=== PATIENT | female | born 1950 | race Caucasian/White ===

== ENCOUNTER 2022-06-30 11:25 | Emergency (ER) | payer MEDICARE, OTHER ==
[2022-06-30] MEDS ORDERED: KETOROLAC 15 MG/ML 1 ML VIAL IM STA (11:58)
--- NOTE | 2022-06-30 12:02 | ED ---
Lower Extremity Injury HPI - General Chief Complaint: Extremity Injury, Lower Stated Complaint: Knee injury Time Seen by Provider: 06/30/22 11:54 Source: patient, RN notes reviewed, old records reviewed Mode of arrival: ambulatory Limitations: no limitations - History of Present Illness Initial Comments: This is a nontoxic-appearing 71-year-old female that presents to the emergency room with complaints of right knee pain. Patient states that she was at the store yesterday and bent down to tie her shoe and was hit from behind falling forward onto her right knee. Patient states she does have chronic right knee pain and takes Absecon for her pain. Increased swelling and pain today prompted her to come to the emergency room for evaluation. Patient states has been ambulatory. Denies any other injury. Denies any medical history. Is a daily smoker. MD Complaint: knee injury (right) -: days(s) (1) Type of Injury: blunt (fall) Place: other (store) Severity scale (1-10): 10 Worsens With: palpation Context: fall Treatments Prior to Arrival: other (norco) - Related Data Previous Rx's Medication Instructions Recorded Ibuprofen [Motrin] 400 mg PO Q8HR PRN #30 tab 06/30/22 Allergies Allergy/AdvReac Type Severity Reaction Status Date / Time No Known Allergies Allergy Verified 06/30/22 11:51 Review of Systems ROS Statement: Those systems with pertinent positive or pertinent negative responses have been documented in the HPI. ROS Other: All systems not noted in ROS Statement are negative. Past Medical History Past Medical History: No Reported History Past Surgical History: No Surgical Hx Reported Smoking Status: Current every day smoker Past Alcohol Use History: None Reported Past Drug Use History: None Reported General Exam Limitations: no limitations General appearance: alert, in no apparent distress Head exam: Present: atraumatic Eye exam: Present: normal appearance. Absent: scleral icterus, conjunctival injection, periorbital swelling Respiratory exam: Absent: respiratory distress, accessory muscle use Cardiovascular Exam: Present: regular rate Right Hip exam: Present: full ROM. Absent: tenderness, swelling Upper Leg exam: Present: full ROM. Absent: tenderness, swelling Knee exam: Present: tenderness, swelling, ecchymosis, effusion, full knee extension. Absent: abrasion, laceration, dislocation, erythema Lower Leg exam: Absent: tenderness, swelling Ankle exam: Absent: tenderness, swelling Neurovascular tendon exam: Present: no vascular compromise. Absent: abnormal cap refill, extremity cold to touch, foot drop Neurological exam: Present: alert, oriented X3 Psychiatric exam: Present: normal affect, normal mood Skin exam: Present: warm, dry, normal color. Absent: cyanosis, diaphoretic, petechiae, pallor Course Vital Signs 06/30/22 06/30/22 11:49 12:40 Temperature 98.0 F 98.2 F Pulse Rate 82 56 L Respiratory 20 14 Rate Blood Pressure 110/71 103/68 O2 Sat by Pulse 95 96 Oximetry Medical Decision Making - Medical Decision Making Was pt. sent in by a medical professional or institution (, PA, WOMEN'S SOCCER COACH, urgent care, hospital, or group home...) When possible be specific @ -No Did you speak to anyone other than the patient for history (EMS, parent, family, police, friend...)? What history was obtained from this source @ -No Did you review nursing and triage notes (agree or disagree)? Why? @ -I reviewed and agree with nursing and triage notes Were old charts reviewed (outside hosp., previous admission, EMS record, old EKG, old radiological studies, urgent care reports/EKG's, group home records)? Report findings @ -No old charts were reviewed Differential Diagnosis (chest pain, altered mental status, abdominal pain women, abdominal pain men, vaginal bleeding, weakness, fever, dyspnea, syncope, headache, dizziness, GI bleed, back pain, seizure, CVA, palpatations, mental health, musculoskeletal)? @ -Fracture, dislocation, contusion, arthritis EKG interpreted by me (3pts min.). @ -n/a X-rays interpreted by me (1pt min.). @ -Yes. X-ray of the right knee interpreted by me shows no evidence of fracture or dislocation. Patella appears to be intact. Radiologist interpretation shows no acute fracture or dislocation. Severe narrowing and spurring medial tibial femoral compartment. Moderate narrowing and spurring patellofemoral compartment. Osseous structures are demineralized. CT interpreted by me (1pt min.). @ -None done U/S interpreted by me (1pt. min.). @ -None done What testing was considered but not performed or refused? (CT, X-rays, U/S, labs)? Why? @ -None What meds were considered but not given or refused? Why? @ -None Did you discuss the management of the patient with other professionals (professionals i.e. , PA, WOMEN'S SOCCER COACH, lab, RT, psych nurse, social services director, inspector clip on sunglasses, teacher, jail officer, upper caser)? Give summary @ -No Was smoking cessation discussed for >3mins.? @ -yes Was critical care preformed (if so, how long)? @ -No Were there social determinants of health that impacted care today? How? (Homel essness, low income, unemployed, alcoholism, drug addiction, transportation, low edu. Level, literacy, decrease access to med. care, senior care, rehab)? @ -No Was there de-escalation of care discussed even if they declined (Discuss DNR or withdrawal of care, Hospice)? DNR status @ -No What co-morbidities impacted this encounter? (DM, HTN, Smoking, COPD, CAD, Cancer, CVA, ARF, Chemo, Hep., AIDS, mental health diagnosis, sleep apnea, morbid obesity)? @ -Smoking Was patient admitted / discharged? Hospital course, mention meds given and route, prescriptions, significant lab abnormalities, going to OR and other pertinent info. @ -Discharged. Patient fell from a kneeling position onto her right knee yesterday with increased pain today. Patient has full range of motion of the knee, full extension and to 90. She states she does have arthritis in the knee which she takes Absecon for. She is able to ambulate and bear weight. Skin is intact. Patient instructed to continue her Absecon for pain in addition to topical pain relievers like Voltaren or capsaicin creams. Follow up with her primary care doctor as needed. Patient is agreeable able to this plan of care. Case discussed with Dr. Kenney Undiagnosed new problem with uncertain prognosis? @ -No Drug Therapy requiring intensive monitoring for toxicity (Heparin, Nitro, Insulin, Cardizem)? @ -No Were any procedures done? @ -No Diagnosis/symptom? @ -Internal derangement right knee Acute, or Chronic, or Acute on Chronic? @ -Acute on chronic Uncomplicated (without systemic symptoms) or Complicated (systemic symptoms)? @ -Uncomplicated Side effects of treatment? @ -No Exacerbation, Progression, or Severe Exacerbation? @ -No Poses a threat to life or bodily function? How? (Chest pain, [place], MD, pneumonia, PE, COPD, DKA, ARF, appy, cholecystitis, CVA, Diverticulitis, Homicidal, Suicidal, threat to staff... and all critical care pts) @ -No Disposition Clinical Impression: Internal derangement of right knee Disposition: HOME SELF-CARE Condition: Good Instructions (If sedation given, give patient instructions): Knee Pain (ED) Additional Instructions: Continue Absecon as previously prescribed for pain. You can also try [id number] topical medications like Voltaren or capsaicin creams. Follow-up with your primary care doctor next week. Return with any new or concerning symptoms. Prescriptions: Ibuprofen [Motrin] 400 mg PO Q8HR PRN #30 tab PRN Reason: Pain Is patient prescribed a controlled substance at d/c from ED?: No Referrals: Roxanna Barnes MD [Primary Care Provider] - 1-2 days Time of Disposition: 12:36
--- NOTE | 2022-06-30 12:28 | XR ---
EXAMINATION TYPE: XR knee 4V RT DATE OF EXAM: 06/30/2022 CLINICAL HISTORY: Fall injury with pain TECHNIQUE: Three views of the right knee are obtained. Fourth sunrise view. COMPARISON: None. FINDINGS: There is no acute fracture/dislocation evident in right knee. Severe narrowing and spurrin g medial tibial femoral compartment. Moderate narrowing and spurring patellofemoral compartment. Pat ellar articulation satisfactory on the sunrise view. Osseous structures are demineralized The overlyi ng soft tissue appears unremarkable. IMPRESSION: As above.
[2022-06-30 12:43] VITALS: BP 103/68; PULSE 56; RESP 14; TEMP 98.2
== END 2022-06-30 12:54 | disposition home or self-care (01) ==
LOC: EC 11:25
DX: M23.91 Unspecified internal derangement of right knee (principal); F17.200 Nicotine dependence, unspecified, uncomplicated; W18.30XA Fall on same level, unspecified, initial encounter; Y92.513 Shop (commercial) as the place of occurrence of the external cause
CPT/HCPCS: 73564; 99283; 96372; J1885

== ENCOUNTER → 2023-01-21 | Outpatient (CLI) | payer MEDICARE, OTHER ==
[2023-01-21 16:03] LABS: Calcium 9.1 mg/dL (8.7-10.3); Magnesium 2.2 mg/dL (1.5-2.4); Phosphorus 3.1 mg/dL (2.4-5.1); Potassium 4.2 mmol/L (3.5-5.5)
== END | disposition home or self-care (01) ==
LOC: LABMAIN 09:56
PROVIDERS: ATTEND Psychiatry & Neurology Neurology
DX: M62.838 Other muscle spasm (principal)
CPT/HCPCS: 82310; 82607; 83735; 84100; 84132; 84295

== ENCOUNTER 2023-08-18 22:52 | Emergency (ER) | payer MEDICARE, OTHER ==
[2023-08-18 23:04] VITALS: RESP 20
--- NOTE | 2023-08-19 00:23 | ED ---
General Adult HPI - General Chief complaint: Allergic Reaction Stated complaint: Facial swelling Time Seen by Provider: 08/18/23 23:19 Source: patient Mode of arrival: wheelchair Limitations: no limitations - History of Present Illness Initial comments: Dictation was produced using [employer] dictation software. please excuse any grammatical, word or spelling errors. Chief Complaint: 73-year-old female with facial swelling History of Present Illness: Patient 73-year-old female she has been dealing with intermittent episodes of facial swelling. Patient states she was put on a course of 5 days steroids prescribed in urgent care with almost complete resolution of symptoms until the steroids were discontinued. She follow-up with her primary care doctor and was given prescription for steroids however she fell asleep and was unable to roller picker her medications today now her pharmacy is not open until Sunday. Patient does not take lisinopril she has no history of angioedema. Patient is a tobacco user. She does feel like she has sensation like her throat is swollen. The ROS documented in this emergency department record has been reviewed and confirmed by me. Those systems with pertinent positive or negative responses have been documented in the HPI. All other systems are other negative and/or noncontributory. - Related Data Previous Rx's Medication Instructions Recorded Ibuprofen [Motrin] 400 mg PO Q8HR PRN #30 tab 06/30/22 Allergies Allergy/AdvReac Type Severity Reaction Status Date / Time No Known Allergies Allergy Verified 08/18/23 23:04 Review of Systems ROS Statement: Those systems with pertinent positive or pertinent negative responses have been documented in the HPI. ROS Other: All systems not noted in ROS Statement are negative. Past Medical History Past Medical History: No Reported History Past Surgical History: No Surgical Hx Reported Past Psychological History: Anxiety Smoking Status: Current every day smoker Past Alcohol Use History: None Reported Past Drug Use History: Marijuana General Exam - General Exam Comments Initial Comments: PHYSICAL EXAM: General Impression: Alert and oriented x3, not in acute distress, no stridor, periorbital swelling HEENT: Normocephalic atraumatic, extra-ocular movements intact, pupils equal and reactive to light bilaterally, mucous membranes moist. Cardiovascular: Heart regular rate and rhythm Chest: Able to complete full sentences, no retractions, no tachypnea Abdomen: abdomen soft, non-tender, non-distended, no organomegaly Musculoskeletal: Pulses present and equal in all extremities, no peripheral edema Motor: no focal deficits noted Neurological: CN II-XII grossly intact, no focal motor or sensory deficits noted Skin: Intact with no visualized rashes Psych: Normal affect and mood Limitations: no limitations Course Vital Signs 08/18/23 22:55 Temperature 98.3 F Pulse Rate 107 H Respiratory 20 Rate Blood Pressure 100/67 O2 Sat by Pulse 91 L Oximetry Medical Decision Making - Medical Decision Making Was pt. sent in by a medical professional or institution (, PA, LOG RAFTER, urgent care, hospital, or jail...) When possible be specific @ -No Did you speak to anyone other than the patient for history (EMS, parent, family, police, friend...)? What history was obtained from this source @ -No Did you review nursing and triage notes (agree or disagree)? Why? @ -I reviewed and agree with nursing and triage notes Were old charts reviewed (outside hosp., previous admission, EMS record, old EKG, old radiological studies, urgent care reports/EKG's, jail records)? Report findings @ -No old charts were reviewed Differential Diagnosis (chest pain, altered mental status, abdominal pain women, abdominal pain men, vaginal bleeding, musculoskeletal, weakness, fever, dyspnea, syncope, headache, dizziness, GI bleed, back pain, seizure, CVA, palpatations, mental health)? @ -Hereditary versus allergic angioedema, epiglottitis, EKG interpreted by me (3pts min.). @ -None done X-rays interpreted by me (1pt min.). @ -None done CT interpreted by me (1pt min.). @ -None done U/S interpreted by me (1pt. min.). @ -None done What testing was considered but not performed or refused? (CT, X-rays, U/S, labs)? Why? @ -None What meds were considered but not given or refused? Why? @ -None Was smoking cessation discussed for >3mins.? @ -No Were there social determinants of health that impacted care today? How? (Homelessness, low income, unemployed, alcoholism, drug addiction, transportation, low edu. Level, literacy, decrease access to med. care, halfway, rehab)? @ -No Was there de-escalation of care discussed even if they declined (Discuss DNR or withdrawal of care, Hospice)? DNR status @ -No What co-morbidities impacted this encounter? (DM, HTN, Smoking, COPD, CAD, Canc er, CVA, ARF, Chemo, Hep., AIDS, mental health diagnosis, sleep apnea, morbid obesity)? @ -None Was patient admitted / discharged? Hospital course, mention meds given and route, prescriptions, significant lab abnormalities, going to OR and other pertinent info. @ -73-year-old female presents emergency department facial swelling that she states is allergic in nature. Vital signs are stable. Patient is well- appearing she does have some swelling around her periorbital area. Vital signs are stable. Patient has no stridor not show any respiratory distress. Patient requesting medication to bridge her until Sunday when she can roller picker her steroid prescription. Patient agreeable for IM Decadron. Patient cleared for discharge. She has no oral swelling. Patient no acute distress. Return precautions discussed. Did you discuss the management of the patient with other professionals (professionals i.e. , PA, LOG RAFTER, lab, RT, psych nurse, social human services assistants, truck striker, teacher, division officer weapons department, case technician)? Give summary @ -No Was critical care preformed (if so, how long)? @ -No Undiagnosed new problem with uncertain prognosis? @ -No Drug Therapy requiring intensive monitoring for toxicity (Heparin, Nitro, Insulin, Cardizem)? @ -No Were any procedures done? @ -No Diagnosis/symptom? Acute, or Chronic, or Acute on Chronic? Uncomplicated (without systemic symptoms) or Complicated (systemic symptoms)? @ -Facial swelling, no obvious source Side effects of treatment? @ -No Exacerbation, Progression, or Severe Exacerbation? @ -No Poses a threat to life or bodily function? How? (Chest pain, [place], [place], pneumonia, PE, COPD, DKA, ARF, appy, cholecystitis, CVA, Diverticulitis, Homicidal, Suicidal, threat to staff... and all critical care pts) @ -No Disposition Clinical Impression: Facial swelling Disposition: HOME SELF-CARE Condition: Good Instructions (If sedation given, give patient instructions): Allergies (ED) Is patient prescribed a controlled substance at d/c from ED?: No Referrals: Ferdinand Marley MD [Primary Care Provider] - 1-2 days Miguel Hancock MD [STAFF PHYSICIAN] - 1-2 days Time of Disposition: 00:23
[2023-08-19] MEDS: DEXAMETHASONE SOD PHOSPHATE 10 MG/ML 1 ML VIAL IM STA (00:37)
[2023-08-19 01:18] VITALS: BP 122/92; PULSE 101; TEMP 98.2
== END 2023-08-19 00:41 | disposition home or self-care (01) ==
LOC: EC 22:52
DX: R22.9 Localized swelling, mass and lump, unspecified (principal); F17.200 Nicotine dependence, unspecified, uncomplicated; F12.90 Cannabis use, unspecified, uncomplicated
CPT/HCPCS: 99283; 96372; J1100

== ENCOUNTER 2023-09-21 19:44 | Inpatient (IN) | payer MEDICARE, OTHER ==
[~2023-09-21 19:44] MED LIST: PROPOFOL 10 MG/ML 50 ML VIAL IV ONE; SODIUM CHLORIDE 0.9% 1,000 ML BAG ONE; fentaNYL (PF) 50 MCG/ML 2 ML AMP ONE
[2023-09-21] MEDS ORDERED: fentaNYL (PF) 50 MCG/ML 20 ML VIAL ONE (19:50)
[2023-09-21] MEDS ORDERED: SODIUM CHLORIDE 0.9% 100 ML BAG IV ONE (19:50)
[2023-09-21] MEDS ORDERED: INSULIN REGULAR 100 UNIT/ML VIAL (IV) ONE (20:15)
[2023-09-21] MEDS ORDERED: CALCIUM GLUCONATE IN NACL 2 GM/100 ML IVPB ONE (20:50)
[2023-09-22] MEDS ORDERED: propofoL 100 ML IV ONE (03:02)
[2023-09-22] MEDS ORDERED: HEPARIN SODIUM,PORCINE 5,000 UNIT/ML 1 ML VIAL ONE ×2 (08:43→19:53)
[2023-09-22] MEDS ORDERED: methylPREDNISolone SOD SUCCI 125 MG/2 ML VIAL ONE ×3 (08:43→19:53)
[2023-09-22] MEDS ORDERED: FAMOTIDINE 20 MG/2 ML VIAL ONE ×2 (08:44→19:53)
[2023-09-22] MEDS ORDERED: BUDESONIDE 0.5 MG/2 ML NEBU ONE ×2 (17:29→23:59)
[2023-09-22] MEDS ORDERED: IPRATROPIUM-ALBUTEROL 3 ML NEB ONE (23:59)
[2023-09-23] MEDS ORDERED: methylPREDNISolone SOD SUCCI 125 MG/2 ML VIAL ONE ×5 (00:48→23:59)
[2023-09-23] MEDS ORDERED: IPRATROPIUM-ALBUTEROL 3 ML NEB ONE (07:54)
[2023-09-23] MEDS ORDERED: BUDESONIDE 0.5 MG/2 ML NEBU ONE ×2 (07:54→23:59)
[2023-09-23] MEDS ORDERED: HEPARIN SODIUM,PORCINE 5,000 UNIT/ML 1 ML VIAL ONE ×2 (09:05→20:20)
[2023-09-23] MEDS ORDERED: FAMOTIDINE 20 MG/2 ML VIAL ONE ×2 (09:05→20:20)
[2023-09-23] MEDS ORDERED: FUROSEMIDE 10 MG/ML 4 ML VIAL ONE (21:13)
[2023-09-23] MEDS ORDERED: PALIPERIDONE 3 MG TAB.ER.24 PO ONE (23:59)
[2023-09-23] MEDS ORDERED: SYMBICORT 160-4.5 MCG INHALER INHALATION ONE (23:59)
[2023-09-23] MEDS ORDERED: SODIUM CHLORIDE 0.9% 1,000 ML BAG ONE (23:59)
[2023-09-23] MEDS ORDERED: DEXTROSE 5%-0.45% NACL 1,000 ML BAG IV ONE (23:59)
[2023-09-23] MEDS ORDERED: INSULIN ASPART (NovoLOG) 100 UNIT/ML VIAL SQ ONE (23:59)
[2023-09-24] MEDS ORDERED: IPRATROPIUM-ALBUTEROL 3 ML NEB ONE ×2 (05:04→23:59)
[2023-09-24] MEDS ORDERED: methylPREDNISolone SOD SUCCI 125 MG/2 ML VIAL ONE ×3 (06:46→17:32)
[2023-09-24] MEDS ORDERED: FAMOTIDINE 20 MG/2 ML VIAL ONE ×2 (11:07→20:49)
[2023-09-24] MEDS ORDERED: HEPARIN SODIUM,PORCINE 5,000 UNIT/ML 1 ML VIAL ONE ×2 (11:07→20:49)
[2023-09-24] MEDS ORDERED: INSULIN ASPART (NovoLOG) 100 UNIT/ML VIAL SQ ONE (17:33)
[2023-09-24] MEDS ORDERED: HYDROcodone/APAP 10-325MG 1 EACH TAB ONE (20:54)
[2023-09-24] MEDS ORDERED: PALIPERIDONE 3 MG TAB.ER.24 PO ONE (23:59)
[2023-09-24] MEDS ORDERED: SYMBICORT 160-4.5 MCG INHALER INHALATION ONE (23:59)
[2023-09-25] MEDS ORDERED: IPRATROPIUM-ALBUTEROL 3 ML NEB ONE ×2 (04:57)
[2023-09-25] MEDS ORDERED: methylPREDNISolone SOD SUCCI 125 MG/2 ML VIAL ONE ×4 (06:37→17:24)
[2023-09-25] MEDS ORDERED: FAMOTIDINE 20 MG/2 ML VIAL ONE ×2 (10:27→20:10)
[2023-09-25] MEDS ORDERED: HEPARIN SODIUM,PORCINE 5,000 UNIT/ML 1 ML VIAL ONE ×2 (10:27→20:09)
[2023-09-25] MEDS ORDERED: METOPROLOL TARTRATE 12.5 MG TAB ONE ×2 (16:00→20:10)
[2023-09-25] MEDS ORDERED: INSULIN ASPART (NovoLOG) 100 UNIT/ML VIAL SQ ONE (17:25)
[2023-09-25] MEDS ORDERED: HYDROcodone/APAP 10-325MG 1 EACH TAB ONE (20:10)
[2023-09-25] MEDS ORDERED: diphenhydrAMINE 50 MG/ML 1 ML VIAL ONE (21:39)
[2023-09-25] MEDS ORDERED: PALIPERIDONE 3 MG TAB.ER.24 PO ONE (23:59)
[2023-09-25] MEDS ORDERED: SYMBICORT 160-4.5 MCG INHALER INHALATION ONE (23:59)
[2023-09-26] MEDS ORDERED: methylPREDNISolone SOD SUCCI 125 MG/2 ML VIAL ONE ×5 (00:19→23:57)
[2023-09-26] MEDS ORDERED: METOPROLOL TARTRATE 12.5 MG TAB ONE (06:36)
[2023-09-26] MEDS ORDERED: FAMOTIDINE 20 MG/2 ML VIAL ONE ×2 (09:10→20:46)
[2023-09-26] MEDS ORDERED: HEPARIN SODIUM,PORCINE 5,000 UNIT/ML 1 ML VIAL ONE ×2 (09:10→20:45)
[2023-09-26] MEDS ORDERED: DEXAMETHASONE SOD PHOSPHATE 10 MG/ML 1 ML VIAL ONE ×2 (12:01→12:20)
[2023-09-26] MEDS ORDERED: FUROSEMIDE 10 MG/ML 4 ML VIAL ONE (12:02)
[2023-09-26] MEDS ORDERED: INSULIN ASPART (NovoLOG) 100 UNIT/ML VIAL SQ ONE (12:57)
[2023-09-26] MEDS ORDERED: METOPROLOL TARTRATE 25 MG TAB ONE ×2 (16:36→20:46)
[2023-09-26] MEDS ORDERED: PIPERACILLIN-TAZOBACTAM 3.375 GM VIAL ONE ×2 (16:36→20:56)
[2023-09-26] MEDS ORDERED: guaiFENesin 600 MG TABLET.ER PO ONE (20:47)
[2023-09-26] MEDS ORDERED: VERAPAMIL 40 MG TAB ONE (23:59)
[2023-09-26] MEDS ORDERED: PALIPERIDONE 3 MG TAB.ER.24 PO ONE (23:59)
[2023-09-26] MEDS ORDERED: SODIUM CHLORIDE 0.9% 100 ML BAG ONE (23:59)
[2023-09-27] MEDS ORDERED: HYDROcodone/APAP 10-325MG 1 EACH TAB ONE (04:55)
[2023-09-27] MEDS ORDERED: PIPERACILLIN-TAZOBACTAM 3.375 GM VIAL ONE ×3 (06:34→20:57)
[2023-09-27] MEDS ORDERED: METOPROLOL TARTRATE 25 MG TAB ONE ×3 (06:34→20:57)
[2023-09-27] MEDS ORDERED: guaiFENesin 600 MG TABLET.ER PO ONE ×2 (11:14→20:57)
[2023-09-27] MEDS ORDERED: FAMOTIDINE 20 MG/2 ML VIAL ONE ×2 (11:14→20:58)
[2023-09-27] MEDS ORDERED: HEPARIN SODIUM,PORCINE 5,000 UNIT/ML 1 ML VIAL ONE ×2 (11:14→20:57)
[2023-09-27] MEDS ORDERED: methylPREDNISolone SOD SUCCI 125 MG/2 ML VIAL ONE ×2 (11:14→17:52)
[2023-09-27] MEDS ORDERED: INSULIN ASPART (NovoLOG) 100 UNIT/ML VIAL SQ ONE ×3 (17:53→23:59)
[2023-09-27] MEDS ORDERED: IPRATROPIUM-ALBUTEROL 3 ML NEB ONE ×2 (19:47→23:59)
[2023-09-27] MEDS ORDERED: SODIUM CHLORIDE 0.9% 100 ML BAG ONE (23:59)
[2023-09-27] MEDS ORDERED: SYMBICORT 160-4.5 MCG INHALER INHALATION ONE (23:59)
[2023-09-27] MEDS ORDERED: SODIUM CHLORIDE 0.9% 1,000 ML BAG ONE (23:59)
[2023-09-27] MEDS ORDERED: PALIPERIDONE 3 MG TAB.ER.24 PO ONE (23:59)
[2023-09-28] MEDS ORDERED: methylPREDNISolone SOD SUCCI 125 MG/2 ML VIAL ONE ×4 (00:30→23:43)
[2023-09-28] MEDS ORDERED: PIPERACILLIN-TAZOBACTAM 3.375 GM VIAL ONE ×3 (05:57→23:59)
[2023-09-28] MEDS ORDERED: METOPROLOL TARTRATE 25 MG TAB ONE ×2 (05:57→09:08)
[2023-09-28] MEDS ORDERED: POTASSIUM CHLORIDE ER 20 MEQ TAB.ER PO ONE (06:21)
[2023-09-28] MEDS ORDERED: HEPARIN SODIUM,PORCINE 5,000 UNIT/ML 1 ML VIAL ONE ×2 (09:08→20:08)
[2023-09-28] MEDS ORDERED: FAMOTIDINE 20 MG/2 ML VIAL ONE ×2 (09:08→20:08)
[2023-09-28] MEDS ORDERED: DILTIAZEM ORAL 30 MG TAB ONE ×3 (11:59→23:43)
[2023-09-28] MEDS ORDERED: TAMSULOSIN 0.4 MG CAP.ER.24H PO ONE (18:13)
[2023-09-28] MEDS ORDERED: METOPROLOL TARTRATE 50 MG TAB ONE (20:08)
[2023-09-28] MEDS ORDERED: WATER FOR INJECTION, STERILE 10 ML IV ONE (23:53)
[2023-09-28] MEDS ORDERED: POTASSIUM CHLORIDE 10 MEQ/100 ML BAG ONE (23:59)
[2023-09-28] MEDS ORDERED: IPRATROPIUM-ALBUTEROL 3 ML NEB ONE (23:59)
[2023-09-28] MEDS ORDERED: SYMBICORT 160-4.5 MCG INHALER INHALATION ONE (23:59)
[2023-09-28] MEDS ORDERED: SODIUM CHLORIDE 0.9% 100 ML BAG ONE ×2 (23:59)
[2023-09-28] MEDS ORDERED: DILTIAZEM DRIP BOLUS FROM BAG 1 MG SOLN IV ONE (23:59)
[2023-09-28] MEDS ORDERED: PALIPERIDONE 3 MG TAB.ER.24 PO ONE (23:59)
[2023-09-28] MEDS ORDERED: DILTIAZEM 125 MG/25 ML VIAL IV ONE (23:59)
[2023-09-29] MEDS ORDERED: PIPERACILLIN-TAZOBACTAM 3.375 GM VIAL ONE (05:39)
[2023-09-29] MEDS ORDERED: methylPREDNISolone SOD SUCCI 125 MG/2 ML VIAL ONE (05:39)
[2023-09-29] MEDS ORDERED: IPRATROPIUM-ALBUTEROL 3 ML NEB ONE (07:45)
[2023-09-29] MEDS ORDERED: ACETAMINOPHEN SUPPOSITORY 650 MG SUPP RECTAL PRN (10:31)
[2023-09-29] MEDS ORDERED: DEXTROSE 50% SYRINGE 50 ML IVP PRN (10:34)
[2023-09-29] MEDS ORDERED: NALOXONE 0.4 MG/ML 1 ML VIAL IV PRN (18:12)
[2023-09-29] MEDS ORDERED: SYMBICORT 160-4.5 MCG INHALER INHALATION ONE (23:59)
[2023-09-29] MEDS ORDERED: PALIPERIDONE 3 MG TAB.ER.24 PO ONE (23:59)
[2023-09-29] MEDS ORDERED: SODIUM CHLORIDE 0.9% 100 ML BAG ONE (23:59)
[2023-09-30] MEDS ORDERED: IPRATROPIUM-ALBUTEROL 3 ML NEB INHALATION PRN
[2023-09-30] MEDS: DEXTROSE 5%-0.45% NACL 1,000 ML IV SCH (03:30)
[2023-09-30] MEDS: NOREPINEPHRINE 4 MG in SODIUM CHLORIDE 0.9% 250 ML IV SCH (03:30)
[2023-09-30] MEDS: methylPREDNISolone SOD SUCCI 125 MG/2 ML VIAL IVP SCH (03:30)
[2023-09-30] MEDS: INSULIN ASPART (NovoLOG) 100 UNIT/ML VIAL SQ SCH ×2 (03:31→18:07)
[2023-09-30] MEDS: DILTIAZEM ORAL 30 MG TAB PO SCH (03:32)
[2023-09-30] MEDS ORDERED: PROPOFOL 10 MG/ML 20 ML VIAL IV ONE (05:40)
[2023-09-30] MEDS ORDERED: SUCCINYLCHOLINE CHLORIDE 200 MG/10 ML VIAL IV ONE (05:40)
[2023-09-30 05:57] LABS: Basophils % (A) 0 %; Eosinophils % (A) 0 %; HCT 45.6 % (34.0-46.0); HGB 14.2 gm/dL (11.4-16.0); Hypochromasia Marked; Lymphocytes # (A) 0.2 k/uL (1.0-4.8); Lymphocytes % (A) 3 %; MCH 31.1 pg (25.0-35.0); MCHC 31.2 g/dL (31.0-37.0); MCV 99.5 fL (80.0-100.0); Mean Platelet Volume 8.2; Monocytes # (A) 0.4 k/uL (0-1.0); Monocytes % (A) 5 %; Neutrophils % (A) 92 %; Platelet Count 138 k/uL (150-450); RBC 4.58 m/uL (3.80-5.40); RDW 13.6 % (11.5-15.5); WBC 8.7 k/uL (3.8-10.6)
[2023-09-30 06:23] LABS: African American GFR (CKD) >90 (>60 ml/min/1.73 sqM); Blood Urea Nitrogen 28 mg/dL (7-17); Calcium 8.9 mg/dL (8.4-10.2); Chloride 94 mmol/L (98-107); Glucose 129 mg/dL (74-99); Non-African American GFR(CKD) >90 (>60 ml/min/1.73 sqM); Potassium 3.2 mmol/L (3.5-5.1); Sodium 138 mmol/L (137-145)
[2023-09-30 06:30] LABS: Anion Gap 0 mmol/L
[2023-09-30 06:45] LABS: Carbon Dioxide 44 mmol/L (22-30)
[2023-09-30] MEDS: Magnesium Replacement Protocol 1 EACH MISC MISCELLANE ONE (06:50)
[2023-09-30] MEDS: Phosphorus Replacement Protoco 1 EACH MISC MISCELLANE ONE (06:50)
--- NOTE | 2023-09-30 07:30 | XR ---
EXAMINATION TYPE: XR chest 1V portable DATE OF EXAM: 09/30/2023 6:02 AM CLINICAL INDICATION: Female, 73 years old with history of Tube placement; [facility] COMPARISON: Chest radiographs from 03/23/2013 TECHNIQUE: XR chest 1V portable Frontal view of the chest. FINDINGS: Lungs/Pleura: Continue the left costophrenic angle. There is no evidence of right pleural effusion, f ocal consolidation, or pneumothorax. Pulmonary vascularity: Unremarkable. Heart/mediastinum: Cardiomediastinal silhouette is enlarged. Musculoskeletal: No acute osseous pathology. Other findings: None Lines/Tubes: Endotracheal tube with distal tip 4.0 cm above the isak. Nasogastric tube with its distal tip and side-port projecting under the diaphragm. IMPRESSION: Support tubes in appropriate position. Cardiomegaly and small left pleural effusion.
--- NOTE | 2023-09-30 07:32 | XR ---
EXAMINATION TYPE: XR chest 1V portable DATE OF EXAM: 09/30/2023 6:58 AM CLINICAL INDICATION: Female, 73 years old with history of tube moved; [facility] COMPARISON: Chest radiographs from 09/30/2023 TECHNIQUE: XR chest 1V portable Frontal view of the chest. FINDINGS: Lungs/Pleura: Increased opacification of the left lung with evidence of volume loss suggesting atelec tasis. Pulmonary vascularity: Unremarkable. Heart/mediastinum: Cardiomediastinal silhouette is unremarkable. Slight leftward shift of the medias tinum with loss obscuration of the left heart border new from immediate prior Musculoskeletal: No acute osseous pathology. Other findings: None Lines/Tubes: Endotracheal tube with distal tip 1.8 cm above the isak. Nasogastric tube with its distal tip and side-port projecting under the diaphragm. IMPRESSION: 1. Increased opacification of the left lung compared to immediate prior. Endotracheal tube appears above the isak. There is evidence of volume loss suggesting atelectasis. 2. Support tubes in satisfactory placement.
--- NOTE | 2023-09-30 07:58 | XR ---
EXAMINATION TYPE: XR chest 1V DATE OF EXAM: 09/30/2023 7:42 AM CLINICAL INDICATION: Female, 73 years old with history of Line placement; [facility] COMPARISON: Chest radiographs from Same day. TECHNIQUE: XR chest 1V Frontal view of the chest. FINDINGS: Lungs/Pleura: Improved aeration with small left pleural effusion. Possible layering right pleural eff usion. There is no evidence of pleural effusion, focal consolidation, or pneumothorax. Pulmonary vascularity: Unremarkable. Heart/mediastinum: Cardiomediastinal silhouette is unremarkable. Musculoskeletal: No acute osseous pathology. Other findings: None Lines/Tubes: Endotracheal tube with distal tip 5.8 cm above the isak. Nasogastric tube with side-port projecting over the distal esophagus. Right internal jugular central venous catheter with distal tip at the cavoatrial junction. IMPRESSION: 1. Improved aeration of the left lung from immediate prior. There remains small left pleural effusio n. 2. Endotracheal tube in satisfactory position. 3. Nasogastric tube side-port near the distal esophagus consider advancement of at least [address]ment.
[2023-09-30] MEDS: SODIUM CHLORIDE 0.9% 1,000 ML IV SCH (08:46)
[2023-09-30] MEDS: Potassium Replacement Protocol 1 EACH MISC MISCELLANE ONE (08:47)
[2023-09-30] MEDS: CISATRACURIUM 2 MG/ML 5 ML VIAL IV ONE (08:47)
[2023-09-30] MEDS: SODIUM CHLORIDE 0.9% 500 ML 500 ML IV ONE (08:47)
[2023-09-30] MEDS: METOPROLOL TARTRATE 50 MG TAB PO SCH (08:49)
[2023-09-30] MEDS: TAMSULOSIN 0.4 MG CAP.ER.24H PO SCH (08:50)
[2023-09-30 08:57] LABS: ABG PCO2 63 mmHg (35-45); ABG PH 7.49 (7.35-7.45); ABG PO2 77 mmHg (83-108); Allen Test Performed? Yes
[2023-09-30 08:58] LABS: ABG Base Excess 21.2 mmol/L; ABG HCO3 48 mmol/L (21-25); ABG TCO2 50 mmol/L (19-24)
[2023-09-30] MEDS: HEPARIN SODIUM,PORCINE 5,000 UNIT/ML 1 ML VIAL SQ SCH (09:03)
[2023-09-30] MEDS: FAMOTIDINE 20 MG/2 ML VIAL IVP SCH (09:03)
[2023-09-30] MEDS: PIPERACILLIN-TAZOBACTAM 3.375 GM in SODIUM CHLORIDE 0.9% 100 ML IVPB SCH (09:03)
[2023-09-30] MEDS: guaiFENesin 600 MG TABLET.ER PO SCH (09:03)
[2023-09-30] MEDS: CHLORHEXIDINE GLUCONATE 15 ML CUP MUCOUS MEM SCH (09:03)
[2023-09-30] MEDS: PALIPERIDONE 3 MG TAB.ER.24 PO SCH (09:03)
[2023-09-30] MEDS: SYMBICORT 160-4.5 MCG INHALER INHALATION SCH (09:04)
[2023-09-30] MEDS: IPRATROPIUM-ALBUTEROL 3 ML NEB INHALATION SCH (09:05)
[2023-09-30] MEDS: POTASSIUM BICARBONATE/CIT AC 20 MEQ TABLET.EFF NG-TUBE SCH ×2 (10:03→17:59)
--- NOTE | 2023-09-30 11:32 | P.PN ---
Subjective Progress Note Date: 09/30/23 Principal diagnosis: Acute hypoxic and hypercapnic respiratory failure secondary to acute COPD exacerbation and extensive left-sided pneumonia Patient was eval on 09/30/2023, patient has been on BiPAP for the last few days while in the ICU, however I was notified about this patient this morning becoming much worse clinically. Patient has been on 100% BiPAP with IPAP of 12 and EPAP of 6, however she developed worsening pulmonary status this morning, in spite of being on 100% FiO2, patient had her O2 saturation down in the low 70s. Patient was also noted to be coming more short of breath, and that she was having significant work of breathing. Hence as soon as I was notified about this patient, I recommended immediate intubation by G[employer] STONE CUTTER, and I came in and evaluated the patient after she was intubated, reviewed her chest x-ray and I performed bronchoscopy and BAL/therapeutic BAL of the left lung with significant improvement noted after bronchoscopy. Patient also had central line placed since she was hypotensive and requiring norepinephrine. 0.08 mcg/kg/min. Vent ilator settings are assist-control rate of 20, tidal volume 350, FiO2 100% and PEEP of 8 showed a pO2 of 77 pCO2 63 pH of 7.49 no changes were made in the ventilator settings, and advised respiratory to titrate FiO2 accordingly maintaining O2 sats above 91% WBC count today is 8.7 hemoglobin 14.2 hematocrit is 45.6. Electrolytes are normal except for low potassium of 3.2 being addressed and her renal status is normal bicarb is 44 Objective - Vital Signs Vital signs: Vital Signs Temp 99.3 F 09/30/23 08:00 Pulse 76 09/30/23 10:00 Resp 20 09/30/23 10:00 BP 86/60 09/30/23 10:00 Pulse Ox 95 09/30/23 10:00 FiO2 90 09/30/23 09:01 Intake & Output 09/29/23 09/30/23 09/30/23 18:59 06:59 18:59 Intake Total 748.644 Output Total 175 135 Balance -175 613.644 Weight 56 kg 54.6 kg Intake: IV 725 Sodium Chloride 0.9% 1, 225 000 ml @ 75 mls/hr IV . [id number] [facility] Rx#:[id number] Sodium Chloride 0.9% 500 500 ml 500 ml @ 999 mls/hr IV .Q31M ONE Rx#:[id number] Intake, IV Titration 23.644 Amount Norepinephrine 4 mg In 8.001 Sodium Chloride 0.9% 250 ml @ 0.03 MCG/KG/MIN 6. 401 mls/hr IV .Q24H [facility] Rx#:[id number] propofoL 1,000 mg In 15.643 Empty Bag 1 bag @ 15 MCG/ KG/MIN 4.914 mls/hr IV . [id number] [facility] Rx#:[id number] Output: Urine 175 135 Other: Voiding Method Indwelling Catheter Indwelling Catheter ABP, PAP, CO, CI - Last Documented Arterial Blood Pressure 119/63 - Exam General: Frail looking female, chronically ill looking, intubated and mechanically ventilated. Skin: Skin is warm and dry and no rashes or lesions are noted. Eye: Pupils are equal, round and reactive to light, extra-ocular movements are intact; there is normal conjunctiva bilaterally. Ears, nose, mouth and throat: There are moist mucous membranes and no oral lesions. Neck: The neck is supple, there is no tenderness or JVD. Tracheal tube and orogastric tube are intact. Cardiovascular: There is a regular rate and rhythm. No murmur, rub or gallop is appreciated. Respiratory: Diminished breath sounds on the left side, scattered rhonchi noted. Gastrointestinal: Soft, non-distended, non-tender abdomen without masses or organomegaly noted. There is no rebound or guarding present. Bowel sounds are unremarka Musculoskeletal: Patient looks frail, and she has significant muscle wasting and atrophy noted bilaterally. Neurological: Could not assess, patient is sedated, on propofol. Psychiatric: Could not assess. - Labs CBC & Chem 7: 09/30/23 05:16 09/30/23 05:16 Labs: Abnormal Lab Results - Last 24 Hours (Table) 09/30/23 09/30/23 09/30/23 Range/Units 05:16 05:16 08:40 Plt Count 138 L (150-450) k/uL Neutrophils # 8.0 H (1.3-7.7) k/uL Lymphocytes # 0.2 L (1.0-4.8) k/uL ABG pH 7.49 H (7.35-7.45) ABG pCO2 63 H (35-45) mmHg ABG pO2 77 L (83-108) mmHg ABG HCO3 48 H* (21-25) mmol/L ABG Total CO2 50 H (19-24) mmol/L Potassium 3.2 L (3.5-5.1) mmol/L Chloride 94 L (98-107) mmol/L Carbon Dioxide 44 H* (22-30) mmol/L BUN 28 H (7-17) mg/dL Creatinine 0.39 L (0.52-1.04) mg/dL Glucose 129 H (74-99) mg/dL Assessment and Plan Assessment: Impression: Acute on chronic hypoxic and hypercapnic respiratory failure, multifactorial, requiring intubation mechanical ventilation last week, and reintubation today. Acute COPD exacerbation Left lung pneumonia, possibly hospital-acquired pneumonia with complete opac ification of the left lung secondary to mucous plugging, requiring bronchoscopy and BAL of the left lung. Chronic hypoxic and hypercapnic respiratory failure Chronic pain syndrome Recommendations: Continue ventilatory support Continue hemodynamic support patient developed hypotension post intubation most likely secondary to medication including narcotics and muscle paralytic agents, doubt sepsis and/or septic shock. Continue antibiotics/Zosyn Cultures from BAL are pending Nutritional support/enteral feeding Continue GI and DVT prophylaxis Continue bronchodilators and steroids Address ventilator settings accordingly based on ABG on a daily basis Daily x-rays of the chest and daily ABGs with daily labs Patient is extremely ill and I have touched bases with the patient and her few days ago regarding her CODE STATUS, and both insisted on full CODE STATUS. Knowing in fact that she may eventually require tracheostomy and PEG tube placement. Critical care time is over 30 minutes not including the time spent on procedures Time with Patient: Greater than 30
--- NOTE | 2023-09-30 11:34 | P.PN ---
Subjective Please note Electronic system was done up to 09/29/2023 and everything was documented on paper chart. This is a pleasant 73 years old female who presents with fall and tibial fracture at home she has been evaluated by orthopedic team and cleared for discharge however her creatinine was trending up and patient be was oliguric. Patient involved by nephrology has not been treated carefully with IV fluid and Lasix with no much improvement. Nephrology team are considering renal replacement therapy and patient and family aware and agreeable. Yesterday patient developed hypotension and chest x-ray showing pneumonia, she was started on Zosyn and transferred to the ICU when she was started on Levophed vasopressors at 0.04 which is similar rate today at 0.038. She is awake alert, lethargic, mildly tachypneic. No abdominal pain. She is morbidly obese. Yoo catheter in place with minimal urine output, urine is dark. Patient herself denies symptoms and states she is better. Blood pressure 86/60, platelet 20, heart rate 76, she is saturating 95% on room air labs: pH 7.49, pCO2 little high 63 and pO2 of 77 heart rate 89 breathing rate 15 she is afebrile. Saturating 95% on room air. CBC is unremarkable except for low platelet count 138. WBC 8.7. Sodium 138, potassium 3.2, creatinine 0.39 Review of systems CONSTITUTIONAL: No fever, no malaise, no fatigue. HEENT: No recent visual problems or hearing problems. Denied any sore throat. CARDIOVASCULAR: No orthopnea, PND, no palpitations, no syncope. HEMATOLOGICAL: Denies any bleeding or petechiae. GENITOURINARY: Denies any burning micturition, frequency, or urgency. MUSCULOSKELETAL/RHEUMATOLOGICAL: Denies any joint pain, swelling, or any muscle pain. ENDOCRINE: Denies any polyuria or polydipsia. Active Medications Generic Name Dose Route Start Last Admin Trade Name Freq PRN Reason Stop Dose Admin Acetaminophen 650 mg 09/29/23 10:31 Acetaminophen Suppository 650 Mg Supp RECTAL Q4H PRN PAIN 1-3 OR TEMP >101F Hydrocodone Bitart/Acetaminophen 1 each 09/29/23 10:32 Hydrocodone/Apap 10-325mg 1 Each Tab PO TID PRN MODERATE PAIN Albuterol/Ipratropium 3 ml 09/30/23 08:00 09/30/23 09:05 Ipratropium-Albuterol 3 Ml Neb INHALATION 3 ml RT-QID [facility] Administration Albuterol/Ipratropium 3 ml 09/30/23 00:00 Ipratropium-Albuterol 3 Ml Neb INHALATION RT-Q2H PRN SHORTNESS OF BREATH/ WHEEZING Budesonide 1 mg 09/30/23 20:00 Budesonide 1 Mg/2 Ml Nebu INHALATION RT-BID [facility] Chlorhexidine Gluconate 15 ml 09/30/23 09:00 09/30/23 09:03 Chlorhexidine Gluconate 15 Ml Cup MUCOUS MEM 15 ml BID [facility] Administration Dextrose/Water 25 ml 09/29/23 10:34 Dextrose 50% Syringe 50 Ml IVP PER PROTOCOL PRN Hypoglycemia Protocol Dextrose/Water 50 ml 09/29/23 10:34 Dextrose 50% Syringe 50 Ml IVP PER PROTOCOL PRN Hypoglycemia Protocol Diltiazem HCl 30 mg 09/30/23 00:00 09/30/23 08:48 Diltiazem Oral 30 Mg Tab PO Not Given Q6HR [facility] Famotidine 20 mg 09/30/23 09:00 09/30/23 09:03 Famotidine 20 Mg/2 Ml Vial IVP 20 mg Q12HR [facility] Administration Formoterol Fumarate 20 mcg 09/30/23 20:00 Formoterol Fumarate 20 Mcg/2 Ml Nebu INHALATION RT-BID [facility] Guaifenesin 600 mg 09/30/23 09:00 09/30/23 09:03 Guaifenesin 600 Mg Tablet.Er PO 600 mg BID [facility] Administration Heparin Sodium (Porcine) 5,000 unit 09/30/23 09:00 09/30/23 09:03 Heparin Sodium,Porcine 5,000 Unit/Ml 1 Ml Vial SQ 5,000 unit Q12HR [facility] Administration Piperacillin Sod/Tazobactam 100 mls @ 25 mls/hr 09/30/23 08:00 09/30/23 09:03 Sod 3.375 gm/ Sodium Chloride IVPB 25 mls/hr Q8HR [facility] Administration Norepinephrine Bitartrate 4 mg 254 mls @ 6.401 mls/hr 09/29/23 10:30 09/30/23 09:15 / Sodium Chloride IV 0.06 mcg/kg/min .Q24H [facility] 12.802 mls/hr Titration Protocol 0.03 MCG/KG/MIN Propofol 1,000 mg/ IV Solution 100 mls @ 4.914 mls/hr 09/30/23 05:30 09/30/23 10:01 IV 50 mcg/kg/min .[id number] [facility] 16.38 mls/hr Administration Protocol 15 MCG/KG/MIN Sodium Chloride 1,000 mls @ 75 mls/hr 09/30/23 08:30 09/30/23 08:46 Saline 0.9% IV 75 mls/hr .[id number] [facility] Administration Insulin Aspart 0 unit 09/29/23 12:30 09/30/23 09:19 Insulin Aspart (Novolog) 100 Unit/Ml Vial SQ Not Given ACHS [facility] Protocol Methylprednisolone Sodium Succinate 60 mg 09/29/23 00:00 09/30/23 08:48 Methylprednisolone Sod Succi 125 Mg/2 Ml Vial IVP Not Given Q6HR [facility] Metoprolol Tartrate 50 mg 09/30/23 09:00 09/30/23 08:49 Metoprolol Tartrate 50 Mg Tab PO Not Given BID [facility] Naloxone HCl 0.2 mg 09/29/23 18:12 Naloxone 0.4 Mg/Ml 1 Ml Vial IV Q2M PRN Opioid Reversal Paliperidone 3 mg 09/30/23 09:00 09/30/23 09:03 Paliperidone 3 Mg Tab.Er.24 PO 3 mg DAILY [facility] Administration Tamsulosin HCl 0.4 mg 09/30/23 09:00 09/30/23 08:50 Tamsulosin 0.4 Mg Cap.Er.24h PO Not Given DAILY [facility] Objective - Vital Signs Vital signs: Vital Signs Temp 99.3 F 09/30/23 08:00 Pulse 76 09/30/23 10:00 Resp 20 09/30/23 10:00 BP 86/60 09/30/23 10:00 Pulse Ox 95 09/30/23 10:00 FiO2 90 09/30/23 09:01 Intake & Output 09/29/23 09/30/23 09/30/23 18:59 06:59 18:59 Intake Total 748.644 Output Total 175 135 Balance -175 613.644 Weight 56 kg 54.6 kg Intake: IV 725 Sodium Chloride 0.9% 1, 225 000 ml @ 75 mls/hr IV . [id number] [facility] Rx#:[id number] Sodium Chloride 0.9% 500 500 ml 500 ml @ 999 mls/hr IV .Q31M ONE Rx#:[id number] Intake, IV Titration 23.644 Amount Norepinephrine 4 mg In 8.001 Sodium Chloride 0.9% 250 ml @ 0.03 MCG/KG/MIN 6. 401 mls/hr IV .Q24H [facility] Rx#:[id number] propofoL 1,000 mg In 15.643 Empty Bag 1 bag @ 15 MCG/ KG/MIN 4.914 mls/hr IV . [id number] [facility] Rx#:[id number] Output: Urine 175 135 Other: Voiding Method Indwelling Catheter Indwelling Catheter ABP, PAP, CO, CI - Last Documented Arterial Blood Pressure 119/63 - Exam -GENERAL: The patient is alert and oriented x3, not in any acute distress. Well developed, well nourished. Morbidly obese. Looks tired and lethargic HEENT: Pupils are round and equally reacting to light. EOMI. No scleral icterus. No conjunctival pallor. Normocephalic, atraumatic. No pharyngeal erythema. No thyromegaly. CARDIOVASCULAR: S1 and S2 present. No murmurs, rubs, or gallops. PULMONARY: Chest is clear to auscultation, no wheezing , no crackles. ABDOMEN: Soft, nontender, nondistended, normoactive bowel sounds. No palpable organomegaly. MUSCULOSKELETAL: No joint swelling or deformity. EXTREMITIES: No cyanosis, clubbing, or pedal edema. NEUROLOGICAL: Gross neurological examination did not reveal any focal deficits. SKIN: No rashes. no petechiae. - Labs CBC & Chem 7: 09/30/23 05:16 09/30/23 05:16 Labs: Abnormal Lab Results - Last 24 Hours (Table) 09/30/23 09/30/23 09/30/23 Range/Units 05:16 05:16 08:40 Plt Count 138 L (150-450) k/uL Neutrophils # 8.0 H (1.3-7.7) k/uL Lymphocytes # 0.2 L (1.0-4.8) k/uL ABG pH 7.49 H (7.35-7.45) ABG pCO2 63 H (35-45) mmHg ABG pO2 77 L (83-108) mmHg ABG HCO3 48 H* (21-25) mmol/L ABG Total CO2 50 H (19-24) mmol/L Potassium 3.2 L (3.5-5.1) mmol/L Chloride 94 L (98-107) mmol/L Carbon Dioxide 44 H* (22-30) mmol/L BUN 28 H (7-17) mg/dL Creatinine 0.39 L (0.52-1.04) mg/dL Glucose 129 H (74-99) mg/dL Assessment and Plan Assessment: Septic shock Basal pneumonia Acute hypoxic respiratory failure Oliguric acute kidney injury Fibula fracture evaluated by orthopedic Morbid obesity continue with Zosyn Continue Lopressor Continue with oxygen therapy and bronchodilator Pulmonary/critical care team consulted Nephrology following for Plan: Renal function evaluating for possible renal replacement therapy Follow-up culture results GI and DVT prophylaxis Prognosis is guarded Family at bedside and all questions were answered
--- NOTE | 2023-09-30 11:55 | P.PN ---
Subjective Please note Electronic system was done up to 09/29/2023 and everything was documented on paper chart. This is a pleasant 73 years old female who presents with fall and tibial fracture at home she has been evaluated by orthopedic team and cleared for discharge however her creatinine was trending up and patient be was oliguric. Patient involved by nephrology has not been treated carefully with IV fluid and Lasix with no much improvement. Nephrology team are considering renal replacement therapy and patient and family aware and agreeable. Yesterday patient developed hypotension and chest x-ray showing pneumonia, she was started on Zosyn and transferred to the ICU when she was started on Levophed vasopressors at 0.04 which is similar rate today at 0.038. She is awake alert, lethargic, mildly tachypneic. No abdominal pain. She is morbidly obese. Yoo catheter in place with minimal urine output, urine is dark. Patient herself denies symptoms and states she is better. Blood pressure 86/60, platelet 20, heart rate 76, she is saturating 95% on room air labs: pH 7.49, pCO2 little high 63 and pO2 of 77 heart rate 89 breathing rate 15 she is afebrile. Saturating 95% on room air. CBC is reviewed showing WBC 11.3, platelet count 126. Hemoglobin normal at 12.5 Creatinine 3.2, sodium 134. Creatinine kinase 275. Urine analysis is turbid with large blood and leukocyte esterase and WBC Review of systems CONSTITUTIONAL: No fever, no malaise, no fatigue. HEENT: No recent visual problems or hearing problems. Denied any sore throat. CARDIOVASCULAR: No orthopnea, PND, no palpitations, no syncope. HEMATOLOGICAL: Denies any bleeding or petechiae. GENITOURINARY: Denies any burning micturition, frequency, or urgency. MUSCULOSKELETAL/RHEUMATOLOGICAL: Denies any joint pain, swelling, or any muscle pain. ENDOCRINE: Denies any polyuria or polydipsia. Active Medications Generic Name Dose Route Start Last Admin Trade Name Freq PRN Reason Stop Dose Admin Acetaminophen 650 mg 09/29/23 10:31 Acetaminophen Suppository 650 Mg Supp RECTAL Q4H PRN PAIN 1-3 OR TEMP >101F Hydrocodone Bitart/Acetaminophen 1 each 09/29/23 10:32 Hydrocodone/Apap 10-325mg 1 Each Tab PO TID PRN MODERATE PAIN Albuterol/Ipratropium 3 ml 09/30/23 08:00 09/30/23 09:05 Ipratropium-Albuterol 3 Ml Neb INHALATION 3 ml RT-QID [facility]IRA Administration Albuterol/Ipratropium 3 ml 09/30/23 00:00 Ipratropium-Albuterol 3 Ml Neb INHALATION RT-Q2H PRN SHORTNESS OF BREATH/ WHEEZING Budesonide 1 mg 09/30/23 20:00 Budesonide 1 Mg/2 Ml Nebu INHALATION RT-BID SHIRA Chlorhexidine Gluconate 15 ml 09/30/23 09:00 09/30/23 09:03 Chlorhexidine Gluconate 15 Ml Cup MUCOUS MEM 15 ml BID [facility] Administration Dextrose/Water 25 ml 09/29/23 10:34 Dextrose 50% Syringe 50 Ml IVP PER PROTOCOL PRN Hypoglycemia Protocol Dextrose/Water 50 ml 09/29/23 10:34 Dextrose 50% Syringe 50 Ml IVP PER PROTOCOL PRN Hypoglycemia Protocol Diltiazem HCl 30 mg 09/30/23 00:00 09/30/23 08:48 Diltiazem Oral 30 Mg Tab PO Not Given Q6HR [facility] Famotidine 20 mg 09/30/23 09:00 09/30/23 09:03 Famotidine 20 Mg/2 Ml Vial IVP 20 mg Q12HR [facility] Administration Formoterol Fumarate 20 mcg 09/30/23 20:00 Formoterol Fumarate 20 Mcg/2 Ml Nebu INHALATION RT-BID [facility] Guaifenesin 600 mg 09/30/23 09:00 09/30/23 09:03 Guaifenesin 600 Mg Tablet.Er PO 600 mg BID [facility] Administration Heparin Sodium (Porcine) 5,000 unit 09/30/23 09:00 09/30/23 09:03 Heparin Sodium,Porcine 5,000 Unit/Ml 1 Ml Vial SQ 5,000 unit Q12HR [facility] Administration Piperacillin Sod/Tazobactam 100 mls @ 25 mls/hr 09/30/23 08:00 09/30/23 09:03 Sod 3.375 gm/ Sodium Chloride IVPB 25 mls/hr Q8HR [facility] Administration Norepinephrine Bitartrate 4 mg 254 mls @ 6.401 mls/hr 09/29/23 10:30 09/30/23 09:15 / Sodium Chloride IV 0.06 mcg/kg/min .Q24H [facility] 12.802 mls/hr Titration Protocol 0.03 MCG/KG/MIN Propofol 1,000 mg/ IV Solution 100 mls @ 4.914 mls/hr 09/30/23 05:30 09/30/23 10:01 IV 50 mcg/kg/min .[id number] [facility] 16.38 mls/hr Administration Protocol 15 MCG/KG/MIN Sodium Chloride 1,000 mls @ 75 mls/hr 09/30/23 08:30 09/30/23 08:46 Saline 0.9% IV 75 mls/hr .[id number] [facility] Administration Insulin Aspart 0 unit 09/29/23 12:30 09/30/23 09:19 Insulin Aspart (Novolog) 100 Unit/Ml Vial SQ Not Given ACHS [facility] Protocol Methylprednisolone Sodium Succinate 60 mg 09/29/23 00:00 09/30/23 08:48 Methylprednisolone Sod Succi 125 Mg/2 Ml Vial IVP Not Given Q6HR [facility] Metoprolol Tartrate 50 mg 09/30/23 09:00 09/30/23 08:49 Metoprolol Tartrate 50 Mg Tab PO Not Given BID [facility] Naloxone HCl 0.2 mg 09/29/23 18:12 Naloxone 0.4 Mg/Ml 1 Ml Vial IV Q2M PRN Opioid Reversal Paliperidone 3 mg 09/30/23 09:00 09/30/23 09:03 Paliperidone 3 Mg Tab.Er.24 PO 3 mg DAILY [facility] Administration Tamsulosin HCl 0.4 mg 09/30/23 09:00 09/30/23 08:50 Tamsulosin 0.4 Mg Cap.Er.24h PO Not Given DAILY [facility] Objective - Vital Signs Vital signs: Vital Signs Temp 99.3 F 09/30/23 08:00 Pulse 76 09/30/23 10:00 Resp 20 09/30/23 10:00 BP 86/60 09/30/23 10:00 Pulse Ox 95 09/30/23 10:00 FiO2 90 09/30/23 09:01 Intake & Output 09/29/23 09/30/23 09/30/23 18:59 06:59 18:59 Intake Total 748.644 Output Total 175 135 Balance -175 613.644 Weight 56 kg 54.6 kg Intake: IV 725 Sodium Chloride 0.9% 1, 225 000 ml @ 75 mls/hr IV . [id number] [facility] Rx#:[id number] Sodium Chloride 0.9% 500 500 ml 500 ml @ 999 mls/hr IV .Q31M [facility] Rx#:[id number] Intake, IV Titration 23.644 Amount Norepinephrine 4 mg In 8.001 Sodium Chloride 0.9% 250 ml @ 0.03 MCG/KG/MIN 6. 401 mls/hr IV .Q24H [facility] Rx#:[id number] propofoL 1,000 mg In 15.643 Empty Bag 1 bag @ 15 MCG/ KG/MIN 4.914 mls/hr IV . [id number] [facility] Rx#:[id number] Output: Urine 175 135 Other: Voiding Method Indwelling Catheter Indwelling Catheter ABP, PAP, CO, CI - Last Documented Arterial Blood Pressure 119/63 - Exam -GENERAL: The patient is alert and oriented x3, not in any acute distress. Well developed, well nourished. Morbidly obese. Looks tired and lethargic HEENT: Pupils are round and equally reacting to light. EOMI. No scleral icterus. No conjunctival pallor. Normocephalic, atraumatic. No pharyngeal erythema. No thyromegaly. CARDIOVASCULAR: S1 and S2 present. No murmurs, rubs, or gallops. PULMONARY: Chest is clear to auscultation, no wheezing , no crackles. ABDOMEN: Soft, nontender, nondistended, normoactive bowel sounds. No palpable organomegaly. MUSCULOSKELETAL: No joint swelling or deformity. EXTREMITIES: No cyanosis, clubbing, or pedal edema. NEUROLOGICAL: Gross neurological examination did not reveal any focal deficits. SKIN: No rashes. no petechiae. - Labs CBC & Chem 7: 09/30/23 05:16 09/30/23 05:16 Labs: Abnormal Lab Results - Last 24 Hours (Table) 09/30/23 09/30/23 09/30/23 Range/Units 05:16 05:16 08:40 Plt Count 138 L (150-450) k/uL Neutrophils # 8.0 H (1.3-7.7) k/uL Lymphocytes # 0.2 L (1.0-4.8) k/uL ABG pH 7.49 H (7.35-7.45) ABG pCO2 63 H (35-45) mmHg ABG pO2 77 L (83-108) mmHg ABG HCO3 48 H* (21-25) mmol/L ABG Total CO2 50 H (19-24) mmol/L Potassium 3.2 L (3.5-5.1) mmol/L Chloride 94 L (98-107) mmol/L Carbon Dioxide 44 H* (22-30) mmol/L BUN 28 H (7-17) mg/dL Creatinine 0.39 L (0.52-1.04) mg/dL Glucose 129 H (74-99) mg/dL Assessment and Plan Assessment: Septic shock Basal pneumonia Acute hypoxic respiratory failure Oliguric acute kidney injury Fibula fracture evaluated by orthopedic Morbid obesity continue with Zosyn Continue Lopressor Continue with oxygen therapy and bronchodilator Pulmonary/critical care team consulted Nephrology following for Plan: Renal function evaluating for possible renal replacement therapy Follow-up culture results GI and DVT prophylaxis Prognosis is guarded Family at bedside and all questions were answered
--- NOTE | 2023-09-30 12:00 | P.PN ---
Subjective Progress Note Date: 09/30/23 SUBJECTIVE: Frail-appearing, still requiring BiPAP support, has small pleural effusion on chest x-ray, getting hypoxic without the use of BiPAP, still appearing to have irregular pulses most likely because of PACs and PVCs PHYSICAL EXAMINATION Frail-appearing, on BiPAP Neck: no jugular venous distention. Lungs: Diminished breath sounds, crackles and wheezing audible Heart: Irregular pulse due to PVCs Abdomen: Soft nontender, bowel sounds present, Extremities: No edema, Neuro: Alert, oriented, no focal neurological deficits. Detailed neuro exam was not performed. ASSESSMENT Acute hypoxic respiratory failure Severe pulmonary hypertension Small pleural effusion Sinus rhythm with frequent PACs and PVCs. No clear evidence of atrial fibrillation at present PLAN Continue metoprolol 50 mg twice daily. Monitor electrolytes. Keep potassium at 4, magnesium at 2. Monitor telemetry Vamsi Wlilson MD, FACC, RPVI Thank you for allowing [facility] to participate in this patient's care. Please contact us in case of any followup questions. Objective - Vital Signs Vital signs: Vital Signs Temp 99.3 F 09/30/23 08:00 Pulse 76 09/30/23 10:00 Resp 20 09/30/23 10:00 BP 86/60 09/30/23 10:00 Pulse Ox 95 09/30/23 10:00 FiO2 90 09/30/23 09:01 Intake & Output 09/29/23 09/30/23 09/30/23 18:59 06:59 18:59 Intake Total 748.644 Output Total 175 135 Balance -175 613.644 Weight 56 kg 54.6 kg Intake: IV 725 Sodium Chloride 0.9% 1, 225 000 ml @ 75 mls/hr IV . [id number] [facility] Rx#:[id number] Sodium Chloride 0.9% 500 500 ml 500 ml @ 999 mls/hr IV .Q31M [facility] Rx#:[id number] Intake, IV Titration 23.644 Amount Norepinephrine 4 mg In 8.001 Sodium Chloride 0.9% 250 ml @ 0.03 MCG/KG/MIN 6. 401 mls/hr IV .Q24H [facility] Rx#:[id number] propofoL 1,000 mg In 15.643 Empty Bag 1 bag @ 15 MCG/ KG/MIN 4.914 mls/hr IV . [id number] [facility] Rx#:[id number] Output: Urine 175 135 Other: Voiding Method Indwelling Catheter Indwelling Catheter ABP, PAP, CO, CI - Last Documented Arterial Blood Pressure 119/63 - Labs CBC & Chem 7: 09/30/23 05:16 09/30/23 05:16 Labs: Abnormal Lab Results - Last 24 Hours (Table) 09/30/23 09/30/23 09/30/23 Range/Units 05:16 05:16 08:40 Plt Count 138 L (150-450) k/uL Neutrophils # 8.0 H (1.3-7.7) k/uL Lymphocytes # 0.2 L (1.0-4.8) k/uL ABG pH 7.49 H (7.35-7.45) ABG pCO2 63 H (35-45) mmHg ABG pO2 77 L (83-108) mmHg ABG HCO3 48 H* (21-25) mmol/L ABG Total CO2 50 H (19-24) mmol/L Potassium 3.2 L (3.5-5.1) mmol/L Chloride 94 L (98-107) mmol/L Carbon Dioxide 44 H* (22-30) mmol/L BUN 28 H (7-17) mg/dL Creatinine 0.39 L (0.52-1.04) mg/dL Glucose 129 H (74-99) mg/dL
--- NOTE | 2023-09-30 12:11 | P.PN ---
Subjective This is a pleasant 73 years old female who presents with respiratory distress secondary to acute COPD exacerbation She has been monitored in the ICU for several days requiring BiPAP most of the time. Yesterday she got more respiratory distress and she got intubated. Patient currently on mechanical ventilation and sedated. Patient is afebrile Respiratory rate 2020, blood pressure 91/58, heart rate 79. Oxygen saturation 95% CBC is unremarkable except for mild thrombocytopenia 138. pH 7.49, pCO2 63. Sodium 138, potassium 3.2 Carbon dioxide is 44. Creatinine normal 0.39. Chest x-ray from today: 1. Improved aeration of the left lung from immediate prior. There remains small left pleural effusion. 2. Endotracheal tube in satisfactory position. 3. Nasogastric tube side-port near the distal esophagus consider advancement of at least 5 cm for placement. Objective - Vital Signs Vital signs: Vital Signs Temp 99.3 F 09/30/23 08:00 Pulse 79 09/30/23 12:00 Resp 21 09/30/23 12:00 BP 91/58 09/30/23 12:00 Pulse Ox 95 09/30/23 12:00 FiO2 90 09/30/23 10:45 Intake & Output 09/29/23 09/30/23 09/30/23 18:59 06:59 18:59 Intake Total 823.644 Output Total 175 170 Balance -175 653.644 Weight 56 kg 54.6 kg Intake: IV 800 Sodium Chloride 0.9% 1, 300 000 ml @ 75 mls/hr IV . [id number] [facility] Rx#:[id number] Sodium Chloride 0.9% 500 500 ml 500 ml @ 999 mls/hr IV .Q31M [facility] Rx#:[id number] Intake, IV Titration 23.644 Amount Norepinephrine 4 mg In 8.001 Sodium Chloride 0.9% 250 ml @ 0.03 MCG/KG/MIN 6. 401 mls/hr IV .Q24H [facility] Rx#:[id number] propofoL 1,000 mg In 15.643 Empty Bag 1 bag @ 15 MCG/ KG/MIN 4.914 mls/hr IV . [id number] [facility] Rx#:[id number] Output: Urine 175 170 Other: Voiding Method Indwelling Catheter Indwelling Catheter ABP, PAP, CO, CI - Last Documented Arterial Blood Pressure 92/53 - Exam -GENERAL: Intubated and sedated HEENT: Pupils are round and equally reacting to light. EOMI. No scleral icterus. No conjunctival pallor. Normocephalic, atraumatic. No pharyngeal erythema. No thyromegaly. CARDIOVASCULAR: S1 and S2 present. No murmurs, rubs, or gallops. -PULMONARY: Decreased air entry on both sides with scattered wheezing , no crackles. ABDOMEN: Soft, nontender, nondistended, normoactive bowel sounds. No palpable organomegaly. MUSCULOSKELETAL: No joint swelling or deformity. EXTREMITIES: No cyanosis, clubbing, or pedal edema. NEUROLOGICAL: Gross neurological examination did not reveal any focal deficits. SKIN: No rashes. no petechiae. - Labs CBC & Chem 7: 09/30/23 05:16 09/30/23 05:16 Labs: Abnormal Lab Results - Last 24 Hours (Table) 09/30/23 09/30/23 09/30/23 Range/Units 05:16 05:16 08:40 Plt Count 138 L (150-450) k/uL Neutrophils # 8.0 H (1.3-7.7) k/uL Lymphocytes # 0.2 L (1.0-4.8) k/uL ABG pH 7.49 H (7.35-7.45) ABG pCO2 63 H (35-45) mmHg ABG pO2 77 L (83-108) mmHg ABG HCO3 48 H* (21-25) mmol/L ABG Total CO2 50 H (19-24) mmol/L Potassium 3.2 L (3.5-5.1) mmol/L Chloride 94 L (98-107) mmol/L Carbon Dioxide 44 H* (22-30) mmol/L BUN 28 H (7-17) mg/dL Creatinine 0.39 L (0.52-1.04) mg/dL Glucose 129 H (74-99) mg/dL Assessment and Plan Assessment: Acute COPD exacerbation left side pneumonia acute hypoxic respiratory failure requiring intubation mechanical ventilation New onset atrial fibrillation Severe pulmonary hypertension Hyperlipidemia Diabetes mellitus History of GERD Hypothyroidism History of osteoarthritis Plan: Continue with mechanical ventilation as per pulmonary team Continue with bronchodilator Continue with IV Solu-Medrol Pressors as needed Patient also on Zosyn Continue with Cardizem Cardizem pulmonary consult GI and DVT prophylaxis Prognosis is guarded
[2023-09-30 12:25] LABS: Glucose,Whole Blood 114 mg/dL (70-110)
[2023-09-30] MEDS ORDERED: Potassium Replacement Protocol 1 EACH MISC MISCELLANE PRN (17:29)
[2023-09-30 18:02] LABS: Glucose,Whole Blood 115 mg/dL (70-110)
[2023-09-30] MEDS: FORMOTEROL FUMARATE 20 MCG/2 ML NEBU INHALATION SCH (19:51)
[2023-09-30] MEDS: BUDESONIDE 1 MG/2 ML NEBU INHALATION SCH (19:51)
[2023-09-30] MEDS: HYDROcodone/APAP 10-325MG 1 EACH TAB PO PRN (23:56)
[2023-09-30] MEDS ORDERED: DILTIAZEM ORAL 30 MG TAB ONE (23:59)
[2023-09-30] MEDS ORDERED: PIPERACILLIN-TAZOBACTAM 3.375 GM VIAL ONE (23:59)
[2023-09-30] MEDS ORDERED: methylPREDNISolone SOD SUCCI 125 MG/2 ML VIAL ONE (23:59)
[2023-09-30] MEDS ORDERED: SODIUM CHLORIDE 0.9% 100 ML BAG ONE (23:59)
[2023-10-01 00:10] LABS: Glucose,Whole Blood 148 mg/dL (70-110)
[2023-10-01 04:34] LABS: Glucose,Whole Blood 134 mg/dL (70-110)
[2023-10-01 05:23] LABS: HCT 41.9 % (34.0-46.0); HGB 13.3 gm/dL (11.4-16.0); Hypochromasia Slight; MCH 31.8 pg (25.0-35.0); MCHC 31.8 g/dL (31.0-37.0); MCV 100.2 fL (80.0-100.0); Macrocytosis Slight; Mean Platelet Volume 9.1; Platelet Count 135 k/uL (150-450); RBC 4.19 m/uL (3.80-5.40); RDW 14.2 % (11.5-15.5); WBC 10.1 k/uL (3.8-10.6)
[2023-10-01 06:05] LABS: ABG Base Excess 16.4 mmol/L; ABG Oxygen Saturation 98.5 % (94-97); ABG PCO2 62 mmHg (35-45); ABG PH 7.46 (7.35-7.45); ABG PO2 101 mmHg (83-108); ABG TCO2 45 mmol/L (19-24)
[2023-10-01 06:12] LABS: ABG HCO3 44 mmol/L (21-25)
[2023-10-01 06:26] LABS: African American GFR (CKD) >90 (>60 ml/min/1.73 sqM); Blood Urea Nitrogen 27 mg/dL (7-17); Calcium 8.4 mg/dL (8.4-10.2); Chloride 97 mmol/L (98-107); Glucose 143 mg/dL (74-99); Magnesium 2.2 mg/dL (1.6-2.3); Non-African American GFR(CKD) >90 (>60 ml/min/1.73 sqM); Phosphorus 2.8 mg/dL (2.5-4.5); Potassium 3.7 mmol/L (3.5-5.1); Sodium 138 mmol/L (137-145)
[2023-10-01 06:32] LABS: Anion Gap 3 mmol/L; Carbon Dioxide 38 mmol/L (22-30)
--- NOTE | 2023-10-01 07:41 | XR ---
EXAMINATION TYPE: XR chest 1V portable DATE OF EXAM: 10/01/2023 Comparison: 09/30/2023 Clinical History: 73 year-old female tube placement Findings: ET and NG tubes are satisfactory. Leftward patient rotation alters the normal cardiac and mediastinal contours. Heart upper limits of normal in size. Diffuse interstitial opacities, retrocardiac opacity , and [id number] right pleural effusion persists. Right IJ CVC tip in the lower SVC level. Hyp erinflation. Impression: 1. Similar COPD with superimposed mild interstitial edema. 2. Ongoing small to moderate right pleural effusion with adjacent atelectasis and/or consolidation. 3. Dense retrocardiac opacity persists with some improvement in aeration at the left base.
[2023-10-01] MEDS: POTASSIUM CHLORIDE 20 MEQ in WATER FOR INJECTION 1 100ML.BAG IVPB ONE (09:43)
--- NOTE | 2023-10-01 11:04 | P.PN ---
Subjective Progress Note Date: 10/01/23 Acute hypoxic and hypercapnic respiratory failure secondary to acute COPD exacerbation and extensive left-sided pneumonia. Patient was eval on 09/30/2023, patient has been on BiPAP for the last few days while in the ICU, Patient has been on 100% BiPAP with IPAP of 12 and EPAP of 6, however she developed worsening pulmonary status this morning, in spite of being on 100% FiO2, patient had her O2 saturation down in the low 70s. Patient was intubated, underwent bronchoscopy with lavage 09/30. Patient seen examined. Currently intubated. Currently on IV Zosyn. Vital signs stable REVIEW OF SYSTEMS: Cannot be obtained as patient is currently intubated PHYSICAL EXAMINATION: GENERAL: The patient is intubated HEENT: Pupils are round and equally reacting to light. EOMI. No scleral icterus. No conjunctival pallor. Normocephalic, atraumatic. No pharyngeal erythema. No thyromegaly. CARDIOVASCULAR: S1 and S2 present. No murmurs, rubs, or gallops. PULMONARY: Chest is clear to auscultation, no wheezing or crackles. ABDOMEN: Soft, nontender, nondistended, normoactive bowel sounds. No palpable or ganomegaly. MUSCULOSKELETAL: No joint swelling or deformity. EXTREMITIES: No cyanosis, clubbing, or pedal edema. NEUROLOGICAL: Intubated SKIN: No rashes. Assessment and plan Acute on chronic hypoxic and hypercapnic respiratory failure, multifactorial, requiring intubation mechanical ventilation last week, and reintubation on 09/29 Acute COPD exacerbation Left lung pneumonia, possibly hospital-acquired pneumonia with complete opacification of the left lung secondary to mucous plugging, requiring bronchoscopy and BAL of the left lung. Chronic hypoxic and hypercapnic respiratory failure Chronic pain syndrome Sinus rhythm with PVCs Severe pulmonary hypertension Hyperlipidemia Diabetes mellitus History of GERD Hypothyroidism History of osteoarthritis Monitor vital signs Monitor CBC Monitor CMP Continue telemetry monitoring Continue vent management per ICU Aggressive bronchopulmonary hygiene Continue IV Solu-Medrol Continue IV Zosyn Cardiology following Pulmonology following Labs and medication were reviewed.. Continue same treatment. Continue with symptomatic treatment. Resume home medication. Monitor labs and vitals. DVT and GI prophylaxis. Further recommendations as per clinical course of the patient Dictation was produced using [employer] dictation software. please excuse any grammatical, word or spelling errors. Objective - Vital Signs Vital signs: Vital Signs Temp 98.5 F 10/01/23 08:00 Pulse 70 10/01/23 10:30 Resp 21 10/01/23 10:30 BP 100/67 10/01/23 10:30 Pulse Ox 93 L 10/01/23 10:30 FiO2 50 10/01/23 09:21 Intake & Output 09/30/23 10/01/23 10/01/23 18:59 06:59 18:59 Intake Total 6063.495 7328.167 577.033 Output Total 380 368 91 Balance 6802.296 4257.167 486.033 Weight 55.2 kg Intake: IV 1400 1105 300 Piperacillin-Tazobactam 3 75 125 .375 gm In Sodium Chloride 0.9% 100 ml @ 25 mls/hr IVPB Q8HR [facility] Rx# :[id number] Saline flush 80 Sodium Chloride 0.9% 1, 825 900 300 000 ml @ 75 mls/hr IV . [id number] [facility] Rx#:[id number] Sodium Chloride 0.9% 500 500 ml 500 ml @ 999 mls/hr IV .Q31M [facility] Rx#:[id number] Intake, IV Titration 229.082 301.167 277.033 Amount Norepinephrine 4 mg In 113.439 140.561 228.794 Sodium Chloride 0.9% 250 ml @ 0.03 MCG/KG/MIN 6. 401 mls/hr IV .Q24H [facility] Rx#:[id number] propofoL 1,000 mg In 115.643 160.606 48.239 Empty Bag 1 bag @ 15 MCG/ KG/MIN 4.914 mls/hr IV . [id number] [facility] Rx#:[id number] Output: Urine 380 368 91 Other: Voiding Method Indwelling Catheter Indwelling Catheter Indwelling Catheter ABP, PAP, CO, CI - Last Documented Arterial Blood Pressure 97/57 - Labs CBC & Chem 7: 10/01/23 04:30 10/01/23 04:30 Labs: Abnormal Lab Results - Last 24 Hours (Table) 09/30/23 09/30/23 10/01/23 Range/Units 12:23 18:01 00:06 MCV (80.0-100.0) fL Plt Count (150-450) k/uL ABG pH (7.35-7.45) ABG pCO2 (35-45) mmHg ABG HCO3 (21-25) mmol/L ABG Total CO2 (19-24) mmol/L ABG O2 Saturation (94-97) % Chloride (98-107) mmol/L Carbon Dioxide (22-30) mmol/L BUN (7-17) mg/dL Creatinine (0.52-1.04) mg/dL Glucose (74-99) mg/dL POC Glucose (mg/dL) 114 H 115 H 148 H (70-110) mg/dL 10/01/23 10/01/23 10/01/23 Range/Units 04:18 04:30 04:30 MCV 100.2 H (80.0-100.0) fL Plt Count 135 L (150-450) k/uL ABG pH 7.46 H (7.35-7.45) ABG pCO2 62 H (35-45) mmHg ABG HCO3 44 H* (21-25) mmol/L ABG Total CO2 45 H (19-24) mmol/L ABG O2 Saturation 98.5 H (94-97) % Chloride 97 L (98-107) mmol/L Carbon Dioxide 38 H (22-30) mmol/L BUN 27 H (7-17) mg/dL Creatinine 0.41 L (0.52-1.04) mg/dL Glucose 143 H (74-99) mg/dL POC Glucose (mg/dL) (70-110) mg/dL 10/01/23 Range/Units 04:32 MCV (80.0-100.0) fL Plt Count (150-450) k/uL ABG pH (7.35-7.45) ABG pCO2 (35-45) mmHg ABG HCO3 (21-25) mmol/L ABG Total CO2 (19-24) mmol/L ABG O2 Saturation (94-97) % Chloride (98-107) mmol/L Carbon Dioxide (22-30) mmol/L BUN (7-17) mg/dL Creatinine (0.52-1.04) mg/dL Glucose (74-99) mg/dL POC Glucose (mg/dL) 134 H (70-110) mg/dL
[2023-10-01 11:07] LABS: Glucose,Whole Blood 122 mg/dL (70-110)
--- NOTE | 2023-10-01 11:34 | US ---
Patient: Roxana Long Ordering Physician: Unknown, Unknown ID: [id number] Phone, Pager: Phone: N/ A Pager: N/A : [phone] Age/Gender: 73Y, N/A Primary Location: N/A Procedure: US chest Study Date: 09/29/2023 9:27:00 AM EXAMINATION TYPE: US chest DATE OF EXAM: 09/29/2023 COMPARISON: NONE CLINICAL INDICATION: TECHNIQUE: Targeted ultrasound of the posterior lower bilateral hemithoraces EXAM MEASUREMENTS: Right Pleural Effusion pocket size: 1.1 cm Left Pleural Effusion pocket size: 4.0 cm Right side not marked for possible thoracentesis outside the dept. Left side marked for possible thoracentesis outside the dept. Pulmonologists are able to review the images in the patient?s EMR. IMPRESSIONS: Left pleural effusion marked for thoracentesis.
[2023-10-01] MEDS: IPRATROPIUM-ALBUTEROL 3 ML NEB ONE ×2 (11:43→12:41)
[2023-10-01] MEDS: IPRATROPIUM-ALBUTEROL 3 ML NEB INHALATION SCH (11:43)
--- NOTE | 2023-10-01 11:51 | P.PN ---
Subjective Progress Note Date: 10/01/23 Principal diagnosis: Respiratory failure. Acute hypoxic and hypercapnic respiratory failure secondary to acute COPD exacerbation and extensive left-sided pneumonia Patient was eval on 09/30/2023, patient has been on BiPAP for the last few days while in the ICU, however I was notified about this patient this morning becoming much worse clinically. Patient has been on 100% BiPAP with IPAP of 12 and EPAP of 6, however she developed worsening pulmonary status this morning, in spite of being on 100% FiO2, patient had her O2 saturation down in the low 70s. Patient was also noted to be coming more short of breath, and that she was having significant work of breathing. Hence as soon as I was notified about this patient, I recommended immediate intubation by CLOTHES SEPARATOR, and I came in and evaluated the patient after she was intubated, reviewed her chest x-ray and I performed bronchoscopy and BAL/therapeutic BAL of the left lung with significant improvement noted after bronchoscopy. Patient also had central line placed since she was hypotensive and requiring norepinephrine. 0.08 mcg/kg/min. Ventilator settings are assist-control rate of 20, tidal volume 350, FiO2 100% and PEEP of 8 showed a pO2 of 77 pCO2 63 pH of 7.49 no changes were made in the ventilator settings, and advised respiratory to titrate FiO2 accordingly maintaining O2 sats above 91% WBC count today is 8.7 hemoglobin 14.2 hematocrit is 45.6. Electrolytes are normal except for low potassium of 3.2 being addressed and her renal status is normal bicarb is 44 Progress note dated October 01, 2023. This is a 73-year-old female who was admitted back on September 20. She was initially admitted with a diagnosis of COPD exacerbation. She was intubated on September 20, and extubated on the following day, September 21. She was reintubated on September 29, and had bronchoscopy performed as well on the same day. She is maintained on the mechanical ventilator. She is on volume assist-control, rate 20, tidal volume 350, FiO2 70%, PEEP of 8. Blood gases show pO2 of 101, pCO2 of 62, and the pH of 7.46. The patient is also on propofol at 30 mcg/kg/min, norepinephrine at 4.4 mcg/min saline at 75 cc an hour. The patient continues on Zosyn. The patient does not have any tube feeds ordered as yet. White count is 10.1, hemoglobin 13.3, hematocrit 41.9, and platelet count 235,000. Sodium 138, potassium 3.7, chloride 97, CO2 38, BUN 27, and creatinine 0.41. Glucose is 122. Chest x-ray shows a retrocardiac opacity, as well as some mild interstitial changes, and a small right-sided pleural effusion. Objective - Vital Signs Vital signs: Vital Signs Temp 98.5 F 10/01/23 08:00 Pulse 78 10/01/23 11:15 Resp 19 10/01/23 11:15 BP 106/66 10/01/23 11:15 Pulse Ox 93 L 10/01/23 11:15 FiO2 50 10/01/23 11:40 Intake & Output 09/30/23 10/01/23 10/01/23 18:59 06:59 18:59 Intake Total 3299.209 3833.167 677.239 Output Total 380 368 121 Balance 1593.220 2773.167 556.239 Weight 55.2 kg Intake: IV 1400 1105 375 Piperacillin-Tazobactam 3 75 125 .375 gm In Sodium Chloride 0.9% 100 ml @ 25 mls/hr IVPB Q8HR [facility] Rx# :[id number] Saline flush 80 Sodium Chloride 0.9% 1, 825 900 375 000 ml @ 75 mls/hr IV . [id number] [facility] Rx#:[id number] Sodium Chloride 0.9% 500 500 ml 500 ml @ 999 mls/hr IV .Q31M [facility] Rx#:[id number] Intake, IV Titration 229.082 301.167 302.239 Amount Norepinephrine 4 mg In 113.439 140.561 254.000 Sodium Chloride 0.9% 250 ml @ 0.03 MCG/KG/MIN 6. 401 mls/hr IV .Q24H [facility] Rx#:[id number] propofoL 1,000 mg In 115.643 160.606 48.239 Empty Bag 1 bag @ 15 MCG/ KG/MIN 4.914 mls/hr IV . [id number] [facility] Rx#:[id number] Output: Urine 380 368 121 Other: Voiding Method Indwelling Catheter Indwelling Catheter Indwelling Catheter ABP, PAP, CO, CI - Last Documented Arterial Blood Pressure 105/56 - Exam No acute distress, currently sedated, intubated, and on mechanical ventilator. HEENT examination is grossly unremarkable. Neck supple. Full range of motion. No adenopathy thyromegaly or neck vein distention. Cardiovascular examination reveals regular rhythm rate. S1-S2 normal. No S3 or S4. No discernible murmur noted. Heart rate 86 bpm. Heart sounds are distant. Lungs reveal scattered rhonchi. No wheezes or crackles. Breath sounds equal. Saturations are 93%. Abdomen soft bowel sounds are heard. No masses or tenderness. Extremities are intact. No cyanosis clubbing or edema. Skin is without rash or lesion. Neurologic examination cannot be evaluated at this time. - Labs CBC & Chem 7: 10/01/23 04:30 10/01/23 04:30 Labs: Abnormal Lab Results - Last 24 Hours (Table) 09/30/23 09/30/23 10/01/23 Range/Units 12:23 18:01 00:06 MCV (80.0-100.0) fL Plt Count (150-450) k/uL ABG pH (7.35-7.45) ABG pCO2 (35-45) mmHg ABG HCO3 (21-25) mmol/L ABG Total CO2 (19-24) mmol/L ABG O2 Saturation (94-97) % Chloride (98-107) mmol/L Carbon Dioxide (22-30) mmol/L BUN (7-17) mg/dL Creatinine (0.52-1.04) mg/dL Glucose (74-99) mg/dL POC Glucose (mg/dL) 114 H 115 H 148 H (70-110) mg/dL 10/01/23 10/01/23 10/01/23 Range/Units 04:18 04:30 04:30 MCV 100.2 H (80.0-100.0) fL Plt Count 135 L (150-450) k/uL ABG pH 7.46 H (7.35-7.45) ABG pCO2 62 H (35-45) mmHg ABG HCO3 44 H* (21-25) mmol/L ABG Total CO2 45 H (19-24) mmol/L ABG O2 Saturation 98.5 H (94-97) % Chloride 97 L (98-107) mmol/L Carbon Dioxide 38 H (22-30) mmol/L BUN 27 H (7-17) mg/dL Creatinine 0.41 L (0.52-1.04) mg/dL Glucose 143 H (74-99) mg/dL POC Glucose (mg/dL) (70-110) mg/dL 10/01/23 10/01/23 Range/Units 04:32 11:05 MCV (80.0-100.0) fL Plt Count (150-450) k/uL ABG pH (7.35-7.45) ABG pCO2 (35-45) mmHg ABG HCO3 (21-25) mmol/L ABG Total CO2 (19-24) mmol/L ABG O2 Saturation (94-97) % Chloride (98-107) mmol/L Carbon Dioxide (22-30) mmol/L BUN (7-17) mg/dL Creatinine (0.52-1.04) mg/dL Glucose (74-99) mg/dL POC Glucose (mg/dL) 134 H 122 H (70-110) mg/dL Assessment and Plan Assessment: Acute on chronic hypoxemic and hypercapnic respiratory failure, mostly secondary to COPD exacerbation, and possible pneumonia. S/P intubation, on September 20, with extubation on September 21. Reintubation, for respiratory failure, September 30, 2023. S/P bronchoscopy, September 30, 2023. Left-sided pneumonia. Chronic pain syndrome. Plan: Plan dated October 01, 2023. The patient is seen today in room 256. She is examined. Labs, x-rays, and all medications are reviewed. The patient remains on mechanical ventilator. The FiO2 was reduced from 70%, down to 50%. The patient continues on propofol. The patient is also on norepinephrine at 4.4 mcg/min. The patient is receiving s drew IV at 75 cc an hour. The patient continues on Zosyn empirically. The patient continues on GI and DVT prophylaxis. We will await the results of the bronchoscopy and BAL. The patient also continues on bronchodilators, and corticosteroids. Tube feedings will be started today. The patient's overall prognosis remains very guarded. In the end, if the patient does not appear to be able to be weaned, she may need a tracheostomy and PEG tube placement. Additional recommendations and suggestions are forthcoming. Time with Patient: Greater than 30
[2023-10-01] MEDS: CISATRACURIUM 2 MG/ML 5 ML VIAL IV ONE (12:39)
[2023-10-01] MEDS: CHLORHEXIDINE GLUCONATE 15 ML CUP MUCOUS MEM ONE ×3 (12:39→17:18)
[2023-10-01] MEDS: FAMOTIDINE 20 MG/2 ML VIAL ONE ×3 (12:39→17:18)
[2023-10-01] MEDS: BUDESONIDE 1 MG/2 ML NEBU INHALATION ONE ×2 (12:40→17:19)
[2023-10-01] MEDS: FORMOTEROL FUMARATE 20 MCG/2 ML NEBU INHALATION ONE ×2 (12:41→17:19)
[2023-10-01] MEDS: HYDROcodone/APAP 10-325MG 1 EACH TAB ONE (12:42)
[2023-10-01] MEDS: METOPROLOL TARTRATE 50 MG TAB ONE ×2 (12:42→17:18)
[2023-10-01] MEDS: propofoL 100 ML IV ONE ×6 (13:47→17:19)
[2023-10-01 16:25] LABS: Glucose,Whole Blood 110 mg/dL (70-110)
[2023-10-02 00:45] LABS: Glucose,Whole Blood 124 mg/dL (70-110)
[2023-10-02 04:52] LABS: Basophils % (A) 0 %; Eosinophils % (A) 0 %; HCT 42.5 % (34.0-46.0); Hypochromasia Slight; Lymphocytes # (A) 0.3 k/uL (1.0-4.8); Lymphocytes % (A) 3 %; MCHC 30.7 g/dL (31.0-37.0); MCV 101.2 fL (80.0-100.0); Macrocytosis Slight; Monocytes # (A) 0.3 k/uL (0-1.0); Monocytes % (A) 3 %; Neutrophils # (A) 9.8 k/uL (1.3-7.7); Neutrophils % (A) 94 %; Platelet Count 115 k/uL (150-450); RDW 14.2 % (11.5-15.5); WBC 10.5 k/uL (3.8-10.6)
[2023-10-02 05:21] LABS: African American GFR (CKD) >90 (>60 ml/min/1.73 sqM); Anion Gap -2 mmol/L; Blood Urea Nitrogen 31 mg/dL (7-17); Calcium 8.3 mg/dL (8.4-10.2); Carbon Dioxide 39 mmol/L (22-30); Chloride 102 mmol/L (98-107); Glucose 131 mg/dL (74-99); Non-African American GFR(CKD) >90 (>60 ml/min/1.73 sqM); Potassium 3.5 mmol/L (3.5-5.1); Sodium 139 mmol/L (137-145)
[2023-10-02 05:21] LABS: ABG Base Excess 12.7 mmol/L; ABG Oxygen Saturation 92.5 % (94-97); ABG PCO2 62 mmHg (35-45); ABG PH 7.42 (7.35-7.45); ABG PO2 63 mmHg (83-108); ABG TCO2 42 mmol/L (19-24); Allen Test Performed? Yes
[2023-10-02 05:32] LABS: ABG HCO3 40 mmol/L (21-25)
--- NOTE | 2023-10-02 08:18 | XR ---
EXAMINATION TYPE: XR chest 1V portable DATE OF EXAM: 10/02/2023 5:30 AM CLINICAL INDICATION: Female, 73 years old with history of Tube placement; [facility] COMPARISON: Chest radiographs from TECHNIQUE: XR chest 1V portable Frontal view of the chest. FINDINGS: Lungs/Pleura: There is no evidence of pleural effusion, focal consolidation, or pneumothorax. Pulmonary vascularity: Unremarkable. Heart/mediastinum: Cardiomediastinal silhouette is unremarkable. Musculoskeletal: No acute osseous pathology. Other findings: None Lines/Tubes: Endotracheal tube with distal tip 5.7cm above the isak. Nasogastric tube with its distal tip and side-port projecting under the diaphragm. Right internal jugular central venous catheter with distal tip at the cavoatrial junction. IMPRESSION: 1. Stable support tubes. 2. Similar Pulmonary edema with right pleural effusion.
[2023-10-02] MEDS: POTASSIUM BICARBONATE/CIT AC 20 MEQ TABLET.EFF NG-TUBE SCH (08:40)
--- NOTE | 2023-10-02 10:24 | P.PN ---
Subjective Progress Note Date: 10/02/23 Principal diagnosis: Respiratory failure. Acute hypoxic and hypercapnic respiratory failure secondary to acute COPD exacerbation and extensive left-sided pneumonia Patient was eval on 09/30/2023, patient has been on BiPAP for the last few days while in the ICU, however I was notified about this patient this morning becoming much worse clinically. Patient has been on 100% BiPAP with IPAP of 12 and EPAP of 6, however she developed worsening pulmonary status this morning, in spite of being on 100% FiO2, patient had her O2 saturation down in the low 70s. Patient was also noted to be coming more short of breath, and that she was having significant work of breathing. Hence as soon as I was notified about this patient, I recommended immediate intubation by SLITTING MACHINE FEEDER, and I came in and evaluated the patient after she was intubated, reviewed her chest x-ray and I performed bronchoscopy and BAL/therapeutic BAL of the left lung with significant improvement noted after bronchoscopy. Patient also had central line placed since she was hypotensive and requiring norepinephrine. 0.08 mcg/kg/min. Ventilator settings are assist-control rate of 20, tidal volume 350, FiO2 100% and PEEP of 8 showed a pO2 of 77 pCO2 63 pH of 7.49 no changes were made in the ventilator settings, and advised respiratory to titrate FiO2 accordingly maintaining O2 sats above 91% WBC count today is 8.7 hemoglobin 14.2 hematocrit is 45.6. Electrolytes are normal except for low potassium of 3.2 being addressed and her renal status is normal bicarb is 44 Progress note dated October 01, 2023. This is a 73-year-old female who was admitted back on September 20. She was initially admitted with a diagnosis of COPD exacerbation. She was intubated on September 20, and extubated on the following day, September 21. She was reintubated on September 29, and had bronchoscopy performed as well on the same day. She is maintained on the mechanical ventilator. She is on volume assist-control, rate 20, tidal volume 350, FiO2 70%, PEEP of 8. Blood gases show pO2 of 101, pCO2 of 62, and the pH of 7.46. The patient is also on propofol at 30 mcg/kg/min, norepinephrine at 4.4 mcg/min saline at 75 cc an hour. The patient continues on Zosyn. The patient does not have any tube feeds ordered as yet. White count is 10.1, hemoglobin 13.3, hematocrit 41.9, and platelet count 235,000. Sodium 138, potassium 3.7, chloride 97, CO2 38, BUN 27, and creatinine 0.41. Glucose is 122. Chest x-ray shows a retrocardiac opacity, as well as some mild interstitial changes, and a small right-sided pleural effusion. Progress note dated October 02, 2023. 73-year-old female admitted on September 20. She was admitted with a diagnosis of COPD exacerbation, intubated on September 20, and extubated on the following day, September 21. She was reintubated on September 29, and had bronchoscopy performed as well on the same day, she currently is maintained on the mechanical ventilator. Ventilator settings include volume assist-control, rate of 12, tidal volume 350, FiO2 50%, PEEP of 8. Blood gases show pO2 63, pCO2 62, pH of 7.42. The patient is on propofol at 35 mcg/kg/min, saline at 75 cc an hour, and vital high-protein at 20 cc an hour with a goal of 39. Today, she will have a daily interruption of sedation with a spontaneous breathing trial, with pressure support of 8, and CPAP of 5. White count 10.5, hemoglobin 13, hematocrit 42.5, platelet count 115,000. Sodium 139, potassium 3.5, chlorides 102, CO2 39, BUN 31, creatinine 0.4. Calcium is 8.3, glucose is 131. Chest x-ray today, is largely unchanged from prior chest x-ray from yesterday. Objective - Vital Signs Vital signs: Vital Signs Temp 98.4 F 10/02/23 08:00 Pulse 115 H 10/02/23 09:00 Resp 19 10/02/23 09:00 BP 120/60 10/02/23 09:00 Pulse Ox 92 L 10/02/23 09:00 FiO2 50 10/02/23 08:00 Intake & Output 10/01/23 10/02/23 10/02/23 18:59 06:59 18:59 Intake Total 4972.333 6465.502 301.683 Output Total 301 355 105 Balance 0236.166 8620.502 196.683 Weight 55.2 kg Intake: IV 1000 1250 225 Invasive Line 1 10 Invasive Line 4 60 Invasive Line 5 10 Piperacillin-Tazobactam 3 100 200 .375 gm In Sodium Chloride 0.9% 100 ml @ 25 mls/hr IVPB Q8HR [facility] Rx# :[id number] Saline flush 70 Sodium Chloride 0.9% 1, 900 900 225 000 ml @ 75 mls/hr IV . [id number] [facility] Rx#:[id number] Intake, IV Titration 466.790 109.502 46.683 Amount Norepinephrine 4 mg In 343.612 39.969 Sodium Chloride 0.9% 250 ml @ 0.03 MCG/KG/MIN 6. 401 mls/hr IV .Q24H [facility] Rx#:[id number] propofoL 1,000 mg In 123.178 69.533 46.683 Empty Bag 1 bag @ 15 MCG/ KG/MIN 4.914 mls/hr IV . [id number] [facility] Rx#:[id number] Tube Feeding 40 130 30 Other 30 60 Output: Urine 301 355 105 Other: Voiding Method Indwelling Catheter Indwelling Catheter Indwelling Catheter ABP, PAP, CO, CI - Last Documented Arterial Blood Pressure 96/70 - Exam No acute distress, currently sedated, intubated, and on mechanical ventilator. HEENT examination is grossly unremarkable. Neck supple. Full range of motion. No adenopathy thyromegaly or neck vein distention. Cardiovascular examination reveals regular rhythm rate. S1-S2 normal. No S3 or S4. No discernible murmur noted. Heart rate 100 bpm. Heart sounds are distant. Lungs reveal scattered rhonchi. No wheezes or crackles. Breath sounds equal. Saturations are 92 %. Abdomen soft bowel sounds are heard. No masses or tenderness. Extremities are intact. No cyanosis clubbing or edema. Skin is without rash or lesion. Neurologic examination cannot be evaluated at this time. - Labs CBC & Chem 7: 10/02/23 04:10 10/02/23 04:10 Labs: Abnormal Lab Results - Last 24 Hours (Table) 10/01/23 10/02/23 10/02/23 Range/Units 11:05 00:44 04:10 MCV 101.2 H (80.0-100.0) fL MCHC 30.7 L (31.0-37.0) g/dL Plt Count 115 L (150-450) k/uL Neutrophils # 9.8 H (1.3-7.7) k/uL Lymphocytes # 0.3 L (1.0-4.8) k/uL ABG pCO2 (35-45) mmHg ABG pO2 (83-108) mmHg ABG HCO3 (21-25) mmol/L ABG Total CO2 (19-24) mmol/L ABG O2 Saturation (94-97) % Carbon Dioxide (22-30) mmol/L BUN (7-17) mg/dL Creatinine (0.52-1.04) mg/dL Glucose (74-99) mg/dL POC Glucose (mg/dL) 122 H 124 H (70-110) mg/dL Calcium (8.4-10.2) mg/dL 10/02/23 10/02/23 Range/Units 04:10 05:18 MCV (80.0-100.0) fL MCHC (31.0-37.0) g/dL Plt Count (150-450) k/uL Neutrophils # (1.3-7.7) k/uL Lymphocytes # (1.0-4.8) k/uL ABG pCO2 62 H (35-45) mmHg ABG pO2 63 L (83-108) mmHg ABG HCO3 40 H* (21-25) mmol/L ABG Total CO2 42 H (19-24) mmol/L ABG O2 Saturation 92.5 L (94-97) % Carbon Dioxide 39 H (22-30) mmol/L BUN 31 H (7-17) mg/dL Creatinine 0.40 L (0.52-1.04) mg/dL Glucose 131 H (74-99) mg/dL POC Glucose (mg/dL) (70-110) mg/dL Calcium 8.3 L (8.4-10.2) mg/dL Assessment and Plan Assessment: Acute on chronic hypoxemic and hypercapnic respiratory failure, mostly secondary to COPD exacerbation, and possible pneumonia. S/P intubation, on September 20, with extubation on September 21. Reintubation, for respiratory failure, September 30, 2023. S/P bronchoscopy, September 30, 2023. Left-sided pneumonia. Chronic pain syndrome. Plan: Plan dated October 01, 2023. The patient is seen today in room 256. She is examined. Labs, x-rays, and all medications are reviewed. The patient remains on mechanical ventilator. The FiO2 was reduced from 70%, down to 50%. The patient continues on propofol. The patient is also on norepinephrine at 4.4 mcg/min. The patient is receiving saline IV at 75 cc an hour. The patient continues on Zosyn empirically. The patient continues on GI and DVT prophylaxis. We will await the results of the bronchoscopy and BAL. The patient also continues on bronchodilators, and corticosteroids. Tube feedings will be started today. The patient's overall prognosis remains very guarded. In the end, if the patient does not appear to be able to be weaned, she may need a tracheostomy and PEG tube placement. Additional recommendations and suggestions are forthcoming. Plan dated October 02, 2023. The patient is seen today in room 256. The patient appears relatively comfort able. The patient will have a daily interruption of sedation, and a spontaneous breathing trial, on pressure support of 8, CPAP of 5. The patient continues on propofol at 35 mcg/kg/min, and vital high-protein at 20 cc an hour, with a goal of 39. Blood gases, include a pO2 of 63, pCO2 of 62, pH of 7.42. Labs, x-rays, medications are reviewed. We will continue to follow the patient, make recomm endations where appropriate. The patient continues on GI and DVT prophylaxis. Zosyn will be discontinued. Additional recommendations and suggestions are forthcoming. Time with Patient: Greater than 30
[2023-10-02 11:21] LABS: Glucose,Whole Blood 134 mg/dL (70-110)
--- NOTE | 2023-10-02 13:28 | P.PN ---
Subjective Progress Note Date: 10/02/23 Acute hypoxic and hypercapnic respiratory failure secondary to acute COPD exacerbation and extensive left-sided pneumonia. Patient was eval on 09/30/2023, patient has been on BiPAP for the last few days while in the ICU, Patient has been on 100% BiPAP with IPAP of 12 and EPAP of 6, however she developed worsening pulmonary status this morning, in spite of being on 100% FiO2, patient had her O2 saturation down in the low 70s. Patient was intubated, underwent bronchoscopy with lavage 09/30. Patient seen examined. Currently intubated. Currently on IV Zosyn. Vital signs stable 10/01. Patient seen and examined. Patient currently going through SBT, patient opening eyes. REVIEW OF SYSTEMS: Cannot be obtained as patient is currently intubated PHYSICAL EXAMINATION: GENERAL: The patient is intubated HEENT: Pupils are round and equally reacting to light. EOMI. No scleral icterus. No conjunctival pallor. Normocephalic, atraumatic. No pharyngeal erythema. No thyromegaly. CARDIOVASCULAR: S1 and S2 present. No murmurs, rubs, or gallops. PULMONARY: Chest is clear to auscultation, no wheezing or crackles. ABDOMEN: Soft, nontender, nondistended, normoactive bowel sounds. No palpable organomegaly. MUSCULOSKELETAL: No joint swelling or deformity. EXTREMITIES: No cyanosis, clubbing, or pedal edema. NEUROLOGICAL: Intubated SKIN: No rashes. Assessment and plan Acute on chronic hypoxic and hypercapnic respiratory failure, multifactorial, requiring intubation mechanical ventilation last week, and reintubation on 09/29 Acute COPD exacerbation Left lung pneumonia, possibly hospital-acquired pneumonia with complete opacification of the left lung secondary to mucous plugging, requiring bro nchoscopy and BAL of the left lung. Chronic hypoxic and hypercapnic respiratory failure Chronic pain syndrome Sinus rhythm with PVCs Severe pulmonary hypertension Hyperlipidemia Diabetes mellitus History of GERD Hypothyroidism History of osteoarthritis Monitor vital signs Monitor CBC Monitor CMP Continue telemetry monitoring Continue vent management per ICU, continue spontaneous breathing trial per ICU Aggressive bronchopulmonary hygiene Continue IV Solu-Medrol Continue IV Zosyn Cardiology following Pulmonology following Labs and medication were reviewed.. Continue same treatment. Continue with symptomatic treatment. Resume home medication. Monitor labs and vitals. DVT and GI prophylaxis. Further recommendations as per clinical course of the patient Dictation was produced using dragon dictation software. please excuse any grammatical, word or spelling errors. Objective - Vital Signs Vital signs: Vital Signs Temp 98.4 F 10/02/23 12:00 Pulse 83 10/02/23 12:15 Resp 12 10/02/23 12:15 BP 89/56 10/02/23 12:15 Pulse Ox 93 L 10/02/23 12:15 FiO2 50 10/02/23 13:21 Intake & Output 10/01/23 10/02/23 10/02/23 18:59 06:59 18:59 Intake Total 2988.450 4631.502 585.228 Output Total 301 355 205 Balance 6755.713 8369.502 380.228 Weight 55.2 kg 55.2 kg Intake: IV 1000 1250 450 Invasive Line 1 10 Invasive Line 4 60 Invasive Line 5 10 Piperacillin-Tazobactam 3 100 200 .375 gm In Sodium Chloride 0.9% 100 ml @ 25 mls/hr IVPB Q8HR [facility] Rx# :[id number] Saline flush 70 Sodium Chloride 0.9% 1, 900 900 450 000 ml @ 75 mls/hr IV . [id number] [facility]IRA Rx#:[id number] Intake, IV Titration 466.790 109.502 85.228 Amount Norepinephrine 4 mg In 343.612 39.969 18.917 Sodium Chloride 0.9% 250 ml @ 0.03 MCG/KG/MIN 6. 401 mls/hr IV .Q24H [facility]IRA Rx#:[id number] propofoL 1,000 mg In 123.178 69.533 66.311 Empty Bag 1 bag @ 15 MCG/ KG/MIN 4.914 mls/hr IV . [id number] [facility]A Rx#:[id number] Tube Feeding 40 130 50 Other 30 60 Output: Urine 301 355 205 Other: Voiding Method Indwelling Catheter Indwelling Catheter Indwelling Catheter ABP, PAP, CO, CI - Last Documented Arterial Blood Pressure 93/52 - Labs CBC & Chem 7: 10/02/23 04:10 10/02/23 12:50 Labs: Abnormal Lab Results - Last 24 Hours (Table) 10/02/23 10/02/23 10/02/23 Range/Units 00:44 04:10 04:10 MCV 101.2 H (80.0-100.0) fL MCHC 30.7 L (31.0-37.0) g/dL Plt Count 115 L (150-450) k/uL Neutrophils # 9.8 H (1.3-7.7) k/uL Lymphocytes # 0.3 L (1.0-4.8) k/uL ABG pCO2 (35-45) mmHg ABG pO2 (83-108) mmHg ABG HCO3 (21-25) mmol/L ABG Total CO2 (19-24) mmol/L ABG O2 Saturation (94-97) % Carbon Dioxide 39 H (22-30) mmol/L BUN 31 H (7-17) mg/dL Creatinine 0.40 L (0.52-1.04) mg/dL Glucose 131 H (74-99) mg/dL POC Glucose (mg/dL) 124 H (70-110) mg/dL Calcium 8.3 L (8.4-10.2) mg/dL 10/02/23 10/02/23 Range/Units 05:18 11:19 MCV (80.0-100.0) fL MCHC (31.0-37.0) g/dL Plt Count (150-450) k/uL Neutrophils # (1.3-7.7) k/uL Lymphocytes # (1.0-4.8) k/uL ABG pCO2 62 H (35-45) mmHg ABG pO2 63 L (83-108) mmHg ABG HCO3 40 H* (21-25) mmol/L ABG Total CO2 42 H (19-24) mmol/L ABG O2 Saturation 92.5 L (94-97) % Carbon Dioxide (22-30) mmol/L BUN (7-17) mg/dL Creatinine (0.52-1.04) mg/dL Glucose (74-99) mg/dL POC Glucose (mg/dL) 134 H (70-110) mg/dL Calcium (8.4-10.2) mg/dL
[2023-10-02] MEDS: POTASSIUM BICARBONATE/CIT AC 20 MEQ TABLET.EFF PO SCH (15:39)
[2023-10-02 16:40] LABS: Glucose,Whole Blood 122 mg/dL (70-110)
[2023-10-02 23:21] LABS: Glucose,Whole Blood 113 mg/dL (70-110)
[2023-10-03 03:07] LABS: Basophils % (A) 0 %; Eosinophils % (A) 0 %; HCT 39.8 % (34.0-46.0); HGB 12.4 gm/dL (11.4-16.0); Hypochromasia Marked; Lymphocytes # (A) 0.4 k/uL (1.0-4.8); Lymphocytes % (A) 4 %; MCH 31.1 pg (25.0-35.0); MCHC 31.2 g/dL (31.0-37.0); MCV 99.8 fL (80.0-100.0); Monocytes # (A) 0.5 k/uL (0-1.0); Monocytes % (A) 4 %; Neutrophils # (A) 9.3 k/uL (1.3-7.7); Neutrophils % (A) 91 %; Platelet Count 144 k/uL (150-450); RBC 3.99 m/uL (3.80-5.40); RDW 13.8 % (11.5-15.5); WBC 10.2 k/uL (3.8-10.6)
[2023-10-03 03:19] LABS: African American GFR (CKD) >90 (>60 ml/min/1.73 sqM); Anion Gap -5 mmol/L; Blood Urea Nitrogen 27 mg/dL (7-17); Calcium 8.2 mg/dL (8.4-10.2); Carbon Dioxide 39 mmol/L (22-30); Chloride 103 mmol/L (98-107); Glucose 124 mg/dL (74-99); Non-African American GFR(CKD) >90 (>60 ml/min/1.73 sqM); Potassium 3.9 mmol/L (3.5-5.1); Sodium 137 mmol/L (137-145)
[2023-10-03 05:10] LABS: ABG Oxygen Saturation 96.2 % (94-97); ABG PCO2 57 mmHg (35-45); ABG PH 7.46 (7.35-7.45); ABG PO2 75 mmHg (83-108); ABG TCO2 42 mmol/L (19-24); Allen Test Performed? Yes
[2023-10-03 05:20] LABS: ABG HCO3 40 mmol/L (21-25)
[2023-10-03 05:55] LABS: Glucose,Whole Blood 116 mg/dL (70-110)
--- NOTE | 2023-10-03 08:16 | XR ---
EXAMINATION TYPE: XR chest 1V portable DATE OF EXAM: 10/03/2023 5:39 AM CLINICAL INDICATION: Female, 73 years old with history of mechanical ventilation; [facility] COMPARISON: Chest radiograph from one day prior. TECHNIQUE: XR chest 1V portable Frontal view of the chest. FINDINGS: r Lungs/Pleura: There is no evidence of pleural effusion, focal consolidation, or pneumothorax. Pulmonary vascularity: Unremarkable. Heart/mediastinum: Cardiomediastinal silhouette is unremarkable. Musculoskeletal: No acute osseous pathology. Other findings: None Lines/Tubes: Endotracheal tube with distal tip 5.2 cm above the isak. Nasogastric tube with its distal tip and side-port projecting under the diaphragm. Right internal jugular central venous catheter with distal tip at the cavoatrial junction. IMPRESSION: 1. Stable support tubes. 2. Similar Pulmonary edema with right pleural effusion.
[2023-10-03] MEDS: POTASSIUM BICARBONATE/CIT AC 20 MEQ TABLET.EFF NG-TUBE SCH (08:33)
--- NOTE | 2023-10-03 11:04 | P.PN ---
Subjective Progress Note Date: 10/03/23 Principal diagnosis: Respiratory failure. Acute hypoxic and hypercapnic respiratory failure secondary to acute COPD exacerbation and extensive left-sided pneumonia Patient was eval on 09/30/2023, patient has been on BiPAP for the last few days while in the ICU, however I was notified about this patient this morning becoming much worse clinically. Patient has been on 100% BiPAP with IPAP of 12 and EPAP of 6, however she developed worsening pulmonary status this morning, in spite of being on 100% FiO2, patient had her O2 saturation down in the low 70s. Patient was also noted to be coming more short of breath, and that she was having significant work of breathing. Hence as soon as I was notified about this patient, I recommended immediate intubation by [employer]UIT[employer], and I came in and evaluated the patient after she was intubated, reviewed her chest x-ray and I performed bronchoscopy and BAL/therapeutic BAL of the left lung with significant improvement noted after bronchoscopy. Patient also had central line placed since she was hypotensive and requiring norepinephrine. 0.08 mcg/kg/min. Ventilator settings are assist-control rate of 20, tidal volume 350, FiO2 100% and PEEP of 8 showed a pO2 of 77 pCO2 63 pH of 7.49 no changes were made in the ventilator settings, and advised respiratory to titrate FiO2 accordingly maintaining O2 sats above 91% WBC count today is 8.7 hemoglobin 14.2 hematocrit is 45.6. Electrolytes are normal except for low potassium of 3.2 being addressed and her renal status is normal bicarb is 44 Progress note dated October 01, 2023. This is a 73-year-old female who was admitted back on September 20. She was initially admitted with a diagnosis of COPD exacerbation. She was intubated on September 20, and extubated on the following day, September 21. She was reintubated on September 29, and had bronchoscopy performed as well on the same day. She is maintained on the mechanical ventilator. She is on volume assist-control, rate 20, tidal volume 350, FiO2 70%, PEEP of 8. Blood gases show pO2 of 101, pCO2 of 62, and the pH of 7.46. The patient is also on propofol at 30 mcg/kg/min, norepinephrine at 4.4 mcg/min saline at 75 cc an hour. The patient continues on Zosyn. The patient does not have any tube feeds ordered as yet. White count is 10.1, hemoglobin 13.3, hematocrit 41.9, and platelet count 235,000. Sodium 138, potassium 3.7, chloride 97, CO2 38, BUN 27, and creatinine 0.41. Glucose is 122. Chest x-ray shows a retrocardiac opacity, as well as some mild interstitial changes, and a small right-sided pleural effusion. Progress note dated October 02, 2023. 73-year-old female admitted on September 20. She was admitted with a diagnosis of COPD exacerbation, intubated on September 20, and extubated on the following day, September 21. She was reintubated on September 29, and had bronchoscopy performed as well on the same day, she currently is maintained on the mechanical ventilator. Ventilator settings include volume assist-control, rate of 12, tidal volume 350, FiO2 50%, PEEP of 8. Blood gases show pO2 63, pCO2 62, pH of 7.42. The patient is on propofol at 35 mcg/kg/min, saline at 75 cc an hour, and vital high-protein at 20 cc an hour with a goal of 39. Today, she will have a daily interruption of sedation with a spontaneous breathing trial, with pressure support of 8, and CPAP of 5. White count 10.5, hemoglobin 13, hematocrit 42.5, platelet count 115,000. Sodium 139, potassium 3.5, chlorides 102, CO2 39, BUN 31, creatinine 0.4. Calcium is 8.3, glucose is 131. Chest x-ray today, is largely unchanged from prior chest x-ray from yesterday. Progress note dated October 03, 2023. 73-year-old female admitted on September 20. She was admitted with diagnosis of COPD exacerbation, and respiratory failure. She was intubated on September 20, and extubated on September 21. She was reintubated for respiratory failure on September 29. She remains on the ventilator. She did have bronchoscopy and BAL on September 29. Currently, she is on pressure support of 8 and CPAP of 5. She is getting saline at 75 cc an hour. Norepinephrine has been weaned off. Tube feedings are on hold. Her most recent blood gases show pO2 of 75, pCO2 of 57, pH of 7.46. Current labs include a white count of 10.2, hemoglobin 12.4, hematocrit 39.8, and a platelet count of 144,000. Sodium 137, potassium 3.9, chlorides 103, CO2 39, BUN 27, creatinine 0.37. Calcium is 8.2. Glucose is 116. Chest x-ray continues to show mild fluid overload, with a right-sided effusion. Objective - Vital Signs Vital signs: Vital Signs Temp 98.6 F 10/03/23 08:00 Pulse 74 10/03/23 10:00 Resp 17 10/03/23 10:00 BP 110/75 10/03/23 10:00 Pulse Ox 93 L 10/03/23 10:00 FiO2 50 10/03/23 10:13 Intake & Output 10/02/23 10/03/23 10/03/23 18:59 06:59 18:59 Intake Total 0452.965 8950.465 508.777 Output Total 505 495 320 Balance 781.209 925.465 188.777 Weight 55.2 kg 59.1 kg Intake: IV 903 905 375 Invasive Line 1 10 Invasive Line 2 10 Invasive Line 4 50 Invasive Line 5 10 Sodium Chloride 0.9% 1, 903 825 375 000 ml @ 75 mls/hr IV . [id number] [facility] Rx#:[id number] Intake, IV Titration 173.209 89.465 25.777 Amount Norepinephrine 4 mg In 26.526 8.963 Sodium Chloride 0.9% 250 ml @ 0.03 MCG/KG/MIN 6. 401 mls/hr IV .Q24H [facility] Rx#:[id number] propofoL 1,000 mg In 146.683 80.502 25.777 Empty Bag 1 bag @ 15 MCG/ KG/MIN 4.914 mls/hr IV . [id number] [facility]IRA Rx#:[id number] Tube Feeding 210 336 78 Other 90 30 Output: Urine 505 495 320 Other: Voiding Method Indwelling Catheter Indwelling Catheter Indwelling Catheter ABP, PAP, CO, CI - Last Documented Arterial Blood Pressure 108/59 - Exam No acute distress, intubated, and on the mechanical ventilator. HEENT examination is grossly unremarkable. Neck supple. Full range of motion. No adenopathy thyromegaly or neck vein distention. Cardiovascular examination reveals regular rhythm rate. S1-S2 normal. No S3 or S4. No discernible murmur noted. Heart sounds are distant. Lungs reveal scattered rhonchi. No wheezes or crackles. Breath sounds equal. Saturations are 95 %. Abdomen soft bowel sounds are heard. No masses or tenderness. Extremities are intact. No cyanosis clubbing or edema. Skin is without rash or lesion. Neurologic examination appears relatively normal at this time. It is brief but nonfocal. - Labs CBC & Chem 7: 10/03/23 02:50 10/03/23 02:50 Labs: Abnormal Lab Results - Last 24 Hours (Table) 10/02/23 10/02/23 10/02/23 Range/Units 11:19 16:38 23:19 Plt Count (150-450) k/uL Neutrophils # (1.3-7.7) k/uL Lymphocytes # (1.0-4.8) k/uL ABG pH (7.35-7.45) ABG pCO2 (35-45) mmHg ABG pO2 (83-108) mmHg ABG HCO3 (21-25) mmol/L ABG Total CO2 (19-24) mmol/L Carbon Dioxide (22-30) mmol/L BUN (7-17) mg/dL Creatinine (0.52-1.04) mg/dL Glucose (74-99) mg/dL POC Glucose (mg/dL) 134 H 122 H 113 H (70-110) mg/dL Calcium (8.4-10.2) mg/dL 10/03/23 10/03/23 10/03/23 Range/Units 02:50 02:50 05:05 Plt Count 144 L (150-450) k/uL Neutrophils # 9.3 H (1.3-7.7) k/uL Lymphocytes # 0.4 L (1.0-4.8) k/uL ABG pH 7.46 H (7.35-7.45) ABG pCO2 57 H (35-45) mmHg ABG pO2 75 L (83-108) mmHg ABG HCO3 40 H* (21-25) mmol/L ABG Total CO2 42 H (19-24) mmol/L Carbon Dioxide 39 H (22-30) mmol/L BUN 27 H (7-17) mg/dL Creatinine 0.37 L (0.52-1.04) mg/dL Glucose 124 H (74-99) mg/dL POC Glucose (mg/dL) (70-110) mg/dL Calcium 8.2 L (8.4-10.2) mg/dL 10/03/23 Range/Units 05:54 Plt Count (150-450) k/uL Neutrophils # (1.3-7.7) k/uL Lymphocytes # (1.0-4.8) k/uL ABG pH (7.35-7.45) ABG pCO2 (35-45) mmHg ABG pO2 (83-108) mmHg ABG HCO3 (21-25) mmol/L ABG Total CO2 (19-24) mmol/L Carbon Dioxide (22-30) mmol/L BUN (7-17) mg/dL Creatinine (0.52-1.04) mg/dL Glucose (74-99) mg/dL POC Glucose (mg/dL) 116 H (70-110) mg/dL Calcium (8.4-10.2) mg/dL Assessment and Plan Assessment: Acute on chronic hypoxemic and hypercapnic respiratory failure, mostly secondary to COPD exacerbation, and possible pneumonia. S/P intubation, on September 20, with extubation on September 21. Reintubation, for respiratory failure, September 30, 2023. S/P extubation, on October 03, 2023. S/P bronchoscopy, September 30, 2023. Left-sided pneumonia. Chronic pain syndrome. Plan: Plan dated October 01, 2023. The patient is seen today in room 256. She is examined. Labs, x-rays, and all medications are reviewed. The patient remains on mechanical ventilator. The FiO2 was reduced from 70%, down to 50%. The patient continues on propofol. The patient is also on norepinephrine at 4.4 mcg/min. The patient is receiving saline IV at 75 cc an hour. The patient continues on Zosyn empirically. The patient continues on GI and DVT prophylaxis. We will await the results of the bronchoscopy and BAL. The patient also continues on bronchodilators, and corticosteroids. Tube feedings will be started today. The patient's overall prognosis remains very guarded. In the end, if the patient does not appear to be able to be weaned, she may need a tracheostomy and PEG tube placement. Additional recommendations and suggestions are forthcoming. Plan dated October 02, 2023. The patient is seen today in room 256. The patient appears relatively comfortable. The patient will have a daily interruption of sedation, and a spontaneous breathing trial, on pressure support of 8, CPAP of 5. The patient continues on propofol at 35 mcg/kg/min, and vital high-protein at 20 cc an hour, with a goal of 39. Blood gases, include a pO2 of 63, pCO2 of 62, pH of 7.42. Labs, x-rays, medications are reviewed. We will continue to follow the patient, make recommendations where appropriate. The patient continues on GI and DVT prophylaxis. Zosyn will be discontinued. Additional recommendations and suggestions are forthcoming. Plan dated October 03, 2023. The patient did well on pressor support and CPAP yesterday. I decided not to extubate her. I wanted to give her another day of rest on the ventilator. This morning, she is on pressure support and CPAP. The patient will have a set of weaning parameters including tidal volume, vital capacity, negative inspiratory force, minute volume, respiratory rate, rapid shallow breathing index, and cuff leak test. If the patient is doing well, she may be extubated again. I did tell respiratory therapist to have BiPAP on standby. We will continue to follow make recommendations along the way. Labs, x-rays, and all medications have been reviewed. Time with Patient: Greater than 30
[2023-10-03 12:10] LABS: Glucose,Whole Blood 133 mg/dL (70-110)
--- NOTE | 2023-10-03 13:10 | P.PN ---
Subjective Progress Note Date: 10/03/23 Acute hypoxic and hypercapnic respiratory failure secondary to acute COPD exacerbation and extensive left-sided pneumonia. Patient was eval on 09/30/2023, patient has been on BiPAP for the last few days while in the ICU, Patient has been on 100% BiPAP with IPAP of 12 and EPAP of 6, however she developed worsening pulmonary status this morning, in spite of being on 100% FiO2, patient had her O2 saturation down in the low 70s. Patient was intubated, underwent bronchoscopy with lavage 09/30. Patient seen examined. Currently intubated. Currently on IV Zosyn. Vital signs stable 10/01. Patient seen and examined. Patient currently going through SBT, patient opening eyes. 10/02. Patient seen and examined. Patient extubated this morning. REVIEW OF SYSTEMS: Denies any chest pain. Denies any shortness of breath. Denies any nausea or vomiting. PHYSICAL EXAMINATION: GENERAL: The patient is alert HEENT: Pupils are round and equally reacting to light. EOMI. No scleral icterus. No conjunctival pallor. Normocephalic, atraumatic. No pharyngeal erythema. No thyromegaly. CARDIOVASCULAR: S1 and S2 present. No murmurs, rubs, or gallops. PULMONARY: Chest is clear to auscultation, no wheezing or crackles. ABDOMEN: Soft, nontender, nondistended, normoactive bowel sounds. No palpable organomegaly. MUSCULOSKELETAL: No joint swelling or deformity. EXTREMITIES: No cyanosis, clubbing, or pedal edema. NEUROLOGICAL: Moving all extremities SKIN: No rashes. Assessment and plan Acute on chronic hypoxic and hypercapnic respiratory failure, multifactorial, requiring intubation mechanical ventilation last week, and reintubation on 09/29 Acute COPD exacerbation Left lung pneumonia, possibly hospital-acquired pneumonia with complete opacification of the left lung secondary to mucous plugging, requiring bronchoscopy and BAL of the left lung. Chronic hypoxic and hypercapnic respiratory failure Chronic pain syndrome Sinus rhythm with PVCs Severe pulmonary hypertension Hyperlipidemia Diabetes mellitus History of GERD Hypothyroidism History of osteoarthritis Monitor vital signs Monitor CBC Monitor CMP Continue telemetry monitoring Aggressive bronchopulmonary hygiene Continue IV Solu-Medrol Continue IV Zosyn Cardiology following Pulmonology following Labs and medication were reviewed.. Continue same treatment. Continue with symptomatic treatment. Resume home medication. Monitor labs and vitals. DVT and GI prophylaxis. Further recommendations as per clinical course of the patient Dictation was produced using [employer] dictation software. please excuse any grammatical, word or spelling errors. Objective - Vital Signs Vital signs: Vital Signs Temp 98.6 F 10/03/23 08:00 Pulse 80 10/03/23 11:48 Resp 17 10/03/23 10:00 BP 110/75 10/03/23 10:00 Pulse Ox 93 L 10/03/23 10:00 FiO2 50 10/03/23 10:13 Intake & Output 10/02/23 10/03/23 10/03/23 18:59 06:59 18:59 Intake Total 6764.069 5997.465 508.777 Output Total 505 495 320 Balance 781.209 925.465 188.777 Weight 55.2 kg 59.1 kg Intake: IV 903 905 375 Invasive Line 1 10 Invasive Line 2 10 Invasive Line 4 50 Invasive Line 5 10 Sodium Chloride 0.9% 1, 903 825 375 000 ml @ 75 mls/hr IV . [id number] [facility]IRA Rx#:[id number] Intake, IV Titration 173.209 89.465 25.777 Amount Norepinephrine 4 mg In 26.526 8.963 Sodium Chloride 0.9% 250 ml @ 0.03 MCG/KG/MIN 6. 401 mls/hr IV .Q24H [facility]A Rx#:[id number] propofoL 1,000 mg In 146.683 80.502 25.777 Empty Bag 1 bag @ 15 MCG/ KG/MIN 4.914 mls/hr IV . [id number] SHIRA Rx#:[id number] Tube Feeding 210 336 78 Other 90 30 Output: Urine 505 495 320 Other: Voiding Method Indwelling Catheter Indwelling Catheter Indwelling Catheter ABP, PAP, CO, CI - Last Documented Arterial Blood Pressure 108/59 - Labs CBC & Chem 7: 10/03/23 02:50 10/03/23 02:50 Labs: Abnormal Lab Results - Last 24 Hours (Table) 10/02/23 10/02/23 10/03/23 Range/Units 16:38 23:19 02:50 Plt Count 144 L (150-450) k/uL Neutrophils # 9.3 H (1.3-7.7) k/uL Lymphocytes # 0.4 L (1.0-4.8) k/uL ABG pH (7.35-7.45) ABG pCO2 (35-45) mmHg ABG pO2 (83-108) mmHg ABG HCO3 (21-25) mmol/L ABG Total CO2 (19-24) mmol/L Carbon Dioxide (22-30) mmol/L BUN (7-17) mg/dL Creatinine (0.52-1.04) mg/dL Glucose (74-99) mg/dL POC Glucose (mg/dL) 122 H 113 H (70-110) mg/dL Calcium (8.4-10.2) mg/dL 10/03/23 10/03/23 10/03/23 Range/Units 02:50 05:05 05:54 Plt Count (150-450) k/uL Neutrophils # (1.3-7.7) k/uL Lymphocytes # (1.0-4.8) k/uL ABG pH 7.46 H (7.35-7.45) ABG pCO2 57 H (35-45) mmHg ABG pO2 75 L (83-108) mmHg ABG HCO3 40 H* (21-25) mmol/L ABG Total CO2 42 H (19-24) mmol/L Carbon Dioxide 39 H (22-30) mmol/L BUN 27 H (7-17) mg/dL Creatinine 0.37 L (0.52-1.04) mg/dL Glucose 124 H (74-99) mg/dL POC Glucose (mg/dL) 116 H (70-110) mg/dL Calcium 8.2 L (8.4-10.2) mg/dL 10/03/23 Range/Units 12:08 Plt Count (150-450) k/uL Neutrophils # (1.3-7.7) k/uL Lymphocytes # (1.0-4.8) k/uL ABG pH (7.35-7.45) ABG pCO2 (35-45) mmHg ABG pO2 (83-108) mmHg ABG HCO3 (21-25) mmol/L ABG Total CO2 (19-24) mmol/L Carbon Dioxide (22-30) mmol/L BUN (7-17) mg/dL Creatinine (0.52-1.04) mg/dL Glucose (74-99) mg/dL POC Glucose (mg/dL) 133 H (70-110) mg/dL Calcium (8.4-10.2) mg/dL
[2023-10-03 18:01] LABS: Glucose,Whole Blood 114 mg/dL (70-110)
[2023-10-03 23:37] LABS: Glucose,Whole Blood 133 mg/dL (70-110)
[2023-10-04] MEDS ORDERED: methylPREDNISolone SOD SUCCI 125 MG/2 ML VIAL ONE (00:01)
[2023-10-04] MEDS ORDERED: INSULIN ASPART (NovoLOG) 100 UNIT/ML VIAL SQ ONE (00:01)
[2023-10-04] MEDS ORDERED: IPRATROPIUM-ALBUTEROL 3 ML NEB ONE (00:01)
[2023-10-04 06:02] LABS: Glucose,Whole Blood 107 mg/dL (70-110)
[2023-10-04 06:14] LABS: Basophils % (A) 0 %; Eosinophils % (A) 0 %; HCT 42.7 % (34.0-46.0); HGB 13.6 gm/dL (11.4-16.0); Lymphocytes # (A) 0.3 k/uL (1.0-4.8); Lymphocytes % (A) 2 %; MCH 31.4 pg (25.0-35.0); MCHC 31.8 g/dL (31.0-37.0); MCV 98.7 fL (80.0-100.0); Monocytes # (A) 0.5 k/uL (0-1.0); Monocytes % (A) 4 %; Neutrophils # (A) 12.3 k/uL (1.3-7.7); Neutrophils % (A) 93 %; Platelet Count 160 k/uL (150-450); RBC 4.32 m/uL (3.80-5.40); WBC 13.3 k/uL (3.8-10.6)
[2023-10-04 07:51] LABS: African American GFR (CKD) >90 (>60 ml/min/1.73 sqM); Anion Gap -3 mmol/L; Blood Urea Nitrogen 25 mg/dL (7-17); Calcium 8.5 mg/dL (8.4-10.2); Carbon Dioxide 35 mmol/L (22-30); Chloride 103 mmol/L (98-107); Glucose 114 mg/dL (74-99); Non-African American GFR(CKD) >90 (>60 ml/min/1.73 sqM); Potassium 3.8 mmol/L (3.5-5.1); Sodium 135 mmol/L (137-145)
[2023-10-04] MEDS: POTASSIUM CHLORIDE 10 MEQ in WATER FOR INJECTION 1 100ML.BAG IVPB ONE ×2 (09:18→10:26)
--- NOTE | 2023-10-04 11:27 | P.PN ---
Subjective Progress Note Date: 10/04/23 Principal diagnosis: Respiratory failure. Acute hypoxic and hypercapnic respiratory failure secondary to acute COPD exacerbation and extensive left-sided pneumonia Patient was eval on 09/30/2023, patient has been on BiPAP for the last few days while in the ICU, however I was notified about this patient this morning becoming much worse clinically. Patient has been on 100% BiPAP with IPAP of 12 and EPAP of 6, however she developed worsening pulmonary status this morning, in spite of being on 100% FiO2, patient had her O2 saturation down in the low 70s. Patient was also noted to be coming more short of breath, and that she was having significant work of breathing. Hence as soon as I was notified about this patient, I recommended immediate intubation by [employer], and I came in and evaluated the patient after she was intubated, reviewed her chest x-ray and I performed bronchoscopy and BAL/therapeutic BAL of the left lung with significant improvement noted after bronchoscopy. Patient also had central line placed since she was hypotensive and requiring norepinephrine. 0.08 mcg/kg/min. Ventilator settings are assist-control rate of 20, tidal volume 350, FiO2 100% and PEEP of 8 showed a pO2 of 77 pCO2 63 pH of 7.49 no changes were made in the ventilator settings, and advised respiratory to titrate FiO2 accordingly maintaining O2 sats above 91% WBC count today is 8.7 hemoglobin 14.2 hematocrit is 45.6. Electrolytes are normal except for low potassium of 3.2 being addressed and her renal status is normal bicarb is 44 Progress note dated October 01, 2023. This is a 73-year-old female who was admitted back on September 20. She was initially admitted with a diagnosis of COPD exacerbation. She was intubated on September 20, and extubated on the following day, September 21. She was reintubated on September 29, and had bronchoscopy performed as well on the same day. She is maintained on the mechanical ventilator. She is on volume assist-control, rate 20, tidal volume 350, FiO2 70%, PEEP of 8. Blood gases show pO2 of 101, pCO2 of 62, and the pH of 7.46. The patient is also on propofol at 30 mcg/kg/min, norepinephrine at 4.4 mcg/min saline at 75 cc an hour. The patient continues on Zosyn. The patient does not have any tube feeds ordered as yet. White count is 10.1, hemoglobin 13.3, hematocrit 41.9, and platelet count 235,000. Sodium 138, potassium 3.7, chloride 97, CO2 38, BUN 27, and creatinine 0.41. Glucose is 122. Chest x-ray shows a retrocardiac opacity, as well as some mild interstitial changes, and a small right-sided pleural effusion. Progress note dated October 02, 2023. 73-year-old female admitted on September 20. She was admitted with a diagnosis of COPD exacerbation, intubated on September 20, and extubated on the following day, September 21. She was reintubated on September 29, and had bronchoscopy performed as well on the same day, she currently is maintained on the mechanical ventilator. Ventilator settings include volume assist-control, rate of 12, tidal volume 350, FiO2 50%, PEEP of 8. Blood gases show pO2 63, pCO2 62, pH of 7.42. The patient is on propofol at 35 mcg/kg/min, saline at 75 cc an hour, and vital high-protein at 20 cc an hour with a goal of 39. Today, she will have a daily interruption of sedation with a spontaneous breathing trial, with pressure support of 8, and CPAP of 5. White count 10.5, hemoglobin 13, hematocrit 42.5, platelet count 115,000. Sodium 139, potassium 3.5, chlorides 102, CO2 39, BUN 31, creatinine 0.4. Calcium is 8.3, glucose is 131. Chest x-ray today, is largely unchanged from prior chest x-ray from yesterday. Progress note dated October 03, 2023. 73-year-old female admitted on September 20. She was admitted with diagnosis of COPD exacerbation, and respiratory failure. She was intubated on September 20, and extubated on September 21. She was reintubated for respiratory failure on September 29. She remains on the ventilator. She did have bronchoscopy and BAL on September 29. Currently, she is on pressure support of 8 and CPAP of 5. She is getting saline at 75 cc an hour. Norepinephrine has been weaned off. Tube feedings are on hold. Her most recent blood gases show pO2 of 75, pCO2 of 57, pH of 7.46. Current labs include a white count of 10.2, hemoglobin 12.4, hematocrit 39.8, and a platelet count of 144,000. Sodium 137, potassium 3.9, chlorides 103, CO2 39, BUN 27, creatinine 0.37. Calcium is 8.2. Glucose is 116. Chest x-ray continues to show mild fluid overload, with a right-sided effusion. Progress note dated October 04, 2023. 73-year-old female admitted on September 20, with a diagnosis of COPD exacerbation, and acute hypoxemic respiratory failure. The patient was successfully extubated, for the second time yesterday. Currently, she is seen today in room 256. Stools were negative for C. difficile colitis. She is on 5 L nasal cannula. She is getting saline at 75 cc an hour. She appears relatively stable. She did not need BiPAP after extubation. Current laboratory data includes a white count 13.3, hemoglobin 13.6, hematocrit 42.7, platelet count 160,000. Sodium 135, potassium 3.8, chlorides 103, CO2 35, BUN 25, creatinine 0.31. Calcium is 8.5, glucose was 107. No chest x-ray today. Objective - Vital Signs Vital signs: Vital Signs Temp 97.6 F 10/04/23 08:00 Pulse 75 10/04/23 10:00 Resp 18 10/04/23 10:00 BP 108/74 10/04/23 10:00 Pulse Ox 92 L 10/04/23 10:00 FiO2 50 10/03/23 10:13 Intake & Output 10/03/23 10/04/23 10/04/23 18:59 06:59 18:59 Intake Total 1033.777 750 500 Output Total 725 650 450 Balance 308.777 100 50 Weight 59.1 kg 59.7 kg Intake: IV 900 750 300 Sodium Chloride 0.9% 1, 900 750 300 000 ml @ 75 mls/hr IV . [id number] [facility] Rx#:[id number] Intake, IV Titration 25.777 Amount propofoL 1,000 mg In 25.777 Empty Bag 1 bag @ 15 MCG/ KG/MIN 4.914 mls/hr IV . [id number] [facility] Rx#:[id number] Oral 200 Tube Feeding 78 Other 30 Output: Urine 725 650 250 Stool 200 Other: Voiding Method Indwelling Catheter Indwelling Catheter Indwelling Catheter ABP, PAP, CO, CI - Last Documented Arterial Blood Pressure 108/64 - Exam No acute distress, extubated, currently on 5 L nasal cannula. HEENT examination is grossly unremarkable. Neck supple. Full range of motion. No adenopathy thyromegaly or neck vein distention. Cardiovascular examination reveals regular rhythm rate. S1-S2 normal. No S3 or S4. No discernible murmur noted. Heart sounds are distant. Heart rate is 75 bpm. Lungs reveal scattered rhonchi. No wheezes or crackles. Breath sounds equal. Saturations are 92%. Abdomen soft bowel sounds are heard. No masses or tenderness. Extremities are intact. No cyanosis clubbing or edema. Skin is without rash or lesion. Neurologic examination is brief but nonfocal. - Labs CBC & Chem 7: 10/04/23 06:03 10/04/23 06:03 Labs: Abnormal Lab Results - Last 24 Hours (Table) 10/03/23 10/03/23 10/03/23 Range/Units 12:08 18:00 23:36 WBC (3.8-10.6) k/uL Neutrophils # (1.3-7.7) k/uL Lymphocytes # (1.0-4.8) k/uL Sodium (137-145) mmol/L Carbon Dioxide (22-30) mmol/L BUN (7-17) mg/dL Creatinine (0.52-1.04) mg/dL Glucose (74-99) mg/dL POC Glucose (mg/dL) 133 H 114 H 133 H (70-110) mg/dL 10/04/23 10/04/23 Range/Units 06:03 06:03 WBC 13.3 H (3.8-10.6) k/uL Neutrophils # 12.3 H (1.3-7.7) k/uL Lymphocytes # 0.3 L (1.0-4.8) k/uL Sodium 135 L (137-145) mmol/L Carbon Dioxide 35 H (22-30) mmol/L BUN 25 H (7-17) mg/dL Creatinine 0.31 L (0.52-1.04) mg/dL Glucose 114 H (74-99) mg/dL POC Glucose (mg/dL) (70-110) mg/dL Assessment and Plan Assessment: Acute on chronic hypoxemic and hypercapnic respiratory failure, mostly secondary to COPD exacerbation, and possible pneumonia. S/P intubation, on September 20, with extubation on [place] 17. Reintubation, for respiratory failure, September 30, 2023. S/P extubation, on October 03, 2023. S/P bronchoscopy, September 30, 2023. Left-sided pneumonia. Chronic pain syndrome. Plan: Plan dated October 01, 2023. The patient is seen today in room 256. She is examined. Labs, x-rays, and all medications are reviewed. The patient remains on mechanical ventilator. The FiO2 was reduced from 70%, down to 50%. The patient continues on propofol. The patient is also on norepinephrine at 4.4 mcg/min. The patient is receiving saline IV at 75 cc an hour. The patient continues on Zosyn empirically. The patient continues on GI and DVT prophylaxis. We will await the results of the bronchoscopy and BAL. The patient also continues on bronchodilators, and corticosteroids. Tube feedings will be started today. The patient's overall prognosis remains very guarded. In the end, if the patient does not appear to be able to be weaned, she may need a tracheostomy and PEG tube placement. Additional recommendations and suggestions are forthcoming. Plan dated October 02, 2023. The patient is seen today in room 256. The patient appears relatively comfortable. The patient will have a daily interruption of sedation, and a spontaneous breathing trial, on pressure support of 8, CPAP of 5. The patient continues on propofol at 35 mcg/kg/min, and vital high-protein at 20 cc an hour, with a goal of 39. Blood gases, include a pO2 of 63, pCO2 of 62, pH of 7.42. Labs, x-rays, medications are reviewed. We will continue to follow the patient, make recommendations where appropriate. The patient continues on GI and DVT prophylaxis. Zosyn will be discontinued. Additional recommendations and suggestions are forthcoming. Plan dated October 03, 2023. The patient did well on pressor support and CPAP yesterday. I decided not to extubate her. I wanted to give her another day of rest on the ventilator. This morning, she is on pressure support and CPAP. The patient will have a set of weaning parameters including tidal volume, vital capacity, negative inspiratory force, minute volume, respiratory rate, rapid shallow breathing index, and cuff leak test. If the patient is doing well, she may be extubated again. I did tell respiratory therapist to have BiPAP on standby. We will continue to follow make recommendations along the way. Labs, x-rays, and all medications have been reviewed. Plan dated October 04, 2023. The patient remains tenuous, in the intensive care unit. The patient was previously extubated, and required reintubation. Yesterday she was extubated. She continues on O2 at 5 L. Labs, x-rays, and medications are all reviewed. The patient also continues on saline at 75 cc an hour. Labs, x-rays, and all medications are reviewed. She tested negative for C. difficile. We will continue to follow the patient, and make recommendations. Overall prognosis remains extremely poor. Time with Patient: Greater than 30
[2023-10-04 11:40] LABS: Glucose,Whole Blood 130 mg/dL (70-110)
[2023-10-04 11:52] LABS: Glucose,Whole Blood 140 mg/dL (70-110)
--- NOTE | 2023-10-04 13:20 | P.PN ---
Subjective Progress Note Date: 10/04/23 Acute hypoxic and hypercapnic respiratory failure secondary to acute COPD exacerbation and extensive left-sided pneumonia. Patient was eval on 09/30/2023, patient has been on BiPAP for the last few days while in the ICU, Patient has been on 100% BiPAP with IPAP of 12 and EPAP of 6, however she developed worsening pulmonary status this morning, in spite of being on 100% FiO2, patient had her O2 saturation down in the low 70s. Patient was intubated, underwent bronchoscopy with lavage 09/30. Patient seen examined. Currently intubated. Currently on IV Zosyn. Vital signs stable 10/01. Patient seen and examined. Patient currently going through SBT, patient opening eyes. 10/02. Patient seen and examined. Patient extubated this morning. 10/03. Patient seen and examined. Sitting upright in the bed. States she feels much better. Currently on 5 l of oxygen. Denies any shortness of breath at res t.Blood work done this morning showed WBC 13.3, hemoglobin 13.6, sodium 35, potassium 3.8, BUN 25, creatinine 0.31 REVIEW OF SYSTEMS: Denies any chest pain. Denies any shortness of breath. Denies any nausea or vomiting. PHYSICAL EXAMINATION: GENERAL: The patient is alert HEENT: Pupils are round and equally reacting to light. EOMI. No scleral icterus. No conjunctival pallor. Normocephalic, atraumatic. No pharyngeal erythema. No thyromegaly. CARDIOVASCULAR: S1 and S2 present. No murmurs, rubs, or gallops. PULMONARY: Chest is clear to auscultation, no wheezing or crackles. ABDOMEN: Soft, nontender, nondistended, normoactive bowel sounds. No palpable organomegaly. MUSCULOSKELETAL: No joint swelling or deformity. EXTREMITIES: No cyanosis, clubbing, or pedal edema. NEUROLOGICAL: Moving all extremities SKIN: No rashes. Assessment and plan Acute on chronic hypoxic and hypercapnic respiratory failure, multifactorial, requiring intubation mechanical ventilation last week, and reintubation on 09/29 Acute COPD exacerbation Left lung pneumonia, possibly hospital-acquired pneumonia with complete opacification of the left lung secondary to mucous plugging, requiring bronchoscopy and BAL of the left lung. Chronic hypoxic and hypercapnic respiratory failure Chronic pain syndrome Sinus rhythm with PVCs Severe pulmonary hypertension Hyperlipidemia Diabetes mellitus History of GERD Hypothyroidism History of osteoarthritis Monitor vital signs Monitor CBC Monitor CMP Continue telemetry monitoring Aggressive bronchopulmonary hygiene Continue IV Solu-Medrol Continue IV fluids Continue breathing treatment Cardiology following Pulmonology following Labs and medication were reviewed.. Continue same treatment. Continue with symptomatic treatment. Resume home medication. Monitor labs and vitals. DVT and GI prophylaxis. Further recommendations as per clinical course of the patient Dictation was produced using [employer] dictation software. please excuse any grammatical, word or spelling errors. Objective - Vital Signs Vital signs: Vital Signs Temp 97.6 F 10/04/23 08:00 Pulse 92 10/04/23 12:00 Resp 22 10/04/23 12:00 BP 100/62 10/04/23 12:00 Pulse Ox 94 L 10/04/23 12:00 FiO2 50 10/03/23 10:13 Intake & Output 10/03/23 10/04/23 10/04/23 18:59 06:59 18:59 Intake Total 1033.777 750 775 Output Total 725 650 750 Balance 308.777 100 25 Weight 59.1 kg 59.7 kg Intake: IV 900 750 375 Sodium Chloride 0.9% 1, 900 750 375 000 ml @ 75 mls/hr IV . [id number] [facility] Rx#:[id number] Intake, IV Titration 25.777 200 Amount Potassium Chloride 10 meq 200 In Water For Injection 1 100ml.bag @ 100 mls/hr IVPB ONCE ONE Rx#: [id number] propofoL 1,000 mg In 25.777 Empty Bag 1 bag @ 15 MCG/ KG/MIN 4.914 mls/hr IV . [id number] [facility] Rx#:[id number] Oral 200 Tube Feeding 78 Other 30 Output: Urine 725 650 350 Stool 400 Other: Voiding Method Indwelling Catheter Indwelling Catheter Indwelling Catheter ABP, PAP, CO, CI - Last Documented Arterial Blood Pressure 108/64 - Labs CBC & Chem 7: 10/04/23 06:03 10/04/23 06:03 Labs: Abnormal Lab Results - Last 24 Hours (Table) 10/03/23 10/03/23 10/04/23 Range/Units 18:00 23:36 06:03 WBC 13.3 H (3.8-10.6) k/uL Neutrophils # 12.3 H (1.3-7.7) k/uL Lymphocytes # 0.3 L (1.0-4.8) k/uL Sodium (137-145) mmol/L Carbon Dioxide (22-30) mmol/L BUN (7-17) mg/dL Creatinine (0.52-1.04) mg/dL Glucose (74-99) mg/dL POC Glucose (mg/dL) 114 H 133 H (70-110) mg/dL 10/04/23 10/04/23 10/04/23 Range/Units 06:03 11:38 11:51 WBC (3.8-10.6) k/uL Neutrophils # (1.3-7.7) k/uL Lymphocytes # (1.0-4.8) k/uL Sodium 135 L (137-145) mmol/L Carbon Dioxide 35 H (22-30) mmol/L BUN 25 H (7-17) mg/dL Creatinine 0.31 L (0.52-1.04) mg/dL Glucose 114 H (74-99) mg/dL POC Glucose (mg/dL) 130 H 140 H (70-110) mg/dL
[2023-10-04 18:07] LABS: Glucose,Whole Blood 185 mg/dL (70-110)
--- NOTE | 2023-10-04 23:08 | XR ---
EXAMINATION TYPE: XR chest 1V DATE OF EXAM: 09/27/2023 COMPARISON: 09/26/2023 HISTORY: 73-year-old female ICU follow-up, shortness of breath TECHNIQUE: Single frontal view of the chest is obtained. FINDINGS: Improving aeration throughout the left lung. Dense retrocardiac and left basilar opacity remains. Int erstitial densities remain in the left upper and midlung. Heart borderline in size. Improving volume in the left hemithorax. Worsening focal right basilar opacity along with small effusion. Relative upp er lung lucencies. IMPRESSION: 1. COPD with improving aeration on the left and some shifting opacities with worsening aeration at th e right base. Consider atypical pulmonary edema with overall improvement. 2. Small right pleural effusion has worsened.
[2023-10-05 00:23] LABS: Glucose,Whole Blood 115 mg/dL (70-110)
[2023-10-05] MEDS: INSULIN ASPART (NovoLOG) 100 UNIT/ML VIAL SQ SCH ×2 (00:27→12:29)
[2023-10-05 03:46] LABS: Basophils % (A) 0 %; Eosinophils # (A) 0.1 k/uL (0-0.7); Eosinophils % (A) 0 %; HGB 13.5 gm/dL (11.4-16.0); Hypochromasia Moderate; Lymphocytes # (A) 0.3 k/uL (1.0-4.8); Lymphocytes % (A) 2 %; MCH 30.4 pg (25.0-35.0); MCHC 30.8 g/dL (31.0-37.0); MCV 98.8 fL (80.0-100.0); Mean Platelet Volume 8.3; Monocytes # (A) 0.4 k/uL (0-1.0); Monocytes % (A) 3 %; Neutrophils # (A) 13.6 k/uL (1.3-7.7); Neutrophils % (A) 95 %; Platelet Count 181 k/uL (150-450); RBC 4.46 m/uL (3.80-5.40); RDW 13.6 % (11.5-15.5); WBC 14.3 k/uL (3.8-10.6)
[2023-10-05 04:02] LABS: African American GFR (CKD) >90 (>60 ml/min/1.73 sqM); Anion Gap -1 mmol/L; Blood Urea Nitrogen 24 mg/dL (7-17); Calcium 8.4 mg/dL (8.4-10.2); Carbon Dioxide 33 mmol/L (22-30); Chloride 101 mmol/L (98-107); Glucose 145 mg/dL (74-99); Non-African American GFR(CKD) >90 (>60 ml/min/1.73 sqM); Potassium 3.8 mmol/L (3.5-5.1); Sodium 133 mmol/L (137-145)
[2023-10-05 05:54] LABS: Glucose,Whole Blood 124 mg/dL (70-110)
[2023-10-05] MEDS: POTASSIUM BICARBONATE/CIT AC 20 MEQ TABLET.EFF NG-TUBE SCH (05:57)
--- NOTE | 2023-10-05 08:04 | XR ---
Patient Roxana Long ID [id number] Order # EXAMINATION TYPE: XR chest 1V DATE OF EXAM: 09/21/2023 COMPARISON: No comparison available on downtime PACS. INDICATION: Cardiac arrest. Tube placement TECHNIQUE: Single frontal view of the chest is obtained. FINDINGS: The heart size is normal. The pulmonary vasculature is normal. Mild bibasilar changes present. No pneumothorax is evident. No acute fractures evident. ET tube tip is 6 cm above the isak. Nasogastric tube tip is in the left upper quadrant of the abdom en. IMPRESSION: 1. Mild bibasilar infiltrates. 2. Endotracheal tube tip above the isak. Nasogastric tube tip left upper quadrant abdomen
--- NOTE | 2023-10-05 12:00 | P.PN ---
Subjective Progress Note Date: 10/05/23 Principal diagnosis: Respiratory failure. Acute hypoxic and hypercapnic respiratory failure secondary to acute COPD exacerbation and extensive left-sided pneumonia Patient was eval on 09/30/2023, patient has been on BiPAP for the last few days while in the ICU, however I was notified about this patient this morning becoming much worse clinically. Patient has been on 100% BiPAP with IPAP of 12 and EPAP of 6, however she developed worsening pulmonary status this morning, in spite of being on 100% FiO2, patient had her O2 saturation down in the low 70s. Patient was also noted to be coming more short of breath, and that she was having significant work of breathing. Hence as soon as I was notified about this patient, I recommended immediate intubation by PRODUCT INTRODUCTION MANAGER, and I came in and evaluated the patient after she was intubated, reviewed her chest x-ray and I performed bronchoscopy and BAL/therapeutic BAL of the left lung with significant improvement noted after bronchoscopy. Patient also had central line placed since she was hypotensive and requiring norepinephrine. 0.08 mcg/kg/min. Ventilator settings are assist-control rate of 20, tidal volume 350, FiO2 100% and PEEP of 8 showed a pO2 of 77 pCO2 63 pH of 7.49 no changes were made in the ventilator settings, and advised respiratory to titrate FiO2 accordingly maintaining O2 sats above 91% WBC count today is 8.7 hemoglobin 14.2 hematocrit is 45.6. Electrolytes are normal except for low potassium of 3.2 being addressed and her renal status is normal bicarb is 44 Progress note dated October 01, 2023. This is a 73-year-old female who was admitted back on September 20. She was initially admitted with a diagnosis of COPD exacerbation. She was intubated on September 20, and extubated on the following day, September 21. She was reintubated on September 29, and had bronchoscopy performed as well on the same day. She is maintained on the mechanical ventilator. She is on volume assist-control, rate 20, tidal volume 350, FiO2 70%, PEEP of 8. Blood gases show pO2 of 101, pCO2 of 62, and the pH of 7.46. The patient is also on propofol at 30 mcg/kg/min, norepinephrine at 4.4 mcg/min saline at 75 cc an hour. The patient continues on Zosyn. The patient does not have any tube feeds ordered as yet. White count is 10.1, hemoglobin 13.3, hematocrit 41.9, and platelet count 235,000. Sodium 138, potassium 3.7, chloride 97, CO2 38, BUN 27, and creatinine 0.41. Glucose is 122. Chest x-ray shows a retrocardiac opacity, as well as some mild interstitial changes, and a small right-sided pleural effusion. Progress note dated October 02, 2023. 73-year-old female admitted on September 20. She was admitted with a diagnosis of COPD exacerbation, intubated on September 20, and extubated on the following day, September 21. She was reintubated on September 29, and had bronchoscopy performed as well on the same day, she currently is maintained on the mechanical ventilator. Ventilator settings include volume assist-control, rate of 12, tidal volume 350, FiO2 50%, PEEP of 8. Blood gases show pO2 63, pCO2 62, pH of 7.42. The patient is on propofol at 35 mcg/kg/min, saline at 75 cc an hour, and vital high-protein at 20 cc an hour with a goal of 39. Today, she will have a daily interruption of sedation with a spontaneous breathing trial, with pressure support of 8, and CPAP of 5. White count 10.5, hemoglobin 13, hematocrit 42.5, platelet count 115,000. Sodium 139, potassium 3.5, chlorides 102, CO2 39, BUN 31, creatinine 0.4. Calcium is 8.3, glucose is 131. Chest x-ray today, is largely unchanged from prior chest x-ray from yesterday. Progress note dated October 03, 2023. 73-year-old female admitted on September 20. She was admitted with diagnosis of COPD exacerbation, and respiratory failure. She was intubated on September 20, and extubated on September 21. She was reintubated for respiratory failure on September 29. She remains on the ventilator. She did have bronchoscopy and BAL on September 29. Currently, she is on pressure support of 8 and CPAP of 5. She is getting saline at 75 cc an hour. Norepinephrine has been weaned off. Tube feedings are on hold. Her most recent blood gases show pO2 of 75, pCO2 of 57, pH of 7.46. Current labs include a white count of 10.2, hemoglobin 12.4, hematocrit 39.8, and a platelet count of 144,000. Sodium 137, potassium 3.9, chlorides 103, CO2 39, BUN 27, creatinine 0.37. Calcium is 8.2. Glucose is 116. Chest x-ray continues to show mild fluid overload, with a right-sided effusion. Progress note dated October 04, 2023. 73-year-old female admitted on September 20, with a diagnosis of COPD exacerbation, and acute hypoxemic respiratory failure. The patient was successfully extubated, for the second time yesterday. Currently, she is seen today in room 256. Stools were negative for C. difficile colitis. She is on 5 L nasal cannula. She is getting saline at 75 cc an hour. She appears relatively stable. She did not need BiPAP after extubation. Current laboratory data includes a white count 13.3, hemoglobin 13.6, hematocrit 42.7, platelet count 160,000. Sodium 135, potassium 3.8, chlorides 103, CO2 35, BUN 25, creatinine 0.31. Calcium is 8.5, glucose was 107. No chest x-ray today. Progress note dated October 04, 2023. 73-year-old female seen today in room 256. The patient is currently on 5 L nasal cannula. She is getting saline at 75 cc an hour. Her formoterol and budesonide will be changed to Symbicort. Her Solu-Medrol will be changed to prednisone. She will start prednisone 40 mg a day. White count 14.3, hemoglobin 13.5, hematocrit 44, platelet count 281,000. Sodium 133, potassium 3.8, chlorides 101, CO2 33, BUN 24, creatinine 0.32. Glucose is 124. The patient is feeling much better. She is laying flat in bed. She is not manifesting any signs or symptoms of respiratory distress or difficulty. Objective - Vital Signs Vital signs: Vital Signs Temp 97.9 F 10/05/23 09:00 Pulse 89 10/05/23 11:22 Resp 12 10/05/23 11:00 BP 108/65 10/05/23 11:00 Pulse Ox 92 L 10/05/23 11:00 FiO2 50 10/03/23 10:13 Intake & Output 10/04/23 10/05/23 10/05/23 18:59 06:59 18:59 Intake Total 1800 900 375 Output Total 855 560 380 Balance 945 340 -5 Weight 59.7 kg 58.8 kg Intake: IV 900 900 375 Sodium Chloride 0.9% 1, 900 900 375 000 ml @ 75 mls/hr IV . [id number] [facility] Rx#:[id number] Intake, IV Titration 200 Amount Potassium Chloride 10 meq 200 In Water For Injection 1 100ml.bag @ 100 mls/hr IVPB ONCE ONE Rx#: [id number] Oral 700 Output: Urine 655 560 280 Stool 200 100 Other: Voiding Method Indwelling Catheter Indwelling Catheter Indwelling Catheter ABP, PAP, CO, CI - Last Documented Arterial Blood Pressure 108/64 - Exam No acute distress, extubated, currently on 5 L nasal cannula. HEENT examination is grossly unremarkable. Neck supple. Full range of motion. No adenopathy thyromegaly or neck vein distention. Cardiovascular examination reveals regular rhythm rate. S1-S2 normal. No S3 or S4. No discernible murmur noted. Heart sounds are distant. Heart rate is 89 bpm. Lungs reveal scattered rhonchi. No wheezes or crackles. Breath sounds equal. Saturations are 94 %. Abdomen soft bowel sounds are heard. No masses or tenderness. Extremities are intact. No cyanosis clubbing or edema. Skin is without rash or lesion. Neurologic examination is brief but nonfocal. - Labs CBC & Chem 7: 10/05/23 03:29 10/05/23 03:29 Labs: Abnormal Lab Results - Last 24 Hours (Table) 10/04/23 10/05/23 10/05/23 Range/Units 18:06 00:21 03:29 WBC 14.3 H (3.8-10.6) k/uL MCHC 30.8 L (31.0-37.0) g/dL Neutrophils # 13.6 H (1.3-7.7) k/uL Lymphocytes # 0.3 L (1.0-4.8) k/uL Sodium (137-145) mmol/L Carbon Dioxide (22-30) mmol/L BUN (7-17) mg/dL Creatinine (0.52-1.04) mg/dL Glucose (74-99) mg/dL POC Glucose (mg/dL) 185 H 115 H (70-110) mg/dL 10/05/23 10/05/23 Range/Units 03:29 05:53 WBC (3.8-10.6) k/uL MCHC (31.0-37.0) g/dL Neutrophils # (1.3-7.7) k/uL Lymphocytes # (1.0-4.8) k/uL Sodium 133 L (137-145) mmol/L Carbon Dioxide 33 H (22-30) mmol/L BUN 24 H (7-17) mg/dL Creatinine 0.32 L (0.52-1.04) mg/dL Glucose 145 H (74-99) mg/dL POC Glucose (mg/dL) 124 H (70-110) mg/dL Assessment and Plan Assessment: Acute on chronic hypoxemic and hypercapnic respiratory failure, mostly secondary to COPD exacerbation, and possible pneumonia. S/P intubation, on September 20, with extubation on September 21. Reintubation, for respiratory failure, September 30, 2023. S/P extubation, on October 03, 2023. S/P bronchoscopy, September 30, 2023. Left-sided pneumonia. Chronic pain syndrome. Plan: Plan dated October 01, 2023. The patient is seen today in room 256. She is examined. Labs, x-rays, and all medications are reviewed. The patient remains on mechanical ventilator. The FiO2 was reduced from 70%, down to 50%. The patient continues on propofol. The patient is also on norepinephrine at 4.4 mcg/min. The patient is receiving saline IV at 75 cc an hour. The patient continues on Zosyn empirically. The patient continues on GI and DVT prophylaxis. We will await the results of the bronchoscopy and BAL. The patient also continues on bronchodilators, and corticosteroids. Tube feedings will be started today. The patient's overall prognosis remains very guarded. In the end, if the patient does not appear to be able to be weaned, she may need a tracheostomy and PEG tube placement. Additional recommendations and suggestions are forthcoming. Plan dated October 02, 2023. The patient is seen today in room 256. The patient appears relatively comfortable. The patient will have a daily interruption of sedation, and a spontaneous breathing trial, on pressure support of 8, CPAP of 5. The patient continues on propofol at 35 mcg/kg/min, and vital high-protein at 20 cc an hour, with a goal of 39. Blood gases, include a pO2 of 63, pCO2 of 62, pH of 7.42. Labs, x-rays, medications are reviewed. We will continue to follow the patient, make recommendations where appropriate. The patient continues on GI and DVT prophylaxis. Zosyn will be discontinued. Additional recommendations and suggestions are forthcoming. Plan dated October 03, 2023. The patient did well on pressor support and CPAP yesterday. I decided not to extubate her. I wanted to give her another day of rest on the ventilator. This morning, she is on pressure support and CPAP. The patient will have a set of weaning parameters including tidal volume, vital capacity, negative inspiratory force, minute volume, respiratory rate, rapid shallow breathing index, and cuff leak test. If the patient is doing well, she may be extubated again. I did tell respiratory therapist to have BiPAP on standby. We will continue to follow make recommendations along the way. Labs, x-rays, and all medications have been reviewed. Plan dated October 04, 2023. The patient remains tenuous, in the intensive care unit. The patient was previously extubated, and required reintubation. Yesterday she was extubated. She continues on O2 at 5 L. Labs, x-rays, and medications are all reviewed. The patient also continues on saline at 75 cc an hour. Labs, x-rays, and all medications are reviewed. She tested negative for C. difficile. We will continue to follow the patient, and make recommendations. Overall prognosis remains extremely poor. Plan dated October 05, 2023. The patient is seen today in room 256. The patient is doing better. She continues on oxygen by nasal cannula 5 L. She is getting saline at 75 cc an hour. Formoterol and budesonide will be discontinued in favor of Symbicort. L ikewise, Solu-Medrol be discontinued in favor of prednisone, 40 mg. Labs, x- rays, and medications are reviewed. The patient is likely stable to be transferred out of the intensive care unit. We will continue to follow the patient closely. Additional recommendations and suggestions are forthcoming. She did test negative for C. difficile. Time with Patient: Less than 30
[2023-10-05 12:10] LABS: Glucose,Whole Blood 129 mg/dL (70-110)
--- NOTE | 2023-10-05 13:06 | P.PN ---
Subjective Progress Note Date: 10/05/23 Acute hypoxic and hypercapnic respiratory failure secondary to acute COPD exacerbation and extensive left-sided pneumonia. Patient was eval on 09/30/2023, patient has been on BiPAP for the last few days while in the ICU, Patient has been on 100% BiPAP with IPAP of 12 and EPAP of 6, however she developed worsening pulmonary status this morning, in spite of being on 100% FiO2, patient had her O2 saturation down in the low 70s. Patient was intubated, underwent bronchoscopy with lavage 09/30. Patient seen examined. Currently intubated. Currently on IV Zosyn. Vital signs stable 10/01. Patient seen and examined. Patient currently going through SBT, patient opening eyes. 10/02. Patient seen and examined. Patient extubated this morning. 10/03. Patient seen and examined. Sitting upright in the bed. States she feels much better. Currently on 5 l of oxygen. Denies any shortness of breath at res t.Blood work done this morning showed WBC 13.3, hemoglobin 13.6, sodium 35, potassium 3.8, BUN 25, creatinine 0.31 10/04. Patient seen and examined. Sitting upright in the chair, currently on 5 L of oxygen. Being transferred out of ICU. REVIEW OF SYSTEMS: Denies any chest pain. Denies any shortness of breath. Denies any nausea or vomiting. PHYSICAL EXAMINATION: GENERAL: The patient is alert HEENT: Pupils are round and equally reacting to light. EOMI. No scleral icterus. No conjunctival pallor. Normocephalic, atraumatic. No pharyngeal erythema. No thyromegaly. CARDIOVASCULAR: S1 and S2 present. No murmurs, rubs, or gallops. PULMONARY: Chest is clear to auscultation, no wheezing or crackles. ABDOMEN: Soft, nontender, nondistended, normoactive bowel sounds. No palpable organomegaly. MUSCULOSKELETAL: No joint swelling or deformity. EXTREMITIES: No cyanosis, clubbing, or pedal edema. NEUROLOGICAL: Moving all extremities SKIN: No rashes. Assessment and plan Acute on chronic hypoxic and hypercapnic respiratory failure, multifactorial, requiring intubation mechanical ventilation last week, and reintubation on 09/29 Acute COPD exacerbation Left lung pneumonia, possibly hospital-acquired pneumonia with complete opacification of the left lung secondary to mucous plugging, requiring bronchoscopy and BAL of the left lung. Chronic hypoxic and hypercapnic respiratory failure Chronic pain syndrome Sinus rhythm with PVCs Severe pulmonary hypertension Hyperlipidemia Diabetes mellitus History of GERD Hypothyroidism History of osteoarthritis Monitor vital signs Monitor CBC Monitor CMP Continue telemetry monitoring Aggressive bronchopulmonary hygiene IV Solu-Medrol changed to prednisone Continue IV fluids Continue breathing treatment Cardiology following Pulmonology following Patient to be transferred out of ICU Labs and medication were reviewed.. Continue same treatment. Continue with symptomatic treatment. Resume home medication. Monitor labs and vitals. DVT and GI prophylaxis. Further recommendations as per clinical course of the patient Dictation was produced using [employer] dictation software. please excuse any grammatical, word or spelling errors. Objective - Vital Signs Vital signs: Vital Signs Temp 97.9 F 10/05/23 09:00 Pulse 98 10/05/23 10:00 Resp 26 H 10/05/23 10:00 BP 99/70 10/05/23 10:00 Pulse Ox 89 L 10/05/23 10:00 FiO2 50 10/03/23 10:13 Intake & Output 10/04/23 10/05/23 10/05/23 18:59 06:59 18:59 Intake Total 1800 900 225 Output Total 855 560 260 Balance 945 340 -35 Weight 59.7 kg 58.8 kg Intake: IV 900 900 225 Sodium Chloride 0.9% 1, 900 900 225 000 ml @ 75 mls/hr IV . [id number] [facility] Rx#:[id number] Intake, IV Titration 200 Amount Potassium Chloride 10 meq 200 In Water For Injection 1 100ml.bag @ 100 mls/hr IVPB ONCE ONE Rx#: [id number] Oral 700 Output: Urine 655 560 160 Stool 200 100 Other: Voiding Method Indwelling Catheter Indwelling Catheter ABP, PAP, CO, CI - Last Documented Arterial Blood Pressure 108/64 - Labs CBC & Chem 7: 10/05/23 03:29 10/05/23 03:29 Labs: Abnormal Lab Results - Last 24 Hours (Table) 10/04/23 10/04/23 10/04/23 Range/Units 11:38 11:51 18:06 WBC (3.8-10.6) k/uL MCHC (31.0-37.0) g/dL Neutrophils # (1.3-7.7) k/uL Lymphocytes # (1.0-4.8) k/uL Sodium (137-145) mmol/L Carbon Dioxide (22-30) mmol/L BUN (7-17) mg/dL Creatinine (0.52-1.04) mg/dL Glucose (74-99) mg/dL POC Glucose (mg/dL) 130 H 140 H 185 H (70-110) mg/dL 10/05/23 10/05/23 10/05/23 Range/Units 00:21 03:29 03:29 WBC 14.3 H (3.8-10.6) k/uL MCHC 30.8 L (31.0-37.0) g/dL Neutrophils # 13.6 H (1.3-7.7) k/uL Lymphocytes # 0.3 L (1.0-4.8) k/uL Sodium 133 L (137-145) mmol/L Carbon Dioxide 33 H (22-30) mmol/L BUN 24 H (7-17) mg/dL Creatinine 0.32 L (0.52-1.04) mg/dL Glucose 145 H (74-99) mg/dL POC Glucose (mg/dL) 115 H (70-110) mg/dL 10/05/23 Range/Units 05:53 WBC (3.8-10.6) k/uL MCHC (31.0-37.0) g/dL Neutrophils # (1.3-7.7) k/uL Lymphocytes # (1.0-4.8) k/uL Sodium (137-145) mmol/L Carbon Dioxide (22-30) mmol/L BUN (7-17) mg/dL Creatinine (0.52-1.04) mg/dL Glucose (74-99) mg/dL POC Glucose (mg/dL) 124 H (70-110) mg/dL
[2023-10-05] MEDS: FUROSEMIDE 10 MG/ML 4 ML VIAL ONE (17:34)
[2023-10-05] MEDS: METOPROLOL TARTRATE 50 MG TAB ONE ×2 (17:34)
[2023-10-05] MEDS: FAMOTIDINE 20 MG/2 ML VIAL ONE ×2 (17:34)
[2023-10-05] MEDS: POTASSIUM CHLORIDE 10 MEQ in WATER FOR INJECTION 1 100ML.BAG IVPB STA (18:25)
[2023-10-05 18:35] LABS: Glucose,Whole Blood 111 mg/dL (70-110)
[2023-10-05] MEDS: SYMBICORT 160-4.5 MCG INHALER INHALATION SCH (20:11)
[2023-10-05 20:19] LABS: Glucose,Whole Blood 115 mg/dL (70-110)
[2023-10-06] MEDS: HYDROcodone/APAP 5-325MG 1 EACH TAB PO PRN (03:34)
[2023-10-06 06:16] LABS: Glucose,Whole Blood 112 mg/dL (70-110)
[2023-10-06 08:18] LABS: African American GFR (CKD) >90 (>60 ml/min/1.73 sqM); Anion Gap -1 mmol/L; Blood Urea Nitrogen 19 mg/dL (7-17); Calcium 7.7 mg/dL (8.4-10.2); Carbon Dioxide 34 mmol/L (22-30); Chloride 100 mmol/L (98-107); Glucose 89 mg/dL (74-99); Magnesium 1.9 mg/dL (1.6-2.3); Non-African American GFR(CKD) >90 (>60 ml/min/1.73 sqM); Potassium 3.2 mmol/L (3.5-5.1); Sodium 133 mmol/L (137-145)
[2023-10-06] MEDS: predniSONE 20 MG TAB PO SCH (10:07)
--- NOTE | 2023-10-06 11:23 | P.PN ---
Subjective Progress Note Date: 10/06/23 The patient is seen today October 06, 2023 in follow-up on the regular medical floor. She is currently sitting up in bed. Awake and alert in no acute distress. She is maintaining O2 saturations in the 90s on 5 L/min per nasal cannula. Sodium 133. Potassium 3.2. Bicarb 34. BUN 19. Creatinine 0.28. Glucose 89. She remains on DuoNeb inhalations, Symbicort, prednisone taper. Heparin for DVT prophylaxis. Objective - Vital Signs Vital signs: Vital Signs Temp 97.6 F 10/06/23 07:01 Pulse 84 10/06/23 09:32 Resp 20 10/06/23 07:01 BP 94/62 10/06/23 07:01 Pulse Ox 95 10/06/23 07:01 FiO2 50 10/03/23 10:13 Intake & Output 10/05/23 10/06/23 10/06/23 18:59 06:59 18:59 Intake Total 1825 Output Total 600 600 Balance 1225 -600 Weight 59.5 kg Intake: IV 825 Sodium Chloride 0.9% 1, 825 000 ml @ 75 mls/hr IV . [id number] [facility] Rx#:[id number] Oral 1000 Output: Urine 500 600 Stool 100 Other: Voiding Method Indwelling Catheter Indwelling Catheter ABP, PAP, CO, CI - Last Documented Arterial Blood Pressure 108/64 - Exam GENERAL EXAM: Alert, disheveled, 73-year-old female, on 5 L nasal cannula, comfortable in no apparent distress. HEAD: Normocephalic. EYES: Normal reaction of pupils, equal size. NOSE: Clear with pink turbinates. THROAT: No erythema or exudates. NECK: No masses, no JVD. CHEST: No chest wall deformity. LUNGS: Equal air entry with bilateral end expiratory wheeze, diminished. CVS: S1 and S2 normal with no audible murmur, regular rhythm. ABDOMEN: No hepatosplenomegaly, normal bowel sounds, no guarding or rigidity. SPINE: No scoliosis or deformity SKIN: No rashes CENTRAL NERVOUS SYSTEM: No focal deficits, tone is normal in all 4 extremities. EXTREMITIES: There is no peripheral edema. No clubbing, no cyanosis. Peripheral pulses are intact. - Labs CBC & Chem 7: 10/05/23 03:29 10/06/23 06:43 Labs: Abnormal Lab Results - Last 24 Hours (Table) 10/05/23 10/05/23 10/05/23 Range/Units 12:08 18:33 20:18 Sodium (137-145) mmol/L Potassium (3.5-5.1) mmol/L Carbon Dioxide (22-30) mmol/L BUN (7-17) mg/dL Creatinine (0.52-1.04) mg/dL POC Glucose (mg/dL) 129 H 111 H 115 H (70-110) mg/dL Calcium (8.4-10.2) mg/dL 10/06/23 10/06/23 Range/Units 06:15 06:43 Sodium 133 L (137-145) mmol/L Potassium 3.2 L (3.5-5.1) mmol/L Carbon Dioxide 34 H (22-30) mmol/L BUN 19 H (7-17) mg/dL Creatinine 0.28 L (0.52-1.04) mg/dL POC Glucose (mg/dL) 112 H (70-110) mg/dL Calcium 7.7 L (8.4-10.2) mg/dL Assessment and Plan Assessment: Acute on chronic hypoxemic and hypercapnic respiratory failure, mostly secondary to COPD exacerbation, and possible pneumonia. S/P intubation, on September 20, with extubation on September 21. Reintubation, for respiratory failure, September 30, 2023. S/P bronchoscopy, September 30, 2023. S/P extubation, on October 03, 2023. Improved and on 5 L nasal cannula Left-sided pneumonia. Chronic pain syndrome. Plan: The patient was seen and evaluated Labs and medications reviewed Currently stable on 5 L nasal cannula Continue DuoNeb inhalations, Symbicort, prednisone taper Heparin for DVT prophylaxis Titrate the FiO2 as tolerated Increase her activity as tolerated We will continue to follow I have personally seen and examined the patient, performed the documentation and the assessment and plan as written. Number of minutes spent on the visit: 10.
[2023-10-06 11:47] LABS: Glucose,Whole Blood 152 mg/dL (70-110)
[2023-10-06 13:17] LABS: Basophils # (A) 0.04 X 10*3/uL (0.00-0.10); Basophils % (A) 0.2 %; Eosinophils # (A) 0.01 X 10*3/uL (0.04-0.35); Eosinophils % (A) 0.1 %; HCT 45.6 % (37.2-46.3); HGB 14.5 g/dL (12.0-15.0); Lymphocytes # (A) 0.91 X 10*3/uL (0.90-5.00); MCH 30.7 pg (27.0-32.0); MCHC 31.8 g/dL (32.0-37.0); MCV 96.4 FL (80.0-97.0); Mean Platelet Volume 11.1 FL (9.5-12.2); Monocytes # (A) 1.21 X 10*3/uL (0.20-1.00); Monocytes % (A) 6.7 %; NRBC Per 100 WBC 0 X 10*3/uL (0.00-0.01); Neutrophils # (A) 15.74 X 10*3/uL (1.80-7.70); Neutrophils % (A) 87.3 %; Platelet Count 151 X 10*3/uL (140-440); RBC 4.73 X 10*6/uL (4.10-5.20); RDW 13.8 % (11.5-14.5); WBC 18.03 X 10*3/uL (4.50-10.00)
--- NOTE | 2023-10-06 16:25 | P.PN ---
Subjective Progress Note Date: 10/06/23 Interval History: Acute hypoxic and hypercapnic respiratory failure secondary to acute COPD exacerbation and extensive left-sided pneumonia. Patient was eval on 09/30/2023, patient has been on BiPAP for the last few days while in the ICU, Patient has been on 100% BiPAP with IPAP of 12 and EPAP of 6, however she developed worsening pulmonary status this morning, in spite of being on 100% FiO2, patient had her O2 saturation down in the low 70s. Patient was intubated, underwent bronchoscopy with lavage 09/30. Patient seen examined. Currently intubated. Currently on IV Zosyn. Vital signs stable 10/01. Patient seen and examined. Patient currently going through SBT, patient opening eyes. 10/02. Patient seen and examined. Patient extubated this morning. 10/03. Patient seen and examined. Sitting upright in the bed. States she feels much better. Currently on 5 l of oxygen. Denies any shortness of breath at rest.Blood work done this morning showed WBC 13.3, hemoglobin 13.6, sodium 35, potassium 3.8, BUN 25, creatinine 0.31 10/04. Patient seen and examined. Sitting upright in the chair, currently on 5 L of oxygen. Being transferred out of ICU. 10/05--patient was examined today, currently on 5 L nasal cannula oxygen. On IV fluids. Currently on Symbicort and prednisone. WBCs 18.3, hemoglobin 13.5, platelet normal. Creatinine and BUN unremarkable. CO2 33. Ultrasound venous ordered to rule out DVT, noted left lower extremity edema. Initially was diagnosed with left lung pneumonia, not on antibiotics anymore. Assessment and plan: Acute on chronic hypoxic and hypercapnic respiratory failure, multifactorial, requiring intubation mechanical ventilation last week, and reintubation on 09/29, extubated 10/02 Acute COPD exacerbation Left lung pneumonia, possibly hospital-acquired pneumonia with complete opacification of the left lung secondary to mucous plugging, requiring bronchoscopy and BAL of the left lung. Chronic hypoxic and hypercapnic respiratory failure Chronic pain syndrome Sinus rhythm with PVCs Severe pulmonary hypertension Hyperlipidemia Diabetes mellitus History of GERD Hypothyroidism History of osteoarthritis Monitor vital signs Monitor CBC Monitor CMP Continue telemetry monitoring Aggressive bronchopulmonary hygiene IV Solu-Medrol changed to prednisone Continue IV fluids Continue breathing treatment Cardiology following Pulmonology following Some venous to rule out DVT. DVT prophylaxis: Subcutaneous heparin PHYSICAL EXAMINATION: GENERAL: The patient is A&O x3, NAD HEENT: EOMI, Sclerae anicteric, Moist Mucous membranes Neck: Supple, Non tender, No JVD PULMONARY: Dec breath souds B/L, + wheezing, No crackles. CARDIOVASCULAR: S1, S2 present. No murmurs, rubs, or gallops. ABDOMEN: Soft, nontender, nondistended, normoactive bowel sounds. No guarding or rebound tenderness. MUSCULOSKELETAL: + LLE edema, No cyanosis. No clubbing. Normal ROM. Intact peripheral pulses. EXTREMITIES: No cyanosis, clubbing, or pedal edema. NEUROLOGICAL: CN 2-12 grossly intact. No FND Skin: No Rash REVIEW OF SYSTEMS: CONSTITUTIONAL: No fever or chills. CARDIOVASCULAR: No chest pain, palpitations or syncope. PULMONARY: Complains of cough, shortness of breath. GASTROINTESTINAL: No nausea, vomiting, diarrhea, abdominal pain. : No Dysuria, urgency, frequency. Extremities: No edema. NEUROLOGICAL: No headaches, no weakness, or numbness Dictation was produced using [employer] dictation software. please excuse any grammatical, word or spelling errors. Objective - Vital Signs Vital signs: Vital Signs Temp 98.4 F 10/06/23 14:05 Pulse 85 10/06/23 15:39 Resp 18 10/06/23 14:05 BP 93/57 10/06/23 14:05 Pulse Ox 91 L 10/06/23 14:05 FiO2 50 10/03/23 10:13 Intake & Output 10/05/23 10/06/23 10/06/23 18:59 06:59 18:59 Intake Total 1825 Output Total 600 600 Balance 1225 -600 Weight 59.5 kg Intake: IV 825 Sodium Chloride 0.9% 1, 825 000 ml @ 75 mls/hr IV . [id number] [facility] Rx#:[id number] Oral 1000 Output: Urine 500 600 Stool 100 Other: Voiding Method Indwelling Catheter Indwelling Catheter Indwelling Catheter ABP, PAP, CO, CI - Last Documented Arterial Blood Pressure 108/64 - Labs CBC & Chem 7: 10/06/23 06:43 10/06/23 06:43 Labs: Abnormal Lab Results - Last 24 Hours (Table) 10/05/23 10/05/23 10/06/23 Range/Units 18:33 20:18 06:15 WBC (4.50-10.00) X 10*3/uL MCHC (32.0-37.0) g/dL Immature Gran # (0.00-0.04) X 10*3/uL Neutrophils # (1.80-7.70) X 10*3/uL Monocytes # (0.20-1.00) X 10*3/uL Eosinophils # (0.04-0.35) X 10*3/uL Sodium (137-145) mmol/L Potassium (3.5-5.1) mmol/L Carbon Dioxide (22-30) mmol/L BUN (7-17) mg/dL Creatinine (0.52-1.04) mg/dL POC Glucose (mg/dL) 111 H 115 H 112 H (70-110) mg/dL Calcium (8.4-10.2) mg/dL 10/06/23 10/06/23 10/06/23 Range/Units 06:43 06:43 11:45 WBC 18.03 H (4.50-10.00) X 10*3/uL MCHC 31.8 L (32.0-37.0) g/dL Immature Gran # 0.12 H (0.00-0.04) X 10*3/uL Neutrophils # 15.74 H (1.80-7.70) X 10*3/uL Monocytes # 1.21 H (0.20-1.00) X 10*3/uL Eosinophils # 0.01 L (0.04-0.35) X 10*3/uL Sodium 133 L (137-145) mmol/L Potassium 3.2 L (3.5-5.1) mmol/L Carbon Dioxide 34 H (22-30) mmol/L BUN 19 H (7-17) mg/dL Creatinine 0.28 L (0.52-1.04) mg/dL POC Glucose (mg/dL) 152 H (70-110) mg/dL Calcium 7.7 L (8.4-10.2) mg/dL
[2023-10-06 16:36] LABS: Glucose,Whole Blood 120 mg/dL (70-110)
[2023-10-06] MEDS: ZINC OXIDE PASTE (Z-GUARD) 1 APPLIC TOPICAL PRN (17:26)
--- NOTE | 2023-10-06 19:15 | US ---
EXAMINATION TYPE: US venous doppler duplex LE BI DATE OF EXAM: 10/06/2023 6:41 PM COMPARISON: NONE CLINICAL INDICATION: Female, 73 years old with history of Edema; Edema SIDE PERFORMED: Bilateral TECHNIQUE: The lower extremity deep venous system is examined utilizing real time linear array sonog christine with graded compression, doppler sonography and color-flow sonography. VESSELS IMAGED: Common Femoral Vein Deep Femoral Vein Greater Saphenous Vein * Femoral Vein Popliteal Vein Small Saphenous Vein * Proximal Calf Veins (* superficial vessels) Right Leg: Negative for DVT Left Leg: Negative for DVT IMPRESSION: Grayscale, color doppler, spectral doppler imaging performed of the deep veins of the lo wer extremities. There is normal flow, compressibility, vascular waveforms.
[2023-10-06 20:18] LABS: Glucose,Whole Blood 147 mg/dL (70-110)
[2023-10-06] MEDS: POTASSIUM CHLORIDE ER 20 MEQ TAB.ER PO SCH (23:42)
[2023-10-07 05:55] LABS: Glucose,Whole Blood 117 mg/dL (70-110)
--- NOTE | 2023-10-07 10:29 | P.PN ---
Subjective Progress Note Date: 10/07/23 The patient is seen today October 06, 2023 in follow-up on the regular medical floor. She is currently sitting up in bed. Awake and alert in no acute distress. She is maintaining O2 saturations in the 90s on 5 L/min per nasal cannula. Sodium 133. Potassium 3.2. Bicarb 34. BUN 19. Creatinine 0.28. Glucose 89. She remains on DuoNeb inhalations, Symbicort, prednisone taper. Heparin for DVT prophylaxis. The patient is seen today October 07, 2023 in follow-up on the regular medical floor. She is awake and alert in no acute distress. Resting comfortably in bed. Maintaining O2 saturations in the 90s on 5 L/min per nasal cannula. She has normal saline at 75 mL/h. Venous Doppler of the lower extremities ruled out DVT. Glucose 117. She is continued on DuoNeb ventilations, Symbicort, pr ednisone taper. Heparin for DVT prophylaxis. Objective - Vital Signs Vital signs: Vital Signs Temp 99.1 F 10/07/23 07:30 Pulse 84 10/07/23 08:56 Resp 18 10/07/23 07:30 BP 89/54 10/07/23 07:30 Pulse Ox 92 L 10/07/23 07:30 FiO2 50 10/03/23 10:13 Intake & Output 10/06/23 10/07/23 10/07/23 18:59 06:59 18:59 Intake Total 110 Output Total 500 275 Balance -500 -275 110 Weight 61.5 kg Intake: Oral 110 Output: Urine 500 275 Other: Voiding Method Indwelling Catheter Indwelling Catheter Indwelling Catheter ABP, PAP, CO, CI - Last Documented Arterial Blood Pressure 108/64 - Exam GENERAL EXAM: Alert, 73-year-old female, on 5 L nasal cannula, sitting up in bed, comfortable in no apparent distress. HEAD: Normocephalic. EYES: Normal reaction of pupils, equal size. NOSE: Clear with pink turbinates. THROAT: No erythema or exudates. NECK: No masses, no JVD. CHEST: No chest wall deformity. LUNGS: Equal air entry with bilateral end expiratory wheeze, diminished. CVS: S1 and S2 normal with no audible murmur, regular rhythm. ABDOMEN: No hepatosplenomegaly, normal bowel sounds, no guarding or rigidity. SPINE: No scoliosis or deformity SKIN: No rashes CENTRAL NERVOUS SYSTEM: No focal deficits, tone is normal in all 4 extremities. EXTREMITIES: There is no peripheral edema. No clubbing, no cyanosis. Peripheral pulses are intact. - Labs CBC & Chem 7: 10/06/23 06:43 10/06/23 06:43 Labs: Abnormal Lab Results - Last 24 Hours (Table) 10/06/23 10/06/23 10/06/23 Range/Units 06:43 11:45 16:35 WBC 18.03 H (4.50-10.00) X 10*3/uL MCHC 31.8 L (32.0-37.0) g/dL Immature Gran # 0.12 H (0.00-0.04) X 10*3/uL Neutrophils # 15.74 H (1.80-7.70) X 10*3/uL Monocytes # 1.21 H (0.20-1.00) X 10*3/uL Eosinophils # 0.01 L (0.04-0.35) X 10*3/uL POC Glucose (mg/dL) 152 H 120 H (70-110) mg/dL 10/06/23 10/07/23 Range/Units 20:16 05:53 WBC (4.50-10.00) X 10*3/uL MCHC (32.0-37.0) g/dL Immature Gran # (0.00-0.04) X 10*3/uL Neutrophils # (1.80-7.70) X 10*3/uL Monocytes # (0.20-1.00) X 10*3/uL Eosinophils # (0.04-0.35) X 10*3/uL POC Glucose (mg/dL) 147 H 117 H (70-110) mg/dL Assessment and Plan Assessment: Acute on chronic hypoxemic and hypercapnic respiratory failure, mostly secondary to COPD exacerbation, and possible pneumonia. S/P intubation, on September 20, with extubation on September 21. Reintubation, for respiratory failure, September 30, 2023. S/P bronchoscopy, September 30, 2023. S/P extubation, on October 03, 2023. Improved and on 5 L nasal cannula Left-sided pneumonia. Chronic pain syndrome. Plan: The patient was seen and evaluated Medications reviewed Continue the current treatment plan Titrate the FiO2 as tolerated Increase her activity as tolerated Will most likely need subacute rehabilitation postdischarge I have personally seen and examined the patient, performed the documentation and the assessment and plan as written. Number of minutes spent on the visit: 10.
[2023-10-07 10:47] LABS: Basophils # (A) 0.02 X 10*3/uL (0.00-0.10); Basophils % (A) 0.1 %; Eosinophils # (A) 0.01 X 10*3/uL (0.04-0.35); Eosinophils % (A) 0.1 %; HCT 44.7 % (37.2-46.3); HGB 14.3 g/dL (12.0-15.0); Lymphocytes # (A) 0.72 X 10*3/uL (0.90-5.00); Lymphocytes % (A) 4.3 %; MCH 30.2 pg (27.0-32.0); MCV 94.5 FL (80.0-97.0); Mean Platelet Volume 10.9 FL (9.5-12.2); Monocytes # (A) 1.11 X 10*3/uL (0.20-1.00); Monocytes % (A) 6.6 %; NRBC Per 100 WBC 0 X 10*3/uL (0.00-0.01); Neutrophils # (A) 14.98 X 10*3/uL (1.80-7.70); Neutrophils % (A) 88.3 %; Platelet Count 137 X 10*3/uL (140-440); RBC 4.73 X 10*6/uL (4.10-5.20); RDW 13.8 % (11.5-14.5); WBC 16.94 X 10*3/uL (4.50-10.00)
[2023-10-07 11:15] LABS: BUN/Creat Ratio 47.67 Ratio (12.00-20.00); Blood Urea Nitrogen 14.3 mg/dL (9.0-27.0); Carbon Dioxide 29.7 mmol/L (21.6-31.8); Chloride 101 mmol/L (96-109); Glucose 119 mg/dL (70-110); Potassium 3.7 mmol/L (3.5-5.5); Sodium 137 mmol/L (135-145)
[2023-10-07 11:47] LABS: Glucose,Whole Blood 134 mg/dL (70-110)
--- NOTE | 2023-10-07 15:21 | P.PN ---
Subjective Progress Note Date: 10/07/23 Interval History: Acute hypoxic and hypercapnic respiratory failure secondary to acute COPD exacerbation and extensive left-sided pneumonia. Patient was eval on 09/30/2023, patient has been on BiPAP for the last few days while in the ICU, Patient has been on 100% BiPAP with IPAP of 12 and EPAP of 6, however she developed worsening pulmonary status this morning, in spite of being on 100% FiO2, patient had her O2 saturation down in the low 70s. Patient was intubated, underwent bronchoscopy with lavage 09/30. Patient seen examined. Currently intubated. Currently on IV Zosyn. Vital signs stable 10/01. Patient seen and examined. Patient currently going through SBT, patient opening eyes. 10/02. Patient seen and examined. Patient extubated this morning. 10/03. Patient seen and examined. Sitting upright in the bed. States she feels much better. Currently on 5 l of oxygen. Denies any shortness of breath at rest.Blood work done this morning showed WBC 13.3, hemoglobin 13.6, sodium 35, potassium 3.8, BUN 25, creatinine 0.31 10/04. Patient seen and examined. Sitting upright in the chair, currently on 5 L of oxygen. Being transferred out of ICU. 10/05--patient was examined today, currently on 5 L nasal cannula oxygen. On IV fluids. Currently on Symbicort and prednisone. WBCs 18.3, hemoglobin 13.5, platelet normal. Creatinine and BUN unremarkable. CO2 33. Ultrasound venous ordered to rule out DVT, noted left lower extremity edema. Initially was diagnosed with left lung pneumonia, not on antibiotics anymore. 10/06--patient was seen and examined today. Awake and alert x 3. Currently on 5 L oxygen. Currently on IV fluids. Ultrasound venous negative for DVT. Cur rently on DuoNebs Symbicort and prednisone. Labs reviewed, WBC 16.9, hemoglobin 14.3, platelet 137. BMP unremarkable. PT/OT consulted and pending. Assessment and plan: Acute on chronic hypoxic and hypercapnic respiratory failure, multifactorial, requiring intubation mechanical ventilation last week, and reintubation on 09/29, extubated 10/02 Acute COPD exacerbation Left lung pneumonia, possibly hospital-acquired pneumonia with complete opacification of the left lung secondary to mucous plugging, requiring bronchoscopy and BAL of the left lung. Chronic hypoxic and hypercapnic respiratory failure Chronic pain syndrome Sinus rhythm with PVCs Severe pulmonary hypertension Hyperlipidemia Diabetes mellitus History of GERD Hypothyroidism History of osteoarthritis Monitor vital signs Monitor labs Continue telemetry monitoring Aggressive bronchopulmonary hygiene IV Solu-Medrol changed to prednisone Continue IV fluids Continue breathing treatment Cardiology consulted Pulmonology consulted Ultrasound venous negative for DVT. DVT prophylaxis: Subcutaneous heparin PHYSICAL EXAMINATION: GENERAL: The patient is A&O x3, NAD HEENT: EOMI, Sclerae anicteric, Moist Mucous membranes Neck: Supple, Non tender, No JVD PULMONARY: Dec breath souds B/L, + wheezing, No crackles. CARDIOVASCULAR: S1, S2 present. No murmurs, rubs, or gallops. ABDOMEN: Soft, nontender, nondistended, normoactive bowel sounds. No guarding or rebound tenderness. MUSCULOSKELETAL: + LLE edema, No cyanosis. No clubbing. Normal ROM. Intact peripheral pulses. EXTREMITIES: No cyanosis, clubbing, or pedal edema. NEUROLOGICAL: CN 2-12 grossly intact. No FND Skin: No Rash REVIEW OF SYSTEMS: CONSTITUTIONAL: No fever or chills. CARDIOVASCULAR: No chest pain, palpitations or syncope. PULMONARY: Complains of cough, shortness of breath. GASTROINTESTINAL: No nausea, vomiting, diarrhea, abdominal pain. : No Dysuria, urgency, frequency. Extremities: No edema. NEUROLOGICAL: No headaches, no weakness, or numbness Dictation was produced using [employer] dictation software. please excuse any grammatical, word or spelling errors. Objective - Vital Signs Vital signs: Vital Signs Temp 97.9 F 10/07/23 13:28 Pulse 83 10/07/23 13:28 Resp 18 10/07/23 13:28 BP 94/58 10/07/23 13:28 Pulse Ox 91 L 10/07/23 13:28 FiO2 50 10/03/23 10:13 Intake & Output 10/06/23 10/07/23 10/07/23 18:59 06:59 18:59 Intake Total 210 Output Total 500 275 Balance -500 -275 210 Weight 61.5 kg Intake: Oral 210 Output: Urine 500 275 Other: Voiding Method Indwelling Catheter Indwelling Catheter Indwelling Catheter ABP, PAP, CO, CI - Last Documented Arterial Blood Pressure 108/64 - Labs CBC & Chem 7: 10/07/23 06:25 10/07/23 06:25 Labs: Abnormal Lab Results - Last 24 Hours (Table) 10/06/23 10/06/23 10/07/23 Range/Units 16:35 20:16 05:53 WBC (4.50-10.00) X 10*3/uL Plt Count (140-440) X 10*3/uL Immature Gran # (0.00-0.04) X 10*3/uL Neutrophils # (1.80-7.70) X 10*3/uL Lymphocytes # (0.90-5.00) X 10*3/uL Monocytes # (0.20-1.00) X 10*3/uL Eosinophils # (0.04-0.35) X 10*3/uL Creatinine (0.6-1.5) mg/dL BUN/Creatinine Ratio (12.00-20.00) Ratio Glucose (70-110) mg/dL POC Glucose (mg/dL) 120 H 147 H 117 H (70-110) mg/dL Calcium (8.7-10.3) mg/dL 10/07/23 10/07/23 10/07/23 Range/Units 06:25 06:25 11:45 WBC 16.94 H (4.50-10.00) X 10*3/uL Plt Count 137 L (140-440) X 10*3/uL Immature Gran # 0.10 H (0.00-0.04) X 10*3/uL Neutrophils # 14.98 H (1.80-7.70) X 10*3/uL Lymphocytes # 0.72 L (0.90-5.00) X 10*3/uL Monocytes # 1.11 H (0.20-1.00) X 10*3/uL Eosinophils # 0.01 L (0.04-0.35) X 10*3/uL Creatinine 0.3 L (0.6-1.5) mg/dL BUN/Creatinine Ratio 47.67 H (12.00-20.00) Ratio Glucose 119 H (70-110) mg/dL POC Glucose (mg/dL) 134 H (70-110) mg/dL Calcium 8.0 L (8.7-10.3) mg/dL
[2023-10-07 17:10] LABS: Glucose,Whole Blood 96 mg/dL (70-110)
[2023-10-07 21:16] LABS: Glucose,Whole Blood 103 mg/dL (70-110)
[2023-10-08 05:41] LABS: Glucose,Whole Blood 91 mg/dL (70-110)
--- NOTE | 2023-10-08 10:36 | P.PN ---
Subjective Progress Note Date: 10/08/23 The patient is seen today October 06, 2023 in follow-up on the regular medical floor. She is currently sitting up in bed. Awake and alert in no acute distress. She is maintaining O2 saturations in the 90s on 5 L/min per nasal cannula. Sodium 133. Potassium 3.2. Bicarb 34. BUN 19. Creatinine 0.28. Glucose 89. She remains on DuoNeb inhalations, Symbicort, prednisone taper. Heparin for DVT prophylaxis. The patient is seen today October 07, 2023 in follow-up on the regular medical floor. She is awake and alert in no acute distress. Resting comfortably in bed. Maintaining O2 saturations in the 90s on 5 L/min per nasal cannula. She has normal saline at 75 mL/h. Venous Doppler of the lower extremities ruled out DVT. Glucose 117. She is continued on DuoNeb ventilations, Symbicort, pr ednisone taper. Heparin for DVT prophylaxis. The patient is seen today October 08, 2023 in follow-up on the regular medical floor. She is sitting up in bed. Awake and alert in no acute distress. Maintaining O2 saturations in the 90s on 5 L/min per nasal cannula. She has normal saline at 75 mL/h. She is continued on DuoNeb inhalations, Symbicort, prednisone taper. Glucose 91. She remains on heparin for DVT prophylaxis. Objective - Vital Signs Vital signs: Vital Signs Temp 98.9 F 10/08/23 06:55 Pulse 84 10/08/23 08:54 Resp 18 10/08/23 06:55 BP 96/60 10/08/23 06:55 Pulse Ox 96 10/08/23 06:55 FiO2 50 10/03/23 10:13 Intake & Output 10/07/23 10/08/23 10/08/23 18:59 06:59 18:59 Intake Total 710 Output Total 625 300 Balance 85 -300 Weight 63.5 kg Intake: Oral 710 Output: Urine 625 300 Other: Voiding Method Indwelling Catheter Indwelling Catheter ABP, PAP, CO, CI - Last Documented Arterial Blood Pressure 108/64 - Exam GENERAL EXAM: Alert, 73-year-old female, on 5 L nasal cannula, in no apparent distress. HEAD: Normocephalic. EYES: Normal reaction of pupils, equal size. NOSE: Clear with pink turbinates. THROAT: No erythema or exudates. NECK: No masses, no JVD. CHEST: No chest wall deformity. LUNGS: Equal air entry with bilateral end expiratory wheeze, diminished. CVS: S1 and S2 normal with no audible murmur, regular rhythm. ABDOMEN: No hepatosplenomegaly, normal bowel sounds, no guarding or rigidity. SPINE: No scoliosis or deformity SKIN: No rashes CENTRAL NERVOUS SYSTEM: No focal deficits, tone is normal in all 4 extremities. EXTREMITIES: There is no peripheral edema. No clubbing, no cyanosis. Periphera l pulses are intact. - Labs CBC & Chem 7: 10/07/23 06:25 10/07/23 06:25 Labs: Abnormal Lab Results - Last 24 Hours (Table) 10/07/23 10/07/23 10/07/23 Range/Units 06:25 06:25 11:45 WBC 16.94 H (4.50-10.00) X 10*3/uL Plt Count 137 L (140-440) X 10*3/uL Immature Gran # 0.10 H (0.00-0.04) X 10*3/uL Neutrophils # 14.98 H (1.80-7.70) X 10*3/uL Lymphocytes # 0.72 L (0.90-5.00) X 10*3/uL Monocytes # 1.11 H (0.20-1.00) X 10*3/uL Eosinophils # 0.01 L (0.04-0.35) X 10*3/uL Creatinine 0.3 L (0.6-1.5) mg/dL BUN/Creatinine Ratio 47.67 H (12.00-20.00) Ratio Glucose 119 H (70-110) mg/dL POC Glucose (mg/dL) 134 H (70-110) mg/dL Calcium 8.0 L (8.7-10.3) mg/dL Assessment and Plan Assessment: Acute on chronic hypoxemic and hypercapnic respiratory failure, mostly secondary to COPD exacerbation, and possible pneumonia. S/P intubation, on September 20, with extubation on September 21. Reintubation, for respiratory failure, September 30, 2023. S/P bronchoscopy, September 30, 2023. S/P extubation, on October 03, 2023. Improved and on 5 L nasal cannula Left-sided pneumonia. Chronic pain syndrome. Plan: The patient was seen and evaluated Medications reviewed Continue the current treatment plan Titrate down the FiO2 as tolerated Accepting of O2 saturations 88 to 92% Will most likely need subacute rehabilitation at discharge I have personally seen and examined the patient, performed the documentation and the assessment and plan as written. Number of minutes spent on the visit: 10.
[2023-10-08 11:25] LABS: Glucose,Whole Blood 135 mg/dL (70-110)
[2023-10-08 12:24] LABS: Lithium <0.10 mmol/L (0.50-1.20)
[2023-10-08 12:51] LABS: Basophils # (A) 0.02 X 10*3/uL (0.00-0.10); Basophils % (A) 0.1 %; Eosinophils # (A) 0.03 X 10*3/uL (0.04-0.35); Eosinophils % (A) 0.2 %; HCT 39.3 % (37.2-46.3); HGB 12.4 g/dL (12.0-15.0); Lymphocytes # (A) 1.01 X 10*3/uL (0.90-5.00); Lymphocytes % (A) 7.2 %; MCH 31.3 pg (27.0-32.0); MCHC 31.6 g/dL (32.0-37.0); MCV 99.2 FL (80.0-97.0); Monocytes # (A) 0.96 X 10*3/uL (0.20-1.00); Monocytes % (A) 6.8 %; NRBC Per 100 WBC 0 X 10*3/uL (0.00-0.01); Neutrophils # (A) 11.99 X 10*3/uL (1.80-7.70); Neutrophils % (A) 85.2 %; Platelet Count 140 X 10*3/uL (140-440); RBC 3.96 X 10*6/uL (4.10-5.20); RDW 13.9 % (11.5-14.5); WBC 14.08 X 10*3/uL (4.50-10.00)
[2023-10-08 13:11] LABS: Blood Urea Nitrogen 13.4 mg/dL (9.0-27.0); Calcium 7.5 mg/dL (8.7-10.3); Carbon Dioxide 30.7 mmol/L (21.6-31.8); Chloride 102 mmol/L (96-109); Glucose 81 mg/dL (70-110); Potassium 3.6 mmol/L (3.5-5.5); Sodium 138 mmol/L (135-145)
--- NOTE | 2023-10-08 16:42 | P.PN ---
Subjective Progress Note Date: 10/08/23 Interval History: Acute hypoxic and hypercapnic respiratory failure secondary to acute COPD exacerbation and extensive left-sided pneumonia. Patient was eval on 09/30/2023, patient has been on BiPAP for the last few days while in the ICU, Patient has been on 100% BiPAP with IPAP of 12 and EPAP of 6, however she developed worsening pulmonary status this morning, in spite of being on 100% FiO2, patient had her O2 saturation down in the low 70s. Patient was intubated, underwent bronchoscopy with lavage 09/30. Patient seen examined. Currently intubated. Currently on IV Zosyn. Vital signs stable 10/01. Patient seen and examined. Patient currently going through SBT, patient opening eyes. 10/02. Patient seen and examined. Patient extubated this morning. 10/03. Patient seen and examined. Sitting upright in the bed. States she feels much better. Currently on 5 l of oxygen. Denies any shortness of breath at rest.Blood work done this morning showed WBC 13.3, hemoglobin 13.6, sodium 35, potassium 3.8, BUN 25, creatinine 0.31 10/04. Patient seen and examined. Sitting upright in the chair, currently on 5 L of oxygen. Being transferred out of ICU. 10/05--patient was examined today, currently on 5 L nasal cannula oxygen. On IV fluids. Currently on Symbicort and prednisone. WBCs 18.3, hemoglobin 13.5, platelet normal. Creatinine and BUN unremarkable. CO2 33. Ultrasound venous ordered to rule out DVT, noted left lower extremity edema. Initially was diagnosed with left lung pneumonia, not on antibiotics anymore. 10/06--patient was seen and examined today. Awake and alert x 3. Currently on 5 L oxygen. Currently on IV fluids. Ultrasound venous negative for DVT. Cur rently on DuoNebs Symbicort and prednisone. Labs reviewed, WBC 16.9, hemoglobin 14.3, platelet 137. BMP unremarkable. PT/OT consulted and pending. 10/07--patient was seen and examined today. Remains on 5 L oxygen. WBCs trending down 14.08. Hemoglobin 12.4, platelets 140. BMP is unremarkable. [place] level less than 0.10. Discontinue IV fluids. Assessment and plan: Acute on chronic hypoxic and hypercapnic respiratory failure, multifactorial, requiring intubation mechanical ventilation last week, and reintubation on 09/29, extubated 10/02 Acute COPD exacerbation Left lung pneumonia, possibly hospital-acquired pneumonia with complete opacification of the left lung secondary to mucous plugging, requiring bronchoscopy and BAL of the left lung. Chronic hypoxic and hypercapnic respiratory failure Chronic pain syndrome Sinus rhythm with PVCs Severe pulmonary hypertension Hyperlipidemia Diabetes mellitus History of GERD Hypothyroidism History of osteoarthritis Monitor vital signs Monitor labs Continue telemetry monitoring Aggressive bronchopulmonary hygiene IV Solu-Medrol changed to prednisone Continue IV fluids Continue breathing treatment Cardiology consulted Pulmonology consulted Ultrasound venous negative for DVT. DVT prophylaxis: Subcutaneous heparin Disposition: PT/OT consulted, anticipate subacute rehab. PHYSICAL EXAMINATION: GENERAL: The patient is A&O x3, NAD HEENT: EOMI, Sclerae anicteric, Moist Mucous membranes Neck: Supple, Non tender, No JVD PULMONARY: Dec breath souds B/L, + wheezing, No crackles. CARDIOVASCULAR: S1, S2 present. No murmurs, rubs, or gallops. ABDOMEN: Soft, nontender, nondistended, normoactive bowel sounds. No guarding or rebound tenderness. MUSCULOSKELETAL: + LLE edema, No cyanosis. No clubbing. Normal ROM. Intact perip heral pulses. EXTREMITIES: No cyanosis, clubbing, or pedal edema. NEUROLOGICAL: CN 2-12 grossly intact. No FND Skin: No Rash REVIEW OF SYSTEMS: CONSTITUTIONAL: No fever or chills. CARDIOVASCULAR: No chest pain, palpitations or syncope. PULMONARY: Complains of cough, shortness of breath. GASTROINTESTINAL: No nausea, vomiting, diarrhea, abdominal pain. : No Dysuria, urgency, frequency. Extremities: No edema. NEUROLOGICAL: No headaches, no weakness, or numbness Dictation was produced using [employer] dictation software. please excuse any grammatical, word or spelling errors. Objective - Vital Signs Vital signs: Vital Signs Temp 98.6 F 10/08/23 14:00 Pulse 92 10/08/23 16:32 Resp 18 10/08/23 14:00 BP 97/61 10/08/23 14:00 Pulse Ox 96 10/08/23 16:33 FiO2 50 10/03/23 10:13 Intake & Output 10/07/23 10/08/23 10/08/23 18:59 06:59 18:59 Intake Total 710 Output Total 625 300 Balance 85 -300 Weight 63.5 kg Intake: Oral 710 Output: Urine 625 300 Other: Voiding Method Indwelling Catheter Indwelling Catheter ABP, PAP, CO, CI - Last Documented Arterial Blood Pressure 108/64 - Labs CBC & Chem 7: 10/08/23 05:06 10/08/23 05:06 Labs: Abnormal Lab Results - Last 24 Hours (Table) 10/08/23 10/08/23 10/08/23 Range/Units 05:06 05:06 11:24 WBC 14.08 H (4.50-10.00) X 10*3/uL RBC 3.96 L (4.10-5.20) X 10*6/uL MCV 99.2 H (80.0-97.0) FL MCHC 31.6 L (32.0-37.0) g/dL Immature Gran # 0.07 H (0.00-0.04) X 10*3/uL Neutrophils # 11.99 H (1.80-7.70) X 10*3/uL Eosinophils # 0.03 L (0.04-0.35) X 10*3/uL Creatinine 0.2 L (0.6-1.5) mg/dL BUN/Creatinine Ratio 67.00 H (12.00-20.00) Ratio POC Glucose (mg/dL) 135 H (70-110) mg/dL Calcium 7.5 L (8.7-10.3) mg/dL [place] <0.10 L (0.50-1.20) mmol/L
[2023-10-08 16:49] LABS: Glucose,Whole Blood 124 mg/dL (70-110)
[2023-10-08 20:55] LABS: Glucose,Whole Blood 112 mg/dL (70-110)
[2023-10-09 06:33] LABS: Glucose,Whole Blood 97 mg/dL (70-110)
[2023-10-09 11:42] LABS: Glucose,Whole Blood 96 mg/dL (70-110)
--- NOTE | 2023-10-09 14:44 | P.PN ---
Subjective Progress Note Date: 10/09/23 Today's evaluation of 10/09/2023, I am seeing the patient for a follow-up. The patient is status post respiratory failure requiring intubation mechanical ventilation the patient was extubated on 09/22/2023. Subsequently, the patient required another intubation on 09/30/2023 and extubated on 10/03/2023. The patient is currently on 2 L of oxygen by nasal cannula. The most recent chest x-ray from 10/03/2023 showed some small right-sided pleural effusion and pulmonary vascular congestion. She denies having any specific complaints. She states that she is doing well. The patient has no significant respiratory difficulties for now. Unable to access the previous cultures from the bronchial lavage was obtained from the bronchoscopy. Her sodium level is at 138, potassium level of 3.6, BUN 30 with a creatinine of 0.2. WBC count is at 14 with a hemoglobin 12.4 and a platelet count of 140. She is chronically debilitated maintained on Symbicort maintenance DuoNeb nebulized treatment and she is currently also on a prednisone burst taper starting with 40 mg p.o. per day. She is on heparin subcu for DVT prophylaxis. Objective - Vital Signs Vital signs: Vital Signs Temp 98.7 F 10/09/23 07:44 Pulse 108 H 10/09/23 09:22 Resp 19 10/09/23 07:44 BP 90/54 10/09/23 07:44 Pulse Ox 90 L 10/09/23 07:44 FiO2 50 10/03/23 10:13 Intake & Output 10/08/23 10/09/23 10/09/23 18:59 06:59 18:59 Output Total 750 Balance -750 Output: Urine 350 Stool 400 Other: Voiding Method Indwelling Catheter # Bowel Movements 2 ABP, PAP, CO, CI - Last Documented Arterial Blood Pressure 108/64 - Exam GENERAL EXAM: Alert, 73-year-old female, on 2 L nasal cannula, in no apparent distress. HEAD: Normocephalic. EYES: Normal reaction of pupils, equal size. NOSE: Clear with pink turbinates. THROAT: No erythema or exudates. NECK: No masses, no JVD. CHEST: No chest wall deformity. LUNGS: Equal air entry with bilateral end expiratory wheeze, diminished. CVS: S1 and S2 normal with no audible murmur, regular rhythm. ABDOMEN: No hepatosplenomegaly, normal bowel sounds, no guarding or rigidity. SPINE: No scoliosis or deformity SKIN: No rashes CENTRAL NERVOUS SYSTEM: No focal deficits, tone is normal in all 4 extremities. EXTREMITIES: There is no peripheral edema. No clubbing, no cyanosis. Peripheral pulses are intact. - Labs CBC & Chem 7: 10/08/23 05:06 10/08/23 05:06 Labs: Abnormal Lab Results - Last 24 Hours (Table) 10/08/23 10/08/23 10/08/23 Range/Units 05:06 05:06 16:47 WBC 14.08 H (4.50-10.00) X 10*3/uL RBC 3.96 L (4.10-5.20) X 10*6/uL MCV 99.2 H (80.0-97.0) FL MCHC 31.6 L (32.0-37.0) g/dL Immature Gran # 0.07 H (0.00-0.04) X 10*3/uL Neutrophils # 11.99 H (1.80-7.70) X 10*3/uL Eosinophils # 0.03 L (0.04-0.35) X 10*3/uL Creatinine 0.2 L (0.6-1.5) mg/dL BUN/Creatinine Ratio 67.00 H (12.00-20.00) Ratio POC Glucose (mg/dL) 124 H (70-110) mg/dL Calcium 7.5 L (8.7-10.3) mg/dL [place] <0.10 L (0.50-1.20) mmol/L 10/08/23 Range/Units 20:54 WBC (4.50-10.00) X 10*3/uL RBC (4.10-5.20) X 10*6/uL MCV (80.0-97.0) FL MCHC (32.0-37.0) g/dL Immature Gran # (0.00-0.04) X 10*3/uL Neutrophils # (1.80-7.70) X 10*3/uL Eosinophils # (0.04-0.35) X 10*3/uL Creatinine (0.6-1.5) mg/dL BUN/Creatinine Ratio (12.00-20.00) Ratio POC Glucose (mg/dL) 112 H (70-110) mg/dL Calcium (8.7-10.3) mg/dL [place] (0.50-1.20) mmol/L Assessment and Plan Plan: Acute on chronic hypoxemic and hypercapnic respiratory failure, mostly secondary to COPD exacerbation, and possible pneumonia. Clinically improved and the patient is currently on 2 L of oxygen by nasal cannula. She does not have advanced COPD and her respiratory failure was secondary to pneumonia requiring intubation mechanical ventilation on 2 separate occasions. S/P intubation, on September 20, with extubation on September 21. Reintubation, for respiratory failure, September 30, 2023. S/P bronchoscopy, September 30, 2023. S/P extubation, on October 03, 2023. Improved and on 5 L nasal cannula Left-sided pneumonia, clinically improved Chronic pain syndrome. Plan: Clinically stable on 2 L of oxygen by nasal cannula. Provide incentive spirometer. Aggressive pulmonary toileting. Continue the current treatment plan Titrate down the FiO2 as tolerated Accepting of O2 saturations 88 to 92% Repeat chest x-ray in the morning. Will most likely need subacute rehabilitation at discharge
--- NOTE | 2023-10-09 15:19 | P.PN ---
Subjective Progress Note Date: 10/09/23 Interval History: Acute hypoxic and hypercapnic respiratory failure secondary to acute COPD exacerbation and extensive left-sided pneumonia. Patient was eval on 09/30/2023, patient has been on BiPAP for the last few days while in the ICU, Patient has been on 100% BiPAP with IPAP of 12 and EPAP of 6, however she developed worsening pulmonary status this morning, in spite of being on 100% FiO2, patient had her O2 saturation down in the low 70s. Patient was intubated, underwent bronchoscopy with lavage 09/30. Patient seen examined. Currently intubated. Currently on IV Zosyn. Vital signs stable 10/01. Patient seen and examined. Patient currently going through SBT, patient opening eyes. 10/02. Patient seen and examined. Patient extubated this morning. 10/03. Patient seen and examined. Sitting upright in the bed. States she feels much better. Currently on 5 l of oxygen. Denies any shortness of breath at rest.Blood work done this morning showed WBC 13.3, hemoglobin 13.6, sodium 35, potassium 3.8, BUN 25, creatinine 0.31 10/04. Patient seen and examined. Sitting upright in the chair, currently on 5 L of oxygen. Being transferred out of ICU. 10/05--patient was examined today, currently on 5 L nasal cannula oxygen. On IV fluids. Currently on Symbicort and prednisone. WBCs 18.3, hemoglobin 13.5, platelet normal. Creatinine and BUN unremarkable. CO2 33. Ultrasound venous ordered to rule out DVT, noted left lower extremity edema. Initially was diagnosed with left lung pneumonia, not on antibiotics anymore. 10/06--patient was seen and examined today. Awake and alert x 3. Currently on 5 L oxygen. Currently on IV fluids. Ultrasound venous negative for DVT. Cur rently on DuoNebs Symbicort and prednisone. Labs reviewed, WBC 16.9, hemoglobin 14.3, platelet 137. BMP unremarkable. PT/OT consulted and pending. 10/07--patient was seen and examined today. Remains on 5 L oxygen. WBCs trending down 14.08. Hemoglobin 12.4, platelets 140. BMP is unremarkable. [place] level less than 0.10. Discontinue IV fluids. 10/08--patient's seen and examined today. Patient respiratory status gradually improving, patient required to intubation previously, last extubated on 10/03/2023, currently on 2 L oxygen as compared to 5 L yesterday. Patient reported feeling better. Shortness of breath is improving. Patient currently on prednisone burst taper. Pulmonary on board and following. PT/OT consulted. Assessment and plan: Acute on chronic hypoxic and hypercapnic respiratory failure, multifactorial, requiring intubation mechanical ventilation last week, and reintubation on 09/29, extubated 10/02 Acute COPD exacerbation Left lung pneumonia, possibly hospital-acquired pneumonia with complete opacification of the left lung secondary to mucous plugging, requiring bronchoscopy and BAL of the left lung. Chronic hypoxic and hypercapnic respiratory failure Chronic pain syndrome Sinus rhythm with PVCs Severe pulmonary hypertension Hyperlipidemia Diabetes mellitus History of GERD Hypothyroidism History of osteoarthritis Monitor vital signs Monitor labs Continue telemetry monitoring Aggressive bronchopulmonary hygiene IV Solu-Medrol changed to prednisone--anticipate taper. Continue breathing treatment/bronchodilator protocol Cardiology consulted Pulmonology consulted and following Ultrasound venous negative for DVT. PT/OT consulted. DVT prophylaxis: Subcutaneous heparin Disposition: PT/OT consulted, anticipate subacute rehab. PHYSICAL EXAMINATION: GENERAL: The patient is A&O x3, NAD HEENT: EOMI, Sclerae anicteric, Moist Mucous membranes Neck: Supple, Non tender, No JVD PULMONARY: Dec breath souds B/L, + wheezing, No crackles. CARDIOVASCULAR: S1, S2 present. No murmurs, rubs, or gallops. ABDOMEN: Soft, nontender, nondistended, normoactive bowel sounds. No guarding or rebound tenderness. MUSCULOSKELETAL: + LLE edema, No cyanosis. No clubbing. Normal ROM. Intact peripheral pulses. EXTREMITIES: No cyanosis, clubbing, or pedal edema. NEUROLOGICAL: CN 2-12 grossly intact. No FND Skin: No Rash REVIEW OF SYSTEMS: CONSTITUTIONAL: No fever or chills. CARDIOVASCULAR: No chest pain, palpitations or syncope. PULMONARY: Complains of cough, shortness of breath. GASTROINTESTINAL: No nausea, vomiting, diarrhea, abdominal pain. : No Dysuria, urgency, frequency. Extremities: No edema. NEUROLOGICAL: No headaches, no weakness, or numbness Dictation was produced using [employer] dictation software. please excuse any grammatical, word or spelling errors. Objective - Vital Signs Vital signs: Vital Signs Temp 98.3 F 10/09/23 13:42 Pulse 86 10/09/23 13:42 Resp 18 10/09/23 13:42 BP 94/61 10/09/23 13:42 Pulse Ox 90 L 10/09/23 13:42 FiO2 50 10/03/23 10:13 Intake & Output 10/08/23 10/09/23 10/09/23 18:59 06:59 18:59 Output Total 750 Balance -750 Output: Urine 350 Stool 400 Other: Voiding Method Indwelling Catheter Indwelling Catheter # Bowel Movements 2 ABP, PAP, CO, CI - Last Documented Arterial Blood Pressure 108/64 - Labs CBC & Chem 7: 10/08/23 05:06 10/08/23 05:06 Labs: Abnormal Lab Results - Last 24 Hours (Table) 10/08/23 10/08/23 Range/Units 16:47 20:54 POC Glucose (mg/dL) 124 H 112 H (70-110) mg/dL
[2023-10-09 16:57] LABS: Glucose,Whole Blood 100 mg/dL (70-110)
[2023-10-09 20:25] LABS: Glucose,Whole Blood 102 mg/dL (70-110)
--- NOTE | 2023-10-10 02:29 | XR ---
EXAM: XR Chest, 1 View CLINICAL HISTORY: ITS.REASON XR Reason: increased oxygen demand, crackles in lungs TECHNIQUE: Frontal view of the chest. COMPARISON: No relevant prior studies available. IMPRESSION: Cardiomegaly. Left basilar opacity. Mild bilateral pleural effusions.
[2023-10-10] MEDS: FUROSEMIDE 10 MG/ML 4 ML VIAL IV STA (02:43)
[2023-10-10 06:01] LABS: Glucose,Whole Blood 88 mg/dL (70-110)
--- NOTE | 2023-10-10 07:54 | XR ---
EXAMINATION TYPE: XR chest 1V DATE OF EXAM: 10/10/2023 COMPARISON: 10/09/2023 HISTORY: Pneumonia TECHNIQUE: Single frontal view of the chest is obtained. FINDINGS: There is now complete opacification of left hemithorax. A small to moderate right pleural effusion. No sizable pneumothorax. Heart size stable. Osteopenia and arthropathy of the shoulders wit h degenerative change of the spine. IMPRESSION: 1. Progressive changes involving the left hemithorax with complete consolidation of the left lung lik yannick representing a combination of atelectasis and pleural fluid. Underlying pneumonia or neoplasm not excluded. There is abrupt cut off of the left mainstem bronchus. Endobronchial lesion or mucous plug in the differential diagnosis.
[2023-10-10 08:47] LABS: Basophils # (A) 0.02 X 10*3/uL (0.00-0.10); Basophils % (A) 0.2 %; Eosinophils # (A) 0.02 X 10*3/uL (0.04-0.35); Eosinophils % (A) 0.2 %; HCT 42.1 % (37.2-46.3); HGB 13.1 g/dL (12.0-15.0); Lymphocytes # (A) 0.75 X 10*3/uL (0.90-5.00); Lymphocytes % (A) 6.3 %; MCH 30.5 pg (27.0-32.0); MCHC 31.1 g/dL (32.0-37.0); MCV 98.1 FL (80.0-97.0); Monocytes # (A) 0.88 X 10*3/uL (0.20-1.00); Monocytes % (A) 7.4 %; NRBC Per 100 WBC 0 X 10*3/uL (0.00-0.01); Neutrophils # (A) 10.24 X 10*3/uL (1.80-7.70); Neutrophils % (A) 85.5 %; Platelet Count 178 X 10*3/uL (140-440); RBC 4.29 X 10*6/uL (4.10-5.20); RDW 13.8 % (11.5-14.5); WBC 11.96 X 10*3/uL (4.50-10.00)
[2023-10-10 08:57] LABS: Glucose,Whole Blood 153 mg/dL (70-110)
[2023-10-10] MEDS: FAMOTIDINE 20 MG TAB PO SCH (09:00)
[2023-10-10 09:07] LABS: Blood Urea Nitrogen 16.8 mg/dL (9.0-27.0); Calcium 7.8 mg/dL (8.7-10.3); Carbon Dioxide 33.8 mmol/L (21.6-31.8); Chloride 99 mmol/L (96-109); Glucose 100 mg/dL (70-110); Potassium 3.5 mmol/L (3.5-5.5); Sodium 139 mmol/L (135-145)
[2023-10-10] MEDS: CISATRACURIUM 2 MG/ML 5 ML VIAL IV ONE (09:40)
[2023-10-10] MEDS: NOREPINEPHRINE 4 MG in SODIUM CHLORIDE 0.9% 250 ML IV SCH (09:45)
[2023-10-10] MEDS: SODIUM CHLORIDE 0.9% 1,000 ML IV ONE ×3 (10:45→17:06)
[2023-10-10] MEDS: propofoL 100 ML IV ONE ×3 (10:45→20:22)
--- NOTE | 2023-10-10 10:57 | XR ---
EXAMINATION TYPE: XR chest 1V confirm line [facility] DATE OF EXAM: 10/10/2023 COMPARISON: 10/09/2020 HISTORY: Line placement TECHNIQUE: Single frontal view of the chest is obtained. FINDINGS: Interval improved aeration of the left hemithorax with persistent bilateral pleural effusi on and consolidation. ET tube appears approximately 2.3 cm above [place]. NG tube seen extending into the abdomen. Left-sided central line seen with the tip overlying the right atrium. There is no sizabl e. Osseous structures are stable. Heart size unchanged. Significant calcifications in the soft tissue s of the neck likely related to carotid artery atherosclerotic disease. IMPRESSION: 1. ET tube, NG tube and central line appear in good position. No pneumothorax. 2. Improved aeration of the left thorax with persistent bilateral infiltrate and pleural effusion. Co rrelate for pneumonia versus CHF.
[2023-10-10 11:12] LABS: ABG Base Excess 13.7 mmol/L; ABG Oxygen Saturation 99.5 % (94-97); ABG PCO2 55 mmHg (35-45); ABG PH 7.47 (7.35-7.45); ABG PO2 153 mmHg (83-108); ABG TCO2 41 mmol/L (19-24)
[2023-10-10 11:15] LABS: ABG HCO3 40 mmol/L (21-25); Allen Test Performed? No
[2023-10-10 11:49] LABS: Glucose,Whole Blood 119 mg/dL (70-110)
[2023-10-10] MEDS: NOREPINEPHRINE 8 MG in SODIUM CHLORIDE 0.9% 250 ML IV SCH (14:45)
[2023-10-10 17:14] LABS: Glucose,Whole Blood 138 mg/dL (70-110)
--- NOTE | 2023-10-10 19:17 | P.PN ---
Subjective Progress Note Date: 10/10/23 Today's evaluation of 10/09/2023, I am seeing the patient for a follow-up. The patient is status post respiratory failure requiring intubation mechanical ventilation the patient was extubated on 09/22/2023. Subsequently, the patient required another intubation on 09/30/2023 and extubated on 10/03/2023. The patient is currently on 2 L of oxygen by nasal cannula. The most recent chest x-ray from 10/03/2023 showed some small right-sided pleural effusion and pulmonary vascular congestion. She denies having any specific complaints. She states that she is doing well. The patient has no significant respiratory difficulties for now. Unable to access the previous cultures from the bronchial lavage was obtained from the bronchoscopy. Her sodium level is at 138, potassium level of 3.6, BUN 30 with a creatinine of 0.2. WBC count is at 14 with a hemoglobin 12.4 and a platelet count of 140. She is chronically debilitated maintained on Symbicort maintenance DuoNeb nebulized treatment and she is currently also on a prednisone burst taper starting with 40 mg p.o. per day. She is on heparin subcu for DVT prophylaxis. On 10/10/2023, the patient is being seen for a follow-up. I was informed this morning that the patient's oxygenation was progressively getting worse and the patient was placed on high flow oxygen at 15 L with 100% nonrebreather facemask. Based on that, her chest x-ray was also done that showed complete opacification of the left lung consistent with left lung atelectasis. The patient got transferred to the intensive care unit. She was quite short of breath and her breathing was labored. Based on that, the patient was intubated and placed on the mechanical ventilator. Postintubation, a bronchoscopy was done and copious amount of purulent respiratory secretions were aspirated from the trachea and left mainstem bronchus and elevation of the left lung was achieved. At this point in time, the patient remains on mechanical ventilator assist-control mode rate of 16, tidal volume of 350, FiO2 of 100% with a PEEP of 5. The patient was also placed on propofol for sedation. The dose being titrated. A triple-lumen catheter was inserted. Post bronchoscopy, chest x-ray was repeated and it showed related to being in a good location. There is improved aeration of the left thorax with presence of bilateral infiltrates and possibly a small component of pleural effusion on the left. Noted the patient remained hemodynamically stable. The postintubation blood gas showed a pH of 7.47 with a pCO2 of 55 and a pO2 of 153. FiO2 will be gradually weaned off. Morning white cell count 11.9 with a hemoglobin 15.1 and a platelet count of 178. The BUN is at 16 with a creatinine of 0.3. Sodium is at 139. Potassium is at 3.5 with a chloride of 99. proBNP level is 11,000. [place] level was less than 0.1. Patient is currently on DuoNeb nebulized treatments [id number]. Symbicort will be placed on hold. The patient will be kept on prednisone burst taper and currently she is on 40 mg p.o. daily. Will start enteral feeding for nutritional support. Currently adequately sedated. Objective - Vital Signs Vital signs: Vital Signs Temp 97.2 F L 10/10/23 16:00 Pulse 99 10/10/23 18:00 Resp 16 10/10/23 18:00 BP 89/48 10/10/23 14:00 Pulse Ox 93 L 10/10/23 18:00 FiO2 50 10/10/23 16:00 Intake & Output 10/10/23 10/10/23 10/11/23 06:59 18:59 06:59 Intake Total 3787.417 Output Total 2200 345 Balance -2200 3442.417 Weight 60 kg Intake: IV 3450 Sodium Chloride 0.9% 1, 3450 000 ml @ 999 mls/hr IV . Q1H1M ONE Rx#:[id number] Intake, IV Titration 337.417 Amount Norepinephrine 4 mg In 222.615 Sodium Chloride 0.9% 250 ml @ 0.03 MCG/KG/MIN 6. 858 mls/hr IV .Q24H SHIRA Rx#:[id number] Norepinephrine 8 mg In 14.802 Sodium Chloride 0.9% 250 ml @ 0.03 MCG/KG/MIN 3. 483 mls/hr IV .Q24H SHIRA Rx#:[id number] propofoL 1,000 mg In 100.00 Empty Bag 1 bag @ 15 MCG/ KG/MIN 5.4 mls/hr IV . [id number] SHIRA Rx#:[id number] Output: Urine 1800 345 Uretheral (Yoo) 1800 Stool 400 Other: Voiding Method Indwelling Catheter Indwelling Catheter # Bowel Movements 1 ABP, PAP, CO, CI - Last Documented Arterial Blood Pressure 83/42 - Exam GENERAL EXAM: Alert, 73-year-old female, sedated on propofol, calm and comfortable, no acute distress HEAD: Normocephalic. EYES: Normal reaction of pupils, equal size. NOSE: Clear with pink turbinates. THROAT: No erythema or exudates. NECK: No masses, no JVD. The patient has an orogastric and orotracheal tube in place. CHEST: No chest wall deformity. LUNGS: Equal air entry with bilateral end expiratory wheeze, diminished. There is improved aeration of the left lung following the bronchoscopy. CVS: S1 and S2 normal with no audible murmur, regular rhythm. ABDOMEN: No hepatosplenomegaly, normal bowel sounds, no guarding or rigidity. SPINE: No scoliosis or deformity SKIN: No rashes CENTRAL NERVOUS SYSTEM: No focal deficits, tone is normal in all 4 extremities. EXTREMITIES: There is no peripheral edema. No clubbing, no cyanosis. Peripheral pulses are intact. - Labs CBC & Chem 7: 10/10/23 04:40 10/10/23 04:40 Labs: Abnormal Lab Results - Last 24 Hours (Table) 10/10/23 10/10/23 10/10/23 Range/Units 04:40 04:40 08:55 WBC 11.96 H (4.50-10.00) X 10*3/uL MCV 98.1 H (80.0-97.0) FL MCHC 31.1 L (32.0-37.0) g/dL Immature Gran # 0.05 H (0.00-0.04) X 10*3/uL Neutrophils # 10.24 H (1.80-7.70) X 10*3/uL Lymphocytes # 0.75 L (0.90-5.00) X 10*3/uL Eosinophils # 0.02 L (0.04-0.35) X 10*3/uL ABG pH (7.35-7.45) ABG pCO2 (35-45) mmHg ABG pO2 (83-108) mmHg ABG HCO3 (21-25) mmol/L ABG Total CO2 (19-24) mmol/L ABG O2 Saturation (94-97) % Carbon Dioxide 33.8 H (21.6-31.8) mmol/L Creatinine 0.3 L (0.6-1.5) mg/dL BUN/Creatinine Ratio 56.00 H (12.00-20.00) Ratio POC Glucose (mg/dL) 153 H (70-110) mg/dL Calcium 7.8 L (8.7-10.3) mg/dL 10/10/23 10/10/23 10/10/23 Range/Units 11:10 11:47 17:13 WBC (4.50-10.00) X 10*3/uL MCV (80.0-97.0) FL MCHC (32.0-37.0) g/dL Immature Gran # (0.00-0.04) X 10*3/uL Neutrophils # (1.80-7.70) X 10*3/uL Lymphocytes # (0.90-5.00) X 10*3/uL Eosinophils # (0.04-0.35) X 10*3/uL ABG pH 7.47 H (7.35-7.45) ABG pCO2 55 H (35-45) mmHg ABG pO2 153 H (83-108) mmHg ABG HCO3 40 H* (21-25) mmol/L ABG Total CO2 41 H (19-24) mmol/L ABG O2 Saturation 99.5 H (94-97) % Carbon Dioxide (21.6-31.8) mmol/L Creatinine (0.6-1.5) mg/dL BUN/Creatinine Ratio (12.00-20.00) Ratio POC Glucose (mg/dL) 119 H 138 H (70-110) mg/dL Calcium (8.7-10.3) mg/dL Assessment and Plan Plan: Acute hypoxic respiratory failure, requiring intubation mechanical ventilation. Patient was reintubated for the third time on 10/10/2023 due to complete left lung atelectasis and left lung collapse. Bronchoscopy was done and aeration of the left lung was restored after aspirating copious amount of purulent material from the trachea and left mainstem bronchus. Left lung collapse secondary to mucous plugs, possible left lung pneumonia, status post intubation and bronchoscopy with jehovah's witness of the airway and aeration of the left lung. Advanced COPD with recurrent episodes of respiratory failure due to pneumonia mu cous plugs and left lung atelectasis. The patient has S/P intubation, on September 20, with extubation on September 21. Reintubation, for respiratory failure, September 30, 2023. S/P bronchoscopy, September 30, 2023. S/P extubation, on October 03, 2023. Left-sided pneumonia, with copious amount of respiratory secretions and mucous plugs causing left lung atelectasis. Chronic pain syndrome. Plan: Keep the patient sedated on propofol Keep mechanical ventilator and vent support for now. Will monitor the blood gases necessary ventilator change will be done accordingly. Titrate down the FiO2 as tolerated Accepting of O2 saturations 88 to 92% Will cover the patient again with antibiotics with a combination of cefepime and vancomycin pending further cultures from the bronchoscopy and lavage of the left lung Start enteral feeding for nutritional support Pressors if needed DVT and GI Repeat chest x-ray in the morning. Condition is critical and the patient is will be kept in the intensive care unit for now. This evaluation was done more than 30 minutes. This is excluding time to do any procedures. Time with Patient: Greater than 30
--- NOTE | 2023-10-10 19:24 | P.PCN ---
Date of Procedure: 10/10/23 Preoperative Diagnosis: Acute hypoxic respiratory failure, left lung collapse Postoperative Diagnosis: Acute hypoxic respiratory failure, left lung collapse, mucous plugs, left lung pneumonia Procedure(s) Performed: Intubation flexible bronchoscopy, removal of mucous plugs from the left mainstem bronchus and trachea, bronchioloalveolar lavage of the left lower lobe Central line insertion Anesthesia: MAC Surgeon: Timothy Serrano Estimated Blood Loss (ml): 0 Pathology: other Condition: critical Disposition: ICU Operative Findings: Intubation A time out was performed. My hands were washed immediately prior to the procedure. I wore a surgical cap, mask with protective eyewear, gown and gloves throughout the procedure. The patient was placed on a bus monitor including continuous pulse oximetry. The patient received IV propofol a total of 100 mg for induction. Cricoid pressure was maintained from time induction agent was given to time of cuff balloon inflation. Using a glidoscope and a size #8 endotracheal tube with stylet, the patient was intubated on the 1 attempt. The stylet was removed and cuff balloon was inflated. Appropriate endotracheal tube position was confirmed by direct visualization of vocal cord passage, fogging of the tube, CO2 colormetric indicator and symmetric breath sounds. The tube was secured at 21 cm at the lips. Post intubation chest x-ray showed adequate positioning of the orotracheal tube Bronchoscopy and bronchial lavage Postintubation, the patient was adequately sedated. An adapter was attached to the orotracheal tube. The flexible bronchoscope was introduced through the orotracheal tube and it was advanced into a lower trachea. The procedure was done as the patient was adequately oxygenated and ventilated through the mechanical ventilator. Copious amount of respiratory secretions identified in the distal trachea and there was copious amount of mucous plugs obstructing the left mainstem bronchus resulting into left lung atelectasis. Some respiratory secretions were also identified on the right mainstem bronchus, bronchus intermedius, and right middle lobe bronchus and the right lower lobe bronchus and those were patent. Right upper lobe bronchus was patent. The various stent segments on the right side were essentially patent. The bronchoscope was then moved to the left and therapeutic airway suctioning was done and the majority of the mucous plugs were aspirated without any major difficulties. Patency of the left mainstem bronchus and the left upper lobe proximal left lower lobe bronchus was achieved. Following that, the various segments of the left lung including the ones in the upper and lower lobe were seen and visualized. They were all patent. Her bronchial lavage of the left lower lobe was done. A total of 40 cc of fluid was infused and 10 cc was aspirated without any major difficulties. The aspirate was cloudy and somewhat purulent The bronchoscope was removed and the procedure was terminated. No oxygen satur ation. No hemodynamic instability. Central line insertion Indication: Hemodynamic monitoring/Intravenous access. A time-out was completed verifying correct patient, procedure, site, positioning, and implant(s) or special equipment if applicable. The patient was placed in a dependent position appropriate for central line placement based on the vein to be cannulated. The patients left chest was prepped and draped in sterile fashion. 1% Lidocaine was used to anesthetize the surrounding skin area. A triple lumen 9F Cordis catheter was introduced into the left subclavian vein using Seldinger technique. The catheter was threaded smoothly over the guide wire and appropriate blood return was obtained. Each lumen of the catheter was evacuated of air and flushed with sterile saline. The catheter was then sutured in place to the skin and a sterile dressing applied. Perfusion to the extremity distal to the point of catheter insertion was checked and found to be adequate. The patient tolerated the procedure well and there were no complications.
[2023-10-10] MEDS ORDERED: VANCOMYCIN IV PER PHARMACY 1 EACH MISC MISCELLANE PRN (19:25)
[2023-10-10] MEDS: SODIUM CHLORIDE 0.9% 1,000 ML IV SCH (20:10)
[2023-10-10] MEDS: VANCOMYCIN 1,000 MG in SODIUM CHLORIDE 0.9% 250 ML IVPB SCH (20:10)
[2023-10-10] MEDS: CHLORHEXIDINE GLUCONATE 15 ML CUP MUCOUS MEM SCH (20:27)
[2023-10-10] MEDS: CEFEPIME 2 GM in SODIUM CHLORIDE 0.9% 100 ML IVPB SCH (20:27)
[2023-10-10 21:01] LABS: African American GFR (CKD) >90 (>60 ml/min/1.73 sqM); Anion Gap -2 mmol/L; Blood Urea Nitrogen 17 mg/dL (7-17); Calcium 7.5 mg/dL (8.4-10.2); Carbon Dioxide 34 mmol/L (22-30); Chloride 103 mmol/L (98-107); Glucose 114 mg/dL (74-99); Non-African American GFR(CKD) >90 (>60 ml/min/1.73 sqM); Potassium 2.9 mmol/L (3.5-5.1); Sodium 135 mmol/L (137-145)
[2023-10-10] MEDS ORDERED: Potassium Replacement Protocol 1 EACH MISC MISCELLANE PRN (22:44)
[2023-10-10] MEDS: POTASSIUM CHLORIDE 20 MEQ in WATER FOR INJECTION 1 100ML.BAG IVPB SCH (22:59)
[2023-10-10 23:41] LABS: Glucose,Whole Blood 132 mg/dL (70-110)
[2023-10-11 04:56] LABS: Basophils % (A) 0 %; Eosinophils % (A) 0 %; HCT 37.6 % (34.0-46.0); HGB 12.1 gm/dL (11.4-16.0); Lymphocytes # (A) 0.7 k/uL (1.0-4.8); Lymphocytes % (A) 6 %; MCH 31.4 pg (25.0-35.0); MCHC 32.3 g/dL (31.0-37.0); MCV 97.4 fL (80.0-100.0); Mean Platelet Volume 8.7; Monocytes # (A) 0.4 k/uL (0-1.0); Monocytes % (A) 4 %; Neutrophils # (A) 10.6 k/uL (1.3-7.7); Neutrophils % (A) 90 %; Platelet Count 153 k/uL (150-450); RBC 3.86 m/uL (3.80-5.40); RDW 13.9 % (11.5-15.5); WBC 11.8 k/uL (3.8-10.6)
--- NOTE | 2023-10-11 04:58 | P.PN ---
Subjective Progress Note Date: 10/10/23 Acute hypoxic and hypercapnic respiratory failure secondary to acute COPD exacerbation and extensive left-sided pneumonia. Patient was eval on 09/30/2023, patient has been on BiPAP for the last few days while in the ICU, Patient has been on 100% BiPAP with IPAP of 12 and EPAP of 6, however she developed worsening pulmonary status this morning, in spite of being on 100% FiO2, patient had her O2 saturation down in the low 70s. Patient was intubated, underwent bronchoscopy with lavage 09/30. Patient seen examined. Currently intubated. Currently on IV Zosyn. Vital signs stable 10/01. Patient seen and examined. Patient currently going through SBT, patient opening eyes. 10/02. Patient seen and examined. Patient extubated this morning. 10/03. Patient seen and examined. Sitting upright in the bed. States she feels much better. Currently on 5 l of oxygen. Denies any shortness of breath at rest.Blood work done this morning showed WBC 13.3, hemoglobin 13.6, sodium 35, potassium 3.8, BUN 25, creatinine 0.31 10/04. Patient seen and examined. Sitting upright in the chair, currently on 5 L of oxygen. Being transferred out of ICU. 10/05--patient was examined today, currently on 5 L nasal cannula oxygen. On IV fluids. Currently on Symbicort and prednisone. WBCs 18.3, hemoglobin 13.5, platelet normal. Creatinine and BUN unremarkable. CO2 33. Ultrasound venous ordered to rule out DVT, noted left lower extremity edema. Initially was diagnosed with left lung pneumonia, not on antibiotics anymore. 10/06--patient was seen and examined today. Awake and alert x 3. Currently on 5 L oxygen. Currently on IV fluids. Ultrasound venous negative for DVT. Currently on DuoNebs Symbicort and prednisone. Labs reviewed, WBC 16.9, hemoglobin 14.3, platelet 137. BMP unremarkable. PT/OT consulted and pending. 10/07--patient was seen and examined today. Remains on 5 L oxygen. WBCs trending down 14.08. Hemoglobin 12.4, platelets 140. BMP is unremarkable. [place] level less than 0.10. Discontinue IV fluids. 10/08--patient's seen and examined today. Patient respiratory status gradually improving, patient required to intubation previously, last extubated on , currently on 2 L oxygen as compared to 5 L yesterday. Patient reported feeling better. Shortness of breath is improving. Patient currently on prednisone burst taper. Pulmonary on board and following. PT/OT consulted. 10/10/2023 Patient is seen this morning and was just re-intubated and brought to the ICU as patient was continued on airvo at 100% and having continuous low pulse ox readings. This will be the third intubation this admission. Patient is also continued on antibiotics for pneumonia. Overall prognosis is guarded at this time. REVIEW OF SYSTEMS: unable to obtain as patient is now sedated and on mechanical ventilation 10/10/23 Active Medications Acetaminophen (Acetaminophen Suppository 650 Mg Supp) 650 mg RECTAL Q4H PRN PRN Reason: PAIN 1-3 OR TEMP >101F Hydrocodone Bitart/Acetaminophen (Hydrocodone/Apap 5-325mg 1 Each Tab) 1 each PO Q6HR PRN PRN Reason: Pain Last Admin: 10/10/23 03:04 Dose: 1 each Albuterol/Ipratropium (Ipratropium-Albuterol 3 Ml Neb) 3 ml INHALATION RT-Q2H PRN PRN Reason: SHORTNESS OF BREATH/ WHEEZING Albuterol/Ipratropium (Ipratropium-Albuterol 3 Ml Neb) 3 ml INHALATION RT-Q4H SHIRA Last Admin: 10/11/23 03:26 Dose: 3 ml Chlorhexidine Gluconate (Chlorhexidine Gluconate 15 Ml Cup) 15 ml MUCOUS MEM BID [facility] Last Admin: 10/10/23 20:27 Dose: 15 ml Dextrose/Water (Dextrose 50% Syringe 50 Ml) 25 ml IVP PER PROTOCOL PRN; Protocol PRN Reason: Hypoglycemia Dextrose/Water (Dextrose 50% Syringe 50 Ml) 50 ml IVP PER PROTOCOL PRN; Protocol PRN Reason: Hypoglycemia Famotidine (Famotidine 20 Mg Tab) 20 mg PO BID [facility] Last Admin: 10/10/23 20:27 Dose: 20 mg Heparin Sodium (Porcine) (Heparin Sodium,Porcine 5,000 Unit/Ml 1 Ml Vial) 5,000 unit SQ Q12HR [facility] Last Admin: 10/10/23 20:27 Dose: 5,000 unit Propofol 1,000 mg/ IV Solution 100 mls @ 5.4 mls/hr IV .[id number] [facility]; Protocol Last Admin: 10/10/23 20:19 Dose: 55 mcg/kg/min, 19.8 mls/hr Norepinephrine Bitartrate 8 mg (/ Sodium Chloride) 258 mls @ 3.483 mls/hr IV .Q24H SHIRA; Protocol Last Titration: 10/11/23 04:39 Dose: 0.22 mcg/kg/min, 25.542 mls/hr Cefepime HCl 2 gm/ Sodium (Chloride) 100 mls @ 25 mls/hr IVPB Q12HR [facility]; P rotocol Last Admin: 10/10/23 20:27 Dose: 25 mls/hr Sodium Chloride (Saline 0.9%) 1,000 mls @ 50 mls/hr IV .Q20H [facility] Last Admin: 10/10/23 20:10 Dose: 50 mls/hr Vancomycin HCl 1,000 mg/ (Sodium Chloride) 250 mls @ 125 mls/hr IVPB Q8H [facility] Last Admin: 10/11/23 04:25 Dose: 125 mls/hr Insulin Aspart (Insulin Aspart (Novolog) 100 Unit/Ml Vial) 0 unit SQ ACHS [facility]; Protocol Last Admin: 10/10/23 21:44 Dose: Not Given Metoprolol Tartrate (Metoprolol Tartrate 50 Mg Tab) 50 mg PO BID [facility] Last Admin: 10/10/23 19:51 Dose: 50 mg Miscellaneous Information (Potassium Replacement Protocol 1 Each Misc) 1 each MISCELLANE DAILY PRN; Protocol PRN Reason: Per Protocol Miscellaneous Information (Potassium Replacement Protocol 1 Each Misc) 1 each MISCELLANE DAILY PRN; Protocol PRN Reason: Per Protocol Naloxone HCl (Naloxone 0.4 Mg/Ml 1 Ml Vial) 0.2 mg IV Q2M PRN PRN Reason: Opioid Reversal Paliperidone (Paliperidone 3 Mg Tab.Er.24) 3 mg PO DAILY [facility] Last Admin: 10/10/23 10:42 Dose: Not Given Petrolatum (Zinc Oxide Paste (Z-Guard) 1 Applic) 1 applic TOPICAL DAILY PRN; Protocol PRN Reason: Wound Healing Last Admin: 10/10/23 03:05 Dose: 1 applic Prednisone (Prednisone 20 Mg Tab) 40 mg PO DAILY [facility] Last Admin: 10/10/23 09:00 Dose: Not Given PHYSICAL EXAMINATION: GENERAL: The patient is A&O x0, on propofol and mechanical ventilation, ill appearing, elderly appearing HEENT: EOMI, Sclerae anicteric, Moist Mucous membranes RESP: diminished breath sounds bilaterally with course rhonchi noted and expiratory wheezing noted as well CARDIOVASCULAR: S1, S2 present. No murmurs, rubs, or gallops. ABDOMEN: Soft, nontender, nondistended, normoactive bowel sounds. No guarding or rebound tenderness. MUSCULOSKELETAL: + LLE edema, No cyanosis. No clubbing. Normal ROM. Intact peripheral pulses. EXTREMITIES: No cyanosis, clubbing, or pedal edema. NEUROLOGICAL: CN 2-12 grossly intact. No FND Skin: No Rash Assessment: Acute on chronic hypoxic and hypercapnic respiratory failure, multifactorial, requiring intubation mechanical ventilation last week, and reintubation on 09/29, extubated 10/02, now requiring intubation again 10/10/23 Acute COPD exacerbation Left lung pneumonia, possibly hospital-acquired pneumonia with complete opacification of the left lung secondary to mucous plugging, requiring bronchoscopy and BAL of the left lung. Chronic hypoxic and hypercapnic respiratory failure Chronic pain syndrome Sinus rhythm with PVCs Severe pulmonary hypertension Hyperlipidemia Diabetes mellitus History of GERD Hypothyroidism History of osteoarthritis GI and DVT prophylaxis Full code Plan: Monitor vital signs and patient is being brought back down to the ICU as she was just reintubated today 10/10/23 Monitor labs and replace electrolytes per protocol Continue telemetry monitoring Aggressive bronchopulmonary hygiene IV Solu-Medrol changed to prednisone--anticipate taper. Continue breathing treatment/bronchodilator protocol Cardiology and pulmonary following Due to multiple complex medical issues, overall prognosis is extremely guarded The impression and plan of care has been dictated by Milka Duffy, Nurse Practitioner as directed. Dr. Ethan MD I have performed a history and examination and MDM of this patient, discussed the same with the dictator, and agree with the dictator's assessment and plan as written ,documented as a scribe. Based on total visit time, I have performed more than 50% of the visit. Objective - Vital Signs Vital signs: Vital Signs Temp 98.1 F 10/10/23 07:40 Pulse 97 10/10/23 08:10 Resp 18 10/10/23 07:40 BP 94/54 10/10/23 07:40 Pulse Ox 86 L 10/10/23 07:58 FiO2 100 10/10/23 10:07 Intake & Output 10/09/23 10/10/23 10/10/23 18:59 06:59 18:59 Output Total 400 2200 Balance -400 -2200 Weight 63.5 kg 60 kg Output: Urine 400 1800 Uretheral (Yoo) 1800 Stool 400 Other: Voiding Method Indwelling Catheter Indwelling Catheter # Bowel Movements 1 1 ABP, PAP, CO, CI - Last Documented Arterial Blood Pressure 108/64 - Labs CBC & Chem 7: 10/10/23 04:40 10/10/23 20:38 Labs: Abnormal Lab Results - Last 24 Hours (Table) 10/10/23 10/10/23 10/10/23 Range/Units 04:40 04:40 08:55 WBC 11.96 H (4.50-10.00) X 10*3/uL MCV 98.1 H (80.0-97.0) FL MCHC 31.1 L (32.0-37.0) g/dL Immature Gran # 0.05 H (0.00-0.04) X 10*3/uL Neutrophils # 10.24 H (1.80-7.70) X 10*3/uL Lymphocytes # 0.75 L (0.90-5.00) X 10*3/uL Eosinophils # 0.02 L (0.04-0.35) X 10*3/uL Carbon Dioxide 33.8 H (21.6-31.8) mmol/L Creatinine 0.3 L (0.6-1.5) mg/dL BUN/Creatinine Ratio 56.00 H (12.00-20.00) Ratio POC Glucose (mg/dL) 153 H (70-110) mg/dL Calcium 7.8 L (8.7-10.3) mg/dL
[2023-10-11 05:08] LABS: African American GFR (CKD) >90 (>60 ml/min/1.73 sqM); Anion Gap 0 mmol/L; Blood Urea Nitrogen 16 mg/dL (7-17); Calcium 7.5 mg/dL (8.4-10.2); Carbon Dioxide 33 mmol/L (22-30); Chloride 101 mmol/L (98-107); Glucose 102 mg/dL (74-99); Non-African American GFR(CKD) >90 (>60 ml/min/1.73 sqM); Potassium 3.7 mmol/L (3.5-5.1); Sodium 134 mmol/L (137-145)
[2023-10-11] MEDS: POTASSIUM BICARBONATE/CIT AC 20 MEQ TABLET.EFF NG-TUBE SCH (05:27)
[2023-10-11 06:30] LABS: Glucose,Whole Blood 88 mg/dL (70-110)
[2023-10-11 06:31] LABS: ABG Base Excess 8.9 mmol/L; ABG HCO3 35 mmol/L (21-25); ABG Oxygen Saturation 98.4 % (94-97); ABG PCO2 51 mmHg (35-45); ABG PH 7.44 (7.35-7.45); ABG PO2 100 mmHg (83-108); ABG TCO2 36 mmol/L (19-24); Allen Test Performed? Yes
--- NOTE | 2023-10-11 08:11 | XR ---
EXAMINATION TYPE: XR chest 1V portable DATE OF EXAM: 10/11/2023 COMPARISON: 10/10/2023 HISTORY: Shortness of breath TECHNIQUE: Single frontal view of the chest is obtained. FINDINGS: There is soft tissue artifact overlying the left hemithorax. There is persistent bilateral pleural effusion and consolidation. ET tube appears approximately 2.3 cm above isak. NG tube seen extending into the abdomen. Left-sided central line seen with the tip overlying the right atrium. The re is no sizable pneumothorax. Osseous structures are stable. Heart size unchanged. Significant calci fications in the soft tissues of the neck likely related to carotid artery atherosclerotic disease. IMPRESSION: Stable bilateral consolidation and small effusion correlate for CHF. Otherwise consider pneumonia.
[2023-10-11 11:53] LABS: Glucose,Whole Blood 93 mg/dL (70-110)
--- NOTE | 2023-10-11 14:25 | P.PN ---
Subjective Progress Note Date: 10/11/23 Today's evaluation of 10/09/2023, I am seeing the patient for a follow-up. The patient is status post respiratory failure requiring intubation mechanical ventilation the patient was extubated on 09/22/2023. Subsequently, the patient required another intubation on 09/30/2023 and extubated on 10/03/2023. The patient is currently on 2 L of oxygen by nasal cannula. The most recent chest x-ray from 10/03/2023 showed some small right-sided pleural effusion and pulmonary vascular congestion. She denies having any specific complaints. She states that she is doing well. The patient has no significant respiratory difficulties for now. Unable to access the previous cultures from the bronchial lavage was obtained from the bronchoscopy. Her sodium level is at 138, potassium level of 3.6, BUN 30 with a creatinine of 0.2. WBC count is at 14 with a hemoglobin 12.4 and a platelet count of 140. She is chronically debilitated maintained on Symbicort maintenance DuoNeb nebulized treatment and she is currently also on a prednisone burst taper starting with 40 mg p.o. per day. She is on heparin subcu for DVT prophylaxis. On 10/10/2023, the patient is being seen for a follow-up. I was informed this morning that the patient's oxygenation was progressively getting worse and the patient was placed on high flow oxygen at 15 L with 100% nonrebreather facemask. Based on that, her chest x-ray was also done that showed complete opacification of the left lung consistent with left lung atelectasis. The patient got transferred to the intensive care unit. She was quite short of breath and her breathing was labored. Based on that, the patient was intubated and placed on the mechanical ventilator. Postintubation, a bronchoscopy was done and copious amount of purulent respiratory secretions were aspirated from the trachea and left mainstem bronchus and elevation of the left lung was achieved. At this point in time, the patient remains on mechanical ventilator assist-control mode rate of 16, tidal volume of 350, FiO2 of 100% with a PEEP of 5. The patient was also placed on propofol for sedation. The dose being titrated. A triple-lumen catheter was inserted. Post bronchoscopy, chest x-ray was repeated and it showed related to being in a good location. There is improved aeration of the left thorax with presence of bilateral infiltrates and possibly a small component of pleural effusion on the left. Noted the patient remained hemodynamically stable. The postintubation blood gas showed a pH of 7.47 with a pCO2 of 55 and a pO2 of 153. FiO2 will be gradually weaned off. Morning white cell count 11.9 with a hemoglobin 15.1 and a platelet count of 178. The BUN is at 16 with a creatinine of 0.3. Sodium is at 139. Potassium is at 3.5 with a chloride of 99. proBNP level is 11,000. [place] level was less than 0.1. Patient is currently on DuoNeb nebulized treatments [id number]. Symbicort will be placed on hold. The patient will be kept on prednisone burst taper and currently she is on 40 mg p.o. daily. Will start enteral feeding for nutritional support. Currently adequately sedated. On today's evaluation of 10/11/2023, the patient remains intubated on the [employer] ventilator. This morning, the patient is on propofol running at 50 mcg/kg/min. The patient remains on the mechanical ventilator, assist-control mode with rate of 16, tidal volume of 350, FiO2 50% with a PEEP of 10. The blood gas shows a pH of 7.44 with a pCO2 of 51 and the patient's pO2 is currently at 100. Chest x-ray shows no significant atelectasis. There is evidence of bilateral pleural effusion and stable consolidation of the lung bases. No significant obstructive secretions. Bronchoscopy was done endobronchial lavage is showing E. coli. The patient meanwhile has been covered with a combination of cefepime and vancomycin. Hemodynamically, the patient is on l norepinephrine which is running at 0. 0.4 mcg/kg/min. Urine output is adequate. Overall fluid (been positive over the past 24 hours and the patient remains on normal citrate of 75 cc an hour. The sodium levels of 134, potassium level of 3.7, BUN 16 with creatinine 0.27 and a serum bicarb of 33. The patie nt's white cell count is currently at 11.8 with a hemoglobin of 0.1 and a platelet count of 153. The patient will be started on enteral feeding for nutritional support. Afebrile. Peak airway pressures around 30. No significant bronchospasm or wheezing on today's evaluation. Objective - Vital Signs Vital signs: Vital Signs Temp 98.7 F 10/11/23 08:00 Pulse 82 10/11/23 09:00 Resp 16 10/11/23 09:00 BP 97/59 10/11/23 08:00 Pulse Ox 99 10/11/23 09:00 FiO2 50 10/11/23 08:00 Intake & Output 10/10/23 10/11/23 10/11/23 18:59 06:59 18:59 Intake Total 3814.417 1817.040 144.33 Output Total 345 350 35 Balance 3469.417 1467.040 109.33 Weight 69.3 kg Intake: IV 3477 1014 78 Pressure Bag 27 39 3 Sodium Chloride 0.9% 1, 3450 975 75 000 ml @ 999 mls/hr IV . Q1H1M [facility] Rx#:[id number] Intake, IV Titration 337.417 803.040 66.33 Amount Norepinephrine 4 mg In 222.615 Sodium Chloride 0.9% 250 ml @ 0.03 MCG/KG/MIN 6. 858 mls/hr IV .Q24H [facility] Rx#:[id number] Norepinephrine 8 mg In 14.802 403.040 Sodium Chloride 0.9% 250 ml @ 0.03 MCG/KG/MIN 3. 483 mls/hr IV .Q24H [facility] Rx#:[id number] Potassium Chloride 20 meq 300 In Water For Injection 1 100ml.bag @ 50 mls/hr IVPB Q2H [facility] Rx#: [id number] propofoL 1,000 mg In 100.00 100 66.33 Empty Bag 1 bag @ 15 MCG/ KG/MIN 5.4 mls/hr IV . [id number] [facility] Rx#:[id number] Output: Urine 345 350 35 Other: Voiding Method Indwelling Catheter Indwelling Catheter Indwelling Catheter ABP, PAP, CO, CI - Last Documented Arterial Blood Pressure 113/56 - Exam GENERAL EXAM: Alert, 73-year-old female, sedated on propofol, calm and comfortable, no acute distress HEAD: Normocephalic. EYES: Normal reaction of pupils, equal size. NOSE: Clear with pink turbinates. THROAT: No erythema or exudates. NECK: No masses, no JVD. The patient has an orogastric and orotracheal tube in place. CHEST: No chest wall deformity. LUNGS: Equal air entry with bilateral end expiratory wheeze, diminished. There is improved aeration of the left lung following the bronchoscopy. CVS: S1 and S2 normal with no audible murmur, regular rhythm. ABDOMEN: No hepatosplenomegaly, normal bowel sounds, no guarding or rigidity. SPINE: No scoliosis or deformity SKIN: No rashes CENTRAL NERVOUS SYSTEM: No focal deficits, tone is normal in all 4 extremities. EXTREMITIES: There is no peripheral edema. No clubbing, no cyanosis. Peripheral pulses are intact. - Labs CBC & Chem 7: 10/11/23 04:23 10/11/23 04:23 Labs: Abnormal Lab Results - Last 24 Hours (Table) 10/10/23 10/10/23 10/10/23 Range/Units 04:40 11:10 11:47 WBC (3.8-10.6) k/uL Neutrophils # (1.3-7.7) k/uL Lymphocytes # (1.0-4.8) k/uL ABG pH 7.47 H (7.35-7.45) ABG pCO2 55 H (35-45) mmHg ABG pO2 153 H (83-108) mmHg ABG HCO3 40 H* (21-25) mmol/L ABG Total CO2 41 H (19-24) mmol/L ABG O2 Saturation 99.5 H (94-97) % Sodium (137-145) mmol/L Potassium (3.5-5.1) mmol/L Carbon Dioxide 33.8 H (21.6-31.8) mmol/L Creatinine 0.3 L (0.6-1.5) mg/dL BUN/Creatinine Ratio 56.00 H (12.00-20.00) Ratio Glucose (74-99) mg/dL POC Glucose (mg/dL) 119 H (70-110) mg/dL Calcium 7.8 L (8.7-10.3) mg/dL 10/10/23 10/10/23 10/10/23 Range/Units 17:13 20:38 23:40 WBC (3.8-10.6) k/uL Neutrophils # (1.3-7.7) k/uL Lymphocytes # (1.0-4.8) k/uL ABG pH (7.35-7.45) ABG pCO2 (35-45) mmHg ABG pO2 (83-108) mmHg ABG HCO3 (21-25) mmol/L ABG Total CO2 (19-24) mmol/L ABG O2 Saturation (94-97) % Sodium 135 L (137-145) mmol/L Potassium 2.9 L (3.5-5.1) mmol/L Carbon Dioxide 34 H (21.6-31.8) mmol/L Creatinine 0.28 L (0.6-1.5) mg/dL BUN/Creatinine Ratio (12.00-20.00) Ratio Glucose 114 H (74-99) mg/dL POC Glucose (mg/dL) 138 H 132 H (70-110) mg/dL Calcium 7.5 L (8.7-10.3) mg/dL 10/11/23 10/11/23 10/11/23 Range/Units 04:23 04:23 06:27 WBC 11.8 H (3.8-10.6) k/uL Neutrophils # 10.6 H (1.3-7.7) k/uL Lymphocytes # 0.7 L (1.0-4.8) k/uL ABG pH (7.35-7.45) ABG pCO2 51 H (35-45) mmHg ABG pO2 (83-108) mmHg ABG HCO3 35 H (21-25) mmol/L ABG Total CO2 36 H (19-24) mmol/L ABG O2 Saturation 98.4 H (94-97) % Sodium 134 L (137-145) mmol/L Potassium (3.5-5.1) mmol/L Carbon Dioxide 33 H (21.6-31.8) mmol/L Creatinine 0.27 L (0.6-1.5) mg/dL BUN/Creatinine Ratio (12.00-20.00) Ratio Glucose 102 H (74-99) mg/dL POC Glucose (mg/dL) (70-110) mg/dL Calcium 7.5 L (8.7-10.3) mg/dL Assessment and Plan Plan: Acute hypoxic respiratory failure, requiring intubation mechanical ventilation. Patient was reintubated for the third time on 10/10/2023 due to complete left lung atelectasis and left lung collapse. Bronchoscopy was done and aeration of the left lung was restored after aspirating copious amount of purulent material from the trachea and left mainstem bronchus. The bronchial lavage from the left lung is showing E. coli. The patient is currently covered with a combination of cefepime and vancomycin Left lung collapse secondary to mucous plugs, possible left lung pneumonia, status post intubation and bronchoscopy with christianity of the airway and aeration of the left lung. Repeat chest x-ray from today showed small bilateral pleural effusion and lower lobe consolidation Advanced COPD with recurrent episodes of respiratory failure due to pneumonia mucous plugs and left lung atelectasis. The patient has S/P intubation, on September 20, with extubation on September 21. Reintubation, for respiratory failure, September 30, 2023. S/P bronchoscopy, September 30, 2023. S/P extubation, on October 03, 2023. Left-sided pneumonia, with copious amount of respiratory secretions and mucous plugs causing left lung atelectasis. Hypotension, possibly due to sepsis. The patient was sustained with IV fluids and the patient is currently on norepinephrine running at 0.4 mcg/kg/min Chronic pain syndrome. Plan: Keep the patient sedated on propofol Keep mechanical ventilator and vent support for now. Will drop the FiO2 down to 40% Obtain echocardiogram Will cover the patient again with antibiotics with a combination of cefepime and vancomycin, the patient was found to have E. coli from the bronchoscopy and lavage of the left lung Start enteral feeding for nutritional support Pressors to be titrated the patient is currently on norepinephrine at 0.14 mcg/kg/min DVT and GI Repeat chest x-ray in the morning. Condition is critical and the patient is will be kept in the intensive care unit for now. This evaluation was done more than 30 minutes. Time with Patient: Greater than 30
--- NOTE | 2023-10-11 14:37 | P.PN ---
Subjective Progress Note Date: 10/11/23 Acute hypoxic and hypercapnic respiratory failure secondary to acute COPD exacerbation and extensive left-sided pneumonia. Patient was eval on 09/30/2023, patient has been on BiPAP for the last few days while in the ICU, Patient has been on 100% BiPAP with IPAP of 12 and EPAP of 6, however she developed worsening pulmonary status this morning, in spite of being on 100% FiO2, patient had her O2 saturation down in the low 70s. Patient was intubated, underwent bronchoscopy with lavage 09/30. Patient seen examined. Currently intubated. Currently on IV Zosyn. Vital signs stable 10/01. Patient seen and examined. Patient currently going through SBT, patient opening eyes. 10/02. Patient seen and examined. Patient extubated this morning. 10/03. Patient seen and examined. Sitting upright in the bed. States she feels much better. Currently on 5 l of oxygen. Denies any shortness of breath at rest.Blood work done this morning showed WBC 13.3, hemoglobin 13.6, sodium 35, potassium 3.8, BUN 25, creatinine 0.31 10/04. Patient seen and examined. Sitting upright in the chair, currently on 5 L of oxygen. Being transferred out of ICU. 10/05--patient was examined today, currently on 5 L nasal cannula oxygen. On IV fluids. Currently on Symbicort and prednisone. WBCs 18.3, hemoglobin 13.5, platelet normal. Creatinine and BUN unremarkable. CO2 33. Ultrasound venous ordered to rule out DVT, noted left lower extremity edema. Initially was diagnosed with left lung pneumonia, not on antibiotics anymore. 10/06--patient was seen and examined today. Awake and alert x 3. Currently on 5 L oxygen. Currently on IV fluids. Ultrasound venous negative for DVT. Currently on DuoNebs Symbicort and prednisone. Labs reviewed, WBC 16.9, hemoglobin 14.3, platelet 137. BMP unremarkable. PT/OT consulted and pending. 10/07--patient was seen and examined today. Remains on 5 L oxygen. WBCs tr ending down 14.08. Hemoglobin 12.4, platelets 140. BMP is unremarkable. [place] level less than 0.10. Discontinue IV fluids. 10/08--patient's seen and examined today. Patient respiratory status gradually improving, patient required to intubation previously, last extubated on 10/03/2023, currently on 2 L oxygen as compared to 5 L yesterday. Patient reported feeling better. Shortness of breath is improving. Patient currently on prednisone burst taper. Pulmonary on board and following. PT/OT consulted. 10/10/2023 Patient is seen this morning and was just re-intubated and brought to the ICU as patient was continued on airvo at 100% and having continuous low pulse ox readings. This will be the third intubation this admission. Patient is also continued on antibiotics for pneumonia. Overall prognosis is guarded at this time. 10/11/2023 Patient is seen and evaluated in follow-up in the ICU and was brought here yesterday for reintubation. Patient continues on mechanical ventilation and sedation with an FiO2 of 40% and PEEP is 10. No plans for weaning trials at this time. Patient continues to require pressor support and attempting to wean. Chest x-ray today shows stable bilateral consolidation and small effusion to correlate for CHF otherwise consider pneumonia. Patient is maintained on IV antibiotics in the form of cefepime and Vanco with infectious disease following. Potassium was on the lower side yesterday after replacement potassium is 3.7 today and kidney functions within normal limits, sodium is 134. Blood sugars being monitored and will continue current regimen. Adjust insulins accordingly. REVIEW OF SYSTEMS: unable to obtain as patient is now sedated and on mechanical ventilation 10/10/23 PHYSICAL EXAMINATION: GENERAL: The patient is A&O x0, on propofol and mechanical ventilation, ill appearing, elderly appearing HEENT: EOMI, Sclerae anicteric, Moist Mucous membranes RESP: diminished breath sounds bilaterally with course rhonchi noted and expi ratory wheezing noted as well CARDIOVASCULAR: S1, S2 present. No murmurs, rubs, or gallops. ABDOMEN: Soft, nontender, nondistended, normoactive bowel sounds. No guarding or rebound tenderness. MUSCULOSKELETAL: + LLE edema, No cyanosis. No clubbing. Normal ROM. Intact peripheral pulses. EXTREMITIES: No cyanosis, clubbing, or pedal edema. NEUROLOGICAL: unable to completely assess as patient remains on propofol and is sedated Skin: No Rash Assessment: Acute on chronic hypoxic and hypercapnic respiratory failure, multifactorial, requiring intubation mechanical ventilation last week, and reintubation on 09/29, extubated 10/02, now requiring intubation again 10/10/23 Acute COPD exacerbation Left lung pneumonia, possibly hospital-acquired pneumonia with complete opacification of the left lung secondary to mucous plugging, requiring bronchoscopy and BAL of the left lung. Chronic hypoxic and hypercapnic respiratory failure Chronic pain syndrome Sinus rhythm with PVCs Severe pulmonary hypertension Hyperlipidemia Diabetes mellitus History of GERD Hypothyroidism History of osteoarthritis GI and DVT prophylaxis Full code Plan: Patient with multiple consultations following including pulmonary upper tier and infectious disease maintained on antibiotics in the form of cefepime and vancomycin Patient also continues on breathing inhalational treatments and remains on sedation with mechanical ventilation. FiO2 is 40% and PEEP of 10 with no plans of weaning at this time Blood sugars being monitored and will continue current regimen and tube feeds being initiated Replacement of potassium with a repeat of 3.7 today and will follow-up with repeat labs Chest x-ray with stable pleural effusions and will follow-up with repeat chest x-ray daily Currently, CODE STATUS is full code patient apparently has a family member that is a power of commonwealth attorney and will need to discuss further regarding CODE STATUS and overall prognosis with treatment plan moving forward in the event patient requires a tracheostomy. Patient has had 3 intubations this hospitalization and prolonged hospitalization. Due to multiple complex medical issues, overall prognosis is extremely guarded The impression and plan of care has been dictated by Milka Duffy, Nurse Practitioner as directed. Dr. Ethan MD I have performed a history and examination and MDM of this patient, discussed the same with the dictator, and agree with the dictator's assessment and plan as written ,documented as a scribe. Based on total visit time, I have performed more than 50% of the visit. Objective - Vital Signs Vital signs: Vital Signs Temp 98.7 F 10/11/23 08:00 Pulse 82 10/11/23 09:00 Resp 16 10/11/23 09:00 BP 97/59 10/11/23 08:00 Pulse Ox 99 10/11/23 09:00 FiO2 50 10/11/23 08:00 Intake & Output 10/10/23 10/11/23 10/11/23 18:59 06:59 18:59 Intake Total 3814.417 1817.040 144.33 Output Total 345 350 35 Balance 3469.417 1467.040 109.33 Weight 69.3 kg Intake: IV 3477 1014 78 Pressure Bag 27 39 3 Sodium Chloride 0.9% 1, 3450 975 75 000 ml @ 999 mls/hr IV . Q1H1M [facility] Rx#:[id number] Intake, IV Titration 337.417 803.040 66.33 Amount Norepinephrine 4 mg In 222.615 Sodium Chloride 0.9% 250 ml @ 0.03 MCG/KG/MIN 6. 858 mls/hr IV .Q24H [facility] Rx#:[id number] Norepinephrine 8 mg In 14.802 403.040 Sodium Chloride 0.9% 250 ml @ 0.03 MCG/KG/MIN 3. 483 mls/hr IV .Q24H [facility] Rx#:[id number] Potassium Chloride 20 meq 300 In Water For Injection 1 100ml.bag @ 50 mls/hr IVPB Q2H [facility] Rx#: [id number] propofoL 1,000 mg In 100.00 100 66.33 Empty Bag 1 bag @ 15 MCG/ KG/MIN 5.4 mls/hr IV . [id number] [facility] Rx#:[id number] Output: Urine 345 350 35 Other: Voiding Method Indwelling Catheter Indwelling Catheter Indwelling Catheter ABP, PAP, CO, CI - Last Documented Arterial Blood Pressure 113/56 - Labs CBC & Chem 7: 10/11/23 04:23 10/11/23 04:23 Labs: Abnormal Lab Results - Last 24 Hours (Table) 10/10/23 10/10/23 10/10/23 Range/Units 04:40 11:10 11:47 WBC (3.8-10.6) k/uL Neutrophils # (1.3-7.7) k/uL Lymphocytes # (1.0-4.8) k/uL ABG pH 7.47 H (7.35-7.45) ABG pCO2 55 H (35-45) mmHg ABG pO2 153 H (83-108) mmHg ABG HCO3 40 H* (21-25) mmol/L ABG Total CO2 41 H (19-24) mmol/L ABG O2 Saturation 99.5 H (94-97) % Sodium (137-145) mmol/L Potassium (3.5-5.1) mmol/L Carbon Dioxide 33.8 H (21.6-31.8) mmol/L Creatinine 0.3 L (0.6-1.5) mg/dL BUN/Creatinine Ratio 56.00 H (12.00-20.00) Ratio Glucose (74-99) mg/dL POC Glucose (mg/dL) 119 H (70-110) mg/dL Calcium 7.8 L (8.7-10.3) mg/dL 10/10/23 10/10/23 10/10/23 Range/Units 17:13 20:38 23:40 WBC (3.8-10.6) k/uL Neutrophils # (1.3-7.7) k/uL Lymphocytes # (1.0-4.8) k/uL ABG pH (7.35-7.45) ABG pCO2 (35-45) mmHg ABG pO2 (83-108) mmHg ABG HCO3 (21-25) mmol/L ABG Total CO2 (19-24) mmol/L ABG O2 Saturation (94-97) % Sodium 135 L (137-145) mmol/L Potassium 2.9 L (3.5-5.1) mmol/L Carbon Dioxide 34 H (21.6-31.8) mmol/L Creatinine 0.28 L (0.6-1.5) mg/dL BUN/Creatinine Ratio (12.00-20.00) Ratio Glucose 114 H (74-99) mg/dL POC Glucose (mg/dL) 138 H 132 H (70-110) mg/dL Calcium 7.5 L (8.7-10.3) mg/dL 10/11/23 10/11/23 10/11/23 Range/Units 04:23 04:23 06:27 WBC 11.8 H (3.8-10.6) k/uL Neutrophils # 10.6 H (1.3-7.7) k/uL Lymphocytes # 0.7 L (1.0-4.8) k/uL ABG pH (7.35-7.45) ABG pCO2 51 H (35-45) mmHg ABG pO2 (83-108) mmHg ABG HCO3 35 H (21-25) mmol/L ABG Total CO2 36 H (19-24) mmol/L ABG O2 Saturation 98.4 H (94-97) % Sodium 134 L (137-145) mmol/L Potassium (3.5-5.1) mmol/L Carbon Dioxide 33 H (21.6-31.8) mmol/L Creatinine 0.27 L (0.6-1.5) mg/dL BUN/Creatinine Ratio (12.00-20.00) Ratio Glucose 102 H (74-99) mg/dL POC Glucose (mg/dL) (70-110) mg/dL Calcium 7.5 L (8.7-10.3) mg/dL
[2023-10-11] MEDS ORDERED: propofoL 100 ML IV ONE (14:47)
[2023-10-11] MEDS: CEFEPIME 2 GM in SODIUM CHLORIDE 0.9% 100 ML IVPB SCH (16:20)
[2023-10-11 16:49] LABS: Glucose,Whole Blood 116 mg/dL (70-110)
[2023-10-11] MEDS: NYSTATIN 100,000UNIT/GM CREAM 30 GM TUBE TOPICAL SCH (21:28)
[2023-10-11 21:32] LABS: Glucose,Whole Blood 105 mg/dL (70-110)
[2023-10-12] MEDS: VANCOMYCIN TROUGH DUE 1 EACH MISC MISCELLANE ONE (03:00)
[2023-10-12 03:43] LABS: Basophils % (A) 0 %; Eosinophils % (A) 0 %; HCT 39.2 % (34.0-46.0); HGB 12.1 gm/dL (11.4-16.0); Hypochromasia Marked; Lymphocytes # (A) 0.6 k/uL (1.0-4.8); Lymphocytes % (A) 7 %; MCH 30.4 pg (25.0-35.0); MCV 98.2 fL (80.0-100.0); Mean Platelet Volume 8.4; Monocytes # (A) 0.4 k/uL (0-1.0); Monocytes % (A) 4 %; Neutrophils # (A) 8.3 k/uL (1.3-7.7); Neutrophils % (A) 88 %; Platelet Count 149 k/uL (150-450); RBC 3.99 m/uL (3.80-5.40); RDW 13.5 % (11.5-15.5); WBC 9.5 k/uL (3.8-10.6)
[2023-10-12 04:20] LABS: African American GFR (CKD) >90 (>60 ml/min/1.73 sqM); Anion Gap -1 mmol/L; Blood Urea Nitrogen 16 mg/dL (7-17); Carbon Dioxide 33 mmol/L (22-30); Chloride 101 mmol/L (98-107); Glucose 95 mg/dL (74-99); Non-African American GFR(CKD) >90 (>60 ml/min/1.73 sqM); Potassium 3.2 mmol/L (3.5-5.1); Sodium 133 mmol/L (137-145)
[2023-10-12] MEDS: POTASSIUM BICARBONATE/CIT AC 20 MEQ TABLET.EFF NG-TUBE SCH ×2 (04:55→11:39)
[2023-10-12 05:38] LABS: ABG Base Excess 10.7 mmol/L; ABG HCO3 36 mmol/L (21-25); ABG Oxygen Saturation 93.7 % (94-97); ABG PCO2 49 mmHg (35-45); ABG PH 7.47 (7.35-7.45); ABG PO2 61 mmHg (83-108); ABG TCO2 37 mmol/L (19-24); Allen Test Performed? Yes
--- NOTE | 2023-10-12 07:49 | XR ---
EXAMINATION TYPE: XR chest 1V portable DATE OF EXAM: 10/12/2023 COMPARISON: 10/11/2023 HISTORY: Tube placement TECHNIQUE: Single frontal view of the chest is obtained. FINDINGS: There is soft tissue artifact overlying the left hemithorax. There is persistent bilateral pleural effusion and consolidation. ET tube appears approximately 2.3 cm above [place]ak. NG tube seen extending into the abdomen. Left-sided central line seen with the tip overlying the right atrium. The re is no sizable pneumothorax. Osseous structures are stable. Heart size unchanged. Significant calci fications in the soft tissues of the neck likely related to carotid artery atherosclerotic disease. IMPRESSION: Stable pleural parenchymal changes correlate for CHF of the skin consider pneumonia.
[2023-10-12] MEDS ORDERED: Magnesium Replacement Protocol 1 EACH MISC MISCELLANE PRN (09:54)
[2023-10-12] MEDS: MAGNESIUM SULFATE-D5W PMX 1 GM in DEXTROSE/WATER 1 100ML.BAG IVPB ONE (10:09)
--- NOTE | 2023-10-12 10:28 | CA ---
Transthoracic Echo Report Name: Roxana Long Age: 73 Gender: F : 1950 Exam Date: 10/11/2023 11:13 Exam Location: [place] [facility] Ht (in): 63 Wt (lb): 152 Ordering Physician: Sacha Silva DO Attending/Referring Phys: [employer] Machine Tender Pam Ugarte RDCS Procedure CPT: Indications: Hypotension Cardiac Hx: Technical Quality: Contrast 1: Total Dose (mL): Contrast 2: Total Dose (mL): MEASUREMENTS (Male / Female) Normal Values 2D ECHO LV Diastolic Diameter PLAX 4.6 cm 4.2 - 5.9 / 3.9 - 5.3 cm LV Systolic Diameter PLAX 3.0 cm IVS Diastolic Thickness 1.0 cm 0.6 - 1.0 / 0.6 - 0.9 cm LVPW Diastolic Thickness 1.1 cm 0.6 - 1.0 / 0.6 - 0.9 cm LV Relative Wall Thickness 0.5 RV Internal Dim ED PLAX 3.7 cm LA Systolic Diameter LX 3.5 cm 3.0 - 4.0 / 2.7 - 3.8 cm LV Diastolic Volume MOD BP 58.8 cm??? 67 - 155 / 56 - 104 cm??? LV Systolic Volume MOD BP 40.5 cm??? 22 - 58 / 19 - 49 cm??? LV Ejection Fraction MOD BP 31.2 % >= 55 % LV Diastolic Volume MOD 4C 49.0 cm??? LV Systolic Volume MOD 4C 34.9 cm??? LV Ejection Fraction MOD 4C 28.8 % LV Diastolic Length 4C 6.0 cm LV Systolic Length 4C 6.7 cm LV Diastolic Volume MOD 2C 65.3 cm??? LV Systolic Volume MOD 2C 36.7 cm??? LV Ejection Fraction MOD 2C 43.7 % LV Diastolic Length 2C 6.6 cm LV Systolic Length 2C 5.1 cm LA Volume 27.9 cm??? 18 - 58 / 22 - 52 cm??? LA Volume Index 15.8 cm???/m??? 16 - 28 cm???/m??? M-MODE Aortic Root Diameter MM 3.6 cm AV Cusp Separation MM 2.3 cm DOPPLER AV Peak Velocity 113.6 cm/s AV Peak Gradient 5.2 mmHg AI Peak Velocity 222.9 cm/s AI Peak Gradient 19.9 mmHg AI Pressure Half Time 573.5 ms MV Area PHT 2.1 cm??? Mitral E Point Velocity 55.3 cm/s Mitral A Point Velocity 55.3 cm/s Mitral E to A Ratio 1.0 MV Deceleration Time 356.3 ms TR Peak Velocity 374.0 cm/s TR Peak Gradient 56.0 mmHg Right Ventricular Systolic Press 58.8 mmHg FINDINGS Left Ventricle Left ventricular ejection fraction is estimated at 35-40 %. Left ventricular cavity size normal. Mildly increased septal wall thickness. Mildly increased posterior wall thickness. Moderately decreased left ventricular ejection fraction. Right Ventricle Moderate right ventricular dilatation. Severe pulmonary hypertension. Right ventricular systolic pressure estimated at 59 mm hg. Severely reduced right ventricular global systolic function. Right Atrium Mild right atrial dilatation. No right atrial thrombus or mass seen. Left Atrium Normal left atrial size. No left atrial thrombus or mass present. Mitral Valve Structurally normal mitral valve. Mild mitral regurgitation. Aortic Valve Trileaflet aortic valve. Mild aortic regurgitation. Tricuspid Valve Structurally normal tricuspid valve. [id number] tricuspid regurgitation. Pulmonic Valve Structurally normal pulmonic valve. Mild pulmonic regurgitation. Pericardium Small pericardial effusion. Pleural effusion. Aorta Normal size aortic root and proximal ascending aorta. CONCLUSIONS LV size is normal there is global decrease in contractility estimate ejection fraction of 35 to 40%. The right ventricle is moderately enlarged there is moderate to severe pulmonary hypertension at with flattening of interventricular septum suggesting pressure overload. Right atrium is also enlarged. There is mild mitral and aortic insufficiency. There is moderate tricuspid regurgitation. Previewed by: Dr. Ed Alaniz MD (Electronically Signed) Final Date: 12 October 2023 10:27
[2023-10-12] MEDS: CISATRACURIUM 2 MG/ML 5 ML VIAL IV ONE (11:37)
[2023-10-12 11:42] LABS: Glucose,Whole Blood 135 mg/dL (70-110)
[2023-10-12] MEDS: VANCOMYCIN 1,250 MG in SODIUM CHLORIDE 0.9% 250 ML IVPB SCH (12:59)
[2023-10-12 13:50] LABS: ABG Base Excess 11.3 mmol/L; ABG HCO3 36 mmol/L (21-25); ABG Oxygen Saturation 97.2 % (94-97); ABG PCO2 46 mmHg (35-45); ABG PO2 80 mmHg (83-108); ABG TCO2 37 mmol/L (19-24)
--- NOTE | 2023-10-12 13:51 | P.PN ---
Subjective Progress Note Date: 10/12/23 Today's evaluation of 10/09/2023, I am seeing the patient for a follow-up. The patient is status post respiratory failure requiring intubation mechanical ventilation the patient was extubated on 09/22/2023. Subsequently, the patient required another intubation on 09/30/2023 and extubated on 10/03/2023. The patient is currently on 2 L of oxygen by nasal cannula. The most recent chest x-ray from 10/03/2023 showed some small right-sided pleural effusion and pulmonary vascular congestion. She denies having any specific complaints. She states that she is doing well. The patient has no significant respiratory difficulties for now. Unable to access the previous cultures from the bronchial lavage was obtained from the bronchoscopy. Her sodium level is at 138, potassium level of 3.6, BUN 30 with a creatinine of 0.2. WBC count is at 14 with a hemoglobin 12.4 and a platelet count of 140. She is chronically debilitated maintained on Symbicort maintenance DuoNeb nebulized treatment and she is currently also on a prednisone burst taper starting with 40 mg p.o. per day. She is on heparin subcu for DVT prophylaxis. On 10/10/2023, the patient is being seen for a follow-up. I was informed this morning that the patient's oxygenation was progressively getting worse and the patient was placed on high flow oxygen at 15 L with 100% nonrebreather facemask. Based on that, her chest x-ray was also done that showed complete opacification of the left lung consistent with left lung atelectasis. The patient got transferred to the intensive care unit. She was quite short of breath and her breathing was labored. Based on that, the patient was intubated and placed on the mechanical ventilator. Postintubation, a bronchoscopy was done and copious amount of purulent respiratory secretions were aspirated from the trachea and left mainstem bronchus and elevation of the left lung was achieved. At this point in time, the patient remains on mechanical ventilator assist-control mode rate of 16, tidal volume of 350, FiO2 of 100% with a PEEP of 5. The patient was also placed on propofol for sedation. The dose being titrated. A triple-lumen catheter was inserted. Post bronchoscopy, chest x-ray was repeated and it showed related to being in a good location. There is improved aeration of the left thorax with presence of bilateral infiltrates and possibly a small component of pleural effusion on the left. Noted the patient remained hemodynamically stable. The postintubation blood gas showed a pH of 7.47 with a pCO2 of 55 and a pO2 of 153. FiO2 will be gradually weaned off. Morning white cell count 11.9 with a hemoglobin 15.1 and a platelet count of 178. The BUN is at 16 with a creatinine of 0.3. Sodium is at 139. Potassium is at 3.5 with a chloride of 99. proBNP level is 11,000. [place] level was less than 0.1. Patient is currently on DuoNeb nebulized treatments [id number]. Symbicort will be placed on hold. The patient will be kept on prednisone burst taper and currently she is on 40 mg p.o. daily. Will start enteral feeding for nutritional support. Currently adequately sedated. On today's evaluation of 10/11/2023, the patient remains intubated on the [employer] ventilator. This morning, the patient is on propofol running at 50 mcg/kg/min. The patient remains on the mechanical ventilator, assist-control mode with rate of 16, tidal volume of 350, FiO2 50% with a PEEP of 10. The blood gas shows a pH of 7.44 with a pCO2 of 51 and the patient's pO2 is currently at 100. Chest x-ray shows no significant atelectasis. There is evidence of bilateral pleural effusion and stable consolidation of the lung bases. No significant obstructive secretions. Bronchoscopy was done endobronchial lavage is showing E. coli. The patient meanwhile has been covered with a combination of cefepime and vancomycin. Hemodynamically, the patient is on l norepinephrine which is running at 0. 0.4 mcg/kg/min. Urine output is adequate. Overall fluid (been positive over the past 24 hours and the patient remains on normal citrate of 75 cc an hour. The sodium levels of 134, potassium level of 3.7, BUN 16 with creatinine 0.27 and a serum bicarb of 33. The patie nt's white cell count is currently at 11.8 with a hemoglobin of 0.1 and a platelet count of 153. The patient will be started on enteral feeding for nutritional support. Afebrile. Peak airway pressures around 30. No significant bronchospasm or wheezing on today's evaluation. 10/12/2023, the patient remains intubated on mechanical ventilator. The patient remains on propofol running at 50 mcg/kg/min. She is on assist-control mode rate of 16, tidal volume of 350, FiO2 40% with a PEEP of 5. Blood gas from today shows a pH of 7.47 with a pCO2 of 49 and pO2 of 61. Chest x-ray findings are showing lower lobe consolidation/airspace disease consistent with pneumonia and the patient's sputum analysis has shown E. coli. The patient is covered with antibiotics and the patient is currently on IV cefepime and vancomycin. Another bronchoscopy was done and the respiratory secretions were less and they were scanned and they were suctioned out without any major difficulties. This bronchoscopy was done this morning. Meanwhile, the patient is still requiring pressors and she is on norepinephrine at 0.17 mcg/kg/min. The white cell count is at 9.5 with a hemoglobin 12.1 and a platelet count of 149. BUN 16 with a creatinine of 0.12 sodium levels at 133 and potassium level is at 3.2. She was started on enteral feeding for nutritional support. Afebrile. No other significant events overnight. Fluid balance over the past 24 hours has been +1.4 L.Echocardiogram was done and the patient is a impaired left-ventricular ejection fraction of 35 to 40%. There is mild increased septal wall thickening. The right ventricle is moderately enlarged and there is moderate to severe pulmonary hypertension and mild mitral regurgitation. Objective - Vital Signs Vital signs: Vital Signs Temp 98.2 F 10/12/23 08:00 Pulse 82 10/12/23 08:14 Resp 21 10/12/23 08:00 BP 97/56 10/12/23 08:00 Pulse Ox 94 L 10/12/23 08:00 FiO2 40 10/12/23 08:01 Intake & Output 10/11/23 10/12/23 10/12/23 18:59 06:59 18:59 Intake Total 924.33 1349.236 153 Output Total 315 460 30 Balance 609.33 889.236 123 Weight 69.3 kg 68.5 kg Intake: IV 433 539 3 Pressure Bag 33 39 3 Sodium Chloride 0.9% 1, 250 000 ml @ 75 mls/hr IV . [id number] [facility] Rx#:[id number] Sodium Chloride 0.9% 1, 150 000 ml @ 999 mls/hr IV . Q1H1M [facility] Rx#:[id number] Vancomycin 1,000 mg In 500 Sodium Chloride 0.9% 250 ml @ 125 mls/hr IVPB Q8H [facility] Rx#:[id number] Intake, IV Titration 341.33 420.236 150 Amount Cefepime 2 gm In Sodium 175 25 100 Chloride 0.9% 100 ml @ 25 mls/hr IVPB Q8HR [facility] Rx# :[id number] Norepinephrine 8 mg In 223.906 Sodium Chloride 0.9% 250 ml @ 0.03 MCG/KG/MIN 3. 483 mls/hr IV .Q24H [facility] Rx#:[id number] Sodium Chloride 0.9% 1, 50 000 ml @ 50 mls/hr IV . Q20H [facility] Rx#:[id number] propofoL 1,000 mg In 166.33 171.33 Empty Bag 1 bag @ 15 MCG/ KG/MIN 5.4 mls/hr IV . [id number] [facility] Rx#:[id number] Tube Feeding 120 300 Other 30 90 Output: Urine 315 460 30 Other: Voiding Method Indwelling Catheter Indwelling Catheter Indwelling Catheter ABP, PAP, CO, CI - Last Documented Arterial Blood Pressure 92/56 - Exam GENERAL EXAM: Alert, 73-year-old female, sedated on propofol, calm and comfortable, no acute distress HEAD: Normocephalic. EYES: Normal reaction of pupils, equal size. NOSE: Clear with pink turbinates. THROAT: No erythema or exudates. NECK: No masses, no JVD. The patient has an orogastric and orotracheal tube in place. CHEST: No chest wall deformity. LUNGS: Equal air entry with bilateral end expiratory wheeze, diminished. There is improved aeration of the left lung following the bronchoscopy. CVS: S1 and S2 normal with no audible murmur, regular rhythm. ABDOMEN: No hepatosplenomegaly, normal bowel sounds, no guarding or rigidity. SPINE: No scoliosis or deformity SKIN: No rashes CENTRAL NERVOUS SYSTEM: No focal deficits, tone is normal in all 4 extremities. EXTREMITIES: There is no peripheral edema. No clubbing, no cyanosis. Peripheral pulses are intact. - Labs CBC & Chem 7: 10/12/23 02:59 10/12/23 07:54 Labs: Abnormal Lab Results - Last 24 Hours (Table) 10/11/23 10/12/23 10/12/23 Range/Units 16:48 02:59 02:59 Plt Count 149 L (150-450) k/uL Neutrophils # 8.3 H (1.3-7.7) k/uL Lymphocytes # 0.6 L (1.0-4.8) k/uL ABG pH (7.35-7.45) ABG pCO2 (35-45) mmHg ABG pO2 (83-108) mmHg ABG HCO3 (21-25) mmol/L ABG Total CO2 (19-24) mmol/L ABG O2 Saturation (94-97) % Sodium 133 L (137-145) mmol/L Potassium 3.2 L (3.5-5.1) mmol/L Carbon Dioxide 33 H (22-30) mmol/L Creatinine 0.24 L (0.52-1.04) mg/dL POC Glucose (mg/dL) 116 H (70-110) mg/dL Calcium 8.0 L (8.4-10.2) mg/dL 10/12/23 Range/Units 05:22 Plt Count (150-450) k/uL Neutrophils # (1.3-7.7) k/uL Lymphocytes # (1.0-4.8) k/uL ABG pH 7.47 H (7.35-7.45) ABG pCO2 49 H (35-45) mmHg ABG pO2 61 L (83-108) mmHg ABG HCO3 36 H (21-25) mmol/L ABG Total CO2 37 H (19-24) mmol/L ABG O2 Saturation 93.7 L (94-97) % Sodium (137-145) mmol/L Potassium (3.5-5.1) mmol/L Carbon Dioxide (22-30) mmol/L Creatinine (0.52-1.04) mg/dL POC Glucose (mg/dL) (70-110) mg/dL Calcium (8.4-10.2) mg/dL Microbiology - Last 24 Hours (Table) 10/10/23 09:30 Acid Fast Bacilli Smear - Preliminary Bronchial Washings - Left 10/10/23 09:30 Gram Stain - Preliminary Bronchial Washings - Left Bronchial Washings Culture - Preliminary Escherichia coli Assessment and Plan Plan: Acute hypoxic respiratory failure, requiring intubation mechanical ventilation. Patient was reintubated for the third time on 10/10/2023 due to complete left lung atelectasis and left lung collapse. Bronchoscopy was done and aeration of the left lung was restored after aspirating copious amount of purulent material from the trachea and left mainstem bronchus. The bronchial lavage from the left lung is showing E. coli. The patient is currently covered with a combination of cefepime and vancomycin. On today's evaluation, the patient's peak airway pressure on the mechanical ventilator is quite low. No significant bronchospasm wheezing. Repeat bronchoscopy was done and the respiratory secretions were scant. No significant atelectasis although there is some airspace disease and consolidation of the lung bases more so on the left. Left lung collapse secondary to mucous plugs, possible left lung pneumonia, status post intubation and bronchoscopy with pentecostalism of the airway and aeration of the left lung. Repeat chest x-ray from today showed small bilateral pleural effusion and lower lobe consolidation Advanced COPD with recurrent episodes of respiratory failure due to pneumonia mucous plugs and left lung atelectasis. The patient has S/P intubation, on September 20, with extubation on September 21. Reintubation, for respiratory failure, September 30, 2023. S/P bronchoscopy, September 30, 2023. S/P extubation, on October 03, 2023. Left-sided pneumonia, with copious amount of respiratory secretions and mucous plugs causing left lung atelectasis. Hypotension, possibly due to sepsis. The patient was sustained with IV fluids and the patient is currently on norepinephrine currently at 0.17 mcg/kg/min Systolic heart failure with ejection fraction of 35 to 40% and secondary pulm hypertension. Chronic pain syndrome. Plan: Repeat bronchoscopy was done and the respiratory secretions were scant. Will give the patient a sedation holiday Echocardiogram results were noted Will cover the patient again with antibiotics with a combination of cefepime and vancomycin, the patient was found to have E. coli from the bronchoscopy and lavage of the left lung Hold enteral feeding for now Perform sedation holiday and assess the patient's readiness to wean May receive a spontaneous breathing trial at a later stage if the patient shows adequate weaning parameters and adequate mentation Pressors to be titrated the patient is currently on norepinephrine at 0.17 mcg/kg/min DVT and GI Repeat chest x-ray in the morning. Condition is critical and the patient is will be kept in the intensive care unit for now. This evaluation was done more than 30 minutes.
[2023-10-12 13:52] LABS: Allen Test Performed? y
--- NOTE | 2023-10-12 13:53 | P.PCN ---
Date of Procedure: 10/12/23 Preoperative Diagnosis: Bilateral pneumonia with mucous plugs Postoperative Diagnosis: Bilateral pneumonia with mucous plugs Procedure(s) Performed: Bronchoscopy and therapeutic airway suctioning Anesthesia: MAC Surgeon: Timothy Srerano Estimated Blood Loss (ml): 0 Pathology: none sent Condition: critical Disposition: ICU Operative Findings: Postintubation, the patient was adequately sedated. An adapter was attached to the orotracheal tube. The flexible bronchoscope was introduced through the orotracheal tube and it was advanced into a lower trachea. The procedure was done as the patient was adequately oxygenated and ventilated through the mechanical ventilator. The respiratory secretions were minimal at this point in time. There was some secretions in the trachea that were suctioned out without any major difficulties. There was also some respiratory secretions were also identified on the right mainstem bronchus, bronchus intermedius, and right middle lobe bronchus and the right lower lobe bronchus and those were patent. Right upper lobe bronchus was patent. The various segments on the right side were essentially patent. The bronchoscope was then moved to the left and therapeutic airway suctioning was done and the majority of the mucous plugs were aspirated without any major difficulties. The left upper lobe was patent, left lower lobe was patent and there was some limited respiratory secretions were suctioned out. There is segments on the left with inspected. No significant endobronchial abnormalities. The flexible bronchoscope was removed after achieving therapeutic airway suctioning. The bronchoscope was removed and the procedure was terminated. No oxygen saturation. No hemodynamic instability.
[2023-10-12 17:25] LABS: Glucose,Whole Blood 111 mg/dL (70-110)
[2023-10-12 21:14] LABS: Glucose,Whole Blood 93 mg/dL (70-110)
[2023-10-13 03:22] LABS: Basophils % (A) 0 %; Eosinophils % (A) 0 %; HCT 35.5 % (34.0-46.0); HGB 11.5 gm/dL (11.4-16.0); Lymphocytes # (A) 0.6 k/uL (1.0-4.8); Lymphocytes % (A) 7 %; MCH 31.5 pg (25.0-35.0); MCHC 32.4 g/dL (31.0-37.0); MCV 97.2 fL (80.0-100.0); Mean Platelet Volume 8.8; Monocytes # (A) 0.5 k/uL (0-1.0); Monocytes % (A) 5 %; Neutrophils % (A) 87 %; Platelet Count 142 k/uL (150-450); RBC 3.65 m/uL (3.80-5.40); RDW 13.9 % (11.5-15.5); WBC 9.2 k/uL (3.8-10.6)
[2023-10-13 04:24] LABS: African American GFR (CKD) >90 (>60 ml/min/1.73 sqM); Anion Gap -3 mmol/L; Blood Urea Nitrogen 14 mg/dL (7-17); Calcium 7.5 mg/dL (8.4-10.2); Carbon Dioxide 36 mmol/L (22-30); Chloride 101 mmol/L (98-107); Glucose 104 mg/dL (74-99); Magnesium 1.9 mg/dL (1.6-2.3); Non-African American GFR(CKD) >90 (>60 ml/min/1.73 sqM); Potassium 3.5 mmol/L (3.5-5.1); Sodium 134 mmol/L (137-145)
[2023-10-13] MEDS: MAGNESIUM SULFATE-D5W PMX 1 GM in DEXTROSE/WATER 1 100ML.BAG IVPB ONE (04:51)
[2023-10-13] MEDS: POTASSIUM CHLORIDE 20 MEQ in WATER FOR INJECTION 1 100ML.BAG IVPB SCH (04:51)
[2023-10-13 06:58] LABS: Glucose,Whole Blood 88 mg/dL (70-110)
--- NOTE | 2023-10-13 08:32 | P.PN ---
Subjective Progress Note Date: 10/12/23 Acute hypoxic and hypercapnic respiratory failure secondary to acute COPD exacerbation and extensive left-sided pneumonia. Patient was eval on 09/30/2023, patient has been on BiPAP for the last few days while in the ICU, Patient has been on 100% BiPAP with IPAP of 12 and EPAP of 6, however she developed worsening pulmonary status this morning, in spite of being on 100% FiO2, patient had her O2 saturation down in the low 70s. Patient was intubated, underwent bronchoscopy with lavage 09/30. Patient seen examined. Currently intubated. Currently on IV Zosyn. Vital signs stable 10/01. Patient seen and examined. Patient currently going through SBT, patient opening eyes. 10/02. Patient seen and examined. Patient extubated this morning. 10/03. Patient seen and examined. Sitting upright in the bed. States she feels much better. Currently on 5 l of oxygen. Denies any shortness of breath at rest.Blood work done this morning showed WBC 13.3, hemoglobin 13.6, sodium 35, potassium 3.8, BUN 25, creatinine 0.31 10/04. Patient seen and examined. Sitting upright in the chair, currently on 5 L of oxygen. Being transferred out of ICU. 10/05--patient was examined today, currently on 5 L nasal cannula oxygen. On IV fluids. Currently on Symbicort and prednisone. WBCs 18.3, hemoglobin 13.5, platelet normal. Creatinine and BUN unremarkable. CO2 33. Ultrasound venous ordered to rule out DVT, noted left lower extremity edema. Initially was diagnosed with left lung pneumonia, not on antibiotics anymore. 10/06--patient was seen and examined today. Awake and alert x 3. Currently on 5 L oxygen. Currently on IV fluids. Ultrasound venous negative for DVT. Currently on DuoNebs Symbicort and prednisone. Labs reviewed, WBC 16.9, hemoglobin 14.3, platelet 137. BMP unremarkable. PT/OT consulted and pending. 10/07--patient was seen and examined today. Remains on 5 L oxygen. WBCs tr ending down 14.08. Hemoglobin 12.4, platelets 140. BMP is unremarkable. [place] level less than 0.10. Discontinue IV fluids. 10/08--patient's seen and examined today. Patient respiratory status gradually improving, patient required to intubation previously, last extubated on 10/03/2023, currently on 2 L oxygen as compared to 5 L yesterday. Patient reported feeling better. Shortness of breath is improving. Patient currently on prednisone burst taper. Pulmonary on board and following. PT/OT consulted. 10/10/2023 Patient is seen this morning and was just re-intubated and brought to the ICU as patient was continued on airvo at 100% and having continuous low pulse ox readings. This will be the third intubation this admission. Patient is also continued on antibiotics for pneumonia. Overall prognosis is guarded at this time. 10/11/2023 Patient is seen and evaluated in follow-up in the ICU and was brought here yesterday for reintubation. Patient continues on mechanical ventilation and sedation with an FiO2 of 40% and PEEP is 10. No plans for weaning trials at this time. Patient continues to require pressor support and attempting to wean. Chest x-ray today shows stable bilateral consolidation and small effusion to correlate for CHF otherwise consider pneumonia. Patient is maintained on IV antibiotics in the form of cefepime and Vanco with infectious disease following. Potassium was on the lower side yesterday after replacement potassium is 3.7 today and kidney functions within normal limits, sodium is 134. Blood sugars being monitored and will continue current regimen. Adjust insulins accordingly. 10/12/2023 Patient is seen in follow-up continues to be on mechanical ventilation FiO2 is 40% with a PEEP of 10 and is off propofol currently awake and responding to c ommands appropriately and per pulmonary director of individual giving, plan on extubation today. Patient will likely require BiPAP and will follow-up with repeat chest x-ray. Patient continues to require low-dose blood pressure support. Patient to continue on antibiotics and sputum is positive for E. coli. Overall prognosis is guarded and per nursing staff patient and patient family would want reintubation and all measures done and remain full code. REVIEW OF SYSTEMS: Unable to completely assess as patient is still intubated although is nodding yes and no and squeezing appropriately to questions and commands PHYSICAL EXAMINATION: GENERAL: The patient is A&O x2-3, on mechanical ventilation currently off sedation awaiting extubation, ill appearing, elderly appearing HEENT: EOMI, Sclerae anicteric, Moist Mucous membranes RESP: diminished breath sounds bilaterally with course rhonchi noted and expi ratory wheezing noted as well CARDIOVASCULAR: S1, S2 present. No murmurs, rubs, or gallops. ABDOMEN: Soft, nontender, nondistended, normoactive bowel sounds. No guarding or rebound tenderness. MUSCULOSKELETAL: + LLE edema, No cyanosis. No clubbing. Normal ROM. Intact peripheral pulses. EXTREMITIES: No cyanosis, clubbing, or pedal edema. NEUROLOGICAL: unable to completely assess as patient remains on propofol and is sedated Skin: No Rash Assessment: Acute on chronic hypoxic and hypercapnic respiratory failure, multifactorial, requiring intubation mechanical ventilation last week, and reintubation on 09/29, extubated 10/02, now requiring intubation again 10/10/23 Acute COPD exacerbation Left lung pneumonia, possibly hospital-acquired pneumonia with complete opacification of the left lung secondary to mucous plugging, requiring bronchoscopy and BAL of the left lung. Chronic hypoxic and hypercapnic respiratory failure Chronic pain syndrome Sinus rhythm with PVCs Severe pulmonary hypertension Hyperlipidemia Diabetes mellitus History of GERD Hypothyroidism History of osteoarthritis GI and DVT prophylaxis Full code Plan: Patient with multiple consultations following including pulmonary director of individual giving and infectious disease maintained on antibiotics in the form of cefepime and vancomycin Patient also continues on breathing inhalational treatments and remains on mechanical ventilation. Undergoing weaning trials and pulmonary plans on extubating the patient today. Currently off sedation and alert and oriented following commands although unable to speak. FiO2 is 40% and PEEP of 10 Blood sugars being monitored and will continue current regimen Chest x-ray with stable pleural effusions and will follow-up with repeat chest x-ray daily Currently, CODE STATUS is full code patient apparently has a family member that is a power of fireproof door maker, her brother and per nursing staff patient and family continue to want to be reintubated if needed and wished to remain full code. Due to multiple complex medical issues, overall prognosis is extremely guarded The impression and plan of care has been dictated by Milka Duffy Nurse Practitioner as directed. Dr. Ethan MD I have performed a history and examination and MDM of this patient, discussed the same with the dictator, and agree with the dictator's assessment and plan as written ,documented as a scribe. Based on total visit time, I have performed more than 50% of the visit. Objective - Vital Signs Vital signs: Vital Signs Temp 98.2 F 10/12/23 08:00 Pulse 82 10/12/23 08:14 Resp 21 10/12/23 08:00 BP 97/56 10/12/23 08:00 Pulse Ox 94 L 10/12/23 08:00 FiO2 40 10/12/23 08:01 Intake & Output 10/11/23 10/12/23 10/12/23 18:59 06:59 18:59 Intake Total 924.33 1349.236 153 Output Total 315 460 30 Balance 609.33 889.236 123 Weight 69.3 kg 68.5 kg Intake: IV 433 539 3 Pressure Bag 33 39 3 Sodium Chloride 0.9% 1, 250 000 ml @ 75 mls/hr IV . [id number] [facility] Rx#:[id number] Sodium Chloride 0.9% 1, 150 000 ml @ 999 mls/hr IV . Q1H1M [facility] Rx#:[id number] Vancomycin 1,000 mg In 500 Sodium Chloride 0.9% 250 ml @ 125 mls/hr IVPB Q8H [facility] Rx#:[id number] Intake, IV Titration 341.33 420.236 150 Amount Cefepime 2 gm In Sodium 175 25 100 Chloride 0.9% 100 ml @ 25 mls/hr IVPB Q8HR [facility] Rx# :[id number] Norepinephrine 8 mg In 223.906 Sodium Chloride 0.9% 250 ml @ 0.03 MCG/KG/MIN 3. 483 mls/hr IV .Q24H [facility] Rx#:[id number] Sodium Chloride 0.9% 1, 50 000 ml @ 50 mls/hr IV . Q20H [facility] Rx#:[id number] propofoL 1,000 mg In 166.33 171.33 Empty Bag 1 bag @ 15 MCG/ KG/MIN 5.4 mls/hr IV . [id number] [facility] Rx#:[id number] Tube Feeding 120 300 Other 30 90 Output: Urine 315 460 30 Other: Voiding Method Indwelling Catheter Indwelling Catheter Indwelling Catheter ABP, PAP, CO, CI - Last Documented Arterial Blood Pressure 92/56 - Labs CBC & Chem 7: 10/13/23 02:33 10/13/23 02:33 Labs: Abnormal Lab Results - Last 24 Hours (Table) 10/11/23 10/12/23 10/12/23 Range/Units 16:48 02:59 02:59 Plt Count 149 L (150-450) k/uL Neutrophils # 8.3 H (1.3-7.7) k/uL Lymphocytes # 0.6 L (1.0-4.8) k/uL ABG pH (7.35-7.45) ABG pCO2 (35-45) mmHg ABG pO2 (83-108) mmHg ABG HCO3 (21-25) mmol/L ABG Total CO2 (19-24) mmol/L ABG O2 Saturation (94-97) % Sodium 133 L (137-145) mmol/L Potassium 3.2 L (3.5-5.1) mmol/L Carbon Dioxide 33 H (22-30) mmol/L Creatinine 0.24 L (0.52-1.04) mg/dL POC Glucose (mg/dL) 116 H (70-110) mg/dL Calcium 8.0 L (8.4-10.2) mg/dL 10/12/23 Range/Units 05:22 Plt Count (150-450) k/uL Neutrophils # (1.3-7.7) k/uL Lymphocytes # (1.0-4.8) k/uL ABG pH 7.47 H (7.35-7.45) ABG pCO2 49 H (35-45) mmHg ABG pO2 61 L (83-108) mmHg ABG HCO3 36 H (21-25) mmol/L ABG Total CO2 37 H (19-24) mmol/L ABG O2 Saturation 93.7 L (94-97) % Sodium (137-145) mmol/L Potassium (3.5-5.1) mmol/L Carbon Dioxide (22-30) mmol/L Creatinine (0.52-1.04) mg/dL POC Glucose (mg/dL) (70-110) mg/dL Calcium (8.4-10.2) mg/dL Microbiology - Last 24 Hours (Table) 10/10/23 09:30 Acid Fast Bacilli Smear - Preliminary Bronchial Washings - Left 10/10/23 09:30 Gram Stain - Preliminary Bronchial Washings - Left Bronchial Washings Culture - Preliminary Escherichia coli
[2023-10-13] MEDS: FUROSEMIDE 10 MG/ML 4 ML VIAL IV STA (09:41)
[2023-10-13 11:10] LABS: Glucose,Whole Blood 144 mg/dL (70-110)
--- NOTE | 2023-10-13 11:12 | P.PN ---
Subjective Progress Note Date: 10/13/23 Progress Note Date: 10/13/23 Today's evaluation of 10/09/2023, I am seeing the patient for a follow-up. The patient is status post respiratory failure requiring intubation mechanical ventilation the patient was extubated on 09/22/2023. Subsequently, the patient required another intubation on 09/30/2023 and extubated on 10/03/2023. The patient is currently on 2 L of oxygen by nasal cannula. The most recent chest x-ray from 10/03/2023 showed some small right-sided pleural effusion and pulmonary vascular congestion. She denies having any specific complaints. She states that she is doing well. The patient has no significant respiratory difficulties for now. Unable to access the previous cultures from the bronchial lavage was obtained from the bronchoscopy. Her sodium level is at 138, potassium level of 3.6, BUN 30 with a creatinine of 0.2. WBC count is at 14 with a hemoglobin 12.4 and a platelet count of 140. She is chronically debilitated maintained on Symbicort maintenance DuoNeb nebulized treatment and she is currently also on a prednisone burst taper starting with 40 mg p.o. per day. She is on heparin subcu for DVT prophylaxis. On 10/10/2023, the patient is being seen for a follow-up. I was informed this morning that the patient's oxygenation was progressively getting worse and the patient was placed on high flow oxygen at 15 L with 100% nonrebreather facemask. Based on that, her chest x-ray was also done that showed complete opacification of the left lung consistent with left lung atelectasis. The patient got transferred to the intensive care unit. She was quite short of breath and her breathing was labored. Based on that, the patient was intubated and placed on the mechanical ventilator. Postintubation, a bronchoscopy was done and copious amount of purulent respiratory secretions were aspirated from the trachea and left mainstem bronchus and elevation of the left lung was achieved. At this point in time, the patient remains on mechanical ventilator assist-control mode rate of 16, tidal volume of 350, FiO2 of 100% with a PEEP of 5. The patient was also placed on propofol for sedation. The dose being titrated. A triple-lumen catheter was inserted. Post bronchoscopy, chest x-ray was repeated and it showed related to being in a good location. There is improved aeration of the left thorax with presence of bilateral infiltrates and possibly a small component of pleural effusion on the left. Noted the patient remained hemodynamically stable. The postintubation blood gas showed a pH of 7.47 with a pCO2 of 55 and a pO2 of 153. FiO2 will be gradually weaned off. Morning white cell count 11.9 with a hemoglobin 15.1 and a platelet count of 178. The BUN is at 16 with a creatinine of 0.3. Sodium is at 139. Potassium is at 3.5 with a chloride of 99. proBNP level is 11,000. [place] level was less than 0.1. Radha toledo is currently on DuoNeb nebulized treatments [id number]. Symbicort will be placed on hold. The patient will be kept on prednisone burst taper and currently she is on 40 mg p.o. daily. Will start enteral feeding for nutritional support. Currently adequately sedated. On today's evaluation of 10/11/2023, the patient remains intubated on the mechanical ventilator. This morning, the patient is on propofol running at 50 mcg/kg/min. The patient remains on the mechanical ventilator, assist-control mode with rate of 16, tidal volume of 350, FiO2 50% with a PEEP of 10. The blood gas shows a pH of 7.44 with a pCO2 of 51 and the patient's pO2 is currently at 100. Chest x-ray shows no significant atelectasis. There is evidence of bilateral pleural effusion and stable consolidation of the lung bases. No significant obstructive secretions. Bronchoscopy was done endobronchial lavage is showing E. coli. The patient meanwhile has been covered with a combination of cefepime and vancomycin. Hemodynamically, the patient is on l norepinephrine which is running at 0. 0.4 mcg/kg/min. Urine output is adequate. Overall fluid (been positive over the past 24 hours and the patient remains on normal citrate of 75 cc an hour. The sodium levels of 134, potassium level of 3.7, BUN 16 with creatinine 0.27 and a serum bicarb of 33. The patient's white cell count is currently at 11.8 with a hemoglobin of 0.1 and a platelet count of 153. The patient will be started on enteral feeding for nutritional support. Afebrile. Peak airway pressures around 30. No significant bronchospasm or wheezing on today's evaluation. 10/12/2023, the patient remains intubated on mechanical ventilator. The patient remains on propofol running at 50 mcg/kg/min. She is on assist-control mode rate of 16, tidal volume of 350, FiO2 40% with a PEEP of 5. Blood gas from today shows a pH of 7.47 with a pCO2 of 49 and pO2 of 61. Chest x-ray findings are showing lower lobe consolidation/airspace disease consistent with pneumonia and the patient's sputum analysis has shown E. coli. The patient is covered with antibiotics and the patient is currently on IV cefepime and vancomycin. Another bronchoscopy was done and the respiratory secretions were less and they were scanned and they were suctioned out without any major difficulties. This bronchoscopy was done this morning. Meanwhile, the patient is still requiring pressors and she is on norepinephrine at 0.17 mcg/kg/min. The white cell count is at 9.5 with a hemoglobin 12.1 and a platelet count of 149. BUN 16 with a creatinine of 0.12 sodium levels at 133 and potassium level is at 3.2. She was started on enteral feeding for nutritional support. Afebrile. No other significant events overnight. Fluid balance over the past 24 hours has been +1.4 L.Echocardiogram was done and the patient is a impaired left-ventricular ejection fraction of 35 to 40%. There is mild increased septal wall thickening. The right ventricle is moderately enlarged and there is moderate to severe pulmonary hypertension and mild mitral regurgitation. 10/13/2023, the patient was extubated on 10/11 and currently on high flow at 6L. Blood gas from today shows a pH of 7.5 with a pCO2 of 46 and pO2 of 80. No updated chest x ray from today. The patient is covered with antibiotics and the patient is currently on IV cefepime. Vancomycin has been discontinued. The patient is still on pressors and she is on norepinephrine at 0.13 mcg/kg/min. The white cell count is at 9.2 with a hemoglobin 11.5 and a platelet count of 142. BUN of 14 with a creatinine of 0.26. Her sodium is at 134 and potassium at 3.5. She was started on enteral feeding yesterday for nutritional support. Afebrile. Patient had no other significant events overnight. Objective - Vital Signs Vital signs: Vital Signs Temp 97.8 F 10/13/23 08:00 Pulse 94 10/13/23 10:00 Resp 21 10/13/23 10:00 BP 91/59 10/13/23 10:00 Pulse Ox 94 L 10/13/23 10:00 FiO2 40 10/13/23 08:00 Intake & Output 10/12/23 10/13/23 10/13/23 18:59 06:59 18:59 Intake Total 4487.718 0029.983 377.261 Output Total 360 447 585 Balance 903.404 964.983 -207.739 Weight 68.5 kg 69.8 kg Intake: IV 86 990 235 Cefepime 2 gm In Sodium 25 175 100 Chloride 0.9% 100 ml @ 25 mls/hr IVPB Q8HR [facility] Rx# :[id number] Pressure Bag 21 Sodium Chloride 0.9% 1, 40 315 135 000 ml @ 50 mls/hr IV . Q20H [facility] Rx#:[id number] Vancomycin 1,000 mg In 500 Sodium Chloride 0.9% 250 ml @ 125 mls/hr IVPB Q8H [facility] Rx#:[id number] Intake, IV Titration 1177.404 421.983 142.261 Amount Cefepime 2 gm In Sodium 100 Chloride 0.9% 100 ml @ 25 mls/hr IVPB Q8HR [facility] Rx# :[id number] Magnesium Sulfate-D5w Pmx 100 1 gm In Dextrose/Water 1 100ml.bag @ 100 mls/hr IVPB ONCE ONE Rx#: [id number] Magnesium Sulfate-D5w Pmx 100 1 gm In Dextrose/Water 1 100ml.bag @ 100 mls/hr IVPB ONCE [facility] Rx#: [id number] Norepinephrine 8 mg In 107.554 221.983 142.261 Sodium Chloride 0.9% 250 ml @ 0.03 MCG/KG/MIN 3. 483 mls/hr IV .Q24H [facility] Rx#:[id number] Potassium Chloride 20 meq 100 In Water For Injection 1 100ml.bag @ 50 mls/hr IVPB Q2H [facility] Rx#: [id number] Sodium Chloride 0.9% 1, 500 000 ml @ 50 mls/hr IV . Q20H [facility] Rx#:[id number] Vancomycin 1,250 mg In 250 Sodium Chloride 0.9% 250 ml @ 125 mls/hr IVPB Q8H [facility] Rx#:[id number] propofoL 1,000 mg In 119.85 Empty Bag 1 bag @ 15 MCG/ KG/MIN 5.4 mls/hr IV . [id number] [facility] Rx#:[id number] Output: Urine 360 447 585 Other: Voiding Method Indwelling Catheter Indwelling Catheter Indwelling Catheter ABP, PAP, CO, CI - Last Documented Arterial Blood Pressure 92/56 - Exam GENERAL EXAM: Alert, 73-year-old female, oriented to time, place, and person. Not in acute distress. HEAD: Normocephalic. EYES: Normal reaction of pupils, equal size. NOSE: Clear with pink turbinates. THROAT: No erythema or exudates. Producing thick mucus NECK: No masses, no JVD. CHEST: No chest wall deformity. LUNGS: Clear to auscultation bilaterally CVS: Regular rate, no murmurs ABDOMEN: Soft, nondistended, nontender to palpation SKIN: No rashes CENTRAL NERVOUS SYSTEM: No focal deficits, tone is normal in all 4 extremities. EXTREMITIES: There is no peripheral edema. No clubbing, no cyanosis. Peripheral pulses are intact. - Labs CBC & Chem 7: 10/13/23 02:33 10/13/23 02:33 Labs: Abnormal Lab Results - Last 24 Hours (Table) 10/12/23 10/12/23 10/12/23 Range/Units 11:41 13:48 17:23 RBC (3.80-5.40) m/uL Plt Count (150-450) k/uL Neutrophils # (1.3-7.7) k/uL Lymphocytes # (1.0-4.8) k/uL ABG pH 7.50 H (7.35-7.45) ABG pCO2 46 H (35-45) mmHg ABG pO2 80 L (83-108) mmHg ABG HCO3 36 H (21-25) mmol/L ABG Total CO2 37 H (19-24) mmol/L ABG O2 Saturation 97.2 H (94-97) % Sodium (137-145) mmol/L Carbon Dioxide (22-30) mmol/L Creatinine (0.52-1.04) mg/dL Glucose (74-99) mg/dL POC Glucose (mg/dL) 135 H 111 H (70-110) mg/dL Calcium (8.4-10.2) mg/dL 10/13/23 10/13/23 Range/Units 02:33 02:33 RBC 3.65 L (3.80-5.40) m/uL Plt Count 142 L (150-450) k/uL Neutrophils # 8.0 H (1.3-7.7) k/uL Lymphocytes # 0.6 L (1.0-4.8) k/uL ABG pH (7.35-7.45) ABG pCO2 (35-45) mmHg ABG pO2 (83-108) mmHg ABG HCO3 (21-25) mmol/L ABG Total CO2 (19-24) mmol/L ABG O2 Saturation (94-97) % Sodium 134 L (137-145) mmol/L Carbon Dioxide 36 H (22-30) mmol/L Creatinine 0.26 L (0.52-1.04) mg/dL Glucose 104 H (74-99) mg/dL POC Glucose (mg/dL) (70-110) mg/dL Calcium 7.5 L (8.4-10.2) mg/dL Microbiology - Last 24 Hours (Table) 10/10/23 09:30 Gram Stain - Final Bronchial Washings - Left Bronchial Washings Culture - Final Escherichia coli 10/10/23 20:08 Nasal Screen MRSA/MSSA - Final Nasal Swab Assessment and Plan Assessment: Assessment: Acute hypoxic respiratory failure, requiring intubation mechanical ventilation. Patient was reintubated for the third time on 10/10/2023 due to complete left lung atelectasis and left lung collapse. Bronchoscopy was done and aeration of the left lung was restored after aspirating copious amount of purulent material from the trachea and left mainstem bronchus. The bronchial lavage from the left lung is showing E. coli. The patient was extubated on 10/12/2023, and initially was put on Bipap and currently on High flow nasal cannula at 6L. We discontinued Vancomycin and patient is currently being covered with cefepime. Patient is still producing a lot of mucus and secretions. Left lung collapse secondary to mucous plugs, possible left lung pneumonia, status post intubation and bronchoscopy with quaker of the airway and aeration of the left lung. Advanced COPD with recurrent episodes of respiratory failure due to pneumonia m ucous plugs and left lung atelectasis. The patient has S/P intubation, on September 20, with extubation on September 21. Reintubation, for respiratory failure, September 30, 2023. S/P bronchoscopy, September 30, 2023. S/P extubation, on October 03, 2023. Left-sided pneumonia, with copious amount of respiratory secretions and mucous plugs causing left lung atelectasis. Hypotension, possibly due to sepsis. The patient was sustained with IV fluids and the patient is currently on norepinephrine currently at 0.13 mcg/kg/min Systolic heart failure with ejection fraction of 35 to 40% and secondary pulm hypertension. Chronic pain syndrome. Plan: Order chest x ray for today. Lasix 40 mg one time dose was given. Echocardiogram results were noted Discontinue vancomycin, will cover patient with IV cefepime. Pressors to be titrated the patient is currently on norepinephrine at 0.13 mcg/kg/min DVT and GI Repeat chest x-ray in the morning. Condition is critical and the patient is will be kept in the intensive care unit for now. This evaluation was done more than 30 minutes. Time with Patient: Greater than 30
--- NOTE | 2023-10-13 12:16 | P.PN ---
Subjective Progress Note Date: 10/13/23 Today's evaluation of 10/09/2023, I am seeing the patient for a follow-up. The patient is status post respiratory failure requiring intubation mechanical ventilation the patient was extubated on 09/22/2023. Subsequently, the patient required another intubation on 09/30/2023 and extubated on 10/03/2023. The patient is currently on 2 L of oxygen by nasal cannula. The most recent chest x-ray from 10/03/2023 showed some small right-sided pleural effusion and pulmonary vascular congestion. She denies having any specific complaints. She states that she is doing well. The patient has no significant respiratory difficulties for now. Unable to access the previous cultures from the bronchial lavage was obtained from the bronchoscopy. Her sodium level is at 138, potassium level of 3.6, BUN 30 with a creatinine of 0.2. WBC count is at 14 with a hemoglobin 12.4 and a platelet count of 140. She is chronically debilitated maintained on Symbicort maintenance DuoNeb nebulized treatment and she is currently also on a prednisone burst taper starting with 40 mg p.o. per day. She is on heparin subcu for DVT prophylaxis. On 10/10/2023, the patient is being seen for a follow-up. I was informed this morning that the patient's oxygenation was progressively getting worse and the patient was placed on high flow oxygen at 15 L with 100% nonrebreather facemask. Based on that, her chest x-ray was also done that showed complete opacification of the left lung consistent with left lung atelectasis. The patient got transferred to the intensive care unit. She was quite short of breath and her breathing was labored. Based on that, the patient was intubated and placed on the mechanical ventilator. Postintubation, a bronchoscopy was done and copious amount of purulent respiratory secretions were aspirated from the trachea and left mainstem bronchus and elevation of the left lung was achieved. At this point in time, the patient remains on mechanical ventilator assist-control mode rate of 16, tidal volume of 350, FiO2 of 100% with a PEEP of 5. The patient was also placed on propofol for sedation. The dose being titrated. A triple-lumen catheter was inserted. Post bronchoscopy, chest x-ray was repeated and it showed related to being in a good location. There is improved aeration of the left thorax with presence of bilateral infiltrates and possibly a small component of pleural effusion on the left. Noted the patient remained hemodynamically stable. The postintubation blood gas showed a pH of 7.47 with a pCO2 of 55 and a pO2 of 153. FiO2 will be gradually weaned off. Morning white cell count 11.9 with a hemoglobin 15.1 and a platelet count of 178. The BUN is at 16 with a creatinine of 0.3. Sodium is at 139. Potassium is at 3.5 with a chloride of 99. proBNP level is 11,000. The [place] level was less than 0.1. Patient is currently on DuoNeb nebulized treatments [id number]. Symbicort will be placed on hold. The patient will be kept on prednisone burst taper and currently she is on 40 mg p.o. daily. Will start enteral feeding for nutritional support. Currently adequately sedated. On today's evaluation of 10/11/2023, the patient remains intubated on the [employer] ventilator. This morning, the patient is on propofol running at 50 mcg/kg/min. The patient remains on the mechanical ventilator, assist-control mode with rate of 16, tidal volume of 350, FiO2 50% with a PEEP of 10. The blood gas shows a pH of 7.44 with a pCO2 of 51 and the patient's pO2 is currently at 100. Chest x-ray shows no significant atelectasis. There is evidence of bilateral pleural effusion and stable consolidation of the lung bases. No significant obstructive secretions. Bronchoscopy was done endobronchial lavage is showing E. coli. The patient meanwhile has been covered with a combination of cefepime and vancomycin. Hemodynamically, the patient is on l norepinephrine which is running at 0. 0.4 mcg/kg/min. Urine output is adequate. Overall fluid (been positive over the past 24 hours and the patient remains on normal citrate of 75 cc an hour. The sodium levels of 134, potassium level of 3.7, BUN 16 with creatinine 0.27 and a serum bicarb of 33. The patie nt's white cell count is currently at 11.8 with a hemoglobin of 0.1 and a platelet count of 153. The patient will be started on enteral feeding for nutritional support. Afebrile. Peak airway pressures around 30. No significant bronchospasm or wheezing on today's evaluation. 10/12/2023, the patient remains intubated on mechanical ventilator. The patient remains on propofol running at 50 mcg/kg/min. She is on assist-control mode rate of 16, tidal volume of 350, FiO2 40% with a PEEP of 5. Blood gas from today shows a pH of 7.47 with a pCO2 of 49 and pO2 of 61. Chest x-ray findings are showing lower lobe consolidation/airspace disease consistent with pneumonia and the patient's sputum analysis has shown E. coli. The patient is covered with antibiotics and the patient is currently on IV cefepime and vancomycin. Another bronchoscopy was done and the respiratory secretions were less and they were scanned and they were suctioned out without any major difficulties. This bronchoscopy was done this morning. Meanwhile, the patient is still requiring pressors and she is on norepinephrine at 0.17 mcg/kg/min. The white cell count is at 9.5 with a hemoglobin 12.1 and a platelet count of 149. BUN 16 with a creatinine of 0.12 sodium levels at 133 and potassium level is at 3.2. She was started on enteral feeding for nutritional support. Afebrile. No other significant events overnight. Fluid balance over the past 24 hours has been +1.4 L.Echocardiogram was done and the patient is a impaired left-ventricular ejection fraction of 35 to 40%. There is mild increased septal wall thickening. The right ventricle is moderately enlarged and there is moderate to severe pulmonary hypertension and mild mitral regurgitation. 10/13/2023, the patient extubated on 6 L of oxygen by nasal cannula. Overnight, the patient was kept on a BiPAP at a pressure of 10/5 with an FiO2 of 40%. She is weak. She has a weak cough. She has a congested cough. Unable to bring up much sputum. Awake and alert and communicating. Moving all 4 extremities. Has increased edema in all 4 extremities. Remains on IV cefepime and vancomycin. Echocardiogram showed an ejection fraction of 35 to 40%. Blood work from today shows a white cell count of 9.2, hemoglobin of 11.6 and a platelet count of 142. BUN is 40 with a creatinine of 0.2 and sodium levels at 136. Chest x-ray from today was not obtained. Remains on bronchodilators. Remains on oral prednisone. Has extensive third spacing and edema in all 4 extremities. Objective - Vital Signs Vital signs: Vital Signs Temp 97.8 F 10/13/23 08:00 Pulse 86 10/13/23 08:00 Resp 20 10/13/23 08:00 BP 103/59 10/13/23 08:00 Pulse Ox 96 10/13/23 08:00 FiO2 40 10/13/23 08:00 Intake & Output 10/12/23 10/13/23 10/13/23 18:59 06:59 18:59 Intake Total 2611.658 9462.983 311.100 Output Total 360 447 110 Balance 903.404 964.983 201.100 Weight 68.5 kg 69.8 kg Intake: IV 86 990 195 Cefepime 2 gm In Sodium 25 175 100 Chloride 0.9% 100 ml @ 25 mls/hr IVPB Q8HR [facility] Rx# :[id number] Pressure Bag 21 Sodium Chloride 0.9% 1, 40 315 95 000 ml @ 50 mls/hr IV . Q20H [facility] Rx#:[id number] Vancomycin 1,000 mg In 500 Sodium Chloride 0.9% 250 ml @ 125 mls/hr IVPB Q8H [facility] Rx#:[id number] Intake, IV Titration 1177.404 421.983 116.100 Amount Cefepime 2 gm In Sodium 100 Chloride 0.9% 100 ml @ 25 mls/hr IVPB Q8HR [facility] Rx# :[id number] Magnesium Sulfate-D5w Pmx 100 1 gm In Dextrose/Water 1 100ml.bag @ 100 mls/hr IVPB ONCE ONE Rx#: [id number] Magnesium Sulfate-D5w Pmx 100 1 gm In Dextrose/Water 1 100ml.bag @ 100 mls/hr IVPB ONCE ONE Rx#: [id number] Norepinephrine 8 mg In 107.554 221.983 116.100 Sodium Chloride 0.9% 250 ml @ 0.03 MCG/KG/MIN 3. 483 mls/hr IV .Q24H [facility] Rx#:[id number] Potassium Chloride 20 meq 100 In Water For Injection 1 100ml.bag @ 50 mls/hr IVPB Q2H [facility] Rx#: [id number] Sodium Chloride 0.9% 1, 500 000 ml @ 50 mls/hr IV . Q20H [facility] Rx#:[id number] Vancomycin 1,250 mg In 250 Sodium Chloride 0.9% 250 ml @ 125 mls/hr IVPB Q8H [facility] Rx#:[id number] propofoL 1,000 mg In 119.85 Empty Bag 1 bag @ 15 MCG/ KG/MIN 5.4 mls/hr IV . [id number] [facility] Rx#:[id number] Output: Urine 360 447 110 Other: Voiding Method Indwelling Catheter Indwelling Catheter ABP, PAP, CO, CI - Last Documented Arterial Blood Pressure 92/56 - Exam GENERAL EXAM: Alert, 73-year-old female, awake and alert 6 L of Oxygen Nasal Cannula. HEAD: Normocephalic. EYES: Normal reaction of pupils, equal size. NOSE: Clear with pink turbinates. THROAT: No erythema or exudates. NECK: No masses, no JVD. CHEST: No chest wall deformity. LUNGS: Equal air entry with bilateral end expiratory wheeze, diminished. CVS: S1 and S2 normal with no audible murmur, regular rhythm. ABDOMEN: No hepatosplenomegaly, normal bowel sounds, no guarding or rigidity. SPINE: No scoliosis or deformity SKIN: No rashes CENTRAL NERVOUS SYSTEM: No focal deficits, tone is normal in all 4 extremities. Increased edema in all 4 extremities. EXTREMITIES: There is no peripheral edema. No clubbing, no cyanosis. Peripheral pulses are intact. - Labs CBC & Chem 7: 10/13/23 02:33 10/13/23 02:33 Labs: Abnormal Lab Results - Last 24 Hours (Table) 10/12/23 10/12/23 10/12/23 Range/Units 11:41 13:48 17:23 RBC (3.80-5.40) m/uL Plt Count (150-450) k/uL Neutrophils # (1.3-7.7) k/uL Lymphocytes # (1.0-4.8) k/uL ABG pH 7.50 H (7.35-7.45) ABG pCO2 46 H (35-45) mmHg ABG pO2 80 L (83-108) mmHg ABG HCO3 36 H (21-25) mmol/L ABG Total CO2 37 H (19-24) mmol/L ABG O2 Saturation 97.2 H (94-97) % Sodium (137-145) mmol/L Carbon Dioxide (22-30) mmol/L Creatinine (0.52-1.04) mg/dL Glucose (74-99) mg/dL POC Glucose (mg/dL) 135 H 111 H (70-110) mg/dL Calcium (8.4-10.2) mg/dL 10/13/23 10/13/23 Range/Units 02:33 02:33 RBC 3.65 L (3.80-5.40) m/uL Plt Count 142 L (150-450) k/uL Neutrophils # 8.0 H (1.3-7.7) k/uL Lymphocytes # 0.6 L (1.0-4.8) k/uL ABG pH (7.35-7.45) ABG pCO2 (35-45) mmHg ABG pO2 (83-108) mmHg ABG HCO3 (21-25) mmol/L ABG Total CO2 (19-24) mmol/L ABG O2 Saturation (94-97) % Sodium 134 L (137-145) mmol/L Carbon Dioxide 36 H (22-30) mmol/L Creatinine 0.26 L (0.52-1.04) mg/dL Glucose 104 H (74-99) mg/dL POC Glucose (mg/dL) (70-110) mg/dL Calcium 7.5 L (8.4-10.2) mg/dL Microbiology - Last 24 Hours (Table) 10/10/23 09:30 Gram Stain - Final Bronchial Washings - Left Bronchial Washings Culture - Final Escherichia coli 10/10/23 20:08 Nasal Screen MRSA/MSSA - Final Nasal Swab Assessment and Plan Plan: Acute hypoxic respiratory failure, requiring intubation mechanical ventilation. Patient was reintubated for the third time on 10/10/2023 due to complete left lung atelectasis and left lung collapse. Bronchoscopy was done and aeration of the left lung was restored after aspirating copious amount of purulent material from the trachea and left mainstem bronchus. The bronchial lavage from the left lung is showing E. coli. The patient is currently covered with a combination of cefepime and vancomycin. On today's evaluation, the patient's peak airway pressure on the mechanical ventilator is quite low. No significant bronchospasm wheezing. Repeat bronchoscopy was done on 10/12/2023 and the respiratory secretions were scant. No significant atelectasis although there is some airspace disease and consolidation of the lung bases more so on the left. The patient was extubated on 10/12/2023 and the patient's 60s of Oxygen by Nasal Cannula. Left lung collapse secondary to mucous plugs, possible left lung pneumonia, status post intubation and bronchoscopy with jain of the airway and aeration of the left lung. Repeat chest x-ray showed small bilateral pleural effusion and lower lobe consolidation Advanced COPD with recurrent episodes of respiratory failure due to pneumonia mucous plugs and left lung atelectasis. The patient has S/P intubation, on September 20, with extubation on September 21. Reintubation, for respiratory failure, September 30, 2023. S/P bronchoscopy, September 30, 2023. S/P extubation, on October 03, 2023. The patient was reintubated on10/10/2023 to be extubated on 10/12/2023. Left-sided pneumonia, with copious amount of respiratory secretions and mucous plugs causing left lung atelectasis. Hypotension, possibly due to sepsis. The patient was sustained with IV fluids and the patient is currently on norepinephrine currently at 0.1 4 mcg/kg/min. Systolic heart failure with ejection fraction of 35 to 40% and secondary pulm hypertension. Chronic pain syndrome. Edema in all 4 extremities Profound generalized weakness and debility second above-mentioned comorbidities Plan: Continue utilizing BiPAP overnight. This is a 6 L of O2 nasal cannula. Aggressive pulmonary toileting Give the patient 40 mg of IV Lasix Diet is being provided Echocardiogram results were noted Will cover the patient again with antibiotics and the patient is An IV cefepime. Vancomycin will be discontinued. Perform sedation holiday and assess the patient's readiness to wean Pressors to be titrated the patient is currently on norepinephrine at 0.14 Mcg/kg/min DVT and GI Repeat chest x-ray in the morning. Condition is critical and the patient is will be kept in the intensive care unit for now. This evaluation was done more than 30 minutes. Time with Patient: Greater than 30
--- NOTE | 2023-10-13 14:39 | P.PN ---
Subjective Progress Note Date: 10/13/23 Acute hypoxic and hypercapnic respiratory failure secondary to acute COPD exacerbation and extensive left-sided pneumonia. Patient was eval on 09/30/2023, patient has been on BiPAP for the last few days while in the ICU, Patient has been on 100% BiPAP with IPAP of 12 and EPAP of 6, however she developed worsening pulmonary status this morning, in spite of being on 100% FiO2, patient had her O2 saturation down in the low 70s. Patient was intubated, underwent bronchoscopy with lavage 09/30. Patient seen examined. Currently intubated. Currently on IV Zosyn. Vital signs stable 10/01. Patient seen and examined. Patient currently going through SBT, patient opening eyes. 10/02. Patient seen and examined. Patient extubated this morning. 10/03. Patient seen and examined. Sitting upright in the bed. States she feels much better. Currently on 5 l of oxygen. Denies any shortness of breath at res t.Blood work done this morning showed WBC 13.3, hemoglobin 13.6, sodium 35, potassium 3.8, BUN 25, creatinine 0.31 10/04. Patient seen and examined. Sitting upright in the chair, currently on 5 L of oxygen. Being transferred out of ICU. 10/05--patient was examined today, currently on 5 L nasal cannula oxygen. On IV fluids. Currently on Symbicort and prednisone. WBCs 18.3, hemoglobin 13.5, platelet normal. Creatinine and BUN unremarkable. CO2 33. Ultrasound venous ordered to rule out DVT, noted left lower extremity edema. Initially was diagnosed with left lung pneumonia, not on antibiotics anymore. 10/06--patient was seen and examined today. Awake and alert x 3. Currently on 5 L oxygen. Currently on IV fluids. Ultrasound venous negative for DVT. Currently on DuoNebs Symbicort and prednisone. Labs reviewed, WBC 16.9, hemoglobin 14.3, platelet 137. BMP unremarkable. PT/OT consulted and pending. 10/07--patient was seen and examined today. Remains on 5 L oxygen. WBCs trending down 14.08. Hemoglobin 12.4, platelets 140. BMP is unremarkable. [place] level less than 0.10. Discontinue IV fluids. 10/08--patient's seen and examined today. Patient respiratory status gradually improving, patient required to intubation previously, last extubated on 10/03/2023, currently on 2 L oxygen as compared to 5 L yesterday. Patient reported feeling better. Shortness of breath is improving. Patient currently on prednisone burst taper. Pulmonary on board and following. PT/OT consulted. 10/10/2023 Patient is seen this morning and was just re-intubated and brought to the ICU as patient was continued on airvo at 100% and having continuous low pulse ox readings. This will be the third intubation this admission. Patient is also continued on antibiotics for pneumonia. Overall prognosis is guarded at this time. 10/11/2023 Patient is seen and evaluated in follow-up in the ICU and was brought here yesterday for reintubation. Patient continues on mechanical ventilation and sedation with an FiO2 of 40% and PEEP is 10. No plans for weaning trials at this time. Patient continues to require pressor support and attempting to wean. Chest x-ray today shows stable bilateral consolidation and small effusion to correlate for CHF otherwise consider pneumonia. Patient is maintained on IV antibiotics in the form of cefepime and Vanco with infectious disease following. Potassium was on the lower side yesterday after replacement potassium is 3.7 today and kidney functions within normal limits, sodium is 134. Blood sugars being monitored and will continue current regimen. Adjust insulins accordingly. 10/12/2023 Patient is seen in follow-up continues to be on mechanical ventilation FiO2 is 40% with a PEEP of 10 and is off propofol currently awake and responding to commands appropriately and per pulmonary curb builder, plan on extubation today. Patient will likely require BiPAP and will follow-up with repeat chest x-ray. Patient continues to require low-dose blood pressure support. Patient to continue on antibiotics and sputum is positive for E. coli. Overall prognosis is guarded and per nursing staff patient and patient family would want reintubation and all measures done and remain full code. 10/12. Seen and examined. Currently on 6 L of oxygen. Still in the ICU. States she feels slightly better. REVIEW OF SYSTEMS: Denies any chest pain. Denies any shortness of breath. Denies any nausea or vomiting. PHYSICAL EXAMINATION: GENERAL: The patient is alert. HEENT: Pupils are round and equally reacting to light. EOMI. No scleral icterus. No conjunctival pallor. Normocephalic, atraumatic. No pharyngeal erythema. No thyromegaly. CARDIOVASCULAR: S1 and S2 present. No murmurs, rubs, or gallops. PULMONARY: Coarse breath sound bilaterally, no wheeze, no crackles ABDOMEN: Soft, nontender, nondistended, normoactive bowel sounds. No palpable organomegaly. MUSCULOSKELETAL: No joint swelling or deformity. EXTREMITIES: No cyanosis, clubbing, or pedal edema. NEUROLOGICAL: Moving all extremities SKIN: No rashes. Assessment and plan Acute on chronic hypoxic and hypercapnic respiratory failure, multifactorial, requiring intubation mechanical ventilation last week, and reintubation on 09/29 Acute COPD exacerbation Left lung pneumonia, possibly hospital-acquired pneumonia with complete opacification of the left lung secondary to mucous plugging, requiring bronchoscopy and BAL of the left lung. Chronic hypoxic and hypercapnic respiratory failure Chronic pain syndrome Sinus rhythm with PVCs Severe pulmonary hypertension Hyperlipidemia Diabetes mellitus History of GERD Hypothyroidism History of osteoarthritis Monitor vital signs Monitor CBC Monitor CMP Continue telemetry monitoring Aggressive bronchopulmonary hygiene Use BiPAP as needed Continue IV cefepime and vancomycin Continue breathing treatment Cardiology following Pulmonary following Labs and medication were reviewed.. Continue same treatment. Continue with symptomatic treatment. Resume home medication. Monitor labs and vitals. DVT and GI prophylaxis. Further recommendations as per clinical course of the patient Dictation was produced using [employer] dictation software. please excuse any grammatical, word or spelling errors. Objective - Vital Signs Vital signs: Vital Signs Temp 98.5 F 10/13/23 12:00 Pulse 98 10/13/23 14:15 Resp 27 H 10/13/23 14:15 BP 111/64 10/13/23 14:15 Pulse Ox 93 L 10/13/23 14:15 FiO2 40 10/13/23 08:00 Intake & Output 10/12/23 10/13/23 10/13/23 18:59 06:59 18:59 Intake Total 0492.715 4528.983 485.125 Output Total 996 431 8386 Balance 903.404 964.983 -1449.875 Weight 68.5 kg 69.8 kg Intake: IV 86 990 315 Cefepime 2 gm In Sodium 25 175 100 Chloride 0.9% 100 ml @ 25 mls/hr IVPB Q8HR [facility] Rx# :[id number] Pressure Bag 21 Sodium Chloride 0.9% 1, 40 315 215 000 ml @ 50 mls/hr IV . Q20H [facility] Rx#:[id number] Vancomycin 1,000 mg In 500 Sodium Chloride 0.9% 250 ml @ 125 mls/hr IVPB Q8H [facility] Rx#:[id number] Intake, IV Titration 1177.404 421.983 170.125 Amount Cefepime 2 gm In Sodium 100 Chloride 0.9% 100 ml @ 25 mls/hr IVPB Q8HR [facility] Rx# :[id number] Magnesium Sulfate-D5w Pmx 100 1 gm In Dextrose/Water 1 100ml.bag @ 100 mls/hr IVPB ONCE ONE Rx#: [id number] Magnesium Sulfate-D5w Pmx 100 1 gm In Dextrose/Water 1 100ml.bag @ 100 mls/hr IVPB ONCE ONE Rx#: [id number] Norepinephrine 8 mg In 107.554 221.983 170.125 Sodium Chloride 0.9% 250 ml @ 0.03 MCG/KG/MIN 3. 483 mls/hr IV .Q24H [facility] Rx#:[id number] Potassium Chloride 20 meq 100 In Water For Injection 1 100ml.bag @ 50 mls/hr IVPB Q2H [facility] Rx#: [id number] Sodium Chloride 0.9% 1, 500 000 ml @ 50 mls/hr IV . Q20H [facility] Rx#:[id number] Vancomycin 1,250 mg In 250 Sodium Chloride 0.9% 250 ml @ 125 mls/hr IVPB Q8H [facility] Rx#:[id number] propofoL 1,000 mg In 119.85 Empty Bag 1 bag @ 15 MCG/ KG/MIN 5.4 mls/hr IV . [id number] [facility] Rx#:[id number] Output: Urine 920 [id number] Other: Voiding Method Indwelling Catheter Indwelling Catheter Indwelling Catheter ABP, PAP, CO, CI - Last Documented Arterial Blood Pressure 92/56 - Labs CBC & Chem 7: 10/13/23 02:33 10/13/23 12:32 Labs: Abnormal Lab Results - Last 24 Hours (Table) 10/12/23 10/13/23 10/13/23 Range/Units 17:23 02:33 02:33 RBC 3.65 L (3.80-5.40) m/uL Plt Count 142 L (150-450) k/uL Neutrophils # 8.0 H (1.3-7.7) k/uL Lymphocytes # 0.6 L (1.0-4.8) k/uL Sodium 134 L (137-145) mmol/L Carbon Dioxide 36 H (22-30) mmol/L Creatinine 0.26 L (0.52-1.04) mg/dL Glucose 104 H (74-99) mg/dL POC Glucose (mg/dL) 111 H (70-110) mg/dL Calcium 7.5 L (8.4-10.2) mg/dL 10/13/23 Range/Units 11:07 RBC (3.80-5.40) m/uL Plt Count (150-450) k/uL Neutrophils # (1.3-7.7) k/uL Lymphocytes # (1.0-4.8) k/uL Sodium (137-145) mmol/L Carbon Dioxide (22-30) mmol/L Creatinine (0.52-1.04) mg/dL Glucose (74-99) mg/dL POC Glucose (mg/dL) 144 H (70-110) mg/dL Calcium (8.4-10.2) mg/dL
[2023-10-13 16:09] LABS: Glucose,Whole Blood 151 mg/dL (70-110)
[2023-10-13 20:24] LABS: Glucose,Whole Blood 142 mg/dL (70-110)
[2023-10-13] MEDS: SODIUM CHLORIDE 0.9% 1,000 ML IV ONE (23:00)
[2023-10-13 23:09] LABS: ABG Base Excess 12.1 mmol/L; ABG HCO3 39 mmol/L (21-25); ABG Oxygen Saturation 86.1 % (94-97); ABG PCO2 60 mmHg (35-45); ABG PH 7.42 (7.35-7.45); ABG TCO2 41 mmol/L (19-24); Allen Test Performed? Yes
[2023-10-13 23:15] LABS: ABG PO2 50 mmHg (83-108)
[2023-10-13 23:37] LABS: African American GFR (CKD) >90 (>60 ml/min/1.73 sqM); Carbon Dioxide 37 mmol/L (22-30); Non-African American GFR(CKD) >90 (>60 ml/min/1.73 sqM)
--- NOTE | 2023-10-13 23:46 | XR ---
EXAM: XR chest 1V portable CLINICAL INDICATION:Female, 73 years old with history of increased O2 demands; [facility] COMPARISON: 10/12/2023 and before TECHNIQUE: Chest single view. FINDINGS: Multiple monitor leads overlie the chest. Stable left subclavian line with tip over the right atrium. Previous ET tube and NG tube have been removed. Persistent bilateral pleural effusions and consolidative opacities, left greater than right. There is increased consolidative and bandlike opacity in the left mid upper lung zone compared to prior. No v isualized pneumothorax. Heart size appears grossly unchanged. There seems to be slight shift of the mediastinum towards the l eft, which could in part be positional but suggests volume loss in the left chest. Suspect cut off ap pearance of the left mainstem bronchus could indicate mucous plugging or other filling defect. Osseous structures are stable. Heart size grossly unchanged. Likely vascular calcifications in the ne ck. IMPRESSION: 1. Interval extubation and removal of NG tube. 2. Suspect cut off appearance of the left mainstem bronchus could indicate mucous plugging or other filling defect. Correlate for aspiration etc. 3. Interval increased consolidative and bandlike opacity in the left mid upper lung zone, with sugge stion of volume loss, most likely represents atelectasis with superimposed infection not excluded. 4. Persistent bilateral pleural effusions and consolidative opacities, left greater than right. Coul d relate to CHF.
--- NOTE | 2023-10-14 00:11 | XR ---
EXAM: XR Chest, 1 View CLINICAL HISTORY: ITS.REASON XR Reason: Tube placement TECHNIQUE: Frontal view of the chest. COMPARISON: 10/13/23 at 2147 hrs. FINDINGS: Lungs: Increasing opacification of the left lung, nearly complete, with only a small amount of the left upper lung remaining aerated. This likely represents a combination of pleural effusion and airspace disease. Persistent mild right basilar airspace disease. Pleural space: No pneumothorax. Small right pleural effusion. Increasing left pleural effusion. Heart: Unremarkable. No cardiomegaly or pulmonary vascular congestion. Bones/joints: Degenerative skeletal changes. Fractures of lateral left ribs 2 and 3, potentially recent. Tubes, lines and devices: Endotracheal tube 3.9 cm from the isak. Enteric tube extends to the stomach. Left subclavian central venous catheter extends to the right atrium. IMPRESSION: 1. Increasing opacification of the left lung, nearly complete, with only a small amount of the left upper lung remaining aerated. 2. Fractures of lateral left ribs 2 and 3, potentially recent. 3. Endotracheal tube 3.9 cm from the isak. 4. Enteric tube extends to the stomach. 5. Left subclavian central venous catheter extends to the right atrium.
[2023-10-14 00:32] LABS: Anion Gap -1 mmol/L; Blood Urea Nitrogen 12 mg/dL (7-17); Calcium 7.7 mg/dL (8.4-10.2); Chloride 97 mmol/L (98-107); Glucose 128 mg/dL (74-99); Potassium 3.5 mmol/L (3.5-5.1); Sodium 133 mmol/L (137-145)
[2023-10-14] MEDS ORDERED: VANCOMYCIN TROUGH DUE 1 EACH MISC MISCELLANE ONE (04:00)
[2023-10-14 05:13] LABS: Glucose,Whole Blood 117 mg/dL (70-110)
[2023-10-14 05:19] LABS: ABG Base Excess 11.7 mmol/L; ABG HCO3 38 mmol/L (21-25); ABG Oxygen Saturation 98.7 % (94-97); ABG PCO2 57 mmHg (35-45); ABG PH 7.44 (7.35-7.45); ABG PO2 112 mmHg (83-108); ABG TCO2 40 mmol/L (19-24); Allen Test Performed? Yes
[2023-10-14 05:20] LABS: Basophils % (A) 0 %; Eosinophils # (A) 0.1 k/uL (0-0.7); Eosinophils % (A) 1 %; HGB 11.7 gm/dL (11.4-16.0); Lymphocytes # (A) 1.1 k/uL (1.0-4.8); Lymphocytes % (A) 12 %; MCH 31.6 pg (25.0-35.0); MCHC 32.6 g/dL (31.0-37.0); MCV 96.9 fL (80.0-100.0); Mean Platelet Volume 8.4; Monocytes # (A) 0.5 k/uL (0-1.0); Monocytes % (A) 6 %; Neutrophils # (A) 7.5 k/uL (1.3-7.7); Neutrophils % (A) 81 %; Platelet Count 134 k/uL (150-450); RBC 3.72 m/uL (3.80-5.40); RDW 13.9 % (11.5-15.5); WBC 9.3 k/uL (3.8-10.6)
[2023-10-14 06:01] LABS: African American GFR (CKD) >90 (>60 ml/min/1.73 sqM); Anion Gap -2 mmol/L; Blood Urea Nitrogen 12 mg/dL (7-17); Calcium 7.4 mg/dL (8.4-10.2); Carbon Dioxide 37 mmol/L (22-30); Chloride 100 mmol/L (98-107); Glucose 125 mg/dL (74-99); Non-African American GFR(CKD) >90 (>60 ml/min/1.73 sqM); Potassium 3.1 mmol/L (3.5-5.1); Sodium 135 mmol/L (137-145)
[2023-10-14] MEDS: POTASSIUM CHLORIDE 20 MEQ in WATER FOR INJECTION 1 100ML.BAG IVPB SCH (06:20)
--- NOTE | 2023-10-14 06:37 | XR ---
EXAMINATION TYPE: XR chest 1V portable DATE OF EXAM: 10/14/2023 COMPARISON: 10/13/2023 HISTORY: Tube placement TECHNIQUE: Single frontal view of the chest is obtained. FINDINGS: . ET tube is approximately 2 cm above the isak. The NG tube within the stomach. There is a left-sided central venous catheter tip of which is in the SVC/RA junction. There is marked reduction in the opacification of left hemithorax with which was near complete on the prior study. Currently there is small opacity obscuring the left hemidiaphragm and costophrenic angl e likely combination of airspace consolidation and small effusion. There are few scattered small focal opacities in the right lung base. There is no pneumothorax. The osseous structures are intact. IMPRESSION: 1. ET tube approximately 2 cm above the isak. No change in the left-sided central venous catheter o r NG tube. 2. Marked improvement in the aeration of the left lung as described above. IMPRESSION: No acute process.
[2023-10-14] MEDS: VASOPRESSIN 20 UNIT in SODIUM CHLORIDE 0.9% 50 ML IV SCH (09:22)
[2023-10-14 10:38] LABS: Glucose,Whole Blood 106 mg/dL (70-110)
--- NOTE | 2023-10-14 10:59 | P.PN ---
Subjective Progress Note Date: 10/14/23 Today's evaluation of 10/09/2023, I am seeing the patient for a follow-up. The patient is status post respiratory failure requiring intubation mechanical ventilation the patient was extubated on 09/22/2023. Subsequently, the patient required another intubation on 09/30/2023 and extubated on 10/03/2023. The patient is currently on 2 L of oxygen by nasal cannula. The most recent chest x-ray from 10/03/2023 showed some small right-sided pleural effusion and pulmonary vascular congestion. She denies having any specific complaints. She states that she is doing well. The patient has no significant respiratory difficulties for now. Unable to access the previous cultures from the bronchial lavage was obtained from the bronchoscopy. Her sodium level is at 138, potassium level of 3.6, BUN 30 with a creatinine of 0.2. WBC count is at 14 with a hemoglobin 12.4 and a platelet count of 140. She is chronically debilitated maintained on Symbicort maintenance DuoNeb nebulized treatment and she is currently also on a prednisone burst taper starting with 40 mg p.o. per day. She is on heparin subcu for DVT prophylaxis. On 10/10/2023, the patient is being seen for a follow-up. I was informed this morning that the patient's oxygenation was progressively getting worse and the patient was placed on high flow oxygen at 15 L with 100% nonrebreather facemask. Based on that, her chest x-ray was also done that showed complete opacification of the left lung consistent with left lung atelectasis. The patient got transferred to the intensive care unit. She was quite short of breath and her breathing was labored. Based on that, the patient was intubated and placed on the mechanical ventilator. Postintubation, a bronchoscopy was done and copious amount of purulent respiratory secretions were aspirated from the trachea and left mainstem bronchus and elevation of the left lung was achieved. At this point in time, the patient remains on mechanical ventilator assist-control mode rate of 16, tidal volume of 350, FiO2 of 100% with a PEEP of 5. The patient was also placed on propofol for sedation. The dose being titrated. A triple-lumen catheter was inserted. Post bronchoscopy, chest x-ray was repeated and it showed related to being in a good location. There is improved aeration of the left thorax with presence of bilateral infiltrates and possibly a small component of pleural effusion on the left. Noted the patient remained hemodynamically stable. The postintubation blood gas showed a pH of 7.47 with a pCO2 of 55 and a pO2 of 153. FiO2 will be gradually weaned off. Morning white cell count 11.9 with a hemoglobin 15.1 and a platelet count of 178. The BUN is at 16 with a creatinine of 0.3. Sodium is at 139. Potassium is at 3.5 with a chloride of 99. proBNP level is 11,000. [place] level was less than 0.1. Patient is currently on DuoNeb nebulized treatments [id number]. Symbicort will be placed on hold. The patient will be kept on prednisone burst taper and currently she is on 40 mg p.o. daily. Will start enteral feeding for nutritional support. Currently adequately sedated. On today's evaluation of 10/11/2023, the patient remains intubated on the [place] ventilator. This morning, the patient is on propofol running at 50 mcg/kg/min. The patient remains on the mechanical ventilator, assist-control mode with rate of 16, tidal volume of 350, FiO2 50% with a PEEP of 10. The blood gas shows a pH of 7.44 with a pCO2 of 51 and the patient's pO2 is currently at 100. Chest x-ray shows no significant atelectasis. There is evidence of bilateral pleural effusion and stable consolidation of the lung bases. No significant obstructive secretions. Bronchoscopy was done endobronchial lavage is showing E. coli. The patient meanwhile has been covered with a combination of cefepime and vancomycin. Hemodynamically, the patient is on l norepinephrine which is running at 0. 0.4 mcg/kg/min. Urine output is adequate. Overall fluid (been positive over the past 24 hours and the patient remains on normal citrate of 75 cc an hour. The sodium levels of 134, potassium level of 3.7, BUN 16 with creatinine 0.27 and a serum bicarb of 33. The patie nt's white cell count is currently at 11.8 with a hemoglobin of 0.1 and a platelet count of 153. The patient will be started on enteral feeding for nutritional support. Afebrile. Peak airway pressures around 30. No significant bronchospasm or wheezing on today's evaluation. 10/12/2023, the patient remains intubated on mechanical ventilator. The patient remains on propofol running at 50 mcg/kg/min. She is on assist-control mode rate of 16, tidal volume of 350, FiO2 40% with a PEEP of 5. Blood gas from today shows a pH of 7.47 with a pCO2 of 49 and pO2 of 61. Chest x-ray findings are showing lower lobe consolidation/airspace disease consistent with pneumonia and the patient's sputum analysis has shown E. coli. The patient is covered with antibiotics and the patient is currently on IV cefepime and vancomycin. Another bronchoscopy was done and the respiratory secretions were less and they were scanned and they were suctioned out without any major difficulties. This bronchoscopy was done this morning. Meanwhile, the patient is still requiring pressors and she is on norepinephrine at 0.17 mcg/kg/min. The white cell count is at 9.5 with a hemoglobin 12.1 and a platelet count of 149. BUN 16 with a creatinine of 0.12 sodium levels at 133 and potassium level is at 3.2. She was started on enteral feeding for nutritional support. Afebrile. No other significant events overnight. Fluid balance over the past 24 hours has been +1.4 L.Echocardiogram was done and the patient is a impaired left-ventricular ejection fraction of 35 to 40%. There is mild increased septal wall thickening. The right ventricle is moderately enlarged and there is moderate to severe pulmonary hypertension and mild mitral regurgitation. 10/13/2023, the patient extubated on 6 L of oxygen by nasal cannula. Overnight, the patient was kept on a BiPAP at a pressure of 10/5 with an FiO2 of 40%. She is weak. She has a weak cough. She has a congested cough. Unable to bring up much sputum. Awake and alert and communicating. Moving all 4 extremities. Has increased edema in all 4 extremities. Remains on IV cefepime and vancomycin. Echocardiogram showed an ejection fraction of 35 to 40%. Blood work from today shows a white cell count of 9.2, hemoglobin of 11.6 and a platelet count of 142. BUN is 40 with a creatinine of 0.2 and sodium levels at 136. Chest x-ray from today was not obtained. Remains on bronchodilators. Remains on oral prednisone. Has extensive third spacing and edema in all 4 extremities. , the patient is reintubated and this is the patient's fourth intubation. After extubating the patient for the third time, the patient was stable during the day and overnight she decompensated, she had respiratory difficulties and she became hypoxic, tachycardic and in acute respiratory distress. Based on that, the patient was reintubated. I repeated the bronchoscopy and further mucous plugs were identified in her lungs although less abundant compared to previous evaluations. This morning, the patient on propofol at 50 mcg/kg/min. She is on norepinephrine running at 0.33 mcg/kg/min. She is on assist-control mode rate of 16, tidal volume of 350, FiO2 of 70% with a PEEP of 10. Blood gas from this morning showed a pH of 7.44 with a pCO2 of 57 and pO2 112. She is in negative fluid balance. She was given a dose of Lasix yesterday and the patient produced approximately 3 L of urine output. White cell count is at 9.3 with a hemoglobin 9.7 and a platelet count of 134. BUN is 12 with a creatinine of 0.2 and sodium levels at 135 and a potassium level is at 3.1. Blood sugars of 106. Arousable even while on sedation. Objective - Vital Signs Vital signs: Vital Signs Temp 97.7 F 10/14/23 08:00 Pulse 86 10/14/23 08:12 Resp 18 10/14/23 08:00 BP 101/69 10/14/23 01:00 Pulse Ox 100 10/14/23 08:00 FiO2 70 10/14/23 04:34 Intake & Output 10/13/23 10/14/23 10/14/23 18:59 06:59 18:59 Intake Total 544.627 4372.091 50 Output Total 2410 595 75 Balance -9879.553 8274.091 -25 Weight 69.8 kg Intake: IV 625 280 50 Cefepime 2 gm In Sodium 100 100 Chloride 0.9% 100 ml @ 25 mls/hr IVPB Q8HR SHIRA Rx# :[id number] Sodium Chloride 0.9% 1, 275 180 50 000 ml @ 50 mls/hr IV . Q20H SHIRA Rx#:[id number] Vancomycin 1,000 mg In 250 Sodium Chloride 0.9% 250 ml @ 125 mls/hr IVPB Q8H SHIRA Rx#:[id number] Intake, IV Titration 920.108 6238.091 Amount Norepinephrine 8 mg In 249.041 230.768 Sodium Chloride 0.9% 250 ml @ 0.03 MCG/KG/MIN 3. 483 mls/hr IV .Q24H SHIRA Rx#:[id number] Sodium Chloride 0.9% 1, 1000 000 ml @ 999 mls/hr IV . Q1H1M ONE Rx#:[id number] Vancomycin 1,000 mg In 250 Sodium Chloride 0.9% 250 ml @ 125 mls/hr IVPB Q8H SHIRA Rx#:[id number] propofoL 1,000 mg In 148.323 Empty Bag 1 bag @ 15 MCG/ KG/MIN 6.282 mls/hr IV . [id number] SHIRA Rx#:[id number] Output: Urine 2410 595 75 Other: Voiding Method Indwelling Catheter Indwelling Catheter ABP, PAP, CO, CI - Last Documented Arterial Blood Pressure 106/54 - Exam GENERAL EXAM: Alert, 73-year-old female, sedated, intubated on mechanical venti lator. Orogastric and orotracheal tube are both in place. HEAD: Normocephalic. EYES: Normal reaction of pupils, equal size. NOSE: Clear with pink turbinates. THROAT: No erythema or exudates. NECK: No masses, no JVD. CHEST: No chest wall deformity. LUNGS: Equal air entry with bilateral end expiratory wheeze, diminished. CVS: S1 and S2 normal with no audible murmur, regular rhythm. ABDOMEN: No hepatosplenomegaly, normal bowel sounds, no guarding or rigidity. SPINE: No scoliosis or deformity SKIN: No rashes CENTRAL NERVOUS SYSTEM: No focal deficits, tone is normal in all 4 extremities. Increased edema in all 4 extremities. EXTREMITIES: There is no peripheral edema. No clubbing, no cyanosis. Peripheral pulses are intact. - Labs CBC & Chem 7: 10/14/23 05:12 10/14/23 05:12 Labs: Abnormal Lab Results - Last 24 Hours (Table) 10/13/23 10/13/23 10/13/23 Range/Units 11:07 16:08 20:23 RBC (3.80-5.40) m/uL Plt Count (150-450) k/uL ABG pCO2 (35-45) mmHg ABG pO2 (83-108) mmHg ABG HCO3 (21-25) mmol/L ABG Total CO2 (19-24) mmol/L ABG O2 Saturation (94-97) % Sodium (137-145) mmol/L Potassium (3.5-5.1) mmol/L Chloride (98-107) mmol/L Carbon Dioxide (22-30) mmol/L Creatinine (0.52-1.04) mg/dL Glucose (74-99) mg/dL POC Glucose (mg/dL) 144 H 151 H 142 H (70-110) mg/dL Calcium (8.4-10.2) mg/dL 10/13/23 10/13/23 10/14/23 Range/Units 23:03 23:04 05:11 RBC (3.80-5.40) m/uL Plt Count (150-450) k/uL ABG pCO2 60 H (35-45) mmHg ABG pO2 50 L* (83-108) mmHg ABG HCO3 39 H (21-25) mmol/L ABG Total CO2 41 H (19-24) mmol/L ABG O2 Saturation 86.1 L (94-97) % Sodium 133 L (137-145) mmol/L Potassium (3.5-5.1) mmol/L Chloride 97 L (98-107) mmol/L Carbon Dioxide 37 H (22-30) mmol/L Creatinine 0.27 L (0.52-1.04) mg/dL Glucose 128 H (74-99) mg/dL POC Glucose (mg/dL) 117 H (70-110) mg/dL Calcium 7.7 L (8.4-10.2) mg/dL 10/14/23 10/14/23 10/14/23 Range/Units 05:12 05:12 05:15 RBC 3.72 L (3.80-5.40) m/uL Plt Count 134 L (150-450) k/uL ABG pCO2 57 H (35-45) mmHg ABG pO2 112 H (83-108) mmHg ABG HCO3 38 H (21-25) mmol/L ABG Total CO2 40 H (19-24) mmol/L ABG O2 Saturation 98.7 H (94-97) % Sodium 135 L (137-145) mmol/L Potassium 3.1 L (3.5-5.1) mmol/L Chloride (98-107) mmol/L Carbon Dioxide 37 H (22-30) mmol/L Creatinine 0.24 L (0.52-1.04) mg/dL Glucose 125 H (74-99) mg/dL POC Glucose (mg/dL) (70-110) mg/dL Calcium 7.4 L (8.4-10.2) mg/dL Assessment and Plan Plan: Acute hypoxic respiratory failure, requiring intubation mechanical ventilation. Patient was reintubated for the third time on 10/10/2023 due to complete left lung atelectasis and left lung collapse. Bronchoscopy was done and aeration of the left lung was restored after aspirating copious amount of purulent material from the trachea and left mainstem bronchus. The bronchial lavage from the left lung is showing E. coli. The patient is currently covered with a combination of cefepime and vancomycin. On today's evaluation, the patient's peak airway pressure on the mechanical ventilator is quite low. No significant bronchospasm wheezing. Repeat bronchoscopy was done on 10/12/2023 and the respiratory secretions were scant. No significant atelectasis although there is some airspace disease and consolidation of the lung bases more so on the left. The patient was extubated on 10/12/2023 and reintubated on 10/13/2023 most likely secondary to mucous plugs. Another bronchoscopy was done and therapeutic airway suctioning and removal of mucous plug was obtained and repeat cultures were also obtained. Left lung collapse secondary to mucous plugs, possible left lung pneumonia, status post intubation and bronchoscopy with yarsani of the airway and aeration of the left lung. Repeat chest x-ray showed small bilateral pleural effusion and lower lobe consolidation. The patient has already undergone 3 different bronchoscopies for removal of mucous plugs. Advanced COPD with recurrent episodes of respiratory failure due to pneumonia mucous plugs and left lung atelectasis. The patient has S/P intubation, on September 20, with extubation on September 21. Reintubation, for respiratory failure, September 30, 2023. S/P bronchoscopy, September 30, 2023. S/P extubation, on October 03, 2023. The patient was reintubated on10/10/2023 to be extubated on 10/12/2023. The patient was reintubated on 10/13/2023. Left-sided pneumonia, with copious amount of respiratory secretions and mucous plugs causing left lung atelectasis. Hypotension, possibly due to sepsis. The patient was sustained with IV fluids and the patient is currently on norepinephrine currently at 0.33 mcg/kg/min. Systolic heart failure with ejection fraction of 35 to 40% and secondary pulm hypertension. Chronic pain syndrome. Edema in all 4 extremities Profound generalized weakness and debility second above-mentioned comorbidities Plan: Continue propofol FiO2 to maintain saturation above 90% and FiO2 will be gradually weaned off. Keep the PEEP at 10 Start again enteral feeding for nutritional support Repeat bronchoscopy was done this morning and therapeutic airway suctioning was done Continue norepinephrine and add vasopressin Echocardiogram results were noted Will cover the patient again with antibiotics and the patient is An IV cefepime DVT and GI Repeat chest x-ray in the morning. Gnosis is poor as the patient is quite debilitated and she has an extensive pneumonia with recurrent mucous plugs which is preventing our ability to successfully extubate the patient. Consider tracheostomy tube insertion. This has been discussed with the family on earlier occasion. The patient's brother did not show much of interest in tracheostomy. Will make further recommenda tions based on the progress. We addressed the situation and need for tracheostomy tube. Condition is critical and the patient is will be kept in the intensive care unit for now. This evaluation was done more than 30 minutes. Time with Patient: Greater than 30
--- NOTE | 2023-10-14 11:01 | P.PCN ---
Date of Procedure: 10/14/23 Operative Findings: Preoperative Diagnosis: Bilateral pneumonia with mucous plugs Postoperative Diagnosis: Bilateral pneumonia with mucous plugs Procedure(s) Performed: Bronchoscopy and therapeutic airway suctioning Anesthesia: MAC Surgeon: Timothy Serrano Estimated Blood Loss (ml): 0 Pathology: none sent Condition: critical Disposition: ICU Operative Findings: This procedure was done as the patient had recurrent respiratory failure with mucous plugs. The patient was reintubated on 10/13/2023 due to increased shortness of breath. She has a weak cough. Unable to bring up much of respiratory secretions. The patient was adequately sedated. An adapter was attached to the orotracheal tube. The flexible bronchoscope was introduced through the orotracheal tube and it was advanced into a lower trachea. The procedure was done as the patient was adequately oxygenated quantity ventilated through the mechanical ventilator. The respiratory secretions were the moderate quantity. There was some secretions in the trachea that were suctioned out without any major difficulties. There was also some respiratory secretions were also identified on the right mainstem bronchus, bronchus intermedius, and right middle lobe bronchus and the right lower lobe bronchus and those were patent. Right upper lobe bronchus was patent. The various segments on the right side were essentially patent. The bronchoscope was then moved to the left and therapeutic airway suctioning was done and the majority of the mucous plugs were aspirated without any major difficulties. The left upper lobe was patent, left lower lobe was patent and there was some limited respiratory secretions were suctioned out. There is segments on the left with inspected. No significant endobronchial abnormalities. The flexible bronchoscope was removed after achieving therap eutic airway suctioning. The collected respiratory secretions and mucous plugs will be sent again for cultures. Earlier culture was positive for E. coli. The bronchoscope was removed and the procedure was terminated. No oxygen saturation. No hemodynamic instability.
--- NOTE | 2023-10-14 12:42 | P.PN ---
Subjective Progress Note Date: 10/14/23 Acute hypoxic and hypercapnic respiratory failure secondary to acute COPD exacerbation and extensive left-sided pneumonia. Patient was eval on 09/30/2023, patient has been on BiPAP for the last few days while in the ICU, Patient has been on 100% BiPAP with IPAP of 12 and EPAP of 6, however she developed worsening pulmonary status this morning, in spite of being on 100% FiO2, patient had her O2 saturation down in the low 70s. Patient was intubated, underwent bronchoscopy with lavage 09/30. Patient seen examined. Currently intubated. Currently on IV Zosyn. Vital signs stable 10/01. Patient seen and examined. Patient currently going through SBT, patient opening eyes. 10/02. Patient seen and examined. Patient extubated this morning. 10/03. Patient seen and examined. Sitting upright in the bed. States she feels much better. Currently on 5 l of oxygen. Denies any shortness of breath at res t.Blood work done this morning showed WBC 13.3, hemoglobin 13.6, sodium 35, potassium 3.8, BUN 25, creatinine 0.31 10/04. Patient seen and examined. Sitting upright in the chair, currently on 5 L of oxygen. Being transferred out of ICU. 10/05--patient was examined today, currently on 5 L nasal cannula oxygen. On IV fluids. Currently on Symbicort and prednisone. WBCs 18.3, hemoglobin 13.5, platelet normal. Creatinine and BUN unremarkable. CO2 33. Ultrasound venous ordered to rule out DVT, noted left lower extremity edema. Initially was diagnosed with left lung pneumonia, not on antibiotics anymore. 10/06--patient was seen and examined today. Awake and alert x 3. Currently on 5 L oxygen. Currently on IV fluids. Ultrasound venous negative for DVT. Currently on DuoNebs Symbicort and prednisone. Labs reviewed, WBC 16.9, hemoglobin 14.3, platelet 137. BMP unremarkable. PT/OT consulted and pending. 10/07--patient was seen and examined today. Remains on 5 L oxygen. WBCs trending down 14.08. Hemoglobin 12.4, platelets 140. BMP is unremarkable. Brinckerhoff level less than 0.10. Discontinue IV fluids. 10/08--patient's seen and examined today. Patient respiratory status gradually improving, patient required to intubation previously, last extubated on 10/03/2023, currently on 2 L oxygen as compared to 5 L yesterday. Patient reported feeling better. Shortness of breath is improving. Patient currently on prednisone burst taper. Pulmonary on board and following. PT/OT consulted. 10/10/2023 Patient is seen this morning and was just re-intubated and brought to the ICU as patient was continued on airvo at 100% and having continuous low pulse ox readings. This will be the third intubation this admission. Patient is also continued on antibiotics for pneumonia. Overall prognosis is guarded at this time. 10/11/2023 Patient is seen and evaluated in follow-up in the ICU and was brought here yesterday for reintubation. Patient continues on mechanical ventilation and sedation with an FiO2 of 40% and PEEP is 10. No plans for weaning trials at this time. Patient continues to require pressor support and attempting to wean. Chest x-ray today shows stable bilateral consolidation and small effusion to correlate for CHF otherwise consider pneumonia. Patient is maintained on IV antibiotics in the form of cefepime and Vanco with infectious disease following. Potassium was on the lower side yesterday after replacement potassium is 3.7 today and kidney functions within normal limits, sodium is 134. Blood sugars being monitored and will continue current regimen. Adjust insulins accordingly. 10/12/2023 Patient is seen in follow-up continues to be on mechanical ventilation FiO2 is 40% with a PEEP of 10 and is off propofol currently awake and responding to commands appropriately and per pulmonary store protection specialist, plan on extubation today. Patient will likely require BiPAP and will follow-up with repeat chest x-ray. Patient continues to require low-dose blood pressure support. Patient to continue on antibiotics and sputum is positive for E. coli. Overall prognosis is guarded and per nursing staff patient and patient family would want reintubation and all measures done and remain full code. 10/12. Seen and examined. Currently on 6 L of oxygen. Still in the ICU. States she feels slightly better. 10/13. Patient seen and examined.Vital signs on this morning show temperature 97.7, heart rate 82, respiration 18, patient was intubated overnight. Underwent bronchoscopy this morning. REVIEW OF SYSTEMS: Cannot be obtained as patient currently intubated PHYSICAL EXAMINATION: GENERAL: The patient is intubated HEENT: Pupils are round and equally reacting to light. EOMI. No scleral icterus. No conjunctival pallor. Normocephalic, atraumatic. No pharyngeal erythema. No thyromegaly. CARDIOVASCULAR: S1 and S2 present. No murmurs, rubs, or gallops. PULMONARY: Coarse breath sound bilaterally, no wheeze, no crackles ABDOMEN: Soft, nontender, nondistended, normoactive bowel sounds. No palpable organomegaly. MUSCULOSKELETAL: No joint swelling or deformity. EXTREMITIES: No cyanosis, clubbing, or pedal edema. NEUROLOGICAL: Moving all extremities SKIN: No rashes. Assessment and plan Acute on chronic hypoxic and hypercapnic respiratory failure, multifactorial, requiring intubation mechanical ventilation last week, and reintubation on 09/29 Acute COPD exacerbation Left lung pneumonia, possibly hospital-acquired pneumonia with complete opacification of the left lung secondary to mucous plugging, requiring bronchoscopy and BAL of the left lung. Chronic hypoxic and hypercapnic respiratory failure Chronic pain syndrome Sinus rhythm with PVCs Severe pulmonary hypertension Hyperlipidemia Diabetes mellitus History of GERD Hypothyroidism History of osteoarthritis Monitor vital signs Monitor CBC Monitor CMP Continue telemetry monitoring Continue vent management Status post bronchoscopy this morning Aggressive bronchopulmonary hygiene Continue IV cefepime Continue breathing treatment Cardiology following Pulmonary following Labs and medication were reviewed.. Continue same treatment. Continue with symptomatic treatment. Resume home medication. Monitor labs and vitals. DVT and GI prophylaxis. Further recommendations as per clinical course of the patient Dictation was produced using [employer] dictation software. please excuse any grammatical, word or spelling errors. Objective - Vital Signs Vital signs: Vital Signs Temp 97.7 F 10/14/23 08:00 Pulse 86 10/14/23 08:12 Resp 18 10/14/23 08:00 BP 101/69 10/14/23 01:00 Pulse Ox 100 10/14/23 08:00 FiO2 70 10/14/23 04:34 Intake & Output 10/13/23 10/14/23 10/14/23 18:59 06:59 18:59 Intake Total 757.893 7277.091 50 Output Total 2410 595 75 Balance -4999.616 9852.091 -25 Weight 69.8 kg Intake: IV 625 280 50 Cefepime 2 gm In Sodium 100 100 Chloride 0.9% 100 ml @ 25 mls/hr IVPB Q8HR [facility] Rx# :[id number] Sodium Chloride 0.9% 1, 275 180 50 000 ml @ 50 mls/hr IV . Q20H [facility] Rx#:[id number] Vancomycin 1,000 mg In 250 Sodium Chloride 0.9% 250 ml @ 125 mls/hr IVPB Q8H [facility] Rx#:[id number] Intake, IV Titration 572.821 7515.091 Amount Norepinephrine 8 mg In 249.041 230.768 Sodium Chloride 0.9% 250 ml @ 0.03 MCG/KG/MIN 3. 483 mls/hr IV .Q24H [facility] Rx#:[id number] Sodium Chloride 0.9% 1, 1000 000 ml @ 999 mls/hr IV . Q1H1M [facility] Rx#:[id number] Vancomycin 1,000 mg In 250 Sodium Chloride 0.9% 250 ml @ 125 mls/hr IVPB Q8H [facility] Rx#:[id number] propofoL 1,000 mg In 148.323 Empty Bag 1 bag @ 15 MCG/ KG/MIN 6.282 mls/hr IV . [id number] [facility] Rx#:[id number] Output: Urine 2410 595 75 Other: Voiding Method Indwelling Catheter Indwelling Catheter ABP, PAP, CO, CI - Last Documented Arterial Blood Pressure 106/54 - Labs CBC & Chem 7: 10/14/23 05:12 10/14/23 05:12 Labs: Abnormal Lab Results - Last 24 Hours (Table) 10/13/23 10/13/23 10/13/23 Range/Units 11:07 16:08 20:23 RBC (3.80-5.40) m/uL Plt Count (150-450) k/uL ABG pCO2 (35-45) mmHg ABG pO2 (83-108) mmHg ABG HCO3 (21-25) mmol/L ABG Total CO2 (19-24) mmol/L ABG O2 Saturation (94-97) % Sodium (137-145) mmol/L Potassium (3.5-5.1) mmol/L Chloride (98-107) mmol/L Carbon Dioxide (22-30) mmol/L Creatinine (0.52-1.04) mg/dL Glucose (74-99) mg/dL POC Glucose (mg/dL) 144 H 151 H 142 H (70-110) mg/dL Calcium (8.4-10.2) mg/dL 10/13/23 10/13/23 10/14/23 Range/Units 23:03 23:04 05:11 RBC (3.80-5.40) m/uL Plt Count (150-450) k/uL ABG pCO2 60 H (35-45) mmHg ABG pO2 50 L* (83-108) mmHg ABG HCO3 39 H (21-25) mmol/L ABG Total CO2 41 H (19-24) mmol/L ABG O2 Saturation 86.1 L (94-97) % Sodium 133 L (137-145) mmol/L Potassium (3.5-5.1) mmol/L Chloride 97 L (98-107) mmol/L Carbon Dioxide 37 H (22-30) mmol/L Creatinine 0.27 L (0.52-1.04) mg/dL Glucose 128 H (74-99) mg/dL POC Glucose (mg/dL) 117 H (70-110) mg/dL Calcium 7.7 L (8.4-10.2) mg/dL 10/14/23 10/14/23 10/14/23 Range/Units 05:12 05:12 05:15 RBC 3.72 L (3.80-5.40) m/uL Plt Count 134 L (150-450) k/uL ABG pCO2 57 H (35-45) mmHg ABG pO2 112 H (83-108) mmHg ABG HCO3 38 H (21-25) mmol/L ABG Total CO2 40 H (19-24) mmol/L ABG O2 Saturation 98.7 H (94-97) % Sodium 135 L (137-145) mmol/L Potassium 3.1 L (3.5-5.1) mmol/L Chloride (98-107) mmol/L Carbon Dioxide 37 H (22-30) mmol/L Creatinine 0.24 L (0.52-1.04) mg/dL Glucose 125 H (74-99) mg/dL POC Glucose (mg/dL) (70-110) mg/dL Calcium 7.4 L (8.4-10.2) mg/dL
[2023-10-14] MEDS: POTASSIUM BICARBONATE/CIT AC 20 MEQ TABLET.EFF NG-TUBE SCH (16:29)
[2023-10-14 16:34] LABS: Glucose,Whole Blood 117 mg/dL (70-110)
[2023-10-14 21:52] LABS: Glucose,Whole Blood 123 mg/dL (70-110)
[2023-10-15] MEDS: INSULIN ASPART (NovoLOG) 100 UNIT/ML VIAL SQ SCH (00:16)
[2023-10-15 00:17] LABS: Glucose,Whole Blood 120 mg/dL (70-110)
[2023-10-15 05:45] LABS: Glucose,Whole Blood 115 mg/dL (70-110)
[2023-10-15 05:56] LABS: Basophils % (A) 0 %; Eosinophils % (A) 0 %; HGB 10.9 gm/dL (11.4-16.0); Lymphocytes # (A) 0.5 k/uL (1.0-4.8); Lymphocytes % (A) 8 %; MCH 31.6 pg (25.0-35.0); MCHC 32.2 g/dL (31.0-37.0); MCV 98.1 fL (80.0-100.0); Mean Platelet Volume 8.6; Monocytes # (A) 0.3 k/uL (0-1.0); Monocytes % (A) 4 %; Neutrophils # (A) 5.2 k/uL (1.3-7.7); Neutrophils % (A) 87 %; Platelet Count 104 k/uL (150-450); RBC 3.47 m/uL (3.80-5.40); RDW 13.7 % (11.5-15.5)
[2023-10-15 05:57] LABS: ABG Base Excess 11.4 mmol/L; ABG HCO3 38 mmol/L (21-25); ABG PCO2 63 mmHg (35-45); ABG PH 7.39 (7.35-7.45); ABG PO2 84 mmHg (83-108); ABG TCO2 40 mmol/L (19-24); Allen Test Performed? Yes
[2023-10-15 06:21] LABS: African American GFR (CKD) >90 (>60 ml/min/1.73 sqM); Anion Gap -3 mmol/L; Blood Urea Nitrogen 14 mg/dL (7-17); Calcium 7.9 mg/dL (8.4-10.2); Carbon Dioxide 39 mmol/L (22-30); Chloride 97 mmol/L (98-107); Glucose 123 mg/dL (74-99); Non-African American GFR(CKD) >90 (>60 ml/min/1.73 sqM); Potassium 4.2 mmol/L (3.5-5.1); Sodium 133 mmol/L (137-145)
--- NOTE | 2023-10-15 09:18 | XR ---
EXAMINATION TYPE: XR chest 1V portable DATE OF EXAM: 10/15/2023 Comparison: 10/14/2023 Clinical History: 73-year-old female Tube placement Findings: ET tube in satisfactory. NG tube courses below the diaphragm. Leftward patient rotation which is a no rmal cardiac and mediastinal contours. Left subclavian CVC tip at the cavoatrial junction. Heart uppe r limits of normal in size. Worsening bibasilar opacities, possible small right pleural effusion. Pro minent skin folds along the right hemithorax. Interstitial densities persist. Hyperinflation. Impression: COPD with significant interval worsening in bibasilar airspace disease and suspected small right pleu ral effusion. Mild diffuse interstitial densities also persist.
[2023-10-15] MEDS: CHLORHEXIDINE GLUCONATE 15 ML CUP MUCOUS MEM SCH (09:26)
[2023-10-15 11:49] LABS: Glucose,Whole Blood 107 mg/dL (70-110)
--- NOTE | 2023-10-15 12:45 | P.PN ---
Subjective Progress Note Date: 10/15/23 Principal diagnosis: Acute hypoxic and hypercapnic respiratory failure secondary to acute COPD exacerbation and extensive left-sided pneumonia Patient was eval on 09/30/2023, patient has been on BiPAP for the last few days while in the ICU, however I was notified about this patient this morning becoming much worse clinically. Patient has been on 100% BiPAP with IPAP of 12 and EPAP of 6, however she developed worsening pulmonary status this morning, in spite of being on 100% FiO2, patient had her O2 saturation down in the low 70s. Patient was also noted to be coming more short of breath, and that she was having significant work of breathing. Hence as soon as I was notified about this patient, I recommended immediate intubation by FAMILY SOCIOLOGIST, and I came in and evaluated the patient after she was intubated, reviewed her chest x-ray and I performed bronchoscopy and BAL/therapeutic BAL of the left lung with significant improvement noted after bronchoscopy. Patient also had central line placed since she was hypotensive and requiring norepinephrine. 0.08 mcg/kg/min. Vent ilator settings are assist-control rate of 20, tidal volume 350, FiO2 100% and PEEP of 8 showed a pO2 of 77 pCO2 63 pH of 7.49 no changes were made in the ventilator settings, and advised respiratory to titrate FiO2 accordingly maintaining O2 sats above 91% WBC count today is 8.7 hemoglobin 14.2 hematocrit is 45.6. Electrolytes are normal except for low potassium of 3.2 being addressed and her renal status is normal bicarb is 44 10/13/2023, the patient extubated on 6 L of oxygen by nasal cannula. Overnight, the patient was kept on a BiPAP at a pressure of 10/5 with an FiO2 of 40%. She is weak. She has a weak cough. She has a congested cough. Unable to bring up much sputum. Awake and alert and communicating. Moving all 4 extremities. Has increased edema in all 4 extremities. Remains on IV cefepime and vancomycin. Echocardiogram showed an ejection fraction of 35 to 40%. Blood work from today shows a white cell count of 9.2, hemoglobin of 11.6 and a platelet count of 142. BUN is 40 with a creatinine of 0.2 and sodium levels at 136. Chest x-ray from today was not obtained. Remains on bronchodilators. Remains on oral prednisone. Has extensive third spacing and edema in all 4 extremities. 92,024, the patient is reintubated and this is the patient's fourth intubation. After extubating the patient for the third time, the patient was stable during the day and overnight she decompensated, she had respiratory difficulties and she became hypoxic, tachycardic and in acute respiratory distress. Based on that, the patient was reintubated. I repeated the bronchoscopy and further mucous plugs were identified in her lungs although less abundant compared to previous evaluations. This morning, the patient on propofol at 50 mcg/kg/min. She is on norepinephrine running at 0.33 mcg/kg/min. She is on assist-control mode rate of 16, tidal volume of 350, FiO2 of 70% with a PEEP of 10. Blood gas from this morning showed a pH of 7.44 with a pCO2 of 57 and pO2 112. She is in negative fluid balance. She was given a dose of Lasix yesterday and the patient produced approximately 3 L of urine output. White cell count is at 9.3 with a hemoglobin 9.7 and a platelet count of 134. BUN is 12 with a creatinine of 0.2 and sodium levels at 135 and a potassium level is at 3.1. Blood sugars of 106. Arousable even while on sedation. Patient was evaluated today on 10/15/2023, remains in the ICU, intubated and mechanically ventilated. Patient is on assist-control rate of 16 tidal volume 350 FiO2 50% and PEEP of 10 ABG showed a pO2 of 84 pCO2 63 pH of 7.39 hence FiO2 was cut down to 45% and PEEP cut down to 8. Patient remains quite ill, she has been intubated and extubated multiple times, and I believe the patient will definitely need a tracheostomy. Patient has been in the hospital now for over 3 weeks, and she spent most of the time intubated and mechanically ventilated. Intermittently went off mechanical ventilation, but she had to be reintubated 3- 4 times already. She is on propofol at 50 mcg/kg/min norepinephrine at 0.03, vasopressin at 0.03 units/min, IV fluid at KVO, her last bronchoscopy was 10/13 and she remains on cefepime for E. coli in the sputum. Today I am not weaning the patient, may actually address her mental status, but even if weaned and extubated, the patient will continue to fail, and at this point I am strongly recommending a tracheostomy. Eventually the family needs to be made aware that if her condition gets better down the line, tracheostomy is reversible, and we could have it decannulated down the line. But no plans to continue the same trials of weaning extubating reintubating etc. If the family continues to refuse tracheostomy, then will extubate only if the CODE STATUS has been changed and patient is made DNR CODE STATUS CBC count today is 6 hemoglobin is 10.9. ABG as noted basic metabolic profile is normal renal profile is normal bicarb is 39 chest x-ray showed COPD and interval worsening of bibasilar airspace disease with possibly a small right-sided pleural effusion and bilateral interstitial densities persisting. Patient is still hemodynamically unstable, still requiring pressors, remains on cefepime, remains on bronchodilators, remains on GI DVT prophylaxis, and she is also on enteral feeding/nutritional support. Objective - Vital Signs Vital signs: Vital Signs Temp 98.5 F 10/15/23 12:00 Pulse 67 10/15/23 12:00 Resp 18 10/15/23 12:00 BP 101/69 10/14/23 18:30 Pulse Ox 98 10/15/23 12:00 FiO2 45 10/15/23 12:00 Intake & Output 10/14/23 10/15/23 10/15/23 18:59 06:59 18:59 Intake Total 968.590 895.403 390.000 Output Total 540 470 210 Balance 428.590 425.403 180.000 Weight 71.3 kg Intake: IV 300 270 235 .9 KVO 115 Cefepime 2 gm In Sodium 200 100 100 Chloride 0.9% 100 ml @ 25 mls/hr IVPB Q8HR [facility] Rx# :[id number] Sodium Chloride 0.9% 1, 100 170 20 000 ml @ 50 mls/hr IV . Q20H [facility] Rx#:[id number] Intake, IV Titration 588.590 515.403 135.000 Amount Norepinephrine 8 mg In 290.698 219.453 13.293 Sodium Chloride 0.9% 250 ml @ 0.03 MCG/KG/MIN 3. 483 mls/hr IV .Q24H [facility] Rx#:[id number] Vasopressin 20 unit In 42.075 41.157 35.853 Sodium Chloride 0.9% 50 ml @ 0.03 UNITS/MIN 4.59 mls/hr IV .Q11H7M [facility] Rx# :[id number] propofoL 1,000 mg In 255.817 254.793 85.854 Empty Bag 1 bag @ 15 MCG/ KG/MIN 6.282 mls/hr IV . [id number] [facility] Rx#:[id number] Tube Feeding 80 110 20 Output: Urine 540 470 210 Other: Voiding Method Indwelling Catheter Indwelling Catheter Indwelling Catheter # Bowel Movements 0 ABP, PAP, CO, CI - Last Documented Arterial Blood Pressure 101/49 - Exam General: Frail looking female, chronically ill looking, intubated and mechanically ventilated. Skin: Skin is warm and dry and no rashes or lesions are noted. Eye: Pupils are equal, round and reactive to light, extra-ocular movements are intact; there is normal conjunctiva bilaterally. Ears, nose, mouth and throat: There are moist mucous membranes and no oral lesions. Neck: The neck is supple, there is no tenderness or JVD. Tracheal tube and orogastric tube are intact. Cardiovascular: There is a regular rate and rhythm. No murmur, rub or gallop is appreciated. Respiratory: Diminished breath sounds on the left side, scattered rhonchi noted. Gastrointestinal: Soft, non-distended, non-tender abdomen without masses or organomegaly noted. There is no rebound or guarding present. Bowel sounds are unremarka Musculoskeletal: frail, and she has significant muscle wasting and atrophy noted bilaterally. Neurological: Could not assess, patient is sedated, on propofol. Psychiatric: Could not assess. - Labs CBC & Chem 7: 10/15/23 05:45 10/15/23 05:45 Labs: Abnormal Lab Results - Last 24 Hours (Table) 10/10/23 10/14/23 10/14/23 Range/Units 09:30 16:32 21:51 RBC (3.80-5.40) m/uL Hgb (11.4-16.0) gm/dL Plt Count (150-450) k/uL Lymphocytes # (1.0-4.8) k/uL ABG pCO2 (35-45) mmHg ABG HCO3 (21-25) mmol/L ABG Total CO2 (19-24) mmol/L Sodium (137-145) mmol/L Chloride (98-107) mmol/L Carbon Dioxide (22-30) mmol/L Creatinine (0.52-1.04) mg/dL Glucose (74-99) mg/dL POC Glucose (mg/dL) 117 H 123 H (70-110) mg/dL Calcium (8.4-10.2) mg/dL CMV DNA Qual PCR DETECTED A (Not detected) HSV I DNA PCR DETECTED A (Not detected) 10/15/23 10/15/23 10/15/23 Range/Units 00:15 05:43 05:45 RBC 3.47 L (3.80-5.40) m/uL Hgb 10.9 L (11.4-16.0) gm/dL Plt Count 104 L (150-450) k/uL Lymphocytes # 0.5 L (1.0-4.8) k/uL ABG pCO2 (35-45) mmHg ABG HCO3 (21-25) mmol/L ABG Total CO2 (19-24) mmol/L Sodium (137-145) mmol/L Chloride (98-107) mmol/L Carbon Dioxide (22-30) mmol/L Creatinine (0.52-1.04) mg/dL Glucose (74-99) mg/dL POC Glucose (mg/dL) 120 H 115 H (70-110) mg/dL Calcium (8.4-10.2) mg/dL CMV DNA Qual PCR (Not detected) HSV I DNA PCR (Not detected) 10/15/23 10/15/23 Range/Units 05:45 05:55 RBC (3.80-5.40) m/uL Hgb (11.4-16.0) gm/dL Plt Count (150-450) k/uL Lymphocytes # (1.0-4.8) k/uL ABG pCO2 63 H (35-45) mmHg ABG HCO3 38 H (21-25) mmol/L ABG Total CO2 40 H (19-24) mmol/L Sodium 133 L (137-145) mmol/L Chloride 97 L (98-107) mmol/L Carbon Dioxide 39 H (22-30) mmol/L Creatinine 0.23 L (0.52-1.04) mg/dL Glucose 123 H (74-99) mg/dL POC Glucose (mg/dL) (70-110) mg/dL Calcium 7.9 L (8.4-10.2) mg/dL CMV DNA Qual PCR (Not detected) HSV I DNA PCR (Not detected) Microbiology - Last 24 Hours (Table) 10/14/23 08:39 Gram Stain - Preliminary Bronchoalviolar Lavage - Right Bronchial Washings Culture - Preliminary Assessment and Plan Assessment: Impression: Acute on chronic hypoxic and hypercapnic respiratory failure, multifactorial, requiring reintubation for the first time on 10/10/2023, multiple bronchoscopies has been performed for left lung collapse and pneumonia patient is on comb ination of cefepime and vancomycin, patient was extubated on 10/11 and had to be reintubated on 10/12 mostly secondary to mucous plugging. And the patient could not clear her secretions Left lung collapse secondary to mucous plugs and left lower lobe pneumonia requiring multiple bronchoscopies Advanced COPD with acute COPD exacerbation Acute COPD exacerbation Chronic pain syndrome Chronic systolic congestive heart failure Hypotension secondary to sepsis and septic shock requiring pressors and she r emains on pressors today. Profound weakness and debility with multiple comorbidities as noted above. Recommendations: Continue ventilatory support Continue hemodynamic support Continue antibiotics/cefepime, off vancomycin Nutritional support/enteral feeding Continue GI and DVT prophylaxis Continue bronchodilators and steroids Address ventilator settings accordingly based on ABG on a daily basis Daily x-rays of the chest and daily ABGs with daily labs Patient is extremely ill will strongly recommend tracheostomy and PEG tube placement No plans to wean and extubate at this point unless CODE STATUS is changed to DNR CODE STATUS because I have a feeling patient will fail again and again every extubation we make. Patient clearly needs tracheostomy and PEG tube placement Will update the family on her condition Critical care time is over 30 minutes Time with Patient: Greater than 30
[2023-10-15 18:34] LABS: Glucose,Whole Blood 112 mg/dL (70-110)
[2023-10-15 23:02] LABS: Glucose,Whole Blood 103 mg/dL (70-110)
--- NOTE | 2023-10-15 23:45 | P.PN ---
Subjective Progress Note Date: 10/15/23 Acute hypoxic and hypercapnic respiratory failure secondary to acute COPD exacerbation and extensive left-sided pneumonia. Patient was eval on 09/30/2023, patient has been on BiPAP for the last few days while in the ICU, Patient has been on 100% BiPAP with IPAP of 12 and EPAP of 6, however she developed worsening pulmonary status this morning, in spite of being on 100% FiO2, patient had her O2 saturation down in the low 70s. Patient was intubated, underwent bronchoscopy with lavage 09/30. Patient seen examined. Currently intubated. Currently on IV Zosyn. Vital signs stable 10/01. Patient seen and examined. Patient currently going through SBT, patient opening eyes. 10/02. Patient seen and examined. Patient extubated this morning. 10/03. Patient seen and examined. Sitting upright in the bed. States she feels much better. Currently on 5 l of oxygen. Denies any shortness of breath at rest.Blood work done this morning showed WBC 13.3, hemoglobin 13.6, sodium 35, potassium 3.8, BUN 25, creatinine 0.31 10/04. Patient seen and examined. Sitting upright in the chair, currently on 5 L of oxygen. Being transferred out of ICU. 10/05--patient was examined today, currently on 5 L nasal cannula oxygen. On IV fluids. Currently on Symbicort and prednisone. WBCs 18.3, hemoglobin 13.5, platelet normal. Creatinine and BUN unremarkable. CO2 33. Ultrasound venous ordered to rule out DVT, noted left lower extremity edema. Initially was diagnosed with left lung pneumonia, not on antibiotics anymore. 10/06--patient was seen and examined today. Awake and alert x 3. Currently on 5 L oxygen. Currently on IV fluids. Ultrasound venous negative for DVT. Currently on DuoNebs Symbicort and prednisone. Labs reviewed, WBC 16.9, hemoglobin 14.3, platelet 137. BMP unremarkable. PT/OT consulted and pending. 10/07--patient was seen and examined today. Remains on 5 L oxygen. WBCs tr ending down 14.08. Hemoglobin 12.4, platelets 140. BMP is unremarkable. Furman level less than 0.10. Discontinue IV fluids. 10/08--patient's seen and examined today. Patient respiratory status gradually improving, patient required to intubation previously, last extubated on 10/03/2023, currently on 2 L oxygen as compared to 5 L yesterday. Patient reported feeling better. Shortness of breath is improving. Patient currently on prednisone burst taper. Pulmonary on board and following. PT/OT consulted. 10/10/2023 Patient is seen this morning and was just re-intubated and brought to the ICU as patient was continued on airvo at 100% and having continuous low pulse ox readings. This will be the third intubation this admission. Patient is also continued on antibiotics for pneumonia. Overall prognosis is guarded at this time. 10/11/2023 Patient is seen and evaluated in follow-up in the ICU and was brought here yesterday for reintubation. Patient continues on mechanical ventilation and sedation with an FiO2 of 40% and PEEP is 10. No plans for weaning trials at this time. Patient continues to require pressor support and attempting to wean. Chest x-ray today shows stable bilateral consolidation and small effusion to correlate for CHF otherwise consider pneumonia. Patient is maintained on IV antibiotics in the form of cefepime and Vanco with infectious disease following. Potassium was on the lower side yesterday after replacement potassium is 3.7 today and kidney functions within normal limits, sodium is 134. Blood sugars being monitored and will continue current regimen. Adjust insulins accordingly. 10/12/2023 Patient is seen in follow-up continues to be on mechanical ventilation FiO2 is 40% with a PEEP of 10 and is off propofol currently awake and responding to c ommands appropriately and per pulmonary shell worker, plan on extubation today. Patient will likely require BiPAP and will follow-up with repeat chest x-ray. Patient continues to require low-dose blood pressure support. Patient to continue on antibiotics and sputum is positive for E. coli. Overall prognosis is guarded and per nursing staff patient and patient family would want reintubation and all measures done and remain full code. 10/12. Seen and examined. Currently on 6 L of oxygen. Still in the ICU. States she feels slightly better. 10/13. Patient seen and examined.Vital signs on this morning show temperature 97.7, heart rate 82, respiration 18, patient was intubated overnight. Underwent bronchoscopy this morning. 10/15/2023 Patient is seen in follow-up continues to be in the ICU and has been reintubated. continues on low dose pressor support and being weaned. Family to discuss further regarding treatment plan moving forward. Patient did report previously she did not want a tracheostomy. Brother is her power of title attorney. Overall prognosis is extremely poor and guarded at this time. REVIEW OF SYSTEMS: Unable to completely assess as patient is re-intubated and sedated PHYSICAL EXAMINATION: GENERAL: The patient is A&O x2-3, on mechanical ventilation currently on sedation ill appearing, elderly appearing HEENT: EOMI, Sclerae anicteric, Moist Mucous membranes RESP: diminished breath sounds bilaterally with course rhonchi noted and expiratory wheezing noted as well CARDIOVASCULAR: S1, S2 present. No murmurs, rubs, or gallops. ABDOMEN: Soft, nontender, nondistended, normoactive bowel sounds. No guarding or rebound tenderness. MUSCULOSKELETAL: + LLE edema, No cyanosis. No clubbing. Normal ROM. Intact peripheral pulses. EXTREMITIES: No cyanosis, clubbing, or pedal edema. NEUROLOGICAL: unable to completely assess as patient remains on propofol and is sedated Skin: No Rash Assessment: Acute on chronic hypoxic and hypercapnic respiratory failure, multifactorial, requiring intubation mechanical ventilation last week, and reintubation on 09/29, extubated 10/02, now requiring intubation again 10/10/23, extubated although required reintubation on 10/13 Acute COPD exacerbation Left lung pneumonia, possibly hospital-acquired pneumonia with complete opacification of the left lung secondary to mucous plugging, requiring bronchoscopy and BAL of the left lung. Chronic hypoxic and hypercapnic respiratory failure Chronic pain syndrome Sinus rhythm with PVCs Severe pulmonary hypertension Hyperlipidemia Diabetes mellitus History of GERD Hypothyroidism History of osteoarthritis GI and DVT prophylaxis Full code Plan: Patient with multiple consultations following including pulmonary shell worker and infectious disease maintained on antibiotics in the form of cefepime and vancomycin Patient also continues on breathing inhalational treatments and remains on mechanical ventilation. Patient has been re-intubated x4 this admission Blood sugars being monitored and will continue current regimen Chest x-ray with stable pleural effusions and will follow-up with repeat chest x-ray daily Currently, CODE STATUS is full code patient apparently has a family member that is a power of title attorney, her brother and per nursing staff patient and family continue to want to be reintubated if needed and wished to remain full code. per nursing staff and patient, she did not want to have a tracheostomy. Family to discuss further about treatment plan. Due to multiple complex medical issues, overall prognosis is extremely guarded The impression and plan of care has been dictated by Milka Duffy, Nurse Practitioner as directed. Dr. Ethan MD I have performed a history and examination and MDM of this patient, discussed the same with the dictator, and agree with the dictator's assessment and plan as written ,documented as a scribe. Based on total visit time, I have performed more than 50% of the visit. Objective - Vital Signs Vital signs: Vital Signs Temp 98.0 F 10/15/23 04:00 Pulse 77 10/15/23 08:03 Resp 14 10/15/23 07:00 BP 101/69 10/14/23 18:30 Pulse Ox 99 10/15/23 07:00 FiO2 45 10/15/23 08:43 Intake & Output 10/14/23 10/15/23 10/15/23 18:59 06:59 18:59 Intake Total 968.590 895.403 43.293 Output Total 540 470 35 Balance 428.590 425.403 8.293 Weight 71.3 kg Intake: IV 300 270 20 Cefepime 2 gm In Sodium 200 100 Chloride 0.9% 100 ml @ 25 mls/hr IVPB Q8HR [facility] Rx# :[id number] Sodium Chloride 0.9% 1, 100 170 20 000 ml @ 50 mls/hr IV . Q20H [facility] Rx#:[id number] Intake, IV Titration 588.590 515.403 13.293 Amount Norepinephrine 8 mg In 290.698 219.453 13.293 Sodium Chloride 0.9% 250 ml @ 0.03 MCG/KG/MIN 3. 483 mls/hr IV .Q24H [facility] Rx#:[id number] Vasopressin 20 unit In 42.075 41.157 Sodium Chloride 0.9% 50 ml @ 0.03 UNITS/MIN 4.59 mls/hr IV .Q11H7M [facility] Rx# :[id number] propofoL 1,000 mg In 255.817 254.793 Empty Bag 1 bag @ 15 MCG/ KG/MIN 6.282 mls/hr IV . [id number] [facility] Rx#:[id number] Tube Feeding 80 110 10 Output: Urine 540 470 35 Other: Voiding Method Indwelling Catheter Indwelling Catheter # Bowel Movements 0 ABP, PAP, CO, CI - Last Documented Arterial Blood Pressure 101/51 - Labs CBC & Chem 7: 10/15/23 05:45 10/15/23 05:45 Labs: Abnormal Lab Results - Last 24 Hours (Table) 10/14/23 10/14/23 10/15/23 Range/Units 16:32 21:51 00:15 RBC (3.80-5.40) m/uL Hgb (11.4-16.0) gm/dL Plt Count (150-450) k/uL Lymphocytes # (1.0-4.8) k/uL ABG pCO2 (35-45) mmHg ABG HCO3 (21-25) mmol/L ABG Total CO2 (19-24) mmol/L Sodium (137-145) mmol/L Chloride (98-107) mmol/L Carbon Dioxide (22-30) mmol/L Creatinine (0.52-1.04) mg/dL Glucose (74-99) mg/dL POC Glucose (mg/dL) 117 H 123 H 120 H (70-110) mg/dL Calcium (8.4-10.2) mg/dL 10/15/23 10/15/23 10/15/23 Range/Units 05:43 05:45 05:45 RBC 3.47 L (3.80-5.40) m/uL Hgb 10.9 L (11.4-16.0) gm/dL Plt Count 104 L (150-450) k/uL Lymphocytes # 0.5 L (1.0-4.8) k/uL ABG pCO2 (35-45) mmHg ABG HCO3 (21-25) mmol/L ABG Total CO2 (19-24) mmol/L Sodium 133 L (137-145) mmol/L Chloride 97 L (98-107) mmol/L Carbon Dioxide 39 H (22-30) mmol/L Creatinine 0.23 L (0.52-1.04) mg/dL Glucose 123 H (74-99) mg/dL POC Glucose (mg/dL) 115 H (70-110) mg/dL Calcium 7.9 L (8.4-10.2) mg/dL 10/15/23 Range/Units 05:55 RBC (3.80-5.40) m/uL Hgb (11.4-16.0) gm/dL Plt Count (150-450) k/uL Lymphocytes # (1.0-4.8) k/uL ABG pCO2 63 H (35-45) mmHg ABG HCO3 38 H (21-25) mmol/L ABG Total CO2 40 H (19-24) mmol/L Sodium (137-145) mmol/L Chloride (98-107) mmol/L Carbon Dioxide (22-30) mmol/L Creatinine (0.52-1.04) mg/dL Glucose (74-99) mg/dL POC Glucose (mg/dL) (70-110) mg/dL Calcium (8.4-10.2) mg/dL Microbiology - Last 24 Hours (Table) 10/14/23 08:39 Gram Stain - Preliminary Bronchoalviolar Lavage - Right
[2023-10-16 04:27] LABS: ABG Base Excess 12.7 mmol/L; ABG HCO3 39 mmol/L (21-25); ABG Oxygen Saturation 97.9 % (94-97); ABG PCO2 59 mmHg (35-45); ABG PH 7.43 (7.35-7.45); ABG PO2 90 mmHg (83-108); ABG TCO2 41 mmol/L (19-24); Allen Test Performed? Yes
[2023-10-16 05:07] LABS: Sodium 127 mmol/L (137-145)
[2023-10-16 05:09] LABS: ALT 9 U/L (4-34); AST 12 U/L (14-36); African American GFR (CKD) >90 (>60 ml/min/1.73 sqM); Alkaline Phosphatase 107 U/L (38-126); Anion Gap 1 mmol/L; Basophils % (A) 0 %; Blood Urea Nitrogen 17 mg/dL (7-17); Calcium 7.9 mg/dL (8.4-10.2); Carbon Dioxide 37 mmol/L (22-30); Chloride 89 mmol/L (98-107); Eosinophils % (A) 1 %; Glucose 108 mg/dL (74-99); HGB 10.5 gm/dL (11.4-16.0); Lymphocytes # (A) 0.5 k/uL (1.0-4.8); Lymphocytes % (A) 9 %; MCH 31.9 pg (25.0-35.0); MCHC 32.8 g/dL (31.0-37.0); MCV 97.2 fL (80.0-100.0); Magnesium 1.9 mg/dL (1.6-2.3); Mean Platelet Volume 8.7; Monocytes # (A) 0.3 k/uL (0-1.0); Monocytes % (A) 5 %; Neutrophils # (A) 4.5 k/uL (1.3-7.7); Neutrophils % (A) 83 %; Non-African American GFR(CKD) >90 (>60 ml/min/1.73 sqM); Platelet Count 112 k/uL (150-450); RBC 3.29 m/uL (3.80-5.40); RDW 13.7 % (11.5-15.5); Total Bilirubin 0.5 mg/dL (0.2-1.3); Total Protein 4.1 g/dL (6.3-8.2); WBC 5.5 k/uL (3.8-10.6)
[2023-10-16 05:23] LABS: Potassium 3.5 mmol/L (3.5-5.1)
[2023-10-16] MEDS: POTASSIUM CHLORIDE 20 MEQ in WATER FOR INJECTION 1 100ML.BAG IVPB SCH (05:36)
[2023-10-16 05:51] LABS: Glucose,Whole Blood 100 mg/dL (70-110)
--- NOTE | 2023-10-16 09:37 | XR ---
EXAMINATION TYPE: XR chest 1V portable DATE OF EXAM: 10/16/2023 Comparison: 10/15/2023 Clinical History: 73-year-old female Tube placement Findings: ET tube satisfactory. NG tube courses below the diaphragm. Left subclavian CVC tip at the mid to lowe r SVC. Heart upper limits of normal in size. Relative upper lung lucencies. Diffuse interstitial dens ity persists. Right greater than left lower lung opacities persist with blunting costophrenic angles. Impression: COPD with ongoing prominent bibasilar opacities, probably combination of pleural effusions and atelec tasis/consolidation..
[2023-10-16] MEDS: SODIUM CHLORIDE 0.9% 1,000 ML IV SCH (10:00)
[2023-10-16 11:28] LABS: Glucose,Whole Blood 99 mg/dL (70-110)
--- NOTE | 2023-10-16 13:12 | P.PN ---
Subjective Progress Note Date: 10/16/23 Principal diagnosis: Acute hypoxic and hypercapnic respiratory failure secondary to acute COPD exacerbation and extensive left-sided pneumonia Patient was eval on 09/30/2023, patient has been on BiPAP for the last few days while in the ICU, however I was notified about this patient this morning becoming much worse clinically. Patient has been on 100% BiPAP with IPAP of 12 and EPAP of 6, however she developed worsening pulmonary status this morning, in spite of being on 100% FiO2, patient had her O2 saturation down in the low 70s. Patient was also noted to be coming more short of breath, and that she was having significant work of breathing. Hence as soon as I was notified about this patient, I recommended immediate intubation by GIS ADMINISTRATOR, and I came in and evaluated the patient after she was intubated, reviewed her chest x-ray and I performed bronchoscopy and BAL/therapeutic BAL of the left lung with significant improvement noted after bronchoscopy. Patient also had central line placed since she was hypotensive and requiring norepinephrine. 0.08 mcg/kg/min. Vent ilator settings are assist-control rate of 20, tidal volume 350, FiO2 100% and PEEP of 8 showed a pO2 of 77 pCO2 63 pH of 7.49 no changes were made in the ventilator settings, and advised respiratory to titrate FiO2 accordingly maintaining O2 sats above 91% WBC count today is 8.7 hemoglobin 14.2 hematocrit is 45.6. Electrolytes are normal except for low potassium of 3.2 being addressed and her renal status is normal bicarb is 44 10/13/2023, the patient extubated on 6 L of oxygen by nasal cannula. Overnight, the patient was kept on a BiPAP at a pressure of 10/5 with an FiO2 of 40%. She is weak. She has a weak cough. She has a congested cough. Unable to bring up much sputum. Awake and alert and communicating. Moving all 4 extremities. Has increased edema in all 4 extremities. Remains on IV cefepime and vancomycin. Echocardiogram showed an ejection fraction of 35 to 40%. Blood work from today shows a white cell count of 9.2, hemoglobin of 11.6 and a platelet count of 142. BUN is 40 with a creatinine of 0.2 and sodium levels at 136. Chest x-ray from today was not obtained. Remains on bronchodilators. Remains on oral prednisone. Has extensive third spacing and edema in all 4 extremities. 92,024, the patient is reintubated and this is the patient's fourth intubation. After extubating the patient for the third time, the patient was stable during the day and overnight she decompensated, she had respiratory difficulties and she became hypoxic, tachycardic and in acute respiratory distress. Based on that, the patient was reintubated. I repeated the bronchoscopy and further mucous plugs were identified in her lungs although less abundant compared to previous evaluations. This morning, the patient on propofol at 50 mcg/kg/min. She is on norepinephrine running at 0.33 mcg/kg/min. She is on assist-control mode rate of 16, tidal volume of 350, FiO2 of 70% with a PEEP of 10. Blood gas from this morning showed a pH of 7.44 with a pCO2 of 57 and pO2 112. She is in negative fluid balance. She was given a dose of Lasix yesterday and the patient produced approximately 3 L of urine output. White cell count is at 9.3 with a hemoglobin 9.7 and a platelet count of 134. BUN is 12 with a creatinine of 0.2 and sodium levels at 135 and a potassium level is at 3.1. Blood sugars of 106. Arousable even while on sedation. Patient was evaluated today on 10/15/2023, remains in the ICU, intubated and mechanically ventilated. Patient is on assist-control rate of 16 tidal volume 350 FiO2 50% and PEEP of 10 ABG showed a pO2 of 84 pCO2 63 pH of 7.39 hence FiO2 was cut down to 45% and PEEP cut down to 8. Patient remains quite ill, she has been intubated and extubated multiple times, and I believe the patient will definitely need a tracheostomy. Patient has been in the hospital now for over 3 weeks, and she spent most of the time intubated and mechanically ventilated. Intermittently went off mechanical ventilation, but she had to be reintubated 3- 4 times already. She is on propofol at 50 mcg/kg/min norepinephrine at 0.03, vasopressin at 0.03 units/min, IV fluid at KVO, her last bronchoscopy was 10/13 and she remains on cefepime for E. coli in the sputum. Today I am not weaning the patient, may actually address her mental status, but even if weaned and extubated, the patient will continue to fail, and at this point I am strongly recommending a tracheostomy. Eventually the family needs to be made aware that if her condition gets better down the line, tracheostomy is reversible, and we could have it decannulated down the line. But no plans to continue the same trials of weaning extubating reintubating etc. If the family continues to refuse tracheostomy, then will extubate only if the CODE STATUS has been changed and patient is made DNR CODE STATUS CBC count today is 6 hemoglobin is 10.9. ABG as noted basic metabolic profile is normal renal profile is normal bicarb is 39 chest x-ray showed COPD and interval worsening of bibasilar airspace disease with possibly a small right-sided pleural effusion and bilateral interstitial densities persisting. Patient is still hemodynamically unstable, still requiring pressors, remains on cefepime, remains on bronchodilators, remains on GI DVT prophylaxis, and she is also on enteral feeding/nutritional support. Patient was evaluated today on 10/16/2023, remains in the ICU, intubated and mec hanically ventilated, patient is on assist-control rate of 16 tidal volume 350 FiO2 45% and PEEP of 8 ABG showed a pO2 of 90 pCO2 59 pH of 7.43. Patient is still requiring norepinephrine at 0.02 mcg/kg/min, she is on propofol at 50 mcg/kg/min vasopressin at 0.02 units/min she is on cefepime for her antibiotics for E. coli pneumonia, she is also on vital AF at 23/23. Patient is sedated, and I requested a meeting with the family today, all family members came today including her boyfriend, and we discussed the need for tracheostomy and PEG tube placement. Family is now agreeable to proceed with tracheostomy and PEG tube placement, and will go ahead and consult general surgery/Dr. vogt for tracheostomy and PEG tube placement. Chest x-ray continues to show a combination of pleural effusions and atelectasis/consolidation specially at the right base. CBC count is 5.5 hemoglobin 10.5, sodium is 127 hence her IV fluid is 0.9 normal saline at 75 cc/h. Potassium is 3.5 bicarb is 37, renal profile is normal Objective - Vital Signs Vital signs: Vital Signs Temp 98.6 F 10/16/23 12:00 Pulse 89 10/16/23 13:00 Resp 25 H 10/16/23 13:00 BP 88/47 10/16/23 02:45 Pulse Ox 97 10/16/23 13:00 FiO2 45 10/16/23 12:00 Intake & Output 10/15/23 10/16/23 10/16/23 18:59 06:59 18:59 Intake Total 824.158 945.244 708.104 Output Total 435 345 260 Balance 389.158 600.244 448.104 Weight 71.3 kg 70.3 kg Intake: IV 473 276 418 .9 KVO 253 276 43 Cefepime 2 gm In Sodium 200 Chloride 0.9% 100 ml @ 25 mls/hr IVPB Q8HR [facility] Rx# :[id number] Sodium Chloride 0.9% 1, 20 000 ml @ 50 mls/hr IV . Q20H [facility] Rx#:[id number] Sodium Chloride 0.9% 1, 375 000 ml @ 75 mls/hr IV . [id number] [facility] Rx#:[id number] Intake, IV Titration 341.158 303.244 46.104 Amount Norepinephrine 8 mg In 37.597 57.548 Sodium Chloride 0.9% 250 ml @ 0.03 MCG/KG/MIN 3. 483 mls/hr IV .Q24H [facility] Rx#:[id number] Vasopressin 20 unit In 48.093 46.104 Sodium Chloride 0.9% 50 ml @ 0.03 UNITS/MIN 4.59 mls/hr IV .Q11H7M [facility] Rx# :[id number] propofoL 1,000 mg In 255.468 245.696 Empty Bag 1 bag @ 15 MCG/ KG/MIN 6.282 mls/hr IV . [id number] [facility] Rx#:[id number] Tube Feeding 10 276 184 Other 90 60 Output: Urine 435 345 260 Other: Voiding Method Indwelling Catheter Indwelling Catheter ABP, PAP, CO, CI - Last Documented Arterial Blood Pressure 114/64 - Exam General: Frail looking female, chronically ill looking, intubated and mechanically ventilated. Skin: Skin is warm and dry and no rashes or lesions are noted. Eye: Pupils are equal, round and reactive to light, extra-ocular movements are intact; there is normal conjunctiva bilaterally. Ears, nose, mouth and throat: There are moist mucous membranes and no oral lesions. Neck: The neck is supple, there is no tenderness or JVD. Tracheal tube and orogastric tube are intact. Cardiovascular: There is a regular rate and rhythm. No murmur, rub or gallop is appreciated. Respiratory: Diminished breath sounds on the left side, no wheezing noted today Gastrointestinal: Soft, non-distended, non-tender abdomen without masses or or ganomegaly noted. There is no rebound or guarding present. Bowel sounds are unremarka Musculoskeletal: frail, and she has significant muscle wasting and atrophy noted bilaterally. Neurological: Could not assess, patient is sedated, on propofol. Psychiatric: Could not assess. - Labs CBC & Chem 7: 10/16/23 04:43 10/16/23 04:43 Labs: Abnormal Lab Results - Last 24 Hours (Table) 10/15/23 10/16/23 10/16/23 Range/Units 18:32 04:19 04:43 RBC 3.29 L (3.80-5.40) m/uL Hgb 10.5 L (11.4-16.0) gm/dL Hct 32.0 L (34.0-46.0) % Plt Count 112 L (150-450) k/uL Lymphocytes # 0.5 L (1.0-4.8) k/uL ABG pCO2 59 H (35-45) mmHg ABG HCO3 39 H (21-25) mmol/L ABG Total CO2 41 H (19-24) mmol/L ABG O2 Saturation 97.9 H (94-97) % Sodium (137-145) mmol/L Chloride (98-107) mmol/L Carbon Dioxide (22-30) mmol/L Creatinine (0.52-1.04) mg/dL Glucose (74-99) mg/dL POC Glucose (mg/dL) 112 H (70-110) mg/dL Calcium (8.4-10.2) mg/dL AST (14-36) U/L Total Protein (6.3-8.2) g/dL Albumin (3.5-5.0) g/dL 10/16/23 Range/Units 04:43 RBC (3.80-5.40) m/uL Hgb (11.4-16.0) gm/dL Hct (34.0-46.0) % Plt Count (150-450) k/uL Lymphocytes # (1.0-4.8) k/uL ABG pCO2 (35-45) mmHg ABG HCO3 (21-25) mmol/L ABG Total CO2 (19-24) mmol/L ABG O2 Saturation (94-97) % Sodium 127 L (137-145) mmol/L Chloride 89 L (98-107) mmol/L Carbon Dioxide 37 H (22-30) mmol/L Creatinine 0.28 L (0.52-1.04) mg/dL Glucose 108 H (74-99) mg/dL POC Glucose (mg/dL) (70-110) mg/dL Calcium 7.9 L (8.4-10.2) mg/dL AST 12 L (14-36) U/L Total Protein 4.1 L (6.3-8.2) g/dL Albumin 2.0 L (3.5-5.0) g/dL Microbiology - Last 24 Hours (Table) 10/14/23 08:39 Gram Stain - Preliminary Bronchoalviolar Lavage - Right Bronchial Washings Culture - Preliminary Assessment and Plan Assessment: Impression: Acute on chronic hypoxic and hypercapnic respiratory failure, multifactorial, requiring reintubation for the first time on 10/10/2023, multiple bronchoscopies has been performed for left lung collapse and pneumonia patient is on combination of cefepime and vancomycin, patient was extubated on 10/11 and had to be reintubated on 10/12 mostly secondary to mucous plugging. And the patient could not clear her secretions Left lung collapse secondary to mucous plugs and left lower lobe pneumonia requiring multiple bronchoscopies Advanced COPD with acute COPD exacerbation Acute COPD exacerbation Chronic pain syndrome Chronic systolic congestive heart failure Hypotension secondary to sepsis and septic shock requiring pressors and she remains on pressors today. Profound weakness and debility with multiple comorbidities as noted above. Recommendations: Long discussion with her family regarding her overall picture and prognosis made aware that she is extremely sick, she is critically ill, and if CODE STATUS to remain the same, patient needs to have tracheostomy and PEG tube placement. Otherwise will be impossible to successfully wean this patient as she failed extubations already 4 times. Family is agreeable to proceed with tracheostomy and PEG tube placement, and we will go ahead and consult surgery for this procedure Continue ventilatory support Continue hemodynamic support Continue antibiotics/cefepime Nutritional support/enteral feeding Continue GI and DVT prophylaxis Continue bronchodilators and steroids Daily x-rays of the chest and daily ABGs with daily labs Patient is extremely ill will strongly recommend tracheostomy and PEG tube placement We updated on the condition today. Critical care time is over 30 minutes Time with Patient: Greater than 30
[2023-10-16 13:18] LABS: Glucose,Whole Blood 118 mg/dL (70-110)
--- NOTE | 2023-10-16 14:23 | P.GSCN ---
History of Present Illness Consult date: 10/16/23 History of present illness: CHIEF COMPLAINT: Respiratory failure HISTORY OF PRESENT ILLNESS: This is a 73-year-old female admitted to the hospital with respiratory failure with pneumonia, COPD exacerbation and sepsis. Patient has had multiple bronchoscopies for left lung collapse secondary to mucous plugging and left lower lobe pneumonia. Patient has had 4 failed e xtubation attempts. Patient is still on blood pressure support. Surgical service has been consulted for tracheostomy and PEG tube placement. PAST MEDICAL HISTORY: See below PAST SURGICAL HISTORY: See below MEDICATIONS: See below ALLERGIES: See below SOCIAL HISTORY: No illicit drug use. REVIEW OF SYSTEMS: CONSTITUTIONAL: Denies fever or chills. HEENT: Denies blurred vision, vision changes, or eye pain. Denies hemoptysis CARDIOVASCULAR: Denies chest pain or pressure. RESPIRATORY: No shortness of breath. GASTROINTESTINAL: See HPI for pertinent findings HEMATOLOGIC: Denies bleeding disorders. GENITOURINARY: Denies any blood in urine or increased urinary frequency. SKIN: Denies pruitis. Denies rash. PHYSICAL EXAM: VITAL SIGNS: Reviewed GENERAL: no acute distress. ABDOMEN: Soft. Nondistended. NEUROLOGIC: Intubated and sedated LABORATORY DATA: WBC 5.5 Hgb 10.5 platelets 112 Sodium 127 potassium 4.1 creatinine 0.28 Albumin 2.0 IMAGING: ASSESSMENT: 1. Acute on chronic hypoxic and hypercapnic respiratory failure and unable to wean from vent 2. Severe protein calorie malnutrition 3. Pneumonia and mucous plugging 4. COPD exacerbation 5. Hyponatremia PLAN: -Patient tentatively scheduled for tracheostomy and PEG tube placement tomorrow 10/17/[address] Sanchez -Hold tube feedings after midnight -Hold subcu heparin in a.m. -Hyponatremia management per critical care service Physician Waste Water Operator note has been reviewed by physician. Signing provider agrees with the documented findings, assessment, and plan of care. Past Medical History Past Medical History: No Reported History Past Surgical History: No Surgical Hx Reported Past Psychological History: Anxiety Smoking Status: Current every day smoker Past Alcohol Use History: None Reported Past Drug Use History: Marijuana Medications and Allergies Home Medications Medication Instructions Recorded Confirmed Type Ibuprofen [Motrin] 400 mg PO Q8HR PRN #30 tab 06/30/22 Rx Allergies Allergy/AdvReac Type Severity Reaction Status Date / Time No Known Allergies Allergy Verified 08/18/23 23:04 Surgical - Exam Vital Signs Pulse Resp BP Pulse Ox 70 31 H 97/55 91 L 09/29/23 22:39 09/29/23 22:39 09/29/23 22:39 09/29/23 22:39 Results - Labs 10/16/23 04:43 10/16/23 13:15 Abnormal Lab Results - Last 24 Hours (Table) 10/15/23 10/16/23 10/16/23 Range/Units 18:32 04:19 04:43 RBC 3.29 L (3.80-5.40) m/uL Hgb 10.5 L (11.4-16.0) gm/dL Hct 32.0 L (34.0-46.0) % Plt Count 112 L (150-450) k/uL Lymphocytes # 0.5 L (1.0-4.8) k/uL ABG pCO2 59 H (35-45) mmHg ABG HCO3 39 H (21-25) mmol/L ABG Total CO2 41 H (19-24) mmol/L ABG O2 Saturation 97.9 H (94-97) % Sodium (137-145) mmol/L Chloride (98-107) mmol/L Carbon Dioxide (22-30) mmol/L Creatinine (0.52-1.04) mg/dL Glucose (74-99) mg/dL POC Glucose (mg/dL) 112 H (70-110) mg/dL Calcium (8.4-10.2) mg/dL AST (14-36) U/L Total Protein (6.3-8.2) g/dL Albumin (3.5-5.0) g/dL 10/16/23 10/16/23 Range/Units 04:43 13:17 RBC (3.80-5.40) m/uL Hgb (11.4-16.0) gm/dL Hct (34.0-46.0) % Plt Count (150-450) k/uL Lymphocytes # (1.0-4.8) k/uL ABG pCO2 (35-45) mmHg ABG HCO3 (21-25) mmol/L ABG Total CO2 (19-24) mmol/L ABG O2 Saturation (94-97) % Sodium 127 L (137-145) mmol/L Chloride 89 L (98-107) mmol/L Carbon Dioxide 37 H (22-30) mmol/L Creatinine 0.28 L (0.52-1.04) mg/dL Glucose 108 H (74-99) mg/dL POC Glucose (mg/dL) 118 H (70-110) mg/dL Calcium 7.9 L (8.4-10.2) mg/dL AST 12 L (14-36) U/L Total Protein 4.1 L (6.3-8.2) g/dL Albumin 2.0 L (3.5-5.0) g/dL Microbiology - Last 24 Hours (Table) 10/14/23 08:39 Gram Stain - Preliminary Bronchoalviolar Lavage - Right Bronchial Washings Culture - Preliminary Michelle albicans Gram Neg Bacilli Diabetes panel 10/16/23 10/16/23 Range/Units 04:43 13:15 Sodium 127 L (137-145) mmol/L Potassium 3.5 4.1 (3.5-5.1) mmol/L Chloride 89 L (98-107) mmol/L Carbon Dioxide 37 H (22-30) mmol/L BUN 17 (7-17) mg/dL Creatinine 0.28 L (0.52-1.04) mg/dL Glucose 108 H (74-99) mg/dL Calcium 7.9 L (8.4-10.2) mg/dL AST 12 L (14-36) U/L ALT 9 (4-34) U/L Alkaline Phosphatase 107 (38-126) U/L Total Protein 4.1 L (6.3-8.2) g/dL Albumin 2.0 L (3.5-5.0) g/dL Calcium panel 10/16/23 Range/Units 04:43 Calcium 7.9 L (8.4-10.2) mg/dL Albumin 2.0 L (3.5-5.0) g/dL Pituitary panel 10/16/23 10/16/23 Range/Units 04:43 13:15 Sodium 127 L (137-145) mmol/L Potassium 3.5 4.1 (3.5-5.1) mmol/L Chloride 89 L (98-107) mmol/L Carbon Dioxide 37 H (22-30) mmol/L BUN 17 (7-17) mg/dL Creatinine 0.28 L (0.52-1.04) mg/dL Glucose 108 H (74-99) mg/dL Calcium 7.9 L (8.4-10.2) mg/dL Adrenal panel 10/16/23 10/16/23 Range/Units 04:43 13:15 Sodium 127 L (137-145) mmol/L Potassium 3.5 4.1 (3.5-5.1) mmol/L Chloride 89 L (98-107) mmol/L Carbon Dioxide 37 H (22-30) mmol/L BUN 17 (7-17) mg/dL Creatinine 0.28 L (0.52-1.04) mg/dL Glucose 108 H (74-99) mg/dL Calcium 7.9 L (8.4-10.2) mg/dL Total Bilirubin 0.5 (0.2-1.3) mg/dL AST 12 L (14-36) U/L ALT 9 (4-34) U/L Alkaline Phosphatase 107 (38-126) U/L Total Protein 4.1 L (6.3-8.2) g/dL Albumin 2.0 L (3.5-5.0) g/dL
[2023-10-16 16:53] LABS: Glucose,Whole Blood 108 mg/dL (70-110)
[2023-10-16 17:43] LABS: Glucose,Whole Blood 110 mg/dL (70-110)
[2023-10-17 00:11] LABS: Glucose,Whole Blood 69 mg/dL (70-110)
[2023-10-17] MEDS: DEXTROSE 50% SYRINGE 50 ML IVP PRN (00:18)
[2023-10-17 00:48] LABS: Glucose,Whole Blood 135 mg/dL (70-110)
[2023-10-17 05:03] LABS: HCT 31.3 % (34.0-46.0); HGB 9.8 gm/dL (11.4-16.0); Hypochromasia Moderate; MCHC 31.4 g/dL (31.0-37.0); MCV 98.9 fL (80.0-100.0); Mean Platelet Volume 8.1; Platelet Count 117 k/uL (150-450); RBC 3.17 m/uL (3.80-5.40); RDW 13.5 % (11.5-15.5); WBC 5.6 k/uL (3.8-10.6)
[2023-10-17 05:17] LABS: African American GFR (CKD) >90 (>60 ml/min/1.73 sqM); Anion Gap -5 mmol/L; Blood Urea Nitrogen 17 mg/dL (7-17); Calcium 7.7 mg/dL (8.4-10.2); Carbon Dioxide 38 mmol/L (22-30); Chloride 92 mmol/L (98-107); Glucose 100 mg/dL (74-99); Non-African American GFR(CKD) >90 (>60 ml/min/1.73 sqM); Potassium 3.6 mmol/L (3.5-5.1); Sodium 125 mmol/L (137-145)
[2023-10-17 05:19] LABS: ABG Base Excess 13.2 mmol/L; ABG HCO3 39 mmol/L (21-25); ABG Oxygen Saturation 99.3 % (94-97); ABG PCO2 59 mmHg (35-45); ABG PH 7.43 (7.35-7.45); ABG PO2 121 mmHg (83-108); ABG TCO2 41 mmol/L (19-24); Allen Test Performed? Yes
[2023-10-17 06:23] LABS: Glucose,Whole Blood 93 mg/dL (70-110)
[2023-10-17] MEDS: POTASSIUM CHLORIDE 10 MEQ in WATER FOR INJECTION 1 100ML.BAG IVPB SCH (06:25)
--- NOTE | 2023-10-17 09:21 | XR ---
EXAMINATION TYPE: XR chest 1V portable DATE OF EXAM: 10/17/2023 Comparison: 10/16/2023 Clinical History: 73-year-old female mechanical ventilation Findings: ET tube tip 3.8 cm from the isak. Left subclavian CVC tip lower SVC. NG tube courses below the diap hragm. Heart upper limits of normal in size. Increasing patchy and interstitial opacity medial left u pper lobe. Ongoing dense retrocardiac opacity and extensive right lower lung opacity. Impression: Ongoing dense retrocardiac opacity and extensive right lower lobe opacity. Worsening patchy and inter stitial changes left suprahilar region.
--- NOTE | 2023-10-17 10:06 | P.PN ---
Subjective Progress Note Date: 10/16/23 Acute hypoxic and hypercapnic respiratory failure secondary to acute COPD exacerbation and extensive left-sided pneumonia. Patient was eval on 09/30/2023, patient has been on BiPAP for the last few days while in the ICU, Patient has been on 100% BiPAP with IPAP of 12 and EPAP of 6, however she developed worsening pulmonary status this morning, in spite of being on 100% FiO2, patient had her O2 saturation down in the low 70s. Patient was intubated, underwent bronchoscopy with lavage 09/30. Patient seen examined. Currently intubated. Currently on IV Zosyn. Vital signs stable 10/01. Patient seen and examined. Patient currently going through SBT, patient opening eyes. 10/02. Patient seen and examined. Patient extubated this morning. 10/03. Patient seen and examined. Sitting upright in the bed. States she feels much better. Currently on 5 l of oxygen. Denies any shortness of breath at rest.Blood work done this morning showed WBC 13.3, hemoglobin 13.6, sodium 35, potassium 3.8, BUN 25, creatinine 0.31 10/04. Patient seen and examined. Sitting upright in the chair, currently on 5 L of oxygen. Being transferred out of ICU. 10/05--patient was examined today, currently on 5 L nasal cannula oxygen. On IV fluids. Currently on Symbicort and prednisone. WBCs 18.3, hemoglobin 13.5, platelet normal. Creatinine and BUN unremarkable. CO2 33. Ultrasound venous ordered to rule out DVT, noted left lower extremity edema. Initially was diagnosed with left lung pneumonia, not on antibiotics anymore. 10/06--patient was seen and examined today. Awake and alert x 3. Currently on 5 L oxygen. Currently on IV fluids. Ultrasound venous negative for DVT. Currently on DuoNebs Symbicort and prednisone. Labs reviewed, WBC 16.9, hemoglobin 14.3, platelet 137. BMP unremarkable. PT/OT consulted and pending. 10/07--patient was seen and examined today. Remains on 5 L oxygen. WBCs tr ending down 14.08. Hemoglobin 12.4, platelets 140. BMP is unremarkable. [place] level less than 0.10. Discontinue IV fluids. 10/08--patient's seen and examined today. Patient respiratory status gradually improving, patient required to intubation previously, last extubated on 10/03/2023, currently on 2 L oxygen as compared to 5 L yesterday. Patient reported feeling better. Shortness of breath is improving. Patient currently on prednisone burst taper. Pulmonary on board and following. PT/OT consulted. 10/10/2023 Patient is seen this morning and was just re-intubated and brought to the ICU as patient was continued on airvo at 100% and having continuous low pulse ox readings. This will be the third intubation this admission. Patient is also continued on antibiotics for pneumonia. Overall prognosis is guarded at this time. 10/11/2023 Patient is seen and evaluated in follow-up in the ICU and was brought here yesterday for reintubation. Patient continues on mechanical ventilation and sedation with an FiO2 of 40% and PEEP is 10. No plans for weaning trials at this time. Patient continues to require pressor support and attempting to wean. Chest x-ray today shows stable bilateral consolidation and small effusion to correlate for CHF otherwise consider pneumonia. Patient is maintained on IV antibiotics in the form of cefepime and Vanco with infectious disease following. Potassium was on the lower side yesterday after replacement potassium is 3.7 today and kidney functions within normal limits, sodium is 134. Blood sugars being monitored and will continue current regimen. Adjust insulins accordingly. 10/12/2023 Patient is seen in follow-up continues to be on mechanical ventilation FiO2 is 40% with a PEEP of 10 and is off propofol currently awake and responding to c ommands appropriately and per pulmonary marble machine operator, plan on extubation today. Patient will likely require BiPAP and will follow-up with repeat chest x-ray. Patient continues to require low-dose blood pressure support. Patient to continue on antibiotics and sputum is positive for E. coli. Overall prognosis is guarded and per nursing staff patient and patient family would want reintubation and all measures done and remain full code. 10/12. Seen and examined. Currently on 6 L of oxygen. Still in the ICU. States she feels slightly better. 10/13. Patient seen and examined.Vital signs on this morning show temperature 97.7, heart rate 82, respiration 18, patient was intubated overnight. Underwent bronchoscopy this morning. 10/15/2023 Patient is seen in follow-up continues to be in the ICU and has been reintubated. continues on low dose pressor support and being weaned. Family to discuss further regarding treatment plan moving forward. Patient did report previously she did not want a tracheostomy. Brother is her power of admitted attorneys. Overall prognosis is extremely poor and guarded at this time. 10/16/2023 Patient is seen in follow-up remains on mechanical ventilation and pressor support and propofol and patient family would like to proceed with tracheostomy and PEG tube placement and general surgery is now consulted. Patient is continued on antibiotics for pneumonia. REVIEW OF SYSTEMS: Unable to completely assess as patient is re-intubated and sedated PHYSICAL EXAMINATION: GENERAL: The patient is on mechanical ventilation currently on sedation ill appearing, elderly appearing, FiO2 is. 45% with a PEEP of 8 HEENT: EOMI, Sclerae anicteric, Moist Mucous membranes RESP: diminished breath sounds bilaterally with course rhonchi noted and expiratory wheezing noted as well CARDIOVASCULAR: S1, S2 present. No murmurs, rubs, or gallops. ABDOMEN: Soft, nontender, nondistended, normoactive bowel sounds. No guarding or rebound tenderness. MUSCULOSKELETAL: + LLE edema, No cyanosis. No clubbing. Normal ROM. Intact peripheral pulses. EXTREMITIES: No cyanosis, clubbing, or pedal edema. NEUROLOGICAL: unable to completely assess as patient remains on propofol and is sedated Skin: No Rash Assessment: Acute on chronic hypoxic and hypercapnic respiratory failure, multifactorial, requiring intubation mechanical ventilation last week, and reintubation on 09/29, extubated 10/02, now requiring intubation again 10/10/23, extubated although required reintubation 10/13 Acute COPD exacerbation Left lung pneumonia, possibly hospital-acquired pneumonia with complete opacification of the left lung secondary to mucous plugging, requiring bronchoscopy and BAL of the left lung. Chronic hypoxic and hypercapnic respiratory failure Chronic pain syndrome Sinus rhythm with PVCs Severe pulmonary hypertension Hyperlipidemia Diabetes mellitus History of GERD Hypothyroidism History of osteoarthritis GI and DVT prophylaxis Full code Plan: Patient with multiple consultations following including pulmonary marble machine operator and infectious disease maintained on antibiotics in the form of cefepime and vancomycin Patient also continues on breathing inhalational treatments and remains on mechanical ventilation. Patient has been re-intubated x4 this admission. Initially patient was adamant she was not receiving a tracheostomy and discussion was had with marble machine operator along with family and brother power of admitted attorneys and general surgery is being consulted for tracheostomy and PEG tube placement. Tentatively scheduled for 10/17/2023 Blood sugars being monitored and will continue current regimen Chest x-ray with stable pleural effusions and will follow-up with repeat chest x-ray daily Currently, CODE STATUS is full code patient apparently has a family member that is a power of admitted attorneys, her brother and per nursing staff patient and family continue to want to be reintubated if needed and wished to remain full code. per nursing staff and patient, she did not want to have a tracheostomy. Family to discuss further about treatment plan. Due to multiple complex medical issues, overall prognosis is extremely guarded The impression and plan of care has been dictated by Milka Duffy, Nurse Practitioner as directed. Dr. Ethan MD I have performed a history and examination and MDM of this patient, discussed the same with the dictator, and agree with the dictator's assessment and plan as written ,documented as a scribe. Based on total visit time, I have performed more than 50% of the visit. Objective - Vital Signs Vital signs: Vital Signs Temp 98.6 F 10/16/23 12:00 Pulse 89 10/16/23 13:00 Resp 25 H 10/16/23 13:00 BP 88/47 10/16/23 02:45 Pulse Ox 97 10/16/23 13:00 FiO2 45 10/16/23 12:00 Intake & Output 10/15/23 10/16/23 10/16/23 18:59 06:59 18:59 Intake Total 824.158 945.244 731.104 Output Total 435 345 260 Balance 389.158 600.244 471.104 Weight 71.3 kg 70.3 kg Intake: IV 473 276 418 .9 KVO 253 276 43 Cefepime 2 gm In Sodium 200 Chloride 0.9% 100 ml @ 25 mls/hr IVPB Q8HR [facility] Rx# :[id number] Sodium Chloride 0.9% 1, 20 000 ml @ 50 mls/hr IV . Q20H [facility] Rx#:[id number] Sodium Chloride 0.9% 1, 375 000 ml @ 75 mls/hr IV . [id number] [facility] Rx#:[id number] Intake, IV Titration 341.158 303.244 46.104 Amount Norepinephrine 8 mg In 37.597 57.548 Sodium Chloride 0.9% 250 ml @ 0.03 MCG/KG/MIN 3. 483 mls/hr IV .Q24H [facility] Rx#:[id number] Vasopressin 20 unit In 48.093 46.104 Sodium Chloride 0.9% 50 ml @ 0.03 UNITS/MIN 4.59 mls/hr IV .[id number] [facility] Rx# :[id number] propofoL 1,000 mg In 255.468 245.696 Empty Bag 1 bag @ 15 MCG/ KG/MIN 6.282 mls/hr IV . [id number] [facility] Rx#:[id number] Tube Feeding 10 276 207 Other 90 60 Output: Urine 435 345 260 Other: Voiding Method Indwelling Catheter Indwelling Catheter Indwelling Catheter ABP, PAP, CO, CI - Last Documented Arterial Blood Pressure 114/64 - Labs CBC & Chem 7: 10/17/23 04:42 10/17/23 04:42 Labs: Abnormal Lab Results - Last 24 Hours (Table) 10/15/23 10/16/23 10/16/23 Range/Units 18:32 04:19 04:43 RBC 3.29 L (3.80-5.40) m/uL Hgb 10.5 L (11.4-16.0) gm/dL Hct 32.0 L (34.0-46.0) % Plt Count 112 L (150-450) k/uL Lymphocytes # 0.5 L (1.0-4.8) k/uL ABG pCO2 59 H (35-45) mmHg ABG HCO3 39 H (21-25) mmol/L ABG Total CO2 41 H (19-24) mmol/L ABG O2 Saturation 97.9 H (94-97) % Sodium (137-145) mmol/L Chloride (98-107) mmol/L Carbon Dioxide (22-30) mmol/L Creatinine (0.52-1.04) mg/dL Glucose (74-99) mg/dL POC Glucose (mg/dL) 112 H (70-110) mg/dL Calcium (8.4-10.2) mg/dL AST (14-36) U/L Total Protein (6.3-8.2) g/dL Albumin (3.5-5.0) g/dL 10/16/23 10/16/23 Range/Units 04:43 13:17 RBC (3.80-5.40) m/uL Hgb (11.4-16.0) gm/dL Hct (34.0-46.0) % Plt Count (150-450) k/uL Lymphocytes # (1.0-4.8) k/uL ABG pCO2 (35-45) mmHg ABG HCO3 (21-25) mmol/L ABG Total CO2 (19-24) mmol/L ABG O2 Saturation (94-97) % Sodium 127 L (137-145) mmol/L Chloride 89 L (98-107) mmol/L Carbon Dioxide 37 H (22-30) mmol/L Creatinine 0.28 L (0.52-1.04) mg/dL Glucose 108 H (74-99) mg/dL POC Glucose (mg/dL) 118 H (70-110) mg/dL Calcium 7.9 L (8.4-10.2) mg/dL AST 12 L (14-36) U/L Total Protein 4.1 L (6.3-8.2) g/dL Albumin 2.0 L (3.5-5.0) g/dL Microbiology - Last 24 Hours (Table) 10/14/23 08:39 Gram Stain - Preliminary Bronchoalviolar Lavage - Right Bronchial Washings Culture - Preliminary Michelle albicans Gram Neg Bacilli
[2023-10-17 11:51] LABS: Glucose,Whole Blood 89 mg/dL (70-110)
[2023-10-17] MEDS: SODIUM CHLORIDE 3%(HYPERTONIC) 100 ML IV ONE (12:15)
--- NOTE | 2023-10-17 12:37 | P.PN ---
Subjective Progress Note Date: 10/17/23 Principal diagnosis: Acute hypoxic and hypercapnic respiratory failure secondary to acute COPD exacerbation and extensive left-sided pneumonia Patient was eval on 09/30/2023, patient has been on BiPAP for the last few days while in the ICU, however I was notified about this patient this morning becoming much worse clinically. Patient has been on 100% BiPAP with IPAP of 12 and EPAP of 6, however she developed worsening pulmonary status this morning, in spite of being on 100% FiO2, patient had her O2 saturation down in the low 70s. Patient was also noted to be coming more short of breath, and that she was having significant work of breathing. Hence as soon as I was notified about this patient, I recommended immediate intubation by PRINTED CIRCUIT DESIGNER, and I came in and evaluated the patient after she was intubated, reviewed her chest x-ray and I performed bronchoscopy and BAL/therapeutic BAL of the left lung with significant improvement noted after bronchoscopy. Patient also had central line placed since she was hypotensive and requiring norepinephrine. 0.08 mcg/kg/min. Vent ilator settings are assist-control rate of 20, tidal volume 350, FiO2 100% and PEEP of 8 showed a pO2 of 77 pCO2 63 pH of 7.49 no changes were made in the ventilator settings, and advised respiratory to titrate FiO2 accordingly maintaining O2 sats above 91% WBC count today is 8.7 hemoglobin 14.2 hematocrit is 45.6. Electrolytes are normal except for low potassium of 3.2 being addressed and her renal status is normal bicarb is 44 10/13/2023, the patient extubated on 6 L of oxygen by nasal cannula. Overnight, the patient was kept on a BiPAP at a pressure of 10/5 with an FiO2 of 40%. She is weak. She has a weak cough. She has a congested cough. Unable to bring up much sputum. Awake and alert and communicating. Moving all 4 extremities. Has increased edema in all 4 extremities. Remains on IV cefepime and vancomycin. Echocardiogram showed an ejection fraction of 35 to 40%. Blood work from today shows a white cell count of 9.2, hemoglobin of 11.6 and a platelet count of 142. BUN is 40 with a creatinine of 0.2 and sodium levels at 136. Chest x-ray from today was not obtained. Remains on bronchodilators. Remains on oral prednisone. Has extensive third spacing and edema in all 4 extremities. 92,024, the patient is reintubated and this is the patient's fourth intubation. After extubating the patient for the third time, the patient was stable during the day and overnight she decompensated, she had respiratory difficulties and she became hypoxic, tachycardic and in acute respiratory distress. Based on that, the patient was reintubated. I repeated the bronchoscopy and further mucous plugs were identified in her lungs although less abundant compared to previous evaluations. This morning, the patient on propofol at 50 mcg/kg/min. She is on norepinephrine running at 0.33 mcg/kg/min. She is on assist-control mode rate of 16, tidal volume of 350, FiO2 of 70% with a PEEP of 10. Blood gas from this morning showed a pH of 7.44 with a pCO2 of 57 and pO2 112. She is in negative fluid balance. She was given a dose of Lasix yesterday and the patient produced approximately 3 L of urine output. White cell count is at 9.3 with a hemoglobin 9.7 and a platelet count of 134. BUN is 12 with a creatinine of 0.2 and sodium levels at 135 and a potassium level is at 3.1. Blood sugars of 106. Arousable even while on sedation. Patient was evaluated today on 10/15/2023, remains in the ICU, intubated and mechanically ventilated. Patient is on assist-control rate of 16 tidal volume 350 FiO2 50% and PEEP of 10 ABG showed a pO2 of 84 pCO2 63 pH of 7.39 hence FiO2 was cut down to 45% and PEEP cut down to 8. Patient remains quite ill, she has been intubated and extubated multiple times, and I believe the patient will definitely need a tracheostomy. Patient has been in the hospital now for over 3 weeks, and she spent most of the time intubated and mechanically ventilated. Intermittently went off mechanical ventilation, but she had to be reintubated 3- 4 times already. She is on propofol at 50 mcg/kg/min norepinephrine at 0.03, vasopressin at 0.03 units/min, IV fluid at KVO, her last bronchoscopy was 10/13 and she remains on cefepime for E. coli in the sputum. Today I am not weaning the patient, may actually address her mental status, but even if weaned and extubated, the patient will continue to fail, and at this point I am strongly recommending a tracheostomy. Eventually the family needs to be made aware that if her condition gets better down the line, tracheostomy is reversible, and we could have it decannulated down the line. But no plans to continue the same trials of weaning extubating reintubating etc. If the family continues to refuse tracheostomy, then will extubate only if the CODE STATUS has been changed and patient is made DNR CODE STATUS CBC count today is 6 hemoglobin is 10.9. ABG as noted basic metabolic profile is normal renal profile is normal bicarb is 39 chest x-ray showed COPD and interval worsening of bibasilar airspace disease with possibly a small right-sided pleural effusion and bilateral interstitial densities persisting. Patient is still hemodynamically unstable, still requiring pressors, remains on cefepime, remains on bronchodilators, remains on GI DVT prophylaxis, and she is also on enteral feeding/nutritional support. Patient was evaluated today on 10/16/2023, remains in the ICU, intubated and mec hanically ventilated, patient is on assist-control rate of 16 tidal volume 350 FiO2 45% and PEEP of 8 ABG showed a pO2 of 90 pCO2 59 pH of 7.43. Patient is still requiring norepinephrine at 0.02 mcg/kg/min, she is on propofol at 50 mcg/kg/min vasopressin at 0.02 units/min she is on cefepime for her antibiotics for E. coli pneumonia, she is also on vital AF at 23/23. Patient is sedated, and I requested a meeting with the family today, all family members came today including her boyfriend, and we discussed the need for tracheostomy and PEG tube placement. Family is now agreeable to proceed with tracheostomy and PEG tube placement, and will go ahead and consult general surgery/Dr. vogt for tracheostomy and PEG tube placement. Chest x-ray continues to show a combination of pleural effusions and atelectasis/consolidation specially at the right base. CBC count is 5.5 hemoglobin 10.5, sodium is 127 hence her IV fluid is 0.9 normal saline at 75 cc/h. Potassium is 3.5 bicarb is 37, renal profile is normal Patient was seen today on 10/17/2023, patient remains in the ICU, intubated and mechanically ventilated, patient was supposed to have tracheostomy and PEG tube placement, however sodium drifted down to 125 not responding to 0.9 normal saline, I believe the patient is developing a picture of SIADH, will go back to fluid restriction and in the meantime I am recommending 100 cc of 3% saline, recheck sodium, otherwise anesthesia will not approve tracheostomy and PEG tube placement unless the sodium is above 128. In the meantime the patient is on assist-control rate of 16 tidal volume 350 FiO2 45% and PEEP of 8. ABG showed a pO2 121 pCO2 59 pH of 7.43. Patient is on propofol at 50 mcg/kg/min vasopressin at 0.02 units/min off norepinephrine, patient is still receiving cefepime, IV fluids at KVO, and vital AF . She is presently on hold for tracheostomy and PEG tube placement. WBC count is 5.6 hemoglobin 9.8 ABG as noted earlier sodium 125 BUN is 17 creatinine 0.21, chest x-ray continues to show ongoing dense retrocardiac opacity with extensive right lower lobe opacity, findings consistent with pneumonia patient does have E. coli pneumonia. Objective - Vital Signs Vital signs: Vital Signs Temp 98.1 F 10/17/23 12:00 Pulse 75 10/17/23 12:00 Resp 17 10/17/23 12:00 BP 88/47 10/17/23 07:30 Pulse Ox 97 10/17/23 12:00 FiO2 45 10/17/23 12:00 Intake & Output 10/16/23 10/17/23 10/17/23 18:59 06:59 18:59 Intake Total 8771.646 1984.601 624.828 Output Total 455 640 320 Balance 996.143 846.601 304.828 Weight 72.6 kg Intake: IV 793 900 310 .9 KVO 43 Cefepime 2 gm In Sodium 100 Chloride 0.9% 100 ml @ 25 mls/hr IVPB Q8HR [facility] Rx# :[id number] Sodium Chloride 0.9% 1, 750 900 210 000 ml @ 20 mls/hr IV . Q24H [facility] Rx#:[id number] Intake, IV Titration 246.143 342.601 314.828 Amount Norepinephrine 8 mg In 26.935 21.227 Sodium Chloride 0.9% 250 ml @ 0.03 MCG/KG/MIN 3. 483 mls/hr IV .Q24H [facility] Rx#:[id number] Potassium Chloride 10 meq 200 In Water For Injection 1 100ml.bag @ 100 mls/hr IVPB Q1H [facility] Rx#: [id number] Vasopressin 20 unit In 46.104 51 17.519 Sodium Chloride 0.9% 50 ml @ 0.03 UNITS/MIN 4.59 mls/hr IV .Q11H7M [facility] Rx# :[id number] propofoL 1,000 mg In 173.104 291.601 76.082 Empty Bag 1 bag @ 15 MCG/ KG/MIN 6.282 mls/hr IV . [id number] [facility] Rx#:[id number] Tube Feeding 322 184 Other 90 60 Output: Urine 455 640 320 Other: Voiding Method Indwelling Catheter Indwelling Catheter Indwelling Catheter ABP, PAP, CO, CI - Last Documented Arterial Blood Pressure 109/48 - Exam General: Frail looking female, chronically ill looking, intubated and mechanically ventilated. Skin: Skin is warm and dry and no rashes or lesions are noted. Eye: Pupils are equal, round and reactive to light, extra-ocular movements are intact; there is normal conjunctiva bilaterally. Ears, nose, mouth and throat: There are moist mucous membranes and no oral lesions. Neck: The neck is supple, there is no tenderness or JVD. Tracheal tube and orogastric tube are intact. Cardiovascular: There is a regular rate and rhythm. No murmur, rub or gallop is appreciated. Respiratory: Fine crackles at the bases no rhonchi no wheezes Gastrointestinal: Soft, non-distended, non-tender abdomen without masses or organomegaly noted. There is no rebound or guarding present. Bowel sounds are unremarka Musculoskeletal: frail, and she has significant muscle wasting and atrophy noted bilaterally. Neurological: Could not assess, patient is sedated, on propofol. Psychiatric: Could not assess. - Labs CBC & Chem 7: 10/17/23 04:42 10/17/23 04:42 Labs: Abnormal Lab Results - Last 24 Hours (Table) 10/16/23 10/17/23 10/17/23 Range/Units 13:17 00:10 00:47 RBC (3.80-5.40) m/uL Hgb (11.4-16.0) gm/dL Hct (34.0-46.0) % Plt Count (150-450) k/uL ABG pCO2 (35-45) mmHg ABG pO2 (83-108) mmHg ABG HCO3 (21-25) mmol/L ABG Total CO2 (19-24) mmol/L ABG O2 Saturation (94-97) % Hemoglobin (11.4-16.0) gm/dL Sodium (137-145) mmol/L Chloride (98-107) mmol/L Carbon Dioxide (22-30) mmol/L Creatinine (0.52-1.04) mg/dL Glucose (74-99) mg/dL POC Glucose (mg/dL) 118 H 69 L 135 H (70-110) mg/dL Calcium (8.4-10.2) mg/dL 10/17/23 10/17/23 10/17/23 Range/Units 04:42 04:42 05:18 RBC 3.17 L (3.80-5.40) m/uL Hgb 9.8 L (11.4-16.0) gm/dL Hct 31.3 L (34.0-46.0) % Plt Count 117 L (150-450) k/uL ABG pCO2 59 H (35-45) mmHg ABG pO2 121 H (83-108) mmHg ABG HCO3 39 H (21-25) mmol/L ABG Total CO2 41 H (19-24) mmol/L ABG O2 Saturation 99.3 H (94-97) % Hemoglobin 9.9 L (11.4-16.0) gm/dL Sodium 125 L (137-145) mmol/L Chloride 92 L (98-107) mmol/L Carbon Dioxide 38 H (22-30) mmol/L Creatinine 0.21 L (0.52-1.04) mg/dL Glucose 100 H (74-99) mg/dL POC Glucose (mg/dL) (70-110) mg/dL Calcium 7.7 L (8.4-10.2) mg/dL Microbiology - Last 24 Hours (Table) 10/14/23 08:39 Gram Stain - Final Bronchoalviolar Lavage - Right Bronchial Washings Culture - Final Michelle albicans Escherichia coli Assessment and Plan Assessment: Impression: Acute on chronic hypoxic and hypercapnic respiratory failure, multifactorial, requiring reintubation for the first time on 10/10/2023, multiple bronchoscopies has been performed for left lung collapse and pneumonia patient is on combination of cefepime patient was extubated on 10/11 and had to be reintubated on 10/12 mostly secondary to mucous plugging. And the patient could not clear her secretions Left lung collapse secondary to mucous plugs and left lower lobe pneumonia requiring multiple bronchoscopies Advanced COPD with acute COPD exacerbation Acute COPD exacerbation Chronic pain syndrome Chronic systolic congestive heart failure Hypotension secondary to sepsis and septic shock requiring pressors and she remains on pressors today. Profound weakness and debility with multiple comorbidities as noted above. Recommendations: Proceed with plans for tracheostomy and PEG tube placement this is rescheduled for tomorrow since her sodium is low and we will try to address her low sodium by giving the patient 3% saline Continue ventilatory support Continue hemodynamic support Continue antibiotics/cefepime Nutritional support/enteral feeding Continue GI and DVT prophylaxis Continue bronchodilators and steroids Continue monitoring daily chest x-rays and daily ABGs Patient is extremely ill will strongly recommend tracheostomy and PEG tube placement Discussed her condition with surgery on the case and the case was postponed till tomorrow Her condition was discussed with family yesterday., All aware that prognosis remains extremely poor and guarded but not willing to go to comfort care measures yet. Critical care time is over 30 minutes Time with Patient: Greater than 30
--- NOTE | 2023-10-17 13:19 | P.PN ---
Subjective Progress Note Date: 10/17/23 CHIEF COMPLAINT: Respiratory failure HISTORY OF PRESENT ILLNESS: Patient remains in the ICU on mechanical ventilation. Patient has had multiple reintubation's. Surgical service following for trach and PEG placement. Patient's sodium is low today. Discussed with critical care service. They are giving patient 3% saline. Afebrile. WBC 5.6 Hgb 9.8 sodium 125 PHYSICAL EXAM: VITAL SIGNS: Reviewed. GENERAL: Intubated and sedated ABDOMEN: Soft. Nondistended. ASSESSMENT: 1. Acute on chronic hypoxic and hypercapnic respiratory failure and unable to wean from vent 2. Severe protein calorie malnutrition 3. Pneumonia and mucous plugging 4. COPD exacerbation 5. Hyponatremia PLAN: -Patient scheduled for tracheostomy and PEG tube placement tomorrow 10/18/[address] Sanchez -Hold tube feeds after midnight -Hold subcu heparin in a.m. -Hyponatremia management per critical care service -Repeat sodium level in a.m. Physician Butadiene Convertor Operator note has been reviewed by physician. Signing provider agrees with the documented findings, assessment, and plan of care. Objective - Vital Signs Vital signs: Vital Signs Temp 98.1 F 10/17/23 12:00 Pulse 75 10/17/23 12:00 Resp 17 10/17/23 12:00 BP 88/47 10/17/23 07:30 Pulse Ox 97 10/17/23 12:00 FiO2 45 10/17/23 12:00 Intake & Output 10/16/23 10/17/23 10/17/23 18:59 06:59 18:59 Intake Total 6853.682 3469.601 624.828 Output Total 455 640 320 Balance 996.143 846.601 304.828 Weight 72.6 kg Intake: IV 793 900 310 .9 KVO 43 Cefepime 2 gm In Sodium 100 Chloride 0.9% 100 ml @ 25 mls/hr IVPB Q8HR [facility] Rx# :[id number] Sodium Chloride 0.9% 1, 750 900 210 000 ml @ 20 mls/hr IV . Q24H [facility] Rx#:[id number] Intake, IV Titration 246.143 342.601 314.828 Amount Norepinephrine 8 mg In 26.935 21.227 Sodium Chloride 0.9% 250 ml @ 0.03 MCG/KG/MIN 3. 483 mls/hr IV .Q24H [facility] Rx#:[id number] Potassium Chloride 10 meq 200 In Water For Injection 1 100ml.bag @ 100 mls/hr IVPB Q1H [facility] Rx#: [id number] Vasopressin 20 unit In 46.104 51 17.519 Sodium Chloride 0.9% 50 ml @ 0.03 UNITS/MIN 4.59 mls/hr IV .Q11H7M [facility] Rx# :[id number] propofoL 1,000 mg In 173.104 291.601 76.082 Empty Bag 1 bag @ 15 MCG/ KG/MIN 6.282 mls/hr IV . [id number] [facility] Rx#:[id number] Tube Feeding 322 184 Other 90 60 Output: Urine 455 640 320 Other: Voiding Method Indwelling Catheter Indwelling Catheter Indwelling Catheter ABP, PAP, CO, CI - Last Documented Arterial Blood Pressure 109/48 - Labs CBC & Chem 7: 10/17/23 04:42 10/17/23 04:42 Labs: Abnormal Lab Results - Last 24 Hours (Table) 10/16/23 10/17/23 10/17/23 Range/Units 13:17 00:10 00:47 RBC (3.80-5.40) m/uL Hgb (11.4-16.0) gm/dL Hct (34.0-46.0) % Plt Count (150-450) k/uL ABG pCO2 (35-45) mmHg ABG pO2 (83-108) mmHg ABG HCO3 (21-25) mmol/L ABG Total CO2 (19-24) mmol/L ABG O2 Saturation (94-97) % Hemoglobin (11.4-16.0) gm/dL Sodium (137-145) mmol/L Chloride (98-107) mmol/L Carbon Dioxide (22-30) mmol/L Creatinine (0.52-1.04) mg/dL Glucose (74-99) mg/dL POC Glucose (mg/dL) 118 H 69 L 135 H (70-110) mg/dL Calcium (8.4-10.2) mg/dL 10/17/23 10/17/23 10/17/23 Range/Units 04:42 04:42 05:18 RBC 3.17 L (3.80-5.40) m/uL Hgb 9.8 L (11.4-16.0) gm/dL Hct 31.3 L (34.0-46.0) % Plt Count 117 L (150-450) k/uL ABG pCO2 59 H (35-45) mmHg ABG pO2 121 H (83-108) mmHg ABG HCO3 39 H (21-25) mmol/L ABG Total CO2 41 H (19-24) mmol/L ABG O2 Saturation 99.3 H (94-97) % Hemoglobin 9.9 L (11.4-16.0) gm/dL Sodium 125 L (137-145) mmol/L Chloride 92 L (98-107) mmol/L Carbon Dioxide 38 H (22-30) mmol/L Creatinine 0.21 L (0.52-1.04) mg/dL Glucose 100 H (74-99) mg/dL POC Glucose (mg/dL) (70-110) mg/dL Calcium 7.7 L (8.4-10.2) mg/dL Microbiology - Last 24 Hours (Table) 10/14/23 08:39 Gram Stain - Final Bronchoalviolar Lavage - Right Bronchial Washings Culture - Final Michelle albicans Escherichia coli
[2023-10-17 17:36] LABS: Glucose,Whole Blood 78 mg/dL (70-110)
[2023-10-17 20:33] LABS: Glucose,Whole Blood 82 mg/dL (70-110)
[2023-10-17 23:34] LABS: Glucose,Whole Blood 72 mg/dL (70-110)
--- NOTE | 2023-10-18 05:26 | P.PN ---
Subjective Progress Note Date: 10/17/23 Acute hypoxic and hypercapnic respiratory failure secondary to acute COPD exacerbation and extensive left-sided pneumonia. Patient was eval on 09/30/2023, patient has been on BiPAP for the last few days while in the ICU, Patient has been on 100% BiPAP with IPAP of 12 and EPAP of 6, however she developed worsening pulmonary status this morning, in spite of being on 100% FiO2, patient had her O2 saturation down in the low 70s. Patient was intubated, underwent bronchoscopy with lavage 09/30. Patient seen examined. Currently intubated. Currently on IV Zosyn. Vital signs stable 10/01. Patient seen and examined. Patient currently going through SBT, patient opening eyes. 10/02. Patient seen and examined. Patient extubated this morning. 10/03. Patient seen and examined. Sitting upright in the bed. States she feels much better. Currently on 5 l of oxygen. Denies any shortness of breath at rest.Blood work done this morning showed WBC 13.3, hemoglobin 13.6, sodium 35, potassium 3.8, BUN 25, creatinine 0.31 10/04. Patient seen and examined. Sitting upright in the chair, currently on 5 L of oxygen. Being transferred out of ICU. 10/05--patient was examined today, currently on 5 L nasal cannula oxygen. On IV fluids. Currently on Symbicort and prednisone. WBCs 18.3, hemoglobin 13.5, platelet normal. Creatinine and BUN unremarkable. CO2 33. Ultrasound venous ordered to rule out DVT, noted left lower extremity edema. Initially was diagnosed with left lung pneumonia, not on antibiotics anymore. 10/06--patient was seen and examined today. Awake and alert x 3. Currently on 5 L oxygen. Currently on IV fluids. Ultrasound venous negative for DVT. Currently on DuoNebs Symbicort and prednisone. Labs reviewed, WBC 16.9, hemoglobin 14.3, platelet 137. BMP unremarkable. PT/OT consulted and pending. 10/07--patient was seen and examined today. Remains on 5 L oxygen. WBCs tr ending down 14.08. Hemoglobin 12.4, platelets 140. BMP is unremarkable. [place] level less than 0.10. Discontinue IV fluids. 10/08--patient's seen and examined today. Patient respiratory status gradually improving, patient required to intubation previously, last extubated on 10/03/2023, currently on 2 L oxygen as compared to 5 L yesterday. Patient reported feeling better. Shortness of breath is improving. Patient currently on prednisone burst taper. Pulmonary on board and following. PT/OT consulted. 10/10/2023 Patient is seen this morning and was just re-intubated and brought to the ICU as patient was continued on airvo at 100% and having continuous low pulse ox readings. This will be the third intubation this admission. Patient is also continued on antibiotics for pneumonia. Overall prognosis is guarded at this time. 10/11/2023 Patient is seen and evaluated in follow-up in the ICU and was brought here yesterday for reintubation. Patient continues on mechanical ventilation and sedation with an FiO2 of 40% and PEEP is 10. No plans for weaning trials at this time. Patient continues to require pressor support and attempting to wean. Chest x-ray today shows stable bilateral consolidation and small effusion to correlate for CHF otherwise consider pneumonia. Patient is maintained on IV antibiotics in the form of cefepime and Vanco with infectious disease following. Potassium was on the lower side yesterday after replacement potassium is 3.7 today and kidney functions within normal limits, sodium is 134. Blood sugars being monitored and will continue current regimen. Adjust insulins accordingly. 10/12/2023 Patient is seen in follow-up continues to be on mechanical ventilation FiO2 is 40% with a PEEP of 10 and is off propofol currently awake and responding to c ommands appropriately and per pulmonary material engineer, plan on extubation today. Patient will likely require BiPAP and will follow-up with repeat chest x-ray. Patient continues to require low-dose blood pressure support. Patient to continue on antibiotics and sputum is positive for E. coli. Overall prognosis is guarded and per nursing staff patient and patient family would want reintubation and all measures done and remain full code. 10/12. Seen and examined. Currently on 6 L of oxygen. Still in the ICU. States she feels slightly better. 10/13. Patient seen and examined.Vital signs on this morning show temperature 97.7, heart rate 82, respiration 18, patient was intubated overnight. Underwent bronchoscopy this morning. 10/15/2023 Patient is seen in follow-up continues to be in the ICU and has been reintubated. continues on low dose pressor support and being weaned. Family to discuss further regarding treatment plan moving forward. Patient did report previously she did not want a tracheostomy. Brother is her power of commercial litigation attorney. Overall prognosis is extremely poor and guarded at this time. 10/16/2023 Patient is seen in follow-up remains on mechanical ventilation and pressor support and propofol and patient family would like to proceed with tracheostomy and PEG tube placement and general surgery is now consulted. Patient is continued on antibiotics for pneumonia. 10/17/2023 Patient is seen in follow-up today remains on mechanical ventilation and schedu led to undergo tracheostomy and PEG tube placement with general surgery today although sodium was noted to be low at 125 today and being corrected. Surgery being rescheduled for 10/18/2023. Patient remains on mechanical ventilation at 45% and PEEP is 8 with no changes at this time. Patient tolerating tube feedings thus far and will be held at midnight. REVIEW OF SYSTEMS: Unable to completely assess as patient is re-intubated and sedated PHYSICAL EXAMINATION: GENERAL: The patient is on mechanical ventilation currently on sedation ill appearing, elderly appearing, FiO2 is. 45% with a PEEP of 8 HEENT: EOMI, Sclerae anicteric, Moist Mucous membranes RESP: diminished breath sounds bilaterally with course rhonchi noted and expiratory wheezing noted as well CARDIOVASCULAR: S1, S2 present. No murmurs, rubs, or gallops. ABDOMEN: Soft, nontender, nondistended, normoactive bowel sounds. No guarding or rebound tenderness. MUSCULOSKELETAL: + LLE edema, No cyanosis. No clubbing. Normal ROM. Intact peripheral pulses. EXTREMITIES: No cyanosis, clubbing, or pedal edema. NEUROLOGICAL: unable to completely assess as patient remains on propofol and is sedated Skin: No Rash Assessment: Acute on chronic hypoxic and hypercapnic respiratory failure, multifactorial, requiring intubation mechanical ventilation last week, and reintubation on 09/29, extubated 10/02, now requiring intubation again 10/10/23, extubated although required reintubation 10/13 Acute COPD exacerbation Left lung pneumonia, possibly hospital-acquired pneumonia with complete opacification of the left lung secondary to mucous plugging, requiring bronchoscopy and BAL of the left lung. Chronic hypoxic and hypercapnic respiratory failure Chronic pain syndrome Sinus rhythm with PVCs Severe pulmonary hypertension Hyperlipidemia Diabetes mellitus History of GERD Hypothyroidism Severe protein calorie malnutrition History of osteoarthritis GI and DVT prophylaxis Full code Plan: Patient with multiple consultations following including pulmonary material engineer and infectious disease maintained on antibiotics in the form of cefepime and vancomycin Patient also continues on breathing inhalational treatments and remains on mechanical ventilation. Patient has been re-intubated x4 this admission. Initially patient was adamant she was not receiving a tracheostomy and discussion was had with material engineer along with family and brother power of commercial litigation attorney and general surgery is being consulted for tracheostomy and PEG tube placement. Was scheduled for today although patient sodium was low at 125 and being corrected. Surgery tentatively scheduled for 10/18/2023 Blood sugars being monitored and will continue current regimen Chest x-ray with stable pleural effusions and will follow-up with repeat chest x-ray daily Currently, CODE STATUS is full code patient apparently has a family member that is a power of commercial litigation attorney, her brother and per nursing staff patient and family continue to want to be reintubated if needed and wished to remain full code. per nursing staff and patient, she did not want to have a tracheostomy. Family to discuss further about treatment plan and they would like to proceed with tracheostomy and PEG tube placement. Due to multiple complex medical issues, overall prognosis is extremely guarded The impression and plan of care has been dictated by Milka Duffy, Nurse Practitioner as directed. Dr. Ethan MD I have performed a history and examination and MDM of this patient, discussed the same with the dictator, and agree with the dictator's assessment and plan as written ,documented as a scribe. Based on total visit time, I have performed more than 50% of the visit. Objective - Vital Signs Vital signs: Vital Signs Temp 98.6 F 10/17/23 07:30 Pulse 72 10/17/23 09:06 Resp 21 10/17/23 09:06 BP 88/47 10/17/23 07:30 Pulse Ox 98 10/17/23 09:06 FiO2 45 10/17/23 09:11 Intake & Output 10/16/23 10/17/23 10/17/23 18:59 06:59 18:59 Intake Total 5024.933 9026.601 538.526 Output Total 455 640 180 Balance 996.143 846.601 358.526 Weight 72.6 kg Intake: IV 793 900 250 .9 KVO 43 Cefepime 2 gm In Sodium 100 Chloride 0.9% 100 ml @ 25 mls/hr IVPB Q8HR SHIRA Rx# :[id number] Sodium Chloride 0.9% 1, 750 900 150 000 ml @ 20 mls/hr IV . Q24H SHIRA Rx#:[id number] Intake, IV Titration 246.143 342.601 288.526 Amount Norepinephrine 8 mg In 26.935 Sodium Chloride 0.9% 250 ml @ 0.03 MCG/KG/MIN 3. 483 mls/hr IV .Q24H SHIRA Rx#:[id number] Potassium Chloride 10 meq 200 In Water For Injection 1 100ml.bag @ 100 mls/hr IVPB Q1H SHIRA Rx#: [id number] Vasopressin 20 unit In 46.104 51 12.444 Sodium Chloride 0.9% 50 ml @ 0.03 UNITS/MIN 4.59 mls/hr IV .Q11H7M SHIRA Rx# :[id number] propofoL 1,000 mg In 173.104 291.601 76.082 Empty Bag 1 bag @ 15 MCG/ KG/MIN 6.282 mls/hr IV . [id number] SHIRA Rx#:[id number] Tube Feeding 322 184 Other 90 60 Output: Urine 455 640 180 Other: Voiding Method Indwelling Catheter Indwelling Catheter Indwelling Catheter ABP, PAP, CO, CI - Last Documented Arterial Blood Pressure 107/49 - Labs CBC & Chem 7: 10/17/23 04:42 10/17/23 17:00 Labs: Abnormal Lab Results - Last 24 Hours (Table) 10/16/23 10/17/23 10/17/23 Range/Units 13:17 00:10 00:47 RBC (3.80-5.40) m/uL Hgb (11.4-16.0) gm/dL Hct (34.0-46.0) % Plt Count (150-450) k/uL ABG pCO2 (35-45) mmHg ABG pO2 (83-108) mmHg ABG HCO3 (21-25) mmol/L ABG Total CO2 (19-24) mmol/L ABG O2 Saturation (94-97) % Hemoglobin (11.4-16.0) gm/dL Sodium (137-145) mmol/L Chloride (98-107) mmol/L Carbon Dioxide (22-30) mmol/L Creatinine (0.52-1.04) mg/dL Glucose (74-99) mg/dL POC Glucose (mg/dL) 118 H 69 L 135 H (70-110) mg/dL Calcium (8.4-10.2) mg/dL 10/17/23 10/17/23 10/17/23 Range/Units 04:42 04:42 05:18 RBC 3.17 L (3.80-5.40) m/uL Hgb 9.8 L (11.4-16.0) gm/dL Hct 31.3 L (34.0-46.0) % Plt Count 117 L (150-450) k/uL ABG pCO2 59 H (35-45) mmHg ABG pO2 121 H (83-108) mmHg ABG HCO3 39 H (21-25) mmol/L ABG Total CO2 41 H (19-24) mmol/L ABG O2 Saturation 99.3 H (94-97) % Hemoglobin 9.9 L (11.4-16.0) gm/dL Sodium 125 L (137-145) mmol/L Chloride 92 L (98-107) mmol/L Carbon Dioxide 38 H (22-30) mmol/L Creatinine 0.21 L (0.52-1.04) mg/dL Glucose 100 H (74-99) mg/dL POC Glucose (mg/dL) (70-110) mg/dL Calcium 7.7 L (8.4-10.2) mg/dL Microbiology - Last 24 Hours (Table) 10/14/23 08:39 Gram Stain - Final Bronchoalviolar Lavage - Right Bronchial Washings Culture - Final Michelle albicans Escherichia coli
[2023-10-18 05:40] LABS: Glucose,Whole Blood 65 mg/dL (70-110)
[2023-10-18 05:45] LABS: ABG Base Excess 15.7 mmol/L; ABG Oxygen Saturation 94.5 % (94-97); ABG PCO2 56 mmHg (35-45); ABG PH 7.48 (7.35-7.45); ABG PO2 63 mmHg (83-108); ABG TCO2 43 mmol/L (19-24); Allen Test Performed? Yes
[2023-10-18 06:07] LABS: ABG HCO3 42 mmol/L (21-25)
[2023-10-18 06:17] LABS: Glucose,Whole Blood 93 mg/dL (70-110)
[2023-10-18 09:07] LABS: Basophils % (A) 0 %; Eosinophils % (A) 1 %; HCT 34.9 % (34.0-46.0); HGB 11.3 gm/dL (11.4-16.0); Lymphocytes # (A) 0.6 k/uL (1.0-4.8); Lymphocytes % (A) 11 %; MCH 31.4 pg (25.0-35.0); MCHC 32.3 g/dL (31.0-37.0); MCV 97.1 fL (80.0-100.0); Monocytes # (A) 0.4 k/uL (0-1.0); Monocytes % (A) 7 %; Neutrophils # (A) 4.3 k/uL (1.3-7.7); Neutrophils % (A) 81 %; Platelet Count 132 k/uL (150-450); WBC 5.3 k/uL (3.8-10.6)
[2023-10-18 09:16] LABS: African American GFR (CKD) >90 (>60 ml/min/1.73 sqM); Blood Urea Nitrogen 11 mg/dL (7-17); Calcium 7.8 mg/dL (8.4-10.2); Chloride 99 mmol/L (98-107); Glucose 82 mg/dL (74-99); Non-African American GFR(CKD) >90 (>60 ml/min/1.73 sqM); Sodium 139 mmol/L (137-145)
[2023-10-18 09:23] LABS: Anion Gap -1 mmol/L
[2023-10-18 09:31] LABS: Carbon Dioxide 41 mmol/L (22-30)
--- NOTE | 2023-10-18 10:25 | CT ---
Patient Roxana Long ID [id number] Order # EXAMINATION TYPE: CT brain florence nobles DATE OF EXAM: 09/21/2023 COMPARISON: No comparison available on downtime PACS. HISTORY: Cardiac arrest found down CT DLP: 304.8 mGycm, Automated exposure control for dose reduction was used. CONTRAST: Patient injected with 0 mL of Isovue 300. CT of the brain is performed utilizing 3 mm thick sections through the posterior fossa and 3 mm thick sections through the remaining calvarium. Endotracheal tube and nasogastric tube are evident. There is some fluid within the right maxillary sinus which could be related to intubation. Study is performed within 24 hours of arrival to the hospital. No abnormal hyperdensity is present to suggest an acute intracranial hemorrhage. No mass lesion is evident. No acute infarcts are evident. Faust-white matter differentiation appears preserved. Ventricles and sulci are appropriate for the patient age. Paranasal sinuses and mastoid air cells within the [id number] are clear. IMPRESSIONS: 1. No acute intracranial process. Follow-up MRI can be performed as clinically indicated. CT cervical spine. COMPARISON: None CT of the cervical spine is performed in the axial plane at 2 mm thick sections. Reconstructed image s in the coronal, and sagittal plane are reviewed on the computer. No acute fractures are evident. Vertebral body alignment is normal. There is loss of disc height throughout the cervical spine greatest at C3-4 through C5-6. Vertebral body heights are preserved. Endplate spurring is present C5-6 with moderate anterior thecal sac compression. Some canal stenosis is present. 0.7 cm. Endplate spurring is present C4-5 the left and right paracentral regions with guero e spinal canal stenosis at those levels. Mild endplate spurring is present C3-4 Uncovertebral joint hypertrophy is present at C3-4, C4-5 [id number] foraminal stenosis. IMPRESSION: 1. Degenerative disc changes with uncovertebral joint hypertrophy contributing to foraminal narrowing . 2. Posterior endplate spurring C3-4 C4-5 C5-6. This has spinal canal stenosis at C5-6
--- NOTE | 2023-10-18 10:26 | CT ---
Patient Roxana Long ID [id number] Order # CTA CHEST EXAMINATION TYPE: CT angio chest DATE OF EXAM: 09/21/2023 INDICATION: Cardiac arrest CT DLP: 99.1 mGycm, Automated exposure control for dose reduction was used. CONTRAST: Patient injected with 100 mL of Isovue 300. COMPARISON: No pertinent comparison TECHNIQUE: CT of the chest is performed on a spiral scan at 2 mm thick sections. Study is performed with intravenous contrast timed for evaluation for pulmonary embolism. This will limit additional po rtions of the evaluation. 3-D MIP images reconstructed by the technologist are reviewed on the compu ter in the coronal and sagittal planes. FINDINGS: Endotracheal tube is present with the tip below the vocal cord level above the isak. Naso gastric tube transverses the thorax with the tip in the left upper quadrant of the abdomen stomach. No persistent filling defects are evident to suggest an acute pulmonary embolism. No mediastinal or hilar adenopathy enlarged by CT criteria is evident. The ascending aorta diameter at the level of the main pulmonary artery is 3.2 cm. The main pulmonary artery diameter at the bifurcation is 3.4 cm. Correlate for pulmonary hypertension Centimeters changes are present. Some mild atelectasis at the left base. Minimal left pleural effusio n may be present. Limited CT sections were through the upper abdomen. Please see CT abdomen and pelvis same date. IMPRESSION: 1. No acute pulmonary embolism. 2. Minimal left basilar atelectasis minimal left pleural effusion. 3. Lines and catheters discussed above.
--- NOTE | 2023-10-18 10:26 | CT ---
Patient Roxana Long ID [id number] Order # EXAMINATION TYPE: CT abdomen pelvis w con DATE OF EXAM: 09/21/2023 COMPARISON: No comparison available on downtime PACS. INDICATION: Cardiac arrest DLP: 99.1 mGycm, Automated exposure control for dose reduction was used. CONTRAST: 100 mL of Isovue 370. Study performed without Oral Contrast TECHNIQUE: Axial images were obtained from above the diaphragm to the pubic rami in the axial plane a t 5 mm thick sections. Reconstructed images are reviewed on the computer in the coronal plane. FINDINGS: Limited CT sections are obtained the lung bases. Streak opacities in the posterior left lung base li nelida on the basis of atelectasis. Nasogastric tube is evident within the distal esophagus entering the stomach.. CT ABDOMEN:There is some free fluid within the abdomen. Some fluid surrounds the gallbladder. Fluid i s the right paracolic gutter. Fluid extends into the pelvis. Liver: Liver appears somewhat heterogenous. This appears to be related to some biliary dilatation. Spleen: Normal Pancreas: Normal Adrenal glands: The adrenal glands are normal. Gallbladder: Normal Kidneys: No masses are evident. No hydronephrosis is present. There is a large cyst at the inferior pole right kidney measuring 7.5 cm in size. Delayed images were obtained through the kidneys, which remain unremarkable. Aorta: Vascular calcification is within the aorta. There may be some fusiform prominence of the abdo [place] aorta measuring 3.3 x 3.0 cm. Some mild prominence of the right common iliac artery is noted. Inferior vena cava: Normal. CT PELVIS: Loops of bowel within the abdomen and pelvis are normal. There are loops of bowel which are incom pletely distended or lack oral contrast limiting their evaluation. Fecal debris is within the rectum. Appendix: Normal as visualized. Urinary bladder: Decompressed with Yoo catheter. Genitourinary structures: Uterus is not identified. Adnexal regions appear normal. There may be some collateral vascular flow within the left pelvis. Osseous structures: No suspicious lytic or sclerotic lesions. IMPRESSION: 1. Free fluid within the right paracolic gutter around the gallbladder and within the pelvis is nons pecific. 2. Fusiform prominence of the abdominal aorta up to 3 cm. Some mild prominence of the right common il iac is also present. 3. Fecal bolus in the rectum.
[2023-10-18] MEDS: SODIUM CHLORIDE 0.9% 500 ML 500 ML IV ONE (11:37)
[2023-10-18] MEDS ORDERED: PROPOFOL 10 MG/ML 20 ML VIAL IV ONE (11:40)
[2023-10-18] MEDS ORDERED: ROCURONIUM 10 MG/ML (5 ML VIAL) IV ONE (11:40)
[2023-10-18] MEDS ORDERED: KETAMINE HCL IN 0.9 % NACL 50 MG/5 ML SYRINGE ONE (11:40)
[2023-10-18] MEDS ORDERED: MIDAZOLAM 2 MG/2 ML VIAL ONE (11:40)
--- NOTE | 2023-10-18 12:05 | P.PN ---
Subjective Progress Note Date: 10/18/23 Principal diagnosis: Acute hypoxic and hypercapnic respiratory failure secondary to acute COPD exacerbation and extensive left-sided pneumonia Patient was eval on 09/30/2023, patient has been on BiPAP for the last few days while in the ICU, however I was notified about this patient this morning becoming much worse clinically. Patient has been on 100% BiPAP with IPAP of 12 and EPAP of 6, however she developed worsening pulmonary status this morning, in spite of being on 100% FiO2, patient had her O2 saturation down in the low 70s. Patient was also noted to be coming more short of breath, and that she was having significant work of breathing. Hence as soon as I was notified about this patient, I recommended immediate intubation by [employer], and I came in and evaluated the patient after she was intubated, reviewed her chest x-ray and I performed bronchoscopy and BAL/therapeutic BAL of the left lung with significant improvement noted after bronchoscopy. Patient also had central line placed since she was hypotensive and requiring norepinephrine. 0.08 mcg/kg/min. Vent ilator settings are assist-control rate of 20, tidal volume 350, FiO2 100% and PEEP of 8 showed a pO2 of 77 pCO2 63 pH of 7.49 no changes were made in the ventilator settings, and advised respiratory to titrate FiO2 accordingly maintaining O2 sats above 91% WBC count today is 8.7 hemoglobin 14.2 hematocrit is 45.6. Electrolytes are normal except for low potassium of 3.2 being addressed and her renal status is normal bicarb is 44 10/13/2023, the patient extubated on 6 L of oxygen by nasal cannula. Overnight, the patient was kept on a BiPAP at a pressure of 10/5 with an FiO2 of 40%. She is weak. She has a weak cough. She has a congested cough. Unable to bring up much sputum. Awake and alert and communicating. Moving all 4 extremities. Has increased edema in all 4 extremities. Remains on IV cefepime and vancomycin. Echocardiogram showed an ejection fraction of 35 to 40%. Blood work from today shows a white cell count of 9.2, hemoglobin of 11.6 and a platelet count of 142. BUN is 40 with a creatinine of 0.2 and sodium levels at 136. Chest x-ray from today was not obtained. Remains on bronchodilators. Remains on oral prednisone. Has extensive third spacing and edema in all 4 extremities. 92,024, the patient is reintubated and this is the patient's fourth intubation. After extubating the patient for the third time, the patient was stable during the day and overnight she decompensated, she had respiratory difficulties and she became hypoxic, tachycardic and in acute respiratory distress. Based on that, the patient was reintubated. I repeated the bronchoscopy and further mucous plugs were identified in her lungs although less abundant compared to previous evaluations. This morning, the patient on propofol at 50 mcg/kg/min. She is on norepinephrine running at 0.33 mcg/kg/min. She is on assist-control mode rate of 16, tidal volume of 350, FiO2 of 70% with a PEEP of 10. Blood gas from this morning showed a pH of 7.44 with a pCO2 of 57 and pO2 112. She is in negative fluid balance. She was given a dose of Lasix yesterday and the patient produced approximately 3 L of urine output. White cell count is at 9.3 with a hemoglobin 9.7 and a platelet count of 134. BUN is 12 with a creatinine of 0.2 and sodium levels at 135 and a potassium level is at 3.1. Blood sugars of 106. Arousable even while on sedation. Patient was evaluated today on 10/15/2023, remains in the ICU, intubated and mechanically ventilated. Patient is on assist-control rate of 16 tidal volume 350 FiO2 50% and PEEP of 10 ABG showed a pO2 of 84 pCO2 63 pH of 7.39 hence FiO2 was cut down to 45% and PEEP cut down to 8. Patient remains quite ill, she has been intubated and extubated multiple times, and I believe the patient will definitely need a tracheostomy. Patient has been in the hospital now for over 3 weeks, and she spent most of the time intubated and mechanically ventilated. Intermittently went off mechanical ventilation, but she had to be reintubated 3- 4 times already. She is on propofol at 50 mcg/kg/min norepinephrine at 0.03, vasopressin at 0.03 units/min, IV fluid at KVO, her last bronchoscopy was 10/13 and she remains on cefepime for E. coli in the sputum. Today I am not weaning the patient, may actually address her mental status, but even if weaned and extubated, the patient will continue to fail, and at this point I am strongly recommending a tracheostomy. Eventually the family needs to be made aware that if her condition gets better down the line, tracheostomy is reversible, and we could have it decannulated down the line. But no plans to continue the same trials of weaning extubating reintubating etc. If the family continues to refuse tracheostomy, then will extubate only if the CODE STATUS has been changed and patient is made DNR CODE STATUS CBC count today is 6 hemoglobin is 10.9. ABG as noted basic metabolic profile is normal renal profile is normal bicarb is 39 chest x-ray showed COPD and interval worsening of bibasilar airspace disease with possibly a small right-sided pleural effusion and bilateral interstitial densities persisting. Patient is still hemodynamically unstable, still requiring pressors, remains on cefepime, remains on bronchodilators, remains on GI DVT prophylaxis, and she is also on enteral feeding/nutritional support. Patient was evaluated today on 10/16/2023, remains in the ICU, intubated and mec hanically ventilated, patient is on assist-control rate of 16 tidal volume 350 FiO2 45% and PEEP of 8 ABG showed a pO2 of 90 pCO2 59 pH of 7.43. Patient is still requiring norepinephrine at 0.02 mcg/kg/min, she is on propofol at 50 mcg/kg/min vasopressin at 0.02 units/min she is on cefepime for her antibiotics for E. coli pneumonia, she is also on vital AF at 23/23. Patient is sedated, and I requested a meeting with the family today, all family members came today including her boyfriend, and we discussed the need for tracheostomy and PEG tube placement. Family is now agreeable to proceed with tracheostomy and PEG tube placement, and will go ahead and consult general surgery/Dr. vogt for tracheostomy and PEG tube placement. Chest x-ray continues to show a combination of pleural effusions and atelectasis/consolidation specially at the right base. CBC count is 5.5 hemoglobin 10.5, sodium is 127 hence her IV fluid is 0.9 normal saline at 75 cc/h. Potassium is 3.5 bicarb is 37, renal profile is normal Patient was seen today on 10/17/2023, patient remains in the ICU, intubated and mechanically ventilated, patient was supposed to have tracheostomy and PEG tube placement, however sodium drifted down to 125 not responding to 0.9 normal saline, I believe the patient is developing a picture of SIADH, will go back to fluid restriction and in the meantime I am recommending 100 cc of 3% saline, recheck sodium, otherwise anesthesia will not approve tracheostomy and PEG tube placement unless the sodium is above 128. In the meantime the patient is on assist-control rate of 16 tidal volume 350 FiO2 45% and PEEP of 8. ABG showed a pO2 121 pCO2 59 pH of 7.43. Patient is on propofol at 50 mcg/kg/min vasopressin at 0.02 units/min off norepinephrine, patient is still receiving cefepime, IV fluids at KVO, and vital AF . She is presently on hold for tracheostomy and PEG tube placement. WBC count is 5.6 hemoglobin 9.8 ABG as noted earlier sodium 125 BUN is 17 creatinine 0.21, chest x-ray continues to show ongoing dense retrocardiac opacity with extensive right lower lobe opacity, findings consistent with pneumonia patient does have E. coli pneumonia. Patient was evaluated on 10/18/2023, patient remains in the ICU, intubated and mechanically ventilated. She is on assist-control rate of 16 tidal volume 350 FiO2 45% and PEEP of 5 ABG showed a pO2 of 63 pCO2 56 pH of 7.48 patient is still requiring norepinephrine at 0.01 mcg/kg/min, on propofol at 50 mcg/kg/min, IV fluids at KVO. Sodium was quite low yesterday, and patient received 3% saline, sodium came up to 136, and this was done mostly to get her sodium high enough to safely perform tracheostomy and PEG tube placement, as anesthesia declined to do the procedure without correction of her sodium patient is receiving cefepime for E. coli in the sputum. And E. coli pneumonia PCR is 5.3 hemoglobin is 11.3. Basic metabolic profile is normal potassium is 3.0 bicarb is 41, renal profile is normal calcium is 7.8. Chest x-ray this morning continues to show dense retrocardiac opacity and extensive right lower lobe opacity consistent with pneumonia/E. coli pneumonia. vague interstitial changes persist Objective - Vital Signs Vital signs: Vital Signs Temp 98.2 F 10/18/23 08:00 Pulse 94 10/18/23 11:34 Resp 16 09/12/24 08:00 BP 88/47 10/17/23 07:30 Pulse Ox 98 10/18/23 08:00 FiO2 45 10/18/23 11:17 Intake & Output 10/17/23 10/18/23 10/18/23 18:59 06:59 18:59 Intake Total 924.828 510.205 400 Output Total 2980 2305 480 Balance -2055.172 -1794.795 -80 Weight 67.5 kg Intake: IV 510 320 400 Cefepime 2 gm In Sodium 200 100 Chloride 0.9% 100 ml @ 25 mls/hr IVPB Q8HR [facility] Rx# :[id number] Sodium Chloride 0.9% 1, 210 220 100 000 ml @ 20 mls/hr IV . Q24H [facility] Rx#:[id number] Sodium Chloride 3%( 100 Hypertonic) 100 ml @ 25 mls/hr IV .Q4H ONE Rx#: [id number] Intake, IV Titration 414.828 190.205 Amount Norepinephrine 8 mg In 21.227 Sodium Chloride 0.9% 250 ml @ 0.03 MCG/KG/MIN 3. 483 mls/hr IV .Q24H [facility] Rx#:[id number] Potassium Chloride 10 meq 200 In Water For Injection 1 100ml.bag @ 100 mls/hr IVPB Q1H [facility] Rx#: [id number] Vasopressin 20 unit In 17.519 Sodium Chloride 0.9% 50 ml @ 0.03 UNITS/MIN 4.59 mls/hr IV .[id number] [facility] Rx# :[id number] propofoL 1,000 mg In 176.082 190.205 Empty Bag 1 bag @ 15 MCG/ KG/MIN 6.282 mls/hr IV . [id number] [facility] Rx#:[id number] Output: Gastric Drainage 650 Urine 2980 1655 475 Estimated Blood Loss 5 Other: Voiding Method Indwelling Catheter Indwelling Catheter Indwelling Catheter ABP, PAP, CO, CI - Last Documented Arterial Blood Pressure 93/47 - Exam General: 3-year-old female, looks frail, intubated and mechanically ventilated. Skin: No rashes. Skin seems to be a bit dry today. Eye: Pupils are equal, round and reactive to light, extra-ocular movements are intact; there is normal conjunctiva bilaterally. Ears, nose, mouth and throat: There are moist mucous membranes and no oral lesions. Neck: The neck is supple, there is no tenderness or JVD. Tracheal tube and orogastric tube are intact. Cardiovascular: Distant S1-S2, no S3 gallop. Crackles and rhonchi noted bilaterally. Lungs: Crackles and rhonchi at the bases Gastrointestinal: Soft, non-distended, non-tender abdomen without masses or organomegaly noted. No rebound no guarding. Musculoskeletal: Remains frail and generally weak. Neurological: Patient is on propofol, but she is arousable and follows simple instructions Psychiatric: Could not assess. - Labs CBC & Chem 7: 10/18/23 09:00 10/18/23 09:00 Labs: Abnormal Lab Results - Last 24 Hours (Table) 10/17/23 10/18/23 10/18/23 Range/Units 17:00 05:38 05:40 RBC (3.80-5.40) m/uL Hgb (11.4-16.0) gm/dL Plt Count (150-450) k/uL Lymphocytes # (1.0-4.8) k/uL ABG pH 7.48 H (7.35-7.45) ABG pCO2 56 H (35-45) mmHg ABG pO2 63 L (83-108) mmHg ABG HCO3 42 H* (21-25) mmol/L ABG Total CO2 43 H (19-24) mmol/L Hemoglobin 11.2 L (11.4-16.0) gm/dL Sodium 136 L (137-145) mmol/L Potassium (3.5-5.1) mmol/L Carbon Dioxide (22-30) mmol/L Creatinine (0.52-1.04) mg/dL POC Glucose (mg/dL) 65 L (70-110) mg/dL Calcium (8.4-10.2) mg/dL 10/18/23 10/18/23 Range/Units 09:00 09:00 RBC 3.60 L (3.80-5.40) m/uL Hgb 11.3 L (11.4-16.0) gm/dL Plt Count 132 L (150-450) k/uL Lymphocytes # 0.6 L (1.0-4.8) k/uL ABG pH (7.35-7.45) ABG pCO2 (35-45) mmHg ABG pO2 (83-108) mmHg ABG HCO3 (21-25) mmol/L ABG Total CO2 (19-24) mmol/L Hemoglobin (11.4-16.0) gm/dL Sodium (137-145) mmol/L Potassium 3.0 L (3.5-5.1) mmol/L Carbon Dioxide 41 H* (22-30) mmol/L Creatinine 0.24 L (0.52-1.04) mg/dL POC Glucose (mg/dL) (70-110) mg/dL Calcium 7.8 L (8.4-10.2) mg/dL Microbiology - Last 24 Hours (Table) 10/14/23 08:39 Gram Stain - Final Bronchoalviolar Lavage - Right Bronchial Washings Culture - Final Michelle albicans Escherichia coli Assessment and Plan Assessment: Impression: Acute on chronic hypoxic and hypercapnic respiratory failure, multifactorial, requiring reintubation for the first time on 10/10/2023, multiple bronchoscopies has been performed for left lung collapse and pneumonia patient is on combination of cefepime patient was extubated on 10/11 and had to be reintubated on 10/12 mostly secondary to mucous plugging. And the patient could not clear her secretions, hence tracheostomy was recommended, and is scheduled to be done today patient will have tracheostomy and PEG tube placement Left lung collapse secondary to mucous plugs and left lower lobe pneumonia requiring multiple bronchoscopies Advanced COPD with acute COPD exacerbation Acute COPD exacerbation Chronic pain syndrome Chronic systolic congestive heart failure Hypotension secondary to sepsis and septic shock requiring pressors and she remains on pressors today. Profound weakness and debility with multiple comorbidities as noted above. Coffee-ground material noted in nasogastric tube today, patient is on Pepcid no significant drop in hemoglobin, will continue to monitor and continue Pepcid in the meantime Recommendations: Plans for tracheostomy and possibly PEG tube placement today Continue ventilatory support Continue hemodynamic support Continue antibiotics/cefepime Nutritional support/enteral feeding Continue GI and DVT prophylaxis, continue Pepcid twice daily Continue bronchodilators and steroids Continue monitoring daily chest x-rays and daily ABGs Patient remains critically ill Critical care time is over 30 minutes Time with Patient: Greater than 30
--- NOTE | 2023-10-18 13:05 | XR ---
EXAMINATION TYPE: XR chest 1V portable DATE OF EXAM: 10/18/2023 Comparison: 10/17/2023 Clinical History: 73-year-old female mechanical ventilation Findings: ET and NG tubes are satisfactory. Left subclavian CVC tip cavoatrial junction. Heart borderline in si ze. Interstitial densities have slightly increased. There is retrocardiac opacity and focal right bas ilar opacity persists. Impression: Interstitial changes are increasing. Consider pulmonary vascular congestion. Ongoing dense retrocardi ac opacity and extensive right lower lung opacity are similar.
[2023-10-18] MEDS: POTASSIUM BICARBONATE/CIT AC 20 MEQ TABLET.EFF NG-TUBE SCH (19:13)
[2023-10-19 00:26] LABS: Glucose,Whole Blood 72 mg/dL (70-110)
[2023-10-19 00:26] LABS: Glucose,Whole Blood 47 mg/dL (70-110)
[2023-10-19 05:40] LABS: ABG Base Excess 16.8 mmol/L; ABG Oxygen Saturation 94.3 % (94-97); ABG PCO2 55 mmHg (35-45); ABG PO2 64 mmHg (83-108); ABG TCO2 44 mmol/L (19-24); Allen Test Performed? Yes
[2023-10-19 05:42] LABS: ABG HCO3 42 mmol/L (21-25)
[2023-10-19 05:51] LABS: HCT 33.5 % (34.0-46.0); HGB 10.5 gm/dL (11.4-16.0); Hypochromasia Moderate; MCH 30.8 pg (25.0-35.0); MCHC 31.3 g/dL (31.0-37.0); MCV 98.4 fL (80.0-100.0); Mean Platelet Volume 7.7; Platelet Count 147 k/uL (150-450); RBC 3.41 m/uL (3.80-5.40); RDW 13.7 % (11.5-15.5); WBC 7.4 k/uL (3.8-10.6)
[2023-10-19 06:07] LABS: African American GFR (CKD) >90 (>60 ml/min/1.73 sqM); Blood Urea Nitrogen 14 mg/dL (7-17); Calcium 7.7 mg/dL (8.4-10.2); Chloride 97 mmol/L (98-107); Glucose 73 mg/dL (74-99); Non-African American GFR(CKD) >90 (>60 ml/min/1.73 sqM); Potassium 3.9 mmol/L (3.5-5.1); Sodium 137 mmol/L (137-145)
[2023-10-19 06:14] LABS: Anion Gap -1 mmol/L
[2023-10-19 06:21] LABS: Carbon Dioxide 41 mmol/L (22-30)
--- NOTE | 2023-10-19 07:14 | P.PN ---
Subjective Progress Note Date: 10/18/23 Acute hypoxic and hypercapnic respiratory failure secondary to acute COPD exacerbation and extensive left-sided pneumonia. Patient was eval on 09/30/2023, patient has been on BiPAP for the last few days while in the ICU, Patient has been on 100% BiPAP with IPAP of 12 and EPAP of 6, however she developed worsening pulmonary status this morning, in spite of being on 100% FiO2, patient had her O2 saturation down in the low 70s. Patient was intubated, underwent bronchoscopy with lavage 09/30. Patient seen examined. Currently intubated. Currently on IV Zosyn. Vital signs stable 10/01. Patient seen and examined. Patient currently going through SBT, patient opening eyes. 10/02. Patient seen and examined. Patient extubated this morning. 10/03. Patient seen and examined. Sitting upright in the bed. States she feels much better. Currently on 5 l of oxygen. Denies any shortness of breath at rest.Blood work done this morning showed WBC 13.3, hemoglobin 13.6, sodium 35, potassium 3.8, BUN 25, creatinine 0.31 10/04. Patient seen and examined. Sitting upright in the chair, currently on 5 L of oxygen. Being transferred out of ICU. 10/05--patient was examined today, currently on 5 L nasal cannula oxygen. On IV fluids. Currently on Symbicort and prednisone. WBCs 18.3, hemoglobin 13.5, platelet normal. Creatinine and BUN unremarkable. CO2 33. Ultrasound venous ordered to rule out DVT, noted left lower extremity edema. Initially was diagnosed with left lung pneumonia, not on antibiotics anymore. 10/06--patient was seen and examined today. Awake and alert x 3. Currently on 5 L oxygen. Currently on IV fluids. Ultrasound venous negative for DVT. Currently on DuoNebs Symbicort and prednisone. Labs reviewed, WBC 16.9, hemoglobin 14.3, platelet 137. BMP unremarkable. PT/OT consulted and pending. 10/07--patient was seen and examined today. Remains on 5 L oxygen. WBCs tr ending down 14.08. Hemoglobin 12.4, platelets 140. BMP is unremarkable. [place] level less than 0.10. Discontinue IV fluids. 10/08--patient's seen and examined today. Patient respiratory status gradually improving, patient required to intubation previously, last extubated on 10/03/2023, currently on 2 L oxygen as compared to 5 L yesterday. Patient reported feeling better. Shortness of breath is improving. Patient currently on prednisone burst taper. Pulmonary on board and following. PT/OT consulted. 10/10/2023 Patient is seen this morning and was just re-intubated and brought to the ICU as patient was continued on airvo at 100% and having continuous low pulse ox readings. This will be the third intubation this admission. Patient is also continued on antibiotics for pneumonia. Overall prognosis is guarded at this time. 10/11/2023 Patient is seen and evaluated in follow-up in the ICU and was brought here yesterday for reintubation. Patient continues on mechanical ventilation and sedation with an FiO2 of 40% and PEEP is 10. No plans for weaning trials at this time. Patient continues to require pressor support and attempting to wean. Chest x-ray today shows stable bilateral consolidation and small effusion to correlate for CHF otherwise consider pneumonia. Patient is maintained on IV antibiotics in the form of cefepime and Vanco with infectious disease following. Potassium was on the lower side yesterday after replacement potassium is 3.7 today and kidney functions within normal limits, sodium is 134. Blood sugars being monitored and will continue current regimen. Adjust insulins accordingly. 10/12/2023 Patient is seen in follow-up continues to be on mechanical ventilation FiO2 is 40% with a PEEP of 10 and is off propofol currently awake and responding to c ommands appropriately and per pulmonary gis analyst, plan on extubation today. Patient will likely require BiPAP and will follow-up with repeat chest x-ray. Patient continues to require low-dose blood pressure support. Patient to continue on antibiotics and sputum is positive for E. coli. Overall prognosis is guarded and per nursing staff patient and patient family would want reintubation and all measures done and remain full code. 10/12. Seen and examined. Currently on 6 L of oxygen. Still in the ICU. States she feels slightly better. 10/13. Patient seen and examined.Vital signs on this morning show temperature 97.7, heart rate 82, respiration 18, patient was intubated overnight. Underwent bronchoscopy this morning. 10/15/2023 Patient is seen in follow-up continues to be in the ICU and has been reintubated. continues on low dose pressor support and being weaned. Family to discuss further regarding treatment plan moving forward. Patient did report previously she did not want a tracheostomy. Brother is her power of workers compensation attorney. Overall prognosis is extremely poor and guarded at this time. 10/16/2023 Patient is seen in follow-up remains on mechanical ventilation and pressor support and propofol and patient family would like to proceed with tracheostomy and PEG tube placement and general surgery is now consulted. Patient is continued on antibiotics for pneumonia. 10/17/2023 Patient is seen in follow-up today remains on mechanical ventilation and schedu led to undergo tracheostomy and PEG tube placement with general surgery today although sodium was noted to be low at 125 today and being corrected. Surgery being rescheduled for 10/18/2023. Patient remains on mechanical ventilation at 45% and PEEP is 8 with no changes at this time. Patient tolerating tube feedings thus far and will be held at midnight. 10/18/2023 Patient is seen in follow-up this morning remains on mechanical ventilation and currently n.p.o. and tube feeds on hold as patient is tentatively scheduled to receive a PEG tube and tracheostomy with general surgery. Patient had low sodium yesterday and was rescheduled for today and sodium is above 130 today. Patient is currently being prepped at this time. Continue other current regimen and will await surgical report and discussing with surgery on when to initiate tube feedings via PEG tube. REVIEW OF SYSTEMS: Unable to completely assess as patient is re-intubated and sedated PHYSICAL EXAMINATION: GENERAL: The patient is on mechanical ventilation currently on sedation ill appearing, elderly appearing, FiO2 is. 45% with a PEEP of 8 HEENT: EOMI, Sclerae anicteric, Moist Mucous membranes RESP: diminished breath sounds bilaterally with course rhonchi noted and expiratory wheezing noted as well CARDIOVASCULAR: S1, S2 present. No murmurs, rubs, or gallops. ABDOMEN: Soft, nontender, nondistended, normoactive bowel sounds. No guarding or rebound tenderness. MUSCULOSKELETAL: + LLE edema, No cyanosis. No clubbing. Normal ROM. Intact peripheral pulses. EXTREMITIES: No cyanosis, clubbing, or pedal edema. NEUROLOGICAL: unable to completely assess as patient remains on propofol and is sedated Skin: No Rash Assessment: Acute on chronic hypoxic and hypercapnic respiratory failure, multifactorial, requiring intubation mechanical ventilation last week, and reintubation on 09/29, extubated 10/02, now requiring intubation again 10/10/23, extubated although required reintubation 10/13, failure of successful extubation and scheduled for PEG tube and tracheostomy 10/18/2023 Acute COPD exacerbation Left lung pneumonia, possibly hospital-acquired pneumonia with complete opacification of the left lung secondary to mucous plugging, requiring bronchoscopy and BAL of the left lung. Chronic hypoxic and hypercapnic respiratory failure Chronic pain syndrome Sinus rhythm with PVCs Severe pulmonary hypertension Hyperlipidemia Diabetes mellitus History of GERD Hypothyroidism Severe protein calorie malnutrition History of osteoarthritis GI and DVT prophylaxis Full code Plan: Patient with multiple consultations following including pulmonary gis analyst and infectious disease maintained on antibiotics in the form of cefepime and vancomycin Patient also continues on breathing inhalational treatments and remains on mechanical ventilation. Patient has been re-intubated x4 this admission. Initially patient was adamant she was not receiving a tracheostomy and discussion was had with gis analyst along with family and brother power of workers compensation attorney and general surgery is being consulted for tracheostomy and PEG tube placement. Was scheduled for today although patient sodium was low at 125 and being corrected. Surgery tentatively scheduled today Blood sugars being monitored and will continue current regimen Currently, CODE STATUS is full code patient apparently has a family member that is a power of workers compensation attorney, her brother and per nursing staff patient and family continue to want to be reintubated if needed and wished to remain full code. per nursing staff and patient, she did not want to have a tracheostomy. Family to discuss further about treatment plan and they would like to proceed with tracheostomy and PEG tube placement. Will await surgical report Due to multiple complex medical issues, overall prognosis is extremely guarded The impression and plan of care has been dictated by Milka Duffy, Nurse Practitioner as directed. Dr. Ethan MD I have performed a history and examination and MDM of this patient, discussed the same with the dictator, and agree with the dictator's assessment and plan as written ,documented as a scribe. Based on total visit time, I have performed more than 50% of the visit. Objective - Vital Signs Vital signs: Vital Signs Temp 99.2 F 10/19/23 04:00 Pulse 88 10/19/23 06:00 Resp 20 10/19/23 06:00 BP 88/47 10/17/23 07:30 Pulse Ox 95 10/19/23 06:00 FiO2 45 10/19/23 04:00 Intake & Output 10/18/23 10/19/23 10/19/23 18:59 06:59 18:59 Intake Total 640 412.873 Output Total 530 605 Balance 110 -192.127 Weight 67.5 kg 68.4 kg Intake: IV 540 240 Sodium Chloride 0.9% 1, 240 240 000 ml @ 20 mls/hr IV . Q24H SHIRA Rx#:[id number] Intake, IV Titration 100 172.873 Amount Norepinephrine 8 mg In 72.873 Sodium Chloride 0.9% 250 ml @ 0.03 MCG/KG/MIN 3. 483 mls/hr IV .Q24H SHIRA Rx#:[id number] propofoL 1,000 mg In 100 100 Empty Bag 1 bag @ 15 MCG/ KG/MIN 6.282 mls/hr IV . [id number] SHIRA Rx#:[id number] Output: Urine 525 605 Estimated Blood Loss 5 Other: Voiding Method Indwelling Catheter Indwelling Catheter ABP, PAP, CO, CI - Last Documented Arterial Blood Pressure 105/59 - Labs CBC & Chem 7: 10/19/23 05:28 10/19/23 05:28 Labs: Abnormal Lab Results - Last 24 Hours (Table) 10/18/23 10/18/23 10/19/23 Range/Units 09:00 09:00 00:22 RBC 3.60 L (3.80-5.40) m/uL Hgb 11.3 L (11.4-16.0) gm/dL Hct (34.0-46.0) % Plt Count 132 L (150-450) k/uL Lymphocytes # 0.6 L (1.0-4.8) k/uL ABG pH (7.35-7.45) ABG pCO2 (35-45) mmHg ABG pO2 (83-108) mmHg ABG HCO3 (21-25) mmol/L ABG Total CO2 (19-24) mmol/L Hemoglobin (11.4-16.0) gm/dL Potassium 3.0 L (3.5-5.1) mmol/L Chloride (98-107) mmol/L Carbon Dioxide 41 H* (22-30) mmol/L Creatinine 0.24 L (0.52-1.04) mg/dL Glucose (74-99) mg/dL POC Glucose (mg/dL) 47 L* (70-110) mg/dL Calcium 7.8 L (8.4-10.2) mg/dL 10/19/23 10/19/23 10/19/23 Range/Units 05:28 05:28 05:37 RBC 3.41 L (3.80-5.40) m/uL Hgb 10.5 L (11.4-16.0) gm/dL Hct 33.5 L (34.0-46.0) % Plt Count 147 L (150-450) k/uL Lymphocytes # (1.0-4.8) k/uL ABG pH 7.50 H (7.35-7.45) ABG pCO2 55 H (35-45) mmHg ABG pO2 64 L (83-108) mmHg ABG HCO3 42 H* (21-25) mmol/L ABG Total CO2 44 H (19-24) mmol/L Hemoglobin 10.7 L (11.4-16.0) gm/dL Potassium (3.5-5.1) mmol/L Chloride 97 L (98-107) mmol/L Carbon Dioxide 41 H* (22-30) mmol/L Creatinine 0.17 L (0.52-1.04) mg/dL Glucose 73 L (74-99) mg/dL POC Glucose (mg/dL) (70-110) mg/dL Calcium 7.7 L (8.4-10.2) mg/dL Microbiology - Last 24 Hours (Table) 10/10/23 09:30 Acid Fast Bacilli Smear - Preliminary Bronchial Washings - Left Acid Fast Bacilli Culture - Preliminary
[2023-10-19] MEDS: POTASSIUM BICARBONATE/CIT AC 20 MEQ TABLET.EFF NG-TUBE SCH ×2 (08:57→20:25)
--- NOTE | 2023-10-19 10:56 | P.PN ---
Subjective Progress Note Date: 10/19/23 CHIEF COMPLAINT: Respiratory failure HISTORY OF PRESENT ILLNESS: Patient remains in the ICU on mechanical ventilation. Patient is status post tracheostomy and PEG tube placement yesterday. Vital stable. WBC 7.4 Hgb 10.5 PHYSICAL EXAM: VITAL SIGNS: Reviewed. GENERAL: Intubated and sedated HEENT tracheostomy site clean dry and intact ABDOMEN: Soft. Nondistended. PEG tube site clean dry and intact ASSESSMENT: 1. Acute on chronic hypoxic and hypercapnic respiratory failure and unable to wean from vent 2. Severe protein calorie malnutrition 3. Pneumonia and mucous plugging 4. COPD exacerbation 5. Hyponatremia improved PLAN: -Consult dietitian to initiate tube feeds this afternoon -Continue supportive care Physician Home Therapy Teacher note has been reviewed by physician. Signing provider agrees with the documented findings, assessment, and plan of care. Objective - Vital Signs Vital signs: Vital Signs Temp 98 F 10/19/23 09:00 Pulse 89 10/19/23 09:00 Resp 23 10/19/23 09:00 BP 88/47 10/17/23 07:30 Pulse Ox 99 10/19/23 09:00 FiO2 45 10/19/23 09:00 Intake & Output 10/18/23 10/19/23 10/19/23 18:59 06:59 18:59 Intake Total 640 412.873 179.585 Output Total 530 605 90 Balance 110 -192.127 89.585 Weight 67.5 kg 68.4 kg Intake: IV 540 240 60 Sodium Chloride 0.9% 1, 240 240 60 000 ml @ 20 mls/hr IV . Q24H SHIRA Rx#:[id number] Intake, IV Titration 100 172.873 119.585 Amount Norepinephrine 8 mg In 72.873 23.994 Sodium Chloride 0.9% 250 ml @ 0.03 MCG/KG/MIN 3. 483 mls/hr IV .Q24H SHIRA Rx#:[id number] propofoL 1,000 mg In 100 100 95.591 Empty Bag 1 bag @ 15 MCG/ KG/MIN 6.282 mls/hr IV . [id number] SHIRA Rx#:[id number] Output: Urine 525 605 90 Estimated Blood Loss 5 Other: Voiding Method Indwelling Catheter Indwelling Catheter ABP, PAP, CO, CI - Last Documented Arterial Blood Pressure 107/50 - Labs CBC & Chem 7: 10/19/23 05:28 10/19/23 05:28 Labs: Abnormal Lab Results - Last 24 Hours (Table) 10/19/23 10/19/23 10/19/23 Range/Units 00:22 05:28 05:28 RBC 3.41 L (3.80-5.40) m/uL Hgb 10.5 L (11.4-16.0) gm/dL Hct 33.5 L (34.0-46.0) % Plt Count 147 L (150-450) k/uL ABG pH (7.35-7.45) ABG pCO2 (35-45) mmHg ABG pO2 (83-108) mmHg ABG HCO3 (21-25) mmol/L ABG Total CO2 (19-24) mmol/L Hemoglobin (11.4-16.0) gm/dL Chloride 97 L (98-107) mmol/L Carbon Dioxide 41 H* (22-30) mmol/L Creatinine 0.17 L (0.52-1.04) mg/dL Glucose 73 L (74-99) mg/dL POC Glucose (mg/dL) 47 L* (70-110) mg/dL Calcium 7.7 L (8.4-10.2) mg/dL 10/19/23 Range/Units 05:37 RBC (3.80-5.40) m/uL Hgb (11.4-16.0) gm/dL Hct (34.0-46.0) % Plt Count (150-450) k/uL ABG pH 7.50 H (7.35-7.45) ABG pCO2 55 H (35-45) mmHg ABG pO2 64 L (83-108) mmHg ABG HCO3 42 H* (21-25) mmol/L ABG Total CO2 44 H (19-24) mmol/L Hemoglobin 10.7 L (11.4-16.0) gm/dL Chloride (98-107) mmol/L Carbon Dioxide (22-30) mmol/L Creatinine (0.52-1.04) mg/dL Glucose (74-99) mg/dL POC Glucose (mg/dL) (70-110) mg/dL Calcium (8.4-10.2) mg/dL Microbiology - Last 24 Hours (Table) 10/10/23 09:30 Acid Fast Bacilli Smear - Preliminary Bronchial Washings - Left Acid Fast Bacilli Culture - Preliminary
[2023-10-19 11:19] LABS: Glucose,Whole Blood 87 mg/dL (70-110)
[2023-10-19] MEDS: SODIUM CHLORIDE 0.9% 1,000 ML IV SCH (11:45)
--- NOTE | 2023-10-19 12:15 | P.PN ---
Subjective Progress Note Date: 10/19/23 Principal diagnosis: Acute hypoxic and hypercapnic respiratory failure secondary to acute COPD exacerbation and extensive left-sided pneumonia Patient was eval on 09/30/2023, patient has been on BiPAP for the last few days while in the ICU, however I was notified about this patient this morning becoming much worse clinically. Patient has been on 100% BiPAP with IPAP of 12 and EPAP of 6, however she developed worsening pulmonary status this morning, in spite of being on 100% FiO2, patient had her O2 saturation down in the low 70s. Patient was also noted to be coming more short of breath, and that she was having significant work of breathing. Hence as soon as I was notified about this patient, I recommended immediate intubation by [employer] [employer], and I came in and evaluated the patient after she was intubated, reviewed her chest x-ray and I performed bronchoscopy and BAL/therapeutic BAL of the left lung with significant improvement noted after bronchoscopy. Patient also had central line placed since she was hypotensive and requiring norepinephrine. 0.08 mcg/kg/min. Vent ilator settings are assist-control rate of 20, tidal volume 350, FiO2 100% and PEEP of 8 showed a pO2 of 77 pCO2 63 pH of 7.49 no changes were made in the ventilator settings, and advised respiratory to titrate FiO2 accordingly maintaining O2 sats above 91% WBC count today is 8.7 hemoglobin 14.2 hematocrit is 45.6. Electrolytes are normal except for low potassium of 3.2 being addressed and her renal status is normal bicarb is 44 10/13/2023, the patient extubated on 6 L of oxygen by nasal cannula. Overnight, the patient was kept on a BiPAP at a pressure of 10/5 with an FiO2 of 40%. She is weak. She has a weak cough. She has a congested cough. Unable to bring up much sputum. Awake and alert and communicating. Moving all 4 extremities. Has increased edema in all 4 extremities. Remains on IV cefepime and vancomycin. Echocardiogram showed an ejection fraction of 35 to 40%. Blood work from today shows a white cell count of 9.2, hemoglobin of 11.6 and a platelet count of 142. BUN is 40 with a creatinine of 0.2 and sodium levels at 136. Chest x-ray from today was not obtained. Remains on bronchodilators. Remains on oral prednisone. Has extensive third spacing and edema in all 4 extremities. 92,024, the patient is reintubated and this is the patient's fourth intubation. After extubating the patient for the third time, the patient was stable during the day and overnight she decompensated, she had respiratory difficulties and she became hypoxic, tachycardic and in acute respiratory distress. Based on that, the patient was reintubated. I repeated the bronchoscopy and further mucous plugs were identified in her lungs although less abundant compared to previous evaluations. This morning, the patient on propofol at 50 mcg/kg/min. She is on norepinephrine running at 0.33 mcg/kg/min. She is on assist-control mode rate of 16, tidal volume of 350, FiO2 of 70% with a PEEP of 10. Blood gas from this morning showed a pH of 7.44 with a pCO2 of 57 and pO2 112. She is in negative fluid balance. She was given a dose of Lasix yesterday and the patient produced approximately 3 L of urine output. White cell count is at 9.3 with a hemoglobin 9.7 and a platelet count of 134. BUN is 12 with a creatinine of 0.2 and sodium levels at 135 and a potassium level is at 3.1. Blood sugars of 106. Arousable even while on sedation. Patient was evaluated today on 10/15/2023, remains in the ICU, intubated and mechanically ventilated. Patient is on assist-control rate of 16 tidal volume 350 FiO2 50% and PEEP of 10 ABG showed a pO2 of 84 pCO2 63 pH of 7.39 hence FiO2 was cut down to 45% and PEEP cut down to 8. Patient remains quite ill, she has been intubated and extubated multiple times, and I believe the patient will definitely need a tracheostomy. Patient has been in the hospital now for over 3 weeks, and she spent most of the time intubated and mechanically ventilated. Intermittently went off mechanical ventilation, but she had to be reintubated 3- 4 times already. She is on propofol at 50 mcg/kg/min norepinephrine at 0.03, vasopressin at 0.03 units/min, IV fluid at KVO, her last bronchoscopy was 10/13 and she remains on cefepime for E. coli in the sputum. Today I am not weaning the patient, may actually address her mental status, but even if weaned and extubated, the patient will continue to fail, and at this point I am strongly recommending a tracheostomy. Eventually the family needs to be made aware that if her condition gets better down the line, tracheostomy is reversible, and we could have it decannulated down the line. But no plans to continue the same trials of weaning extubating reintubating etc. If the family continues to refuse tracheostomy, then will extubate only if the CODE STATUS has been changed and patient is made DNR CODE STATUS CBC count today is 6 hemoglobin is 10.9. ABG as noted basic metabolic profile is normal renal profile is normal bicarb is 39 chest x-ray showed COPD and interval worsening of bibasilar airspace disease with possibly a small right-sided pleural effusion and bilateral interstitial densities persisting. Patient is still hemodynamically unstable, still requiring pressors, remains on cefepime, remains on bronchodilators, remains on GI DVT prophylaxis, and she is also on enteral feeding/nutritional support. Patient was evaluated today on 10/16/2023, remains in the ICU, intubated and mec hanically ventilated, patient is on assist-control rate of 16 tidal volume 350 FiO2 45% and PEEP of 8 ABG showed a pO2 of 90 pCO2 59 pH of 7.43. Patient is still requiring norepinephrine at 0.02 mcg/kg/min, she is on propofol at 50 mcg/kg/min vasopressin at 0.02 units/min she is on cefepime for her antibiotics for E. coli pneumonia, she is also on vital AF at 23/23. Patient is sedated, and I requested a meeting with the family today, all family members came today including her boyfriend, and we discussed the need for tracheostomy and PEG tube placement. Family is now agreeable to proceed with tracheostomy and PEG tube placement, and will go ahead and consult general surgery/Dr. vogt for tracheostomy and PEG tube placement. Chest x-ray continues to show a combination of pleural effusions and atelectasis/consolidation specially at the right base. CBC count is 5.5 hemoglobin 10.5, sodium is 127 hence her IV fluid is 0.9 normal saline at 75 cc/h. Potassium is 3.5 bicarb is 37, renal profile is normal Patient was seen today on 10/17/2023, patient remains in the ICU, intubated and mechanically ventilated, patient was supposed to have tracheostomy and PEG tube placement, however sodium drifted down to 125 not responding to 0.9 normal saline, I believe the patient is developing a picture of SIADH, will go back to fluid restriction and in the meantime I am recommending 100 cc of 3% saline, recheck sodium, otherwise anesthesia will not approve tracheostomy and PEG tube placement unless the sodium is above 128. In the meantime the patient is on assist-control rate of 16 tidal volume 350 FiO2 45% and PEEP of 8. ABG showed a pO2 121 pCO2 59 pH of 7.43. Patient is on propofol at 50 mcg/kg/min vasopressin at 0.02 units/min off norepinephrine, patient is still receiving cefepime, IV fluids at KVO, and vital AF . She is presently on hold for tracheostomy and PEG tube placement. WBC count is 5.6 hemoglobin 9.8 ABG as noted earlier sodium 125 BUN is 17 creatinine 0.21, chest x-ray continues to show ongoing dense retrocardiac opacity with extensive right lower lobe opacity, findings consistent with pneumonia patient does have E. coli pneumonia. Patient was evaluated on 10/18/2023, patient remains in the ICU, intubated and mechanically ventilated. She is on assist-control rate of 16 tidal volume 350 FiO2 45% and PEEP of 5 ABG showed a pO2 of 63 pCO2 56 pH of 7.48 patient is still requiring norepinephrine at 0.01 mcg/kg/min, on propofol at 50 mcg/kg/min, IV fluids at KVO. Sodium was quite low yesterday, and patient received 3% saline, sodium came up to 136, and this was done mostly to get her sodium high enough to safely perform tracheostomy and PEG tube placement, as anesthesia declined to do the procedure without correction of her sodium patient is receiving cefepime for E. coli in the sputum. And E. coli pneumonia PCR is 5.3 hemoglobin is 11.3. Basic metabolic profile is normal potassium is 3.0 bicarb is 41, renal profile is normal calcium is 7.8. Chest x-ray this morning continues to show dense retrocardiac opacity and extensive right lower lobe opacity consistent with pneumonia/E. coli pneumonia. vague interstitial changes persist Patient was evaluated today on 10/19/23, patient remains in the ICU, intubated and mechanically ventilated, she is now status post tracheostomy and PEG tube placement, postoperative day #1. Patient remains mechanically ventilated, on assist-control rate of 16 tidal volume 350 FiO2 45% and PEEP of 5 ABG showed a pO2 of 64 pCO2 55 pH of 7.50. Still requiring norepinephrine for hemodynamic support, she is on 0.03 mcg/kg/min remains on propofol at 50 mg/kg/min IV fluids at KVO but a glycerin up to 75 cc/h since her urine output is marginal. Remains on vital AF at 23 cc/h. Urine output is 30 cc/h. Chest x-ray continues to show evidence of mild pulmonary vascular congestion, ongoing dense retrocardiac opacity consistent with pneumonia. And or atelectasis right lower lobe opacity is also consistent with pneumonia and/or atelectasis clinically the patient received adequate treatment for her E. coli pneumonia, I believe the findings are mostly findings of atelectasis. Labs today WBC count is 7.4 hemoglobin 10.5, basic metabolic profile is normal bicarb is 41 BUN is 14 creatinine 0.17. Patient is on a bit of propofol, and she is arousable, she is following simple instructions, and I plan to give the patient a trial of weaning on pressure support of 12 and CPAP Objective - Vital Signs Vital signs: Vital Signs Temp 98 F 10/19/23 09:00 Pulse 92 10/19/23 11:25 Resp 12 10/19/23 11:00 BP 88/47 10/17/23 07:30 Pulse Ox 97 10/19/23 11:00 FiO2 45 10/19/23 11:02 Intake & Output 10/18/23 10/19/23 10/19/23 18:59 06:59 18:59 Intake Total 640 412.873 228.451 Output Total 530 605 145 Balance 110 -192.127 83.451 Weight 67.5 kg 68.4 kg 68.4 kg Intake: IV 540 240 100 Sodium Chloride 0.9% 1, 240 240 100 000 ml @ 20 mls/hr IV . Q24H [facility] Rx#:[id number] Intake, IV Titration 100 172.873 128.451 Amount Norepinephrine 8 mg In 72.873 28.812 Sodium Chloride 0.9% 250 ml @ 0.03 MCG/KG/MIN 3. 483 mls/hr IV .Q24H [facility] Rx#:[id number] propofoL 1,000 mg In 100 100 99.639 Empty Bag 1 bag @ 15 MCG/ KG/MIN 6.282 mls/hr IV . [id number] [facility] Rx#:[id number] Output: Urine 525 605 145 Estimated Blood Loss 5 Other: Voiding Method Indwelling Catheter Indwelling Catheter ABP, PAP, CO, CI - Last Documented Arterial Blood Pressure 102/48 - Exam General: 3-year-old female, looks frail, intubated and mechanically ventilated. Tracheostomy in place, intact Skin: No rashes. Eye: Pupils are equal, round and reactive to light, extra-ocular movements are intact; there is normal conjunctiva bilaterally. Ears, nose, mouth and throat: There are moist mucous membranes and no oral lesions. Neck: The neck is supple, there is no tenderness or JVD. Tracheostomy is intact. Cardiovascular: Distant S1-S2, no S3 gallop. Crackles and rhonchi noted bilat erally. Lungs: Crackles and rhonchi at the bases Gastrointestinal: Soft, non-distended, non-tender abdomen without masses or organomegaly noted. No rebound no guarding. PEG tube is intact Musculoskeletal: Generally weak but global weakness is noted Neurological: Patient is on propofol, follows simple instructions Psychiatric: Normal mood, normal affect and normal mental status examination - Labs CBC & Chem 7: 10/19/23 05:28 10/19/23 05:28 Labs: Abnormal Lab Results - Last 24 Hours (Table) 10/19/23 10/19/23 10/19/23 Range/Units 00:22 05:28 05:28 RBC 3.41 L (3.80-5.40) m/uL Hgb 10.5 L (11.4-16.0) gm/dL Hct 33.5 L (34.0-46.0) % Plt Count 147 L (150-450) k/uL ABG pH (7.35-7.45) ABG pCO2 (35-45) mmHg ABG pO2 (83-108) mmHg ABG HCO3 (21-25) mmol/L ABG Total CO2 (19-24) mmol/L Hemoglobin (11.4-16.0) gm/dL Chloride 97 L (98-107) mmol/L Carbon Dioxide 41 H* (22-30) mmol/L Creatinine 0.17 L (0.52-1.04) mg/dL Glucose 73 L (74-99) mg/dL POC Glucose (mg/dL) 47 L* (70-110) mg/dL Calcium 7.7 L (8.4-10.2) mg/dL 10/19/23 Range/Units 05:37 RBC (3.80-5.40) m/uL Hgb (11.4-16.0) gm/dL Hct (34.0-46.0) % Plt Count (150-450) k/uL ABG pH 7.50 H (7.35-7.45) ABG pCO2 55 H (35-45) mmHg ABG pO2 64 L (83-108) mmHg ABG HCO3 42 H* (21-25) mmol/L ABG Total CO2 44 H (19-24) mmol/L Hemoglobin 10.7 L (11.4-16.0) gm/dL Chloride (98-107) mmol/L Carbon Dioxide (22-30) mmol/L Creatinine (0.52-1.04) mg/dL Glucose (74-99) mg/dL POC Glucose (mg/dL) (70-110) mg/dL Calcium (8.4-10.2) mg/dL Microbiology - Last 24 Hours (Table) 10/10/23 09:30 Acid Fast Bacilli Smear - Preliminary Bronchial Washings - Left Acid Fast Bacilli Culture - Preliminary Assessment and Plan Assessment: Impression: Acute on chronic hypoxic and hypercapnic respiratory failure, multifactorial, requiring reintubation for the first time on 10/10/2023, multiple bronchoscopies has been performed for left lung collapse and pneumonia patient is on combination of cefepime patient was extubated on 10/11 and had to be reintubated on 10/12 mostly secondary to mucous plugging. And the patient could not clear her secretions, Post tracheostomy and PEG tube placement, postoperative day #1 Left lung collapse secondary to mucous plugs and left lower lobe pneumonia requiring multiple bronchoscopies Advanced COPD with acute COPD exacerbation Acute COPD exacerbation Chronic pain syndrome Chronic systolic congestive heart failure Hypotension secondary to sepsis and septic shock requiring pressors and she remains on pressors today. Profound weakness and debility with multiple comorbidities as noted above. Coffee-ground material noted in nasogastric tube today, patient is on Pepcid no significant drop in hemoglobin, will continue to monitor and continue Pepcid in the meantime Recommendations: Trials of pressure support and CPAP today and will discontinue propofol in the meantime: Continue ventilatory support Continue hemodynamic support Taper and possibly discontinue norepinephrine she is on a small dose of norepinephrine today. Continue antibiotics/cefepime had full course of treatment for E. coli pneumonia Nutritional support/enteral feeding Continue GI and DVT prophylaxis, continue Pepcid twice daily Continue bronchodilators and steroids Continue monitoring daily chest x-rays and daily ABGs Critical care time is over 30 minutes Patient remains critically ill, my goal is to start trials of weaning with pressure support and CPAP, however may eventually require ECF or vent facility placement Term prognosis remains extremely poor and guarded Time with Patient: Greater than 30
--- NOTE | 2023-10-19 14:25 | P.PN ---
Subjective Progress Note Date: 10/19/23 Acute hypoxic and hypercapnic respiratory failure secondary to acute COPD exacerbation and extensive left-sided pneumonia. Patient was eval on 09/30/2023, patient has been on BiPAP for the last few days while in the ICU, Patient has been on 100% BiPAP with IPAP of 12 and EPAP of 6, however she developed worsening pulmonary status this morning, in spite of being on 100% FiO2, patient had her O2 saturation down in the low 70s. Patient was intubated, underwent bronchoscopy with lavage 09/30. Patient seen examined. Currently intubated. Currently on IV Zosyn. Vital signs stable 10/01. Patient seen and examined. Patient currently going through SBT, patient opening eyes. 10/02. Patient seen and examined. Patient extubated this morning. 10/03. Patient seen and examined. Sitting upright in the bed. States she feels much better. Currently on 5 l of oxygen. Denies any shortness of breath at res t.Blood work done this morning showed WBC 13.3, hemoglobin 13.6, sodium 35, potassium 3.8, BUN 25, creatinine 0.31 10/04. Patient seen and examined. Sitting upright in the chair, currently on 5 L of oxygen. Being transferred out of ICU. 10/05--patient was examined today, currently on 5 L nasal cannula oxygen. On IV fluids. Currently on Symbicort and prednisone. WBCs 18.3, hemoglobin 13.5, lázaro telet normal. Creatinine and BUN unremarkable. CO2 33. Ultrasound venous ordered to rule out DVT, noted left lower extremity edema. Initially was diagnosed with left lung pneumonia, not on antibiotics anymore. 10/06--patient was seen and examined today. Awake and alert x 3. Currently on 5 L oxygen. Currently on IV fluids. Ultrasound venous negative for DVT. Currently on DuoNebs Symbicort and prednisone. Labs reviewed, WBC 16.9, hemoglobin 14.3, platelet 137. BMP unremarkable. PT/OT consulted and pending. 10/07--patient was seen and examined today. Remains on 5 L oxygen. WBCs trend ing down 14.08. Hemoglobin 12.4, platelets 140. BMP is unremarkable. [place] level less than 0.10. Discontinue IV fluids. 10/08--patient's seen and examined today. Patient respiratory status gradually improving, patient required to intubation previously, last extubated on 10/03/2023, currently on 2 L oxygen as compared to 5 L yesterday. Patient reported feeling better. Shortness of breath is improving. Patient currently on prednisone burst taper. Pulmonary on board and following. PT/OT consulted. 10/10/2023 Patient is seen this morning and was just re-intubated and brought to the ICU as patient was continued on airvo at 100% and having continuous low pulse ox readings. This will be the third intubation this admission. Patient is also continued on antibiotics for pneumonia. Overall prognosis is guarded at this time. 10/11/2023 Patient is seen and evaluated in follow-up in the ICU and was brought here yesterday for reintubation. Patient continues on mechanical ventilation and sedation with an FiO2 of 40% and PEEP is 10. No plans for weaning trials at this time. Patient continues to require pressor support and attempting to wean. Chest x-ray today shows stable bilateral consolidation and small effusion to correlate for CHF otherwise consider pneumonia. Patient is maintained on IV antibiotics in the form of cefepime and Vanco with infectious disease following. Potassium was on the lower side yesterday after replacement potassium is 3.7 today and kidney functions within normal limits, sodium is 134. Blood sugars being monitored and will continue current regimen. Adjust insulins accordingly. 10/12/2023 Patient is seen in follow-up continues to be on mechanical ventilation FiO2 is 40% with a PEEP of 10 and is off propofol currently awake and responding to comm ands appropriately and per pulmonary refrigerating technician, plan on extubation today. Patient will likely require BiPAP and will follow-up with repeat chest x-ray. Patient continues to require low-dose blood pressure support. Patient to continue on antibiotics and sputum is positive for E. coli. Overall prognosis is guarded and per nursing staff patient and patient family would want reintubation and all measures done and remain full code. 10/12. Seen and examined. Currently on 6 L of oxygen. Still in the ICU. States she feels slightly better. 10/13. Patient seen and examined.Vital signs on this morning show temperature 97.7, heart rate 82, respiration 18, patient was intubated overnight. Underwent bronchoscopy this morning. 10/15/2023 Patient is seen in follow-up continues to be in the ICU and has been reintubated. continues on low dose pressor support and being weaned. Family to discuss further regarding treatment plan moving forward. Patient did report previously she did not want a tracheostomy. Brother is her power of state's attorney. Overall prognosis is extremely poor and guarded at this time. 10/16/2023 Patient is seen in follow-up remains on mechanical ventilation and pressor support and propofol and patient family would like to proceed with tracheostomy and PEG tube placement and general surgery is now consulted. Patient is continued on antibiotics for pneumonia. 10/17/2023 Patient is seen in follow-up today remains on mechanical ventilation and scheduled to undergo tracheostomy and PEG tube placement with general surgery today although sodium was noted to be low at 125 today and being corrected. Surgery being rescheduled for 10/18/2023. Patient remains on mechanical ventilation at 45% and PEEP is 8 with no changes at this time. Patient tolerating tube feedings thus far and will be held at midnight. 10/18/2023 Patient is seen in follow-up this morning remains on mechanical ventilation and currently n.p.o. and tube feeds on hold as patient is tentatively scheduled to receive a PEG tube and tracheostomy with general surgery. Patient had low s odium yesterday and was rescheduled for today and sodium is above 130 today. Patient is currently being prepped at this time. Continue other current regimen and will await surgical report and discussing with surgery on when to initiate tube feedings via PEG tube. 10/19/2023 Patient is evaluated today in follow up in the ICU. Remains on the mechanical ventilator. Patient is postoperative day #1 tracheostomy tube and PEG tub placement. Plan is for tube feeds to be started today. Patient is awake alert propofol is being weaned and if tolerates plan to wean off the levophed today. Cefepime has been discontinued. Chest x-ray today reveals interstitial changes are increasing consider pulmonary vascular congestion. Ongoing dense retrocardiac opacity and extensive right lower lung opacity are similar. Blood work is essentially unchanged yesterday with a white blood cell count of 7.4, hemoglobin 10.5, sodium level of 137. REVIEW OF SYSTEMS: Unable to completely assess as patient is re-intubated and sedated PHYSICAL EXAMINATION: GENERAL: The patient is on mechanical ventilation currently on sedation ill appearing, elderly appearing, FiO2 is. 45% with a PEEP of 8 HEENT: EOMI, Sclerae anicteric, Moist Mucous membranes RESP: diminished breath sounds bilaterally with course rhonchi noted and expiratory wheezing noted as well CARDIOVASCULAR: S1, S2 present. No murmurs, rubs, or gallops. ABDOMEN: Soft, nontender, nondistended, normoactive bowel sounds. No guarding or rebound tenderness. MUSCULOSKELETAL: + LLE edema, No cyanosis. No clubbing. Normal ROM. Intact peripheral pulses. EXTREMITIES: No cyanosis, clubbing, or pedal edema. NEUROLOGICAL: unable to completely assess as patient remains on propofol and is sedated Skin: No Rash Assessment: Acute on chronic hypoxic and hypercapnic respiratory failure, multifactorial, requiring intubation mechanical ventilation last week, and reintubation on 09/29, extubated 10/02, now requiring intubation again 10/10/23, extubated although required reintubation 10/13, failure of successful extubation and scheduled for PEG tube and tracheostomy 10/18/2023 Acute COPD exacerbation Left lung pneumonia, possibly hospital-acquired pneumonia with complete opacification of the left lung secondary to mucous plugging, requiring bronch oscopy and BAL of the left lung. Chronic hypoxic and hypercapnic respiratory failure Chronic pain syndrome Sinus rhythm with PVCs Severe pulmonary hypertension Hyperlipidemia Diabetes mellitus History of GERD Hypothyroidism Severe protein calorie malnutrition History of osteoarthritis GI and DVT prophylaxis Full code Plan: Patient with multiple consultations following including pulmonary refrigerating technician and infectious disease Off antibiotics at this time. Patient also continues on breathing inhalational treatments and remains on mechanical ventilation. Patient is status post trach/peg. Plans to wean propofol and levophed today. Currently, CODE STATUS is full code patient apparently has a family member that is a power of state's attorney, her brother and per nursing staff patient and family continue to want to be reintubated if needed and wished to remain full code Repeat blood work in the AM. PT/OT Due to multiple complex medical issues, overall prognosis is extremely guarded The impression and plan of care has been dictated by Milka Duffy, Nurse Practitioner as directed. Dr. Ethan MD I have performed a history and examination and MDM of this patient, discussed the same with the dictator, and agree with the dictator's assessment and plan as written ,documented as a scribe. Based on total visit time, I have performed more than 50% of the visit. Objective - Vital Signs Vital signs: Vital Signs Temp 98 F 10/19/23 09:00 Pulse 92 10/19/23 11:25 Resp 12 10/19/23 11:00 BP 88/47 10/17/23 07:30 Pulse Ox 97 10/19/23 11:00 FiO2 45 10/19/23 11:02 Intake & Output 10/18/23 10/19/23 10/19/23 18:59 06:59 18:59 Intake Total 640 412.873 228.451 Output Total 530 605 145 Balance 110 -192.127 83.451 Weight 67.5 kg 68.4 kg 68.4 kg Intake: IV 540 240 100 Sodium Chloride 0.9% 1, 240 240 100 000 ml @ 20 mls/hr IV . Q24H SHIRA Rx#:[id number] Intake, IV Titration 100 172.873 128.451 Amount Norepinephrine 8 mg In 72.873 28.812 Sodium Chloride 0.9% 250 ml @ 0.03 MCG/KG/MIN 3. 483 mls/hr IV .Q24H SHIRA Rx#:[id number] propofoL 1,000 mg In 100 100 99.639 Empty Bag 1 bag @ 15 MCG/ KG/MIN 6.282 mls/hr IV . [id number] SHIRA Rx#:[id number] Output: Urine 525 605 145 Estimated Blood Loss 5 Other: Voiding Method Indwelling Catheter Indwelling Catheter ABP, PAP, CO, CI - Last Documented Arterial Blood Pressure 102/48 - Labs CBC & Chem 7: 10/19/23 05:28 10/19/23 05:28 Labs: Abnormal Lab Results - Last 24 Hours (Table) 10/19/23 10/19/23 10/19/23 Range/Units 00:22 05:28 05:28 RBC 3.41 L (3.80-5.40) m/uL Hgb 10.5 L (11.4-16.0) gm/dL Hct 33.5 L (34.0-46.0) % Plt Count 147 L (150-450) k/uL ABG pH (7.35-7.45) ABG pCO2 (35-45) mmHg ABG pO2 (83-108) mmHg ABG HCO3 (21-25) mmol/L ABG Total CO2 (19-24) mmol/L Hemoglobin (11.4-16.0) gm/dL Chloride 97 L (98-107) mmol/L Carbon Dioxide 41 H* (22-30) mmol/L Creatinine 0.17 L (0.52-1.04) mg/dL Glucose 73 L (74-99) mg/dL POC Glucose (mg/dL) 47 L* (70-110) mg/dL Calcium 7.7 L (8.4-10.2) mg/dL 10/19/23 Range/Units 05:37 RBC (3.80-5.40) m/uL Hgb (11.4-16.0) gm/dL Hct (34.0-46.0) % Plt Count (150-450) k/uL ABG pH 7.50 H (7.35-7.45) ABG pCO2 55 H (35-45) mmHg ABG pO2 64 L (83-108) mmHg ABG HCO3 42 H* (21-25) mmol/L ABG Total CO2 44 H (19-24) mmol/L Hemoglobin 10.7 L (11.4-16.0) gm/dL Chloride (98-107) mmol/L Carbon Dioxide (22-30) mmol/L Creatinine (0.52-1.04) mg/dL Glucose (74-99) mg/dL POC Glucose (mg/dL) (70-110) mg/dL Calcium (8.4-10.2) mg/dL Microbiology - Last 24 Hours (Table) 10/10/23 09:30 Acid Fast Bacilli Smear - Preliminary Bronchial Washings - Left Acid Fast Bacilli Culture - Preliminary Assessment and Plan Time with Patient: Less than 30
[2023-10-19 17:59] LABS: Glucose,Whole Blood 92 mg/dL (70-110)
[2023-10-19 23:52] LABS: Glucose,Whole Blood 106 mg/dL (70-110)
[2023-10-20 04:23] LABS: Basophils % (A) 0 %; Eosinophils % (A) 0 %; HCT 33.7 % (34.0-46.0); HGB 10.5 gm/dL (11.4-16.0); Hypochromasia Slight; Lymphocytes # (A) 0.9 k/uL (1.0-4.8); Lymphocytes % (A) 11 %; MCH 30.4 pg (25.0-35.0); MCHC 31.1 g/dL (31.0-37.0); MCV 97.9 fL (80.0-100.0); Mean Platelet Volume 8.3; Monocytes # (A) 0.5 k/uL (0-1.0); Monocytes % (A) 6 %; Neutrophils # (A) 6.2 k/uL (1.3-7.7); Neutrophils % (A) 81 %; Platelet Count 205 k/uL (150-450); RBC 3.44 m/uL (3.80-5.40); RDW 13.9 % (11.5-15.5); WBC 7.7 k/uL (3.8-10.6)
[2023-10-20 05:06] LABS: African American GFR (CKD) >90 (>60 ml/min/1.73 sqM); Blood Urea Nitrogen 17 mg/dL (7-17); Calcium 7.9 mg/dL (8.4-10.2); Chloride 96 mmol/L (98-107); Glucose 119 mg/dL (74-99); Magnesium 1.9 mg/dL (1.6-2.3); Non-African American GFR(CKD) >90 (>60 ml/min/1.73 sqM); Potassium 3.3 mmol/L (3.5-5.1); Sodium 135 mmol/L (137-145)
[2023-10-20 05:12] LABS: Anion Gap 3 mmol/L
[2023-10-20 05:21] LABS: ABG Oxygen Saturation 94.4 % (94-97); ABG PCO2 52 mmHg (35-45); ABG PH 7.51 (7.35-7.45); ABG PO2 65 mmHg (83-108); ABG TCO2 43 mmol/L (19-24)
[2023-10-20 05:24] LABS: ABG HCO3 41 mmol/L (21-25)
[2023-10-20 05:25] LABS: Allen Test Performed? no
[2023-10-20 05:35] LABS: Carbon Dioxide 36 mmol/L (22-30)
[2023-10-20] MEDS: POTASSIUM BICARBONATE/CIT AC 20 MEQ TABLET.EFF NG-TUBE SCH ×3 (05:51→21:40)
[2023-10-20 06:03] LABS: Glucose,Whole Blood 121 mg/dL (70-110)
[2023-10-20] MEDS: FUROSEMIDE 10 MG/ML 2 ML VIAL IV STA (06:57)
--- NOTE | 2023-10-20 06:57 | XR ---
EXAMINATION TYPE: XR chest 1V portable DATE OF EXAM: 10/20/2023 6:04 AM CLINICAL INDICATION: Female, 73 years old with history of assess lungs; [facility] COMPARISON: Chest radiographs from 10/18/2023 TECHNIQUE: XR chest 1V portable Frontal view of the chest. FINDINGS: Lungs/Pleura: No evidence of focal consolidation or pneumothorax. Blunting of the costophrenic angles is present. Pulmonary vascularity: Unremarkable. Heart/mediastinum: Cardiomediastinal silhouette is unremarkable. Musculoskeletal: No acute osseous pathology. Other findings: None Lines/Tubes: Tracheostomy cannula tip projecting over the trachea. Left central venous catheter with distal tip at the cavoatrial junction. IMPRESSION: 1. Improved aeration of the lungs. 2. tracheostomy cannula in appropriate position. 3. Small bilateral pleural effusions
--- NOTE | 2023-10-20 08:57 | P.PN ---
Subjective Progress Note Date: 10/20/23 Patient juan pablo stable in the ICU. She is tolerating tube feeds. Her trach site is clean. She will continue receive supportive care. Objective - Vital Signs Vital signs: Vital Signs Temp 97.9 F 10/20/23 04:00 Pulse 93 10/20/23 08:25 Resp 20 10/20/23 08:00 BP 92/71 10/20/23 04:00 Pulse Ox 97 10/20/23 07:30 FiO2 45 10/20/23 08:00 Intake & Output 10/19/23 10/20/23 10/20/23 18:59 06:59 18:59 Intake Total 122.816 4714.610 239 Output Total 765 790 900 Balance 97.693 928.610 -661 Weight 68.4 kg 69.3 kg Intake: IV 100 220 40 Sodium Chloride 0.9% 1, 100 220 40 000 ml @ 20 mls/hr IV . Q24H SHIRA Rx#:[id number] Intake, IV Titration 670.693 955.610 75 Amount Norepinephrine 8 mg In 46.054 55.610 Sodium Chloride 0.9% 250 ml @ 0.03 MCG/KG/MIN 3. 483 mls/hr IV .Q24H SHIRA Rx#:[id number] Sodium Chloride 0.9% 1, 525 900 75 000 ml @ 75 mls/hr IV . [id number] SHIRA Rx#:[id number] propofoL 1,000 mg In 99.639 Empty Bag 1 bag @ 15 MCG/ KG/MIN 6.282 mls/hr IV . [id number] SHIRA Rx#:[id number] Tube Feeding 92 453 94 Other 90 30 Output: Urine 765 790 900 Other: Voiding Method Indwelling Catheter Indwelling Catheter Indwelling Catheter # Bowel Movements 1 ABP, PAP, CO, CI - Last Documented Arterial Blood Pressure 89/51 - Labs CBC & Chem 7: 10/20/23 04:00 10/20/23 04:00 Labs: Abnormal Lab Results - Last 24 Hours (Table) 10/20/23 10/20/23 10/20/23 Range/Units 04:00 04:00 05:20 RBC 3.44 L (3.80-5.40) m/uL Hgb 10.5 L (11.4-16.0) gm/dL Hct 33.7 L (34.0-46.0) % Lymphocytes # 0.9 L (1.0-4.8) k/uL ABG pH 7.51 H (7.35-7.45) ABG pCO2 52 H (35-45) mmHg ABG pO2 65 L (83-108) mmHg ABG HCO3 41 H* (21-25) mmol/L ABG Total CO2 43 H (19-24) mmol/L Hemoglobin 10.0 L (11.4-16.0) gm/dL Sodium 135 L (137-145) mmol/L Potassium 3.3 L (3.5-5.1) mmol/L Chloride 96 L (98-107) mmol/L Carbon Dioxide 36 H (22-30) mmol/L Creatinine 0.22 L (0.52-1.04) mg/dL Glucose 119 H (74-99) mg/dL POC Glucose (mg/dL) (70-110) mg/dL Calcium 7.9 L (8.4-10.2) mg/dL 10/20/23 Range/Units 06:01 RBC (3.80-5.40) m/uL Hgb (11.4-16.0) gm/dL Hct (34.0-46.0) % Lymphocytes # (1.0-4.8) k/uL ABG pH (7.35-7.45) ABG pCO2 (35-45) mmHg ABG pO2 (83-108) mmHg ABG HCO3 (21-25) mmol/L ABG Total CO2 (19-24) mmol/L Hemoglobin (11.4-16.0) gm/dL Sodium (137-145) mmol/L Potassium (3.5-5.1) mmol/L Chloride (98-107) mmol/L Carbon Dioxide (22-30) mmol/L Creatinine (0.52-1.04) mg/dL Glucose (74-99) mg/dL POC Glucose (mg/dL) 121 H (70-110) mg/dL Calcium (8.4-10.2) mg/dL Microbiology - Last 24 Hours (Table) 10/10/23 09:30 Fungal Culture - Preliminary Bronchial Washings - Left Michelle albicans
[2023-10-20] MEDS ORDERED: HYDROmorphone 0.5 MG/0.5 ML SYRINGE IVP PRN (09:26)
[2023-10-20] MEDS ORDERED: LIDOCAINE 1% (10MG/ML) FOR IV START INTRADERMA PRN (09:26)
--- NOTE | 2023-10-20 10:53 | P.PN ---
Subjective Progress Note Date: 10/20/23 Principal diagnosis: Acute hypoxic and hypercapnic respiratory failure secondary to acute COPD exacerbation and extensive left-sided pneumonia Patient was eval on 09/30/2023, patient has been on BiPAP for the last few days while in the ICU, however I was notified about this patient this morning becoming much worse clinically. Patient has been on 100% BiPAP with IPAP of 12 and EPAP of 6, however she developed worsening pulmonary status this morning, in spite of being on 100% FiO2, patient had her O2 saturation down in the low 70s. Patient was also noted to be coming more short of breath, and that she was having significant work of breathing. Hence as soon as I was notified about this patient, I recommended immediate intubation by POST PRODUCTION ASSISTANT, and I came in and evaluated the patient after she was intubated, reviewed her chest x-ray and I performed bronchoscopy and BAL/therapeutic BAL of the left lung with significant improvement noted after bronchoscopy. Patient also had central line placed since she was hypotensive and requiring norepinephrine. 0.08 mcg/kg/min. Vent ilator settings are assist-control rate of 20, tidal volume 350, FiO2 100% and PEEP of 8 showed a pO2 of 77 pCO2 63 pH of 7.49 no changes were made in the ventilator settings, and advised respiratory to titrate FiO2 accordingly maintaining O2 sats above 91% WBC count today is 8.7 hemoglobin 14.2 hematocrit is 45.6. Electrolytes are normal except for low potassium of 3.2 being addressed and her renal status is normal bicarb is 44 10/13/2023, the patient extubated on 6 L of oxygen by nasal cannula. Overnight, the patient was kept on a BiPAP at a pressure of 10/5 with an FiO2 of 40%. She is weak. She has a weak cough. She has a congested cough. Unable to bring up much sputum. Awake and alert and communicating. Moving all 4 extremities. Has increased edema in all 4 extremities. Remains on IV cefepime and vancomycin. Echocardiogram showed an ejection fraction of 35 to 40%. Blood work from today shows a white cell count of 9.2, hemoglobin of 11.6 and a platelet count of 142. BUN is 40 with a creatinine of 0.2 and sodium levels at 136. Chest x-ray from today was not obtained. Remains on bronchodilators. Remains on oral prednisone. Has extensive third spacing and edema in all 4 extremities. 92,024, the patient is reintubated and this is the patient's fourth intubation. After extubating the patient for the third time, the patient was stable during the day and overnight she decompensated, she had respiratory difficulties and she became hypoxic, tachycardic and in acute respiratory distress. Based on that, the patient was reintubated. I repeated the bronchoscopy and further mucous plugs were identified in her lungs although less abundant compared to previous evaluations. This morning, the patient on propofol at 50 mcg/kg/min. She is on norepinephrine running at 0.33 mcg/kg/min. She is on assist-control mode rate of 16, tidal volume of 350, FiO2 of 70% with a PEEP of 10. Blood gas from this morning showed a pH of 7.44 with a pCO2 of 57 and pO2 112. She is in negative fluid balance. She was given a dose of Lasix yesterday and the patient produced approximately 3 L of urine output. White cell count is at 9.3 with a hemoglobin 9.7 and a platelet count of 134. BUN is 12 with a creatinine of 0.2 and sodium levels at 135 and a potassium level is at 3.1. Blood sugars of 106. Arousable even while on sedation. Patient was evaluated today on 10/15/2023, remains in the ICU, intubated and mechanically ventilated. Patient is on assist-control rate of 16 tidal volume 350 FiO2 50% and PEEP of 10 ABG showed a pO2 of 84 pCO2 63 pH of 7.39 hence FiO2 was cut down to 45% and PEEP cut down to 8. Patient remains quite ill, she has been intubated and extubated multiple times, and I believe the patient will definitely need a tracheostomy. Patient has been in the hospital now for over 3 weeks, and she spent most of the time intubated and mechanically ventilated. Intermittently went off mechanical ventilation, but she had to be reintubated 3- 4 times already. She is on propofol at 50 mcg/kg/min norepinephrine at 0.03, vasopressin at 0.03 units/min, IV fluid at KVO, her last bronchoscopy was 10/13 and she remains on cefepime for E. coli in the sputum. Today I am not weaning the patient, may actually address her mental status, but even if weaned and extubated, the patient will continue to fail, and at this point I am strongly recommending a tracheostomy. Eventually the family needs to be made aware that if her condition gets better down the line, tracheostomy is reversible, and we could have it decannulated down the line. But no plans to continue the same trials of weaning extubating reintubating etc. If the family continues to refuse tracheostomy, then will extubate only if the CODE STATUS has been changed and patient is made DNR CODE STATUS CBC count today is 6 hemoglobin is 10.9. ABG as noted basic metabolic profile is normal renal profile is normal bicarb is 39 chest x-ray showed COPD and interval worsening of bibasilar airspace disease with possibly a small right-sided pleural effusion and bilateral interstitial densities persisting. Patient is still hemodynamically unstable, still requiring pressors, remains on cefepime, remains on bronchodilators, remains on GI DVT prophylaxis, and she is also on enteral feeding/nutritional support. Patient was evaluated today on 10/16/2023, remains in the ICU, intubated and mec hanically ventilated, patient is on assist-control rate of 16 tidal volume 350 FiO2 45% and PEEP of 8 ABG showed a pO2 of 90 pCO2 59 pH of 7.43. Patient is still requiring norepinephrine at 0.02 mcg/kg/min, she is on propofol at 50 mcg/kg/min vasopressin at 0.02 units/min she is on cefepime for her antibiotics for E. coli pneumonia, she is also on vital AF at 23/23. Patient is sedated, and I requested a meeting with the family today, all family members came today including her boyfriend, and we discussed the need for tracheostomy and PEG tube placement. Family is now agreeable to proceed with tracheostomy and PEG tube placement, and will go ahead and consult general surgery/Dr. vogt for tracheostomy and PEG tube placement. Chest x-ray continues to show a combination of pleural effusions and atelectasis/consolidation specially at the right base. CBC count is 5.5 hemoglobin 10.5, sodium is 127 hence her IV fluid is 0.9 normal saline at 75 cc/h. Potassium is 3.5 bicarb is 37, renal profile is normal Patient was seen today on 10/17/2023, patient remains in the ICU, intubated and mechanically ventilated, patient was supposed to have tracheostomy and PEG tube placement, however sodium drifted down to 125 not responding to 0.9 normal saline, I believe the patient is developing a picture of SIADH, will go back to fluid restriction and in the meantime I am recommending 100 cc of 3% saline, recheck sodium, otherwise anesthesia will not approve tracheostomy and PEG tube placement unless the sodium is above 128. In the meantime the patient is on assist-control rate of 16 tidal volume 350 FiO2 45% and PEEP of 8. ABG showed a pO2 121 pCO2 59 pH of 7.43. Patient is on propofol at 50 mcg/kg/min vasopressin at 0.02 units/min off norepinephrine, patient is still receiving cefepime, IV fluids at KVO, and vital AF . She is presently on hold for tracheostomy and PEG tube placement. WBC count is 5.6 hemoglobin 9.8 ABG as noted earlier sodium 125 BUN is 17 creatinine 0.21, chest x-ray continues to show ongoing dense retrocardiac opacity with extensive right lower lobe opacity, findings consistent with pneumonia patient does have E. coli pneumonia. Patient was evaluated on 10/18/2023, patient remains in the ICU, intubated and mechanically ventilated. She is on assist-control rate of 16 tidal volume 350 FiO2 45% and PEEP of 5 ABG showed a pO2 of 63 pCO2 56 pH of 7.48 patient is still requiring norepinephrine at 0.01 mcg/kg/min, on propofol at 50 mcg/kg/min, IV fluids at KVO. Sodium was quite low yesterday, and patient received 3% saline, sodium came up to 136, and this was done mostly to get her sodium high enough to safely perform tracheostomy and PEG tube placement, as anesthesia declined to do the procedure without correction of her sodium patient is receiving cefepime for E. coli in the sputum. And E. coli pneumonia PCR is 5.3 hemoglobin is 11.3. Basic metabolic profile is normal potassium is 3.0 bicarb is 41, renal profile is normal calcium is 7.8. Chest x-ray this morning continues to show dense retrocardiac opacity and extensive right lower lobe opacity consistent with pneumonia/E. coli pneumonia. vague interstitial changes persist Patient was evaluated today on 10/19/23, patient remains in the ICU, intubated and mechanically ventilated, she is now status post tracheostomy and PEG tube placement, postoperative day #1. Patient remains mechanically ventilated, on assist-control rate of 16 tidal volume 350 FiO2 45% and PEEP of 5 ABG showed a pO2 of 64 pCO2 55 pH of 7.50. Still requiring norepinephrine for hemodynamic support, she is on 0.03 mcg/kg/min remains on propofol at 50 mg/kg/min IV fluids at KVO but a glycerin up to 75 cc/h since her urine output is marginal. Remains on vital AF at 23 cc/h. Urine output is 30 cc/h. Chest x-ray continues to show evidence of mild pulmonary vascular congestion, ongoing dense retrocardiac opacity consistent with pneumonia. And or atelectasis right lower lobe opacity is also consistent with pneumonia and/or atelectasis clinically the patient received adequate treatment for her E. coli pneumonia, I believe the findings are mostly findings of atelectasis. Labs today WBC count is 7.4 hemoglobin 10.5, basic metabolic profile is normal bicarb is 41 BUN is 14 creatinine 0.17. Patient is on a bit of propofol, and she is arousable, she is following simple instructions, and I plan to give the patient a trial of weaning on pressure support of 12 and CPAP Patient was seen and evaluated today on 10/20/2023, patient remains in the ICU, yesterday she was placed on pressure support of 12 and CPAP, however earlier this morning the patient could not tolerate pressure support and CPAP anymore, she desaturated, her FiO2 had to be increased, patient was placed back on AC mode of mechanical ventilation, and she was given a dose of Lasix. Patient was suctioned, her O2 saturation improved significantly, and follow-up ABG this morning showed a pO2 of 65 pCO2 52 pH of 7.51. Patient remains on assist- control rate of 16 tidal volume 350 FiO2 is down to 45% and PEEP remains at 8. Patient is still requiring norepinephrine at 0.04 mcg/kg/min she is on vital AF 47/47, patient is awake, alert, follows simple instructions, does not seem to be in distress this morning. I am planning to continue intermittent modalities of weaning with pressure support and CPAP for 4 hours then assist-control mode of mechanical ventilation for 4 hours alternating every 4 hours. Chest x-ray continues to show right basilar and left basilar atelectasis/consolidation. Received more than 2 weeks of treatment with cefepime for E. coli pneumonia. WBC count today is 7.7 hemoglobin is 10.5 electrolytes are normal except for potassium of 3.3 renal profile is normal Objective - Vital Signs Vital signs: Vital Signs Temp 97.9 F 10/20/23 04:00 Pulse 93 10/20/23 08:25 Resp 20 10/20/23 08:00 BP 92/71 10/20/23 04:00 Pulse Ox 97 10/20/23 07:30 FiO2 45 10/20/23 08:00 Intake & Output 10/19/23 10/20/23 10/20/23 18:59 06:59 18:59 Intake Total 991.689 8045.610 239 Output Total 765 790 900 Balance 97.693 928.610 -661 Weight 68.4 kg 69.3 kg Intake: IV 100 220 40 Sodium Chloride 0.9% 1, 100 220 40 000 ml @ 20 mls/hr IV . Q24H [facility]IRA Rx#:[id number] Intake, IV Titration 670.693 955.610 75 Amount Norepinephrine 8 mg In 46.054 55.610 Sodium Chloride 0.9% 250 ml @ 0.03 MCG/KG/MIN 3. 483 mls/hr IV .Q24H SHIRA Rx#:[id number] Sodium Chloride 0.9% 1, 525 900 75 000 ml @ 75 mls/hr IV . [id number] [facility]IRA Rx#:[id number] propofoL 1,000 mg In 99.639 Empty Bag 1 bag @ 15 MCG/ KG/MIN 6.282 mls/hr IV . [id number] [facility]IRA Rx#:[id number] Tube Feeding 92 453 94 Other 90 30 Output: Urine 765 790 900 Other: Voiding Method Indwelling Catheter Indwelling Catheter Indwelling Catheter # Bowel Movements 1 ABP, PAP, CO, CI - Last Documented Arterial Blood Pressure 89/51 - Exam General: 3-year-old female, looks frail, intubated and mechanically ventilated. Tracheostomy in place, intact Skin: No rashes. Eye: Pupils are equal, round and reactive to light, extra-ocular movements are intact; there is normal conjunctiva bilaterally. Ears, nose, mouth and throat: There are moist mucous membranes and no oral lesions. Neck: The neck is supple, there is no tenderness or JVD. Tracheostomy is intact. Cardiovascular: Distant S1-S2, no S3 gallop. Crackles and rhonchi noted bilaterally. Lungs: Crackles and rhonchi at the bases Gastrointestinal: Soft, non-distended, non-tender abdomen without masses or organomegaly noted. No rebound no guarding. PEG tube is intact, functional and being utilized. Musculoskeletal: Generalized weakness Neurological: Awake alert oriented no focal deficits. Except generally weak Psychiatric: Normal mood, normal affect and normal mental status examination - Labs CBC & Chem 7: 10/20/23 04:00 10/20/23 04:00 Labs: Abnormal Lab Results - Last 24 Hours (Table) 10/20/23 10/20/23 10/20/23 Range/Units 04:00 04:00 05:20 RBC 3.44 L (3.80-5.40) m/uL Hgb 10.5 L (11.4-16.0) gm/dL Hct 33.7 L (34.0-46.0) % Lymphocytes # 0.9 L (1.0-4.8) k/uL ABG pH 7.51 H (7.35-7.45) ABG pCO2 52 H (35-45) mmHg ABG pO2 65 L (83-108) mmHg ABG HCO3 41 H* (21-25) mmol/L ABG Total CO2 43 H (19-24) mmol/L Hemoglobin 10.0 L (11.4-16.0) gm/dL Sodium 135 L (137-145) mmol/L Potassium 3.3 L (3.5-5.1) mmol/L Chloride 96 L (98-107) mmol/L Carbon Dioxide 36 H (22-30) mmol/L Creatinine 0.22 L (0.52-1.04) mg/dL Glucose 119 H (74-99) mg/dL POC Glucose (mg/dL) (70-110) mg/dL Calcium 7.9 L (8.4-10.2) mg/dL 10/20/23 Range/Units 06:01 RBC (3.80-5.40) m/uL Hgb (11.4-16.0) gm/dL Hct (34.0-46.0) % Lymphocytes # (1.0-4.8) k/uL ABG pH (7.35-7.45) ABG pCO2 (35-45) mmHg ABG pO2 (83-108) mmHg ABG HCO3 (21-25) mmol/L ABG Total CO2 (19-24) mmol/L Hemoglobin (11.4-16.0) gm/dL Sodium (137-145) mmol/L Potassium (3.5-5.1) mmol/L Chloride (98-107) mmol/L Carbon Dioxide (22-30) mmol/L Creatinine (0.52-1.04) mg/dL Glucose (74-99) mg/dL POC Glucose (mg/dL) 121 H (70-110) mg/dL Calcium (8.4-10.2) mg/dL Microbiology - Last 24 Hours (Table) 10/10/23 09:30 Fungal Culture - Preliminary Bronchial Washings - Left Michelle albicans Assessment and Plan Assessment: Impression: Acute on chronic hypoxic and hypercapnic respiratory failure, multifactorial, requiring reintubation for the first time on 10/10/2023, multiple bronchoscopies has been performed for left lung collapse and pneumonia patient is on combination of cefepime patient was extubated on 10/11 and had to be reintubated on 10/12 mostly secondary to mucous plugging. And the patient could not clear her secretions, Post tracheostomy and PEG tube placement, postoperative day #1 Left lung collapse secondary to mucous plugs and left lower lobe pneumonia requiring multiple bronchoscopies Advanced COPD with acute COPD exacerbation Acute COPD exacerbation Chronic pain syndrome Chronic systolic congestive heart failure Hypotension secondary to sepsis and septic shock requiring pressors and she remains on pressors today. Profound weakness and debility with multiple comorbidities as noted above. Coffee-ground material noted in nasogastric tube today, patient is on Pepcid no significant drop in hemoglobin, will continue to monitor and continue Pepcid in the meantime Recommendations: Continue to monitor in the ICU will try 4 hours on CPAP with pressure support and 4 hours on AC mode of mechanical ventilation Comes next week patient may have to be evaluated for possible transfer to [facility] care specialty in the meantime we will continue intermittent trials of weaning: Continue ventilatory support Continue norepinephrine and titrate accordingly for hemodynamic support Patient is off antibiotics, continue intermittent suctioning of tracheostomy. Nutritional support/enteral feeding, patient is on tube feeding via PEG tube. Continue GI and DVT prophylaxis, continue Pepcid twice daily Continue bronchodilators and steroids Continue monitoring daily chest x-rays and daily ABGs Critical care time is over 30 minutes, prognosis remains guarded patient remains critically ill. Time with Patient: Greater than 30
[2023-10-20 12:21] LABS: Glucose,Whole Blood 173 mg/dL (70-110)
--- NOTE | 2023-10-20 12:24 | P.PN ---
Subjective Progress Note Date: 10/20/23 Acute hypoxic and hypercapnic respiratory failure secondary to acute COPD exacerbation and extensive left-sided pneumonia. Patient was eval on 09/30/2023, patient has been on BiPAP for the last few days while in the ICU, Patient has been on 100% BiPAP with IPAP of 12 and EPAP of 6, however she developed worsening pulmonary status this morning, in spite of being on 100% FiO2, patient had her O2 saturation down in the low 70s. Patient was intubated, underwent bronchoscopy with lavage 09/30. Patient seen examined. Currently intubated. Currently on IV Zosyn. Vital signs stable 10/01. Patient seen and examined. Patient currently going through SBT, patient opening eyes. 10/02. Patient seen and examined. Patient extubated this morning. 10/03. Patient seen and examined. Sitting upright in the bed. States she feels much better. Currently on 5 l of oxygen. Denies any shortness of breath at res t.Blood work done this morning showed WBC 13.3, hemoglobin 13.6, sodium 35, potassium 3.8, BUN 25, creatinine 0.31 10/04. Patient seen and examined. Sitting upright in the chair, currently on 5 L of oxygen. Being transferred out of ICU. 10/05--patient was examined today, currently on 5 L nasal cannula oxygen. On IV fluids. Currently on Symbicort and prednisone. WBCs 18.3, hemoglobin 13.5, lázaro telet normal. Creatinine and BUN unremarkable. CO2 33. Ultrasound venous ordered to rule out DVT, noted left lower extremity edema. Initially was diagnosed with left lung pneumonia, not on antibiotics anymore. 10/06--patient was seen and examined today. Awake and alert x 3. Currently on 5 L oxygen. Currently on IV fluids. Ultrasound venous negative for DVT. Currently on DuoNebs Symbicort and prednisone. Labs reviewed, WBC 16.9, hemoglobin 14.3, platelet 137. BMP unremarkable. PT/OT consulted and pending. 10/07--patient was seen and examined today. Remains on 5 L oxygen. WBCs trend ing down 14.08. Hemoglobin 12.4, platelets 140. BMP is unremarkable. [place] level less than 0.10. Discontinue IV fluids. 10/08--patient's seen and examined today. Patient respiratory status gradually improving, patient required to intubation previously, last extubated on 10/03/2023, currently on 2 L oxygen as compared to 5 L yesterday. Patient reported feeling better. Shortness of breath is improving. Patient currently on prednisone burst taper. Pulmonary on board and following. PT/OT consulted. 10/10/2023 Patient is seen this morning and was just re-intubated and brought to the ICU as patient was continued on airvo at 100% and having continuous low pulse ox readings. This will be the third intubation this admission. Patient is also continued on antibiotics for pneumonia. Overall prognosis is guarded at this time. 10/11/2023 Patient is seen and evaluated in follow-up in the ICU and was brought here yesterday for reintubation. Patient continues on mechanical ventilation and sedation with an FiO2 of 40% and PEEP is 10. No plans for weaning trials at this time. Patient continues to require pressor support and attempting to wean. Chest x-ray today shows stable bilateral consolidation and small effusion to correlate for CHF otherwise consider pneumonia. Patient is maintained on IV antibiotics in the form of cefepime and Vanco with infectious disease following. Potassium was on the lower side yesterday after replacement potassium is 3.7 today and kidney functions within normal limits, sodium is 134. Blood sugars being monitored and will continue current regimen. Adjust insulins accordingly. 10/12/2023 Patient is seen in follow-up continues to be on mechanical ventilation FiO2 is 40% with a PEEP of 10 and is off propofol currently awake and responding to comm ands appropriately and per pulmonary blade filer, plan on extubation today. Patient will likely require BiPAP and will follow-up with repeat chest x-ray. Patient continues to require low-dose blood pressure support. Patient to continue on antibiotics and sputum is positive for E. coli. Overall prognosis is guarded and per nursing staff patient and patient family would want reintubation and all measures done and remain full code. 10/12. Seen and examined. Currently on 6 L of oxygen. Still in the ICU. States she feels slightly better. 10/13. Patient seen and examined.Vital signs on this morning show temperature 97.7, heart rate 82, respiration 18, patient was intubated overnight. Underwent bronchoscopy this morning. 10/15/2023 Patient is seen in follow-up continues to be in the ICU and has been reintubated. continues on low dose pressor support and being weaned. Family to discuss further regarding treatment plan moving forward. Patient did report previously she did not want a tracheostomy. Brother is her power of disability attorney. Overall prognosis is extremely poor and guarded at this time. 10/16/2023 Patient is seen in follow-up remains on mechanical ventilation and pressor support and propofol and patient family would like to proceed with tracheostomy and PEG tube placement and general surgery is now consulted. Patient is continued on antibiotics for pneumonia. 10/17/2023 Patient is seen in follow-up today remains on mechanical ventilation and scheduled to undergo tracheostomy and PEG tube placement with general surgery today although sodium was noted to be low at 125 today and being corrected. Surgery being rescheduled for 10/18/2023. Patient remains on mechanical ventilation at 45% and PEEP is 8 with no changes at this time. Patient tolerating tube feedings thus far and will be held at midnight. 10/18/2023 Patient is seen in follow-up this morning remains on mechanical ventilation and currently n.p.o. and tube feeds on hold as patient is tentatively scheduled to receive a PEG tube and tracheostomy with general surgery. Patient had low s odium yesterday and was rescheduled for today and sodium is above 130 today. Patient is currently being prepped at this time. Continue other current regimen and will await surgical report and discussing with surgery on when to initiate tube feedings via PEG tube. 10/19/2023 Patient is evaluated today in follow up in the ICU. Remains on the mechanical ventilator. Patient is postoperative day #1 tracheostomy tube and PEG tub placement. Plan is for tube feeds to be started today. Patient is awake alert propofol is being weaned and if tolerates plan to wean off the levophed today. Cefepime has been discontinued. Chest x-ray today reveals interstitial changes are increasing consider pulmonary vascular congestion. Ongoing dense retrocardiac opacity and extensive right lower lung opacity are similar. Blood work is essentially unchanged yesterday with a white blood cell count of 7.4, hemoglobin 10.5, sodium level of 137. 10/20/2023 Patient is postoperative day #2 tracheostomy tube and PEG tube placement. She is currently weaned off of the propofol she is awake alert and oriented and responding to questions. She does report significant pain to her extremities and her left arm especially is edematous. Today reveals small bilateral pleural effusions. Her sodium level is now 135 she did receive a dose of IV Lasix today. Otherwise her potassium was 3.3, CO2 is 36. She continues on a small dose of Levophed. Blood pressure 99/51. Review of Systems Constitutional: Reports fatigue denied any fever. Cardio vascular: denied any chest pain, palpitations Gastrointestinal: denied any nausea, vomiting, diarrhea Pulmonary: Denied any shortness of breath cough Neurologic denied any new focal deficits weakness. All inpatient medications were reviewed and appropriate changes in these medications as dictated in the interval history and assessment and plan. PHYSICAL EXAMINATION: GENERAL: The patient is on mechanical ventilation through tracheostomy, ill appearing, elderly appearing, FiO2 is. 45% with a PEEP of 8 HEENT: EOMI, Sclerae anicteric, Moist Mucous membranes RESP: diminished breath sounds bilaterally with course rhonchi noted and expiratory wheezing noted as well CARDIOVASCULAR: S1, S2 present. No murmurs, rubs, or gallops. ABDOMEN: Soft, nontender, nondistended, normoactive bowel sounds. No guarding or rebound tenderness. MUSCULOSKELETAL: + LLE edema, No cyanosis. No clubbing. Normal ROM. Intact peripheral pulses. EXTREMITIES: No cyanosis, clubbing, or pedal edema. NEUROLOGICAL: Diffuse weakness, moving all 4 extremities. Fatigued. She is awake alert Skin: No Rash Assessment: Acute on chronic hypoxic and hypercapnic respiratory failure, multifactorial, requiring intubation mechanical ventilation last week, and reintubation on 09/29, extubated 10/02, now requiring intubation again 10/10/23, extubated although required reintubation 10/13, failure of successful extubation and scheduled for PEG tube and tracheostomy 10/18/2023 Acute COPD exacerbation Left lung pneumonia, possibly hospital-acquired pneumonia with complete opacification of the left lung secondary to mucous plugging, requiring bronchoscopy and BAL of the left lung. Chronic hypoxic and hypercapnic respiratory failure Chronic pain syndrome Sinus rhythm with PVCs Severe pulmonary hypertension Hyperlipidemia Diabetes mellitus History of GERD Hypothyroidism Severe protein calorie malnutrition History of osteoarthritis GI and DVT prophylaxis Full code Plan: Patient with multiple consultations following including pulmonary blade filer and infectious disease Off antibiotics at this time. Patient also continues on breathing inhalational treatments and remains on mechanical ventilation. Patient is status post trach/peg. Patient has been weaned off propofol. Currently, CODE STATUS is full code patient apparently has a family member that is a power of disability attorney, her brother and per nursing staff patient and family continue to want to be reintubated if needed and wished to remain full code Repeat blood work in the AM. Received a dose of IV lasix today Recommend to elevate the left arm on pillows as it extremely edematous PT/OT Due to multiple complex medical issues, overall prognosis is extremely guarded The impression and plan of care has been dictated by Milka Duffy, Nurse Practitioner as directed. Dr. Ethan MD I have performed a history and examination and MDM of this patient, discussed the same with the dictator, and agree with the dictator's assessment and plan as written ,documented as a scribe. Based on total visit time, I have performed more than 50% of the visit. Objective - Vital Signs Vital signs: Vital Signs Temp 97.9 F 10/20/23 04:00 Pulse 100 10/20/23 11:40 Resp 17 10/20/23 11:00 BP 92/71 10/20/23 04:00 Pulse Ox 96 10/20/23 11:00 FiO2 45 10/20/23 11:29 Intake & Output 10/19/23 10/20/23 10/20/23 18:59 06:59 18:59 Intake Total 241.346 0124.610 454.629 Output Total 074 886 6289 Balance 97.693 928.610 -595.371 Weight 68.4 kg 69.3 kg Intake: IV 100 220 100 Sodium Chloride 0.9% 1, 100 220 100 000 ml @ 20 mls/hr IV . Q24H SHIRA Rx#:[id number] Intake, IV Titration 670.693 955.610 89.629 Amount Norepinephrine 8 mg In 46.054 55.610 14.629 Sodium Chloride 0.9% 250 ml @ 0.03 MCG/KG/MIN 3. 483 mls/hr IV .Q24H SHIRA Rx#:[id number] Sodium Chloride 0.9% 1, 525 900 75 000 ml @ 75 mls/hr IV . [id number] SHIRA Rx#:[id number] propofoL 1,000 mg In 99.639 Empty Bag 1 bag @ 15 MCG/ KG/MIN 6.282 mls/hr IV . [id number] [facility]IRA Rx#:[id number] Tube Feeding 92 453 235 Other 90 30 Output: Urine 697 307 2458 Other: Voiding Method Indwelling Catheter Indwelling Catheter Indwelling Catheter # Bowel Movements 1 ABP, PAP, CO, CI - Last Documented Arterial Blood Pressure 99/52 - Labs CBC & Chem 7: 10/20/23 04:00 10/20/23 04:00 Labs: Abnormal Lab Results - Last 24 Hours (Table) 10/20/23 10/20/23 10/20/23 Range/Units 04:00 04:00 05:20 RBC 3.44 L (3.80-5.40) m/uL Hgb 10.5 L (11.4-16.0) gm/dL Hct 33.7 L (34.0-46.0) % Lymphocytes # 0.9 L (1.0-4.8) k/uL ABG pH 7.51 H (7.35-7.45) ABG pCO2 52 H (35-45) mmHg ABG pO2 65 L (83-108) mmHg ABG HCO3 41 H* (21-25) mmol/L ABG Total CO2 43 H (19-24) mmol/L Hemoglobin 10.0 L (11.4-16.0) gm/dL Sodium 135 L (137-145) mmol/L Potassium 3.3 L (3.5-5.1) mmol/L Chloride 96 L (98-107) mmol/L Carbon Dioxide 36 H (22-30) mmol/L Creatinine 0.22 L (0.52-1.04) mg/dL Glucose 119 H (74-99) mg/dL POC Glucose (mg/dL) (70-110) mg/dL Calcium 7.9 L (8.4-10.2) mg/dL 10/20/23 Range/Units 06:01 RBC (3.80-5.40) m/uL Hgb (11.4-16.0) gm/dL Hct (34.0-46.0) % Lymphocytes # (1.0-4.8) k/uL ABG pH (7.35-7.45) ABG pCO2 (35-45) mmHg ABG pO2 (83-108) mmHg ABG HCO3 (21-25) mmol/L ABG Total CO2 (19-24) mmol/L Hemoglobin (11.4-16.0) gm/dL Sodium (137-145) mmol/L Potassium (3.5-5.1) mmol/L Chloride (98-107) mmol/L Carbon Dioxide (22-30) mmol/L Creatinine (0.52-1.04) mg/dL Glucose (74-99) mg/dL POC Glucose (mg/dL) 121 H (70-110) mg/dL Calcium (8.4-10.2) mg/dL Microbiology - Last 24 Hours (Table) 10/10/23 09:30 Fungal Culture - Preliminary Bronchial Washings - Left Michelle albicans Assessment and Plan Time with Patient: Less than 30
[2023-10-20] MEDS: LACTATED RINGERS 1,000 ML IV SCH (12:27)
[2023-10-20 17:58] LABS: Glucose,Whole Blood 143 mg/dL (70-110)
[2023-10-20 23:41] LABS: Glucose,Whole Blood 132 mg/dL (70-110)
[2023-10-21 04:35] LABS: ABG Base Excess 15.2 mmol/L; ABG Oxygen Saturation 98.7 % (94-97); ABG PCO2 58 mmHg (35-45); ABG PH 7.46 (7.35-7.45); ABG PO2 109 mmHg (83-108); ABG TCO2 43 mmol/L (19-24)
[2023-10-21 04:47] LABS: Basophils % (A) 0 %; Eosinophils % (A) 1 %; HGB 10.2 gm/dL (11.4-16.0); Hypochromasia Moderate; Lymphocytes # (A) 1.3 k/uL (1.0-4.8); Lymphocytes % (A) 17 %; MCH 31.2 pg (25.0-35.0); MCHC 31.7 g/dL (31.0-37.0); MCV 98.2 fL (80.0-100.0); Mean Platelet Volume 8.8; Monocytes # (A) 0.5 k/uL (0-1.0); Monocytes % (A) 7 %; Neutrophils # (A) 5.4 k/uL (1.3-7.7); Neutrophils % (A) 74 %; Platelet Count 225 k/uL (150-450); RBC 3.26 m/uL (3.80-5.40); RDW 13.8 % (11.5-15.5); WBC 7.3 k/uL (3.8-10.6)
[2023-10-21 04:52] LABS: Ionized Calcium 4.8 mg/dL (4.5-5.3)
[2023-10-21 04:58] LABS: ABG HCO3 41 mmol/L (21-25); Allen Test Performed? no
[2023-10-21 05:02] LABS: African American GFR (CKD) >90 (>60 ml/min/1.73 sqM); Blood Urea Nitrogen 16 mg/dL (7-17); Calcium 7.9 mg/dL (8.4-10.2); Chloride 98 mmol/L (98-107); Glucose 121 mg/dL (74-99); Magnesium 1.8 mg/dL (1.6-2.3); Non-African American GFR(CKD) >90 (>60 ml/min/1.73 sqM); Potassium 3.7 mmol/L (3.5-5.1); Sodium 136 mmol/L (137-145)
[2023-10-21 05:08] LABS: Anion Gap -1 mmol/L
[2023-10-21 05:13] LABS: Carbon Dioxide 39 mmol/L (22-30)
[2023-10-21 05:37] LABS: Glucose,Whole Blood 93 mg/dL (70-110)
[2023-10-21] MEDS: POTASSIUM BICARBONATE/CIT AC 20 MEQ TABLET.EFF NG-TUBE SCH (05:37)
--- NOTE | 2023-10-21 09:39 | P.PN ---
Subjective Progress Note Date: 10/21/23 Patient juan pablo on the ventilator in the ICU. Tracheostomy site is clean. PEG tube site is clean. Patient will continue supportive care. Objective - Vital Signs Vital signs: Vital Signs Temp 98.3 F 10/21/23 08:00 Pulse 98 10/21/23 09:00 Resp 22 10/21/23 09:00 BP 108/66 10/21/23 09:00 Pulse Ox 98 10/21/23 09:00 FiO2 45 10/21/23 08:10 Intake & Output 10/20/23 10/21/23 10/21/23 18:59 06:59 18:59 Intake Total 8697.056 2839.644 242.57 Output Total 2100 930 305 Balance -400.100 919.644 -62.43 Weight 69.4 kg Intake: IV 910 1100 225 Sodium Chloride 0.9% 1, 160 200 000 ml @ 20 mls/hr IV . Q24H SHIRA Rx#:[id number] Sodium Chloride 0.9% 1, 750 900 225 000 ml @ 75 mls/hr IV . [id number] SHIRA Rx#:[id number] Intake, IV Titration 135.900 142.644 17.57 Amount Norepinephrine 8 mg In 53.658 85.818 17.57 Sodium Chloride 0.9% 250 ml @ 0.03 MCG/KG/MIN 3. 483 mls/hr IV .Q24H SHIRA Rx#:[id number] Sodium Chloride 0.9% 1, 75 000 ml @ 75 mls/hr IV . [id number] [facility]IRA Rx#:[id number] propofoL 1,000 mg In 7.242 56.826 Empty Bag 1 bag @ 15 MCG/ KG/MIN 6.237 mls/hr IV . [id number] [facility]IRA Rx#:[id number] Tube Feeding 564 517 Other 90 90 Output: Urine 2100 930 305 Other: Voiding Method Indwelling Catheter Indwelling Catheter Indwelling Catheter # Bowel Movements 1 ABP, PAP, CO, CI - Last Documented Arterial Blood Pressure 94/89 - Labs CBC & Chem 7: 10/21/23 04:36 10/21/23 04:36 Labs: Abnormal Lab Results - Last 24 Hours (Table) 10/20/23 10/20/23 10/20/23 Range/Units 12:19 17:57 23:40 RBC (3.80-5.40) m/uL Hgb (11.4-16.0) gm/dL Hct (34.0-46.0) % ABG pH (7.35-7.45) ABG pCO2 (35-45) mmHg ABG pO2 (83-108) mmHg ABG HCO3 (21-25) mmol/L ABG Total CO2 (19-24) mmol/L ABG O2 Saturation (94-97) % Hemoglobin (11.4-16.0) gm/dL Sodium (137-145) mmol/L Carbon Dioxide (22-30) mmol/L Creatinine (0.52-1.04) mg/dL Glucose (74-99) mg/dL POC Glucose (mg/dL) 173 H 143 H 132 H (70-110) mg/dL Calcium (8.4-10.2) mg/dL 10/21/23 10/21/23 10/21/23 Range/Units 04:33 04:36 04:36 RBC 3.26 L (3.80-5.40) m/uL Hgb 10.2 L (11.4-16.0) gm/dL Hct 32.0 L (34.0-46.0) % ABG pH 7.46 H (7.35-7.45) ABG pCO2 58 H (35-45) mmHg ABG pO2 109 H (83-108) mmHg ABG HCO3 41 H* (21-25) mmol/L ABG Total CO2 43 H (19-24) mmol/L ABG O2 Saturation 98.7 H (94-97) % Hemoglobin 10.2 L (11.4-16.0) gm/dL Sodium 136 L (137-145) mmol/L Carbon Dioxide 39 H (22-30) mmol/L Creatinine 0.18 L (0.52-1.04) mg/dL Glucose 121 H (74-99) mg/dL POC Glucose (mg/dL) (70-110) mg/dL Calcium 7.9 L (8.4-10.2) mg/dL
--- NOTE | 2023-10-21 10:55 | XR ---
EXAMINATION TYPE: XR chest 1V portable DATE OF EXAM: 10/21/2023 Comparison: 10/20/2023 Clinical History: 73-year-old female assess lungs Findings: Tracheostomy cannula. Left subclavian CVC tip upper right atrium. There is ongoing dense retrocardiac opacity with suggestion of some leftward cardiac shift. Ongoing moderate right pleural effusion. Julio Cesar kground hyperinflation. Impression: 1. Ongoing moderate right pleural effusion with adjacent atelectasis and/or consolidation. 2. Ongoing dense retrocardiac opacity. Given some shift of the heart to the left, likely a significan t portion of atelectasis/collapse. [facility], , 10/21/2023 10:53 AM
--- NOTE | 2023-10-21 11:09 | P.PN ---
Subjective Progress Note Date: 10/21/23 Principal diagnosis: Acute hypoxic and hypercapnic respiratory failure secondary to acute COPD exacerbation and extensive left-sided pneumonia Patient was eval on 09/30/2023, patient has been on BiPAP for the last few days while in the ICU, however I was notified about this patient this morning becoming much worse clinically. Patient has been on 100% BiPAP with IPAP of 12 and EPAP of 6, however she developed worsening pulmonary status this morning, in spite of being on 100% FiO2, patient had her O2 saturation down in the low 70s. Patient was also noted to be coming more short of breath, and that she was having significant work of breathing. Hence as soon as I was notified about this patient, I recommended immediate intubation by CREDIT COORDINATOR, and I came in and evaluated the patient after she was intubated, reviewed her chest x-ray and I performed bronchoscopy and BAL/therapeutic BAL of the left lung with significant improvement noted after bronchoscopy. Patient also had central line placed since she was hypotensive and requiring norepinephrine. 0.08 mcg/kg/min. Vent ilator settings are assist-control rate of 20, tidal volume 350, FiO2 100% and PEEP of 8 showed a pO2 of 77 pCO2 63 pH of 7.49 no changes were made in the ventilator settings, and advised respiratory to titrate FiO2 accordingly maintaining O2 sats above 91% WBC count today is 8.7 hemoglobin 14.2 hematocrit is 45.6. Electrolytes are normal except for low potassium of 3.2 being addressed and her renal status is normal bicarb is 44 10/13/2023, the patient extubated on 6 L of oxygen by nasal cannula. Overnight, the patient was kept on a BiPAP at a pressure of 10/5 with an FiO2 of 40%. She is weak. She has a weak cough. She has a congested cough. Unable to bring up much sputum. Awake and alert and communicating. Moving all 4 extremities. Has increased edema in all 4 extremities. Remains on IV cefepime and vancomycin. Echocardiogram showed an ejection fraction of 35 to 40%. Blood work from today shows a white cell count of 9.2, hemoglobin of 11.6 and a platelet count of 142. BUN is 40 with a creatinine of 0.2 and sodium levels at 136. Chest x-ray from today was not obtained. Remains on bronchodilators. Remains on oral prednisone. Has extensive third spacing and edema in all 4 extremities. 92,024, the patient is reintubated and this is the patient's fourth intubation. After extubating the patient for the third time, the patient was stable during the day and overnight she decompensated, she had respiratory difficulties and she became hypoxic, tachycardic and in acute respiratory distress. Based on that, the patient was reintubated. I repeated the bronchoscopy and further mucous plugs were identified in her lungs although less abundant compared to previous evaluations. This morning, the patient on propofol at 50 mcg/kg/min. She is on norepinephrine running at 0.33 mcg/kg/min. She is on assist-control mode rate of 16, tidal volume of 350, FiO2 of 70% with a PEEP of 10. Blood gas from this morning showed a pH of 7.44 with a pCO2 of 57 and pO2 112. She is in negative fluid balance. She was given a dose of Lasix yesterday and the patient produced approximately 3 L of urine output. White cell count is at 9.3 with a hemoglobin 9.7 and a platelet count of 134. BUN is 12 with a creatinine of 0.2 and sodium levels at 135 and a potassium level is at 3.1. Blood sugars of 106. Arousable even while on sedation. Patient was evaluated today on 10/15/2023, remains in the ICU, intubated and mechanically ventilated. Patient is on assist-control rate of 16 tidal volume 350 FiO2 50% and PEEP of 10 ABG showed a pO2 of 84 pCO2 63 pH of 7.39 hence FiO2 was cut down to 45% and PEEP cut down to 8. Patient remains quite ill, she has been intubated and extubated multiple times, and I believe the patient will definitely need a tracheostomy. Patient has been in the hospital now for over 3 weeks, and she spent most of the time intubated and mechanically ventilated. Intermittently went off mechanical ventilation, but she had to be reintubated 3- 4 times already. She is on propofol at 50 mcg/kg/min norepinephrine at 0.03, vasopressin at 0.03 units/min, IV fluid at KVO, her last bronchoscopy was 10/13 and she remains on cefepime for E. coli in the sputum. Today I am not weaning the patient, may actually address her mental status, but even if weaned and extubated, the patient will continue to fail, and at this point I am strongly recommending a tracheostomy. Eventually the family needs to be made aware that if her condition gets better down the line, tracheostomy is reversible, and we could have it decannulated down the line. But no plans to continue the same trials of weaning extubating reintubating etc. If the family continues to refuse tracheostomy, then will extubate only if the CODE STATUS has been changed and patient is made DNR CODE STATUS CBC count today is 6 hemoglobin is 10.9. ABG as noted basic metabolic profile is normal renal profile is normal bicarb is 39 chest x-ray showed COPD and interval worsening of bibasilar airspace disease with possibly a small right-sided pleural effusion and bilateral interstitial densities persisting. Patient is still hemodynamically unstable, still requiring pressors, remains on cefepime, remains on bronchodilators, remains on GI DVT prophylaxis, and she is also on enteral feeding/nutritional support. Patient was evaluated today on 10/16/2023, remains in the ICU, intubated and mec hanically ventilated, patient is on assist-control rate of 16 tidal volume 350 FiO2 45% and PEEP of 8 ABG showed a pO2 of 90 pCO2 59 pH of 7.43. Patient is still requiring norepinephrine at 0.02 mcg/kg/min, she is on propofol at 50 mcg/kg/min vasopressin at 0.02 units/min she is on cefepime for her antibiotics for E. coli pneumonia, she is also on vital AF at 23/23. Patient is sedated, and I requested a meeting with the family today, all family members came today including her boyfriend, and we discussed the need for tracheostomy and PEG tube placement. Family is now agreeable to proceed with tracheostomy and PEG tube placement, and will go ahead and consult general surgery/Dr. vogt for tracheostomy and PEG tube placement. Chest x-ray continues to show a combination of pleural effusions and atelectasis/consolidation specially at the right base. CBC count is 5.5 hemoglobin 10.5, sodium is 127 hence her IV fluid is 0.9 normal saline at 75 cc/h. Potassium is 3.5 bicarb is 37, renal profile is normal Patient was seen today on 10/17/2023, patient remains in the ICU, intubated and mechanically ventilated, patient was supposed to have tracheostomy and PEG tube placement, however sodium drifted down to 125 not responding to 0.9 normal saline, I believe the patient is developing a picture of SIADH, will go back to fluid restriction and in the meantime I am recommending 100 cc of 3% saline, recheck sodium, otherwise anesthesia will not approve tracheostomy and PEG tube placement unless the sodium is above 128. In the meantime the patient is on assist-control rate of 16 tidal volume 350 FiO2 45% and PEEP of 8. ABG showed a pO2 121 pCO2 59 pH of 7.43. Patient is on propofol at 50 mcg/kg/min vasopressin at 0.02 units/min off norepinephrine, patient is still receiving cefepime, IV fluids at KVO, and vital AF . She is presently on hold for tracheostomy and PEG tube placement. WBC count is 5.6 hemoglobin 9.8 ABG as noted earlier sodium 125 BUN is 17 creatinine 0.21, chest x-ray continues to show ongoing dense retrocardiac opacity with extensive right lower lobe opacity, findings consistent with pneumonia patient does have E. coli pneumonia. Patient was evaluated on 10/18/2023, patient remains in the ICU, intubated and mechanically ventilated. She is on assist-control rate of 16 tidal volume 350 FiO2 45% and PEEP of 5 ABG showed a pO2 of 63 pCO2 56 pH of 7.48 patient is still requiring norepinephrine at 0.01 mcg/kg/min, on propofol at 50 mcg/kg/min, IV fluids at KVO. Sodium was quite low yesterday, and patient received 3% saline, sodium came up to 136, and this was done mostly to get her sodium high enough to safely perform tracheostomy and PEG tube placement, as anesthesia declined to do the procedure without correction of her sodium patient is receiving cefepime for E. coli in the sputum. And E. coli pneumonia PCR is 5.3 hemoglobin is 11.3. Basic metabolic profile is normal potassium is 3.0 bicarb is 41, renal profile is normal calcium is 7.8. Chest x-ray this morning continues to show dense retrocardiac opacity and extensive right lower lobe opacity consistent with pneumonia/E. coli pneumonia. vague interstitial changes persist Patient was evaluated today on 10/19/23, patient remains in the ICU, intubated and mechanically ventilated, she is now status post tracheostomy and PEG tube placement, postoperative day #1. Patient remains mechanically ventilated, on assist-control rate of 16 tidal volume 350 FiO2 45% and PEEP of 5 ABG showed a pO2 of 64 pCO2 55 pH of 7.50. Still requiring norepinephrine for hemodynamic support, she is on 0.03 mcg/kg/min remains on propofol at 50 mg/kg/min IV fluids at KVO but a glycerin up to 75 cc/h since her urine output is marginal. Remains on vital AF at 23 cc/h. Urine output is 30 cc/h. Chest x-ray continues to show evidence of mild pulmonary vascular congestion, ongoing dense retrocardiac opacity consistent with pneumonia. And or atelectasis right lower lobe opacity is also consistent with pneumonia and/or atelectasis clinically the patient received adequate treatment for her E. coli pneumonia, I believe the findings are mostly findings of atelectasis. Labs today WBC count is 7.4 hemoglobin 10.5, basic metabolic profile is normal bicarb is 41 BUN is 14 creatinine 0.17. Patient is on a bit of propofol, and she is arousable, she is following simple instructions, and I plan to give the patient a trial of weaning on pressure support of 12 and CPAP Patient was seen and evaluated today on 10/20/2023, patient remains in the ICU, yesterday she was placed on pressure support of 12 and CPAP, however earlier this morning the patient could not tolerate pressure support and CPAP anymore, she desaturated, her FiO2 had to be increased, patient was placed back on AC mode of mechanical ventilation, and she was given a dose of Lasix. Patient was suctioned, her O2 saturation improved significantly, and follow-up ABG this morning showed a pO2 of 65 pCO2 52 pH of 7.51. Patient remains on assist- control rate of 16 tidal volume 350 FiO2 is down to 45% and PEEP remains at 8. Patient is still requiring norepinephrine at 0.04 mcg/kg/min she is on vital AF 47/47, patient is awake, alert, follows simple instructions, does not seem to be in distress this morning. I am planning to continue intermittent modalities of weaning with pressure support and CPAP for 4 hours then assist-control mode of mechanical ventilation for 4 hours alternating every 4 hours. Chest x-ray continues to show right basilar and left basilar atelectasis/consolidation. Received more than 2 weeks of treatment with cefepime for E. coli pneumonia. WBC count today is 7.7 hemoglobin is 10.5 electrolytes are normal except for potassium of 3.3 renal profile is normal Patient was evaluated today on 10/21/2023, remains intubated and mechanically ventilated, patient has been marginal at best, last night she had to be placed back on assist-control mode of mechanical ventilation, patient was developing restlessness, agitation, had to place her back on propofol. Tracheostomy is functioning well, patient is also requiring a low-dose of norepinephrine at 0.03 mcg/kg/min propofol is a 25 mcg/kg/min IV fluid at 75 cc/h she is on vital AF at 23/47. Patient was placed on Lopressor and because of her low blood pressure I am cutting down the dose to 25 mg twice daily. Vent settings are 16/350/45%/8 ABG showed a pO2 of 109 pCO2 58 pH of 7.46, hence no changes were made in the vent settings. Chest x-ray continues to show bibasilar atelectasis right and left lower lobes patient required multiple bronchoscopies in the past. Objective - Vital Signs Vital signs: Vital Signs Temp 98.3 F 10/21/23 08:00 Pulse 70 10/21/23 10:00 Resp 16 10/21/23 10:00 BP 86/50 10/21/23 10:00 Pulse Ox 99 10/21/23 10:00 FiO2 45 10/21/23 11:02 Intake & Output 10/20/23 10/21/23 10/21/23 18:59 06:59 18:59 Intake Total 5207.379 8703.644 242.57 Output Total 2100 930 305 Balance -400.100 919.644 -62.43 Weight 69.4 kg Intake: IV 910 1100 225 Sodium Chloride 0.9% 1, 160 200 000 ml @ 20 mls/hr IV . Q24H [facility] Rx#:[id number] Sodium Chloride 0.9% 1, 750 900 225 000 ml @ 75 mls/hr IV . [id number] [facility] Rx#:[id number] Intake, IV Titration 135.900 142.644 17.57 Amount Norepinephrine 8 mg In 53.658 85.818 17.57 Sodium Chloride 0.9% 250 ml @ 0.03 MCG/KG/MIN 3. 483 mls/hr IV .Q24H [facility]IRA Rx#:[id number] Sodium Chloride 0.9% 1, 75 000 ml @ 75 mls/hr IV . [id number] [facility] Rx#:[id number] propofoL 1,000 mg In 7.242 56.826 Empty Bag 1 bag @ 15 MCG/ KG/MIN 6.237 mls/hr IV . [id number] [facility] Rx#:[id number] Tube Feeding 564 517 Other 90 90 Output: Urine 2100 930 305 Other: Voiding Method Indwelling Catheter Indwelling Catheter Indwelling Catheter # Bowel Movements 1 ABP, PAP, CO, CI - Last Documented Arterial Blood Pressure 97/49 - Exam General: 3-year-old female, looks frail, intubated and mechanically ventilated. Skin: No rashes. Eye: Pupils are equal, round and reactive to light, extra-ocular movements are intact; there is normal conjunctiva bilaterally. Ears, nose, mouth and throat: There are moist mucous membranes and no oral lesions. Neck: The neck is supple, there is no tenderness or JVD. Tracheostomy is intact. Cardiovascular: Distant S1-S2, no S3 gallop. Crackles and rhonchi noted bilaterally. Lungs: Diminished breath sounds at the bases no crackles rhonchi or wheezes Gastrointestinal: Soft, non-distended, non-tender abdomen without masses or organomegaly noted. No rebound no guarding. PEG tube is intact, Musculoskeletal: Generalized weakness Neurological: Awake alert oriented no focal deficits. Remains generally weak Psychiatric: Normal mood, normal affect and normal mental status examination - Labs CBC & Chem 7: 10/21/23 04:36 10/21/23 04:36 Labs: Abnormal Lab Results - Last 24 Hours (Table) 10/20/23 10/20/23 10/20/23 Range/Units 12:19 17:57 23:40 RBC (3.80-5.40) m/uL Hgb (11.4-16.0) gm/dL Hct (34.0-46.0) % ABG pH (7.35-7.45) ABG pCO2 (35-45) mmHg ABG pO2 (83-108) mmHg ABG HCO3 (21-25) mmol/L ABG Total CO2 (19-24) mmol/L ABG O2 Saturation (94-97) % Hemoglobin (11.4-16.0) gm/dL Sodium (137-145) mmol/L Carbon Dioxide (22-30) mmol/L Creatinine (0.52-1.04) mg/dL Glucose (74-99) mg/dL POC Glucose (mg/dL) 173 H 143 H 132 H (70-110) mg/dL Calcium (8.4-10.2) mg/dL 10/21/23 10/21/23 10/21/23 Range/Units 04:33 04:36 04:36 RBC 3.26 L (3.80-5.40) m/uL Hgb 10.2 L (11.4-16.0) gm/dL Hct 32.0 L (34.0-46.0) % ABG pH 7.46 H (7.35-7.45) ABG pCO2 58 H (35-45) mmHg ABG pO2 109 H (83-108) mmHg ABG HCO3 41 H* (21-25) mmol/L ABG Total CO2 43 H (19-24) mmol/L ABG O2 Saturation 98.7 H (94-97) % Hemoglobin 10.2 L (11.4-16.0) gm/dL Sodium 136 L (137-145) mmol/L Carbon Dioxide 39 H (22-30) mmol/L Creatinine 0.18 L (0.52-1.04) mg/dL Glucose 121 H (74-99) mg/dL POC Glucose (mg/dL) (70-110) mg/dL Calcium 7.9 L (8.4-10.2) mg/dL Assessment and Plan Assessment: Impression: Acute on chronic hypoxic and hypercapnic respiratory failure, multifactorial, requiring reintubation for the first time on 10/10/2023, multiple bronchoscopies h as been performed for left lung collapse and pneumonia patient is on combination of cefepime patient was extubated on 10/11 and had to be reintubated on 10/12 mostly secondary to mucous plugging. And the patient could not clear her secretions, Post tracheostomy and PEG tube placement, postoperative day #2 Left lung collapse secondary to mucous plugs and left lower lobe pneumonia requiring multiple bronchoscopies Advanced COPD with acute COPD exacerbation Acute COPD exacerbation Chronic pain syndrome Chronic systolic congestive heart failure Hypotension secondary to sepsis and septic shock requiring pressors and she remains on pressors today. Profound weakness and debility with multiple comorbidities as noted above. Coffee-ground material noted in nasogastric tube today, patient is on Pepcid no significant drop in hemoglobin, will continue to monitor and continue Pepcid in the meantime Recommendations: Patient failed intermittent trials of pressure support and CPAP, Patient will definitely need possible placement in ECF/where she could be managed with the ventilator and weaning to take place with time Continue ventilatory support Continue norepinephrine continue to titrate accordingly Patient is off antibiotics, continue intermittent suctioning of tracheostomy. Continue nutritional support/enteral feeding Continue bronchodilators and steroids Overall prognosis remains poor Patient remains critically ill Critical care time is over 30-minute Patient may require a PICC line this way her central line can be discontinued and need to have consultation with select care specialty Time with Patient: Greater than 30
[2023-10-21 12:15] LABS: Glucose,Whole Blood 100 mg/dL (70-110)
--- NOTE | 2023-10-21 14:57 | P.PN ---
Subjective Progress Note Date: 10/21/23 Acute hypoxic and hypercapnic respiratory failure secondary to acute COPD exacerbation and extensive left-sided pneumonia. Patient was eval on 09/30/2023, patient has been on BiPAP for the last few days while in the ICU, Patient has been on 100% BiPAP with IPAP of 12 and EPAP of 6, however she developed worsening pulmonary status this morning, in spite of being on 100% FiO2, patient had her O2 saturation down in the low 70s. Patient was intubated, underwent bronchoscopy with lavage 09/30. Patient seen examined. Currently intubated. Currently on IV Zosyn. Vital signs stable 10/01. Patient seen and examined. Patient currently going through SBT, patient opening eyes. 10/02. Patient seen and examined. Patient extubated this morning. 10/03. Patient seen and examined. Sitting upright in the bed. States she feels much better. Currently on 5 l of oxygen. Denies any shortness of breath at res t.Blood work done this morning showed WBC 13.3, hemoglobin 13.6, sodium 35, potassium 3.8, BUN 25, creatinine 0.31 10/04. Patient seen and examined. Sitting upright in the chair, currently on 5 L of oxygen. Being transferred out of ICU. 10/05--patient was examined today, currently on 5 L nasal cannula oxygen. On IV fluids. Currently on Symbicort and prednisone. WBCs 18.3, hemoglobin 13.5, lázaro telet normal. Creatinine and BUN unremarkable. CO2 33. Ultrasound venous ordered to rule out DVT, noted left lower extremity edema. Initially was diagnosed with left lung pneumonia, not on antibiotics anymore. 10/06--patient was seen and examined today. Awake and alert x 3. Currently on 5 L oxygen. Currently on IV fluids. Ultrasound venous negative for DVT. Currently on DuoNebs Symbicort and prednisone. Labs reviewed, WBC 16.9, hemoglobin 14.3, platelet 137. BMP unremarkable. PT/OT consulted and pending. 10/07--patient was seen and examined today. Remains on 5 L oxygen. WBCs trend ing down 14.08. Hemoglobin 12.4, platelets 140. BMP is unremarkable. [place] level less than 0.10. Discontinue IV fluids. 10/08--patient's seen and examined today. Patient respiratory status gradually improving, patient required to intubation previously, last extubated on 10/03/2023, currently on 2 L oxygen as compared to 5 L yesterday. Patient reported feeling better. Shortness of breath is improving. Patient currently on prednisone burst taper. Pulmonary on board and following. PT/OT consulted. 10/10/2023 Patient is seen this morning and was just re-intubated and brought to the ICU as patient was continued on airvo at 100% and having continuous low pulse ox readings. This will be the third intubation this admission. Patient is also continued on antibiotics for pneumonia. Overall prognosis is guarded at this time. 10/11/2023 Patient is seen and evaluated in follow-up in the ICU and was brought here yesterday for reintubation. Patient continues on mechanical ventilation and sedation with an FiO2 of 40% and PEEP is 10. No plans for weaning trials at this time. Patient continues to require pressor support and attempting to wean. Chest x-ray today shows stable bilateral consolidation and small effusion to correlate for CHF otherwise consider pneumonia. Patient is maintained on IV antibiotics in the form of cefepime and Vanco with infectious disease following. Potassium was on the lower side yesterday after replacement potassium is 3.7 today and kidney functions within normal limits, sodium is 134. Blood sugars being monitored and will continue current regimen. Adjust insulins accordingly. 10/12/2023 Patient is seen in follow-up continues to be on mechanical ventilation FiO2 is 40% with a PEEP of 10 and is off propofol currently awake and responding to comm ands appropriately and per pulmonary district customs director, plan on extubation today. Patient will likely require BiPAP and will follow-up with repeat chest x-ray. Patient continues to require low-dose blood pressure support. Patient to continue on antibiotics and sputum is positive for E. coli. Overall prognosis is guarded and per nursing staff patient and patient family would want reintubation and all measures done and remain full code. 10/12. Seen and examined. Currently on 6 L of oxygen. Still in the ICU. States she feels slightly better. 10/13. Patient seen and examined.Vital signs on this morning show temperature 97.7, heart rate 82, respiration 18, patient was intubated overnight. Underwent bronchoscopy this morning. 10/15/2023 Patient is seen in follow-up continues to be in the ICU and has been reintubated. continues on low dose pressor support and being weaned. Family to discuss further regarding treatment plan moving forward. Patient did report previously she did not want a tracheostomy. Brother is her power of corporate attorney. Overall prognosis is extremely poor and guarded at this time. 10/16/2023 Patient is seen in follow-up remains on mechanical ventilation and pressor support and propofol and patient family would like to proceed with tracheostomy and PEG tube placement and general surgery is now consulted. Patient is continued on antibiotics for pneumonia. 10/17/2023 Patient is seen in follow-up today remains on mechanical ventilation and scheduled to undergo tracheostomy and PEG tube placement with general surgery today although sodium was noted to be low at 125 today and being corrected. Surgery being rescheduled for 10/18/2023. Patient remains on mechanical ventilation at 45% and PEEP is 8 with no changes at this time. Patient tolerating tube feedings thus far and will be held at midnight. 10/18/2023 Patient is seen in follow-up this morning remains on mechanical ventilation and currently n.p.o. and tube feeds on hold as patient is tentatively scheduled to receive a PEG tube and tracheostomy with general surgery. Patient had low s odium yesterday and was rescheduled for today and sodium is above 130 today. Patient is currently being prepped at this time. Continue other current regimen and will await surgical report and discussing with surgery on when to initiate tube feedings via PEG tube. 10/19/2023 Patient is evaluated today in follow up in the ICU. Remains on the mechanical ventilator. Patient is postoperative day #1 tracheostomy tube and PEG tub placement. Plan is for tube feeds to be started today. Patient is awake alert propofol is being weaned and if tolerates plan to wean off the levophed today. Cefepime has been discontinued. Chest x-ray today reveals interstitial changes are increasing consider pulmonary vascular congestion. Ongoing dense retrocardiac opacity and extensive right lower lung opacity are similar. Blood work is essentially unchanged yesterday with a white blood cell count of 7.4, hemoglobin 10.5, sodium level of 137. 10/20/2023 Patient is postoperative day #2 tracheostomy tube and PEG tube placement. She is currently weaned off of the propofol she is awake alert and oriented and responding to questions. She does report significant pain to her extremities and her left arm especially is edematous. Today reveals small bilateral pleural effusions. Her sodium level is now 135 she did receive a dose of IV Lasix today. Otherwise her potassium was 3.3, CO2 is 36. She continues on a small dose of Levophed. Blood pressure 99/51. 10/21/2023 Patient remains in ICU. Postoperative day #3 tracheostomy tube and PEG tube placement on Jevity 1.5 running at goal of 47 mls/hr. Patient is having bowel movements. The peripheral edema and especially to the left hand/arm improving. Patient was having episodes of SVT and was resumed back on propofol. She is awake alert and oriented family at the bedside. Continues on normal saline at 75 mls/hr. Chest xray today reveals ongoing moderate right pleural effusion with adjacent atelectasis and or consolidation. Ongoing dense retrocardiac opacity. Given some shift of the heart to the left likely a significant portion of atelectasis/collapse. White blood cell count 7.3, hgb 10.2, Sodium 136, potassium 3.7, BUN 16, creatinine 0.18. Magnesium 1.8. Review of Systems Constitutional: Reports fatigue denied any fever. Cardio vascular: denied any chest pain, palpitations Gastrointestinal: denied any nausea, vomiting, diarrhea Pulmonary: Denied any shortness of breath cough Neurologic denied any new focal deficits, weakness. All inpatient medications were reviewed and appropriate changes in these medications as dictated in the interval history and assessment and plan. PHYSICAL EXAMINATION: GENERAL: The patient is on mechanical ventilation through tracheostomy, ill appearing, elderly appearing, FiO2 is. 45% with a PEEP of 8 HEENT: EOMI, Sclerae anicteric, Moist Mucous membranes RESP: diminished breath sounds bilaterally with course rhonchi noted and expiratory wheezing noted as well CARDIOVASCULAR: S1, S2 present. No murmurs, rubs, or gallops. ABDOMEN: Soft, nontender, nondistended, normoactive bowel sounds. No guarding or rebound tenderness. MUSCULOSKELETAL: + LLE edema, No cyanosis. No clubbing. Normal ROM. Intact peripheral pulses. EXTREMITIES: No cyanosis, clubbing, or pedal edema. NEUROLOGICAL: Diffuse weakness, moving all 4 extremities. Fatigued. She is awake alert Skin: No Rash Assessment: Acute on chronic hypoxic and hypercapnic respiratory failure, multifactorial, requiring intubation mechanical ventilation last week, and reintubation on 09/29, extubated 10/02, now requiring intubation again 10/10/23, extubated although required reintubation 10/13, failure of successful extubation and scheduled for PEG tube and tracheostomy 10/18/2023 Acute COPD exacerbation Left lung pneumonia with sepsis and septic shock, hospital-acquired pneumonia with complete opacification of the left lung secondary to mucous plugging, requiring bronchoscopy and BAL of the left lung. Chronic hypoxic and hypercapnic respiratory failure Chronic pain syndrome Sinus rhythm with PVCs Severe pulmonary hypertension Hyperlipidemia Diabetes mellitus History of GERD Hypothyroidism Severe protein calorie malnutrition History of osteoarthritis GI and DVT prophylaxis Full code Plan: Patient with multiple consultations following including pulmonary district customs director and infectious disease Off antibiotics at this time. Patient also continues on breathing inhalational treatments and remains on mechanical ventilation. Patient is status post trach/peg. Patient has been placed back on propofol Continue pressor support per district customs director Patient will require placement at ECF that can support the mechanical ventilation. Per family they want [facility] in [place]. Currently, CODE STATUS is full code patient apparently has a family member that is a power of corporate attorney, her brother and per nursing staff patient and family continue to want to be reintubated if needed and wished to remain full code Repeat blood work in the AM. Recommend to elevate the left arm on pillows as it extremely edematous PT/OT Due to multiple complex medical issues, overall prognosis is extremely guarded The impression and plan of care has been dictated by Milka Duffy, Nurse Practitioner as directed. Dr. Ethan MD I have performed a history and examination and MDM of this patient, discussed the same with the dictator, and agree with the dictator's assessment and plan as written ,documented as a scribe. Based on total visit time, I have performed more than 50% of the visit. Objective - Vital Signs Vital signs: Vital Signs Temp 98.3 F 10/21/23 08:00 Pulse 98 10/21/23 09:00 Resp 22 10/21/23 09:00 BP 108/66 10/21/23 09:00 Pulse Ox 98 10/21/23 09:00 FiO2 45 10/21/23 08:10 Intake & Output 10/20/23 10/21/23 10/21/23 18:59 06:59 18:59 Intake Total 8829.917 0361.644 242.57 Output Total 2100 930 305 Balance -400.100 919.644 -62.43 Weight 69.4 kg Intake: IV 910 1100 225 Sodium Chloride 0.9% 1, 160 200 000 ml @ 20 mls/hr IV . Q24H SHIRA Rx#:[id number] Sodium Chloride 0.9% 1, 750 900 225 000 ml @ 75 mls/hr IV . [id number] SHIRA Rx#:[id number] Intake, IV Titration 135.900 142.644 17.57 Amount Norepinephrine 8 mg In 53.658 85.818 17.57 Sodium Chloride 0.9% 250 ml @ 0.03 MCG/KG/MIN 3. 483 mls/hr IV .Q24H SHIRA Rx#:[id number] Sodium Chloride 0.9% 1, 75 000 ml @ 75 mls/hr IV . [id number] SHIRA Rx#:[id number] propofoL 1,000 mg In 7.242 56.826 Empty Bag 1 bag @ 15 MCG/ KG/MIN 6.237 mls/hr IV . Q16H2M SHIRA Rx#:[id number] Tube Feeding 564 517 Other 90 90 Output: Urine 2100 930 305 Other: Voiding Method Indwelling Catheter Indwelling Catheter # Bowel Movements 1 ABP, PAP, CO, CI - Last Documented Arterial Blood Pressure 94/89 - Labs CBC & Chem 7: 10/21/23 04:36 10/21/23 04:36 Labs: Abnormal Lab Results - Last 24 Hours (Table) 10/20/23 10/20/23 10/20/23 Range/Units 12:19 17:57 23:40 RBC (3.80-5.40) m/uL Hgb (11.4-16.0) gm/dL Hct (34.0-46.0) % ABG pH (7.35-7.45) ABG pCO2 (35-45) mmHg ABG pO2 (83-108) mmHg ABG HCO3 (21-25) mmol/L ABG Total CO2 (19-24) mmol/L ABG O2 Saturation (94-97) % Hemoglobin (11.4-16.0) gm/dL Sodium (137-145) mmol/L Carbon Dioxide (22-30) mmol/L Creatinine (0.52-1.04) mg/dL Glucose (74-99) mg/dL POC Glucose (mg/dL) 173 H 143 H 132 H (70-110) mg/dL Calcium (8.4-10.2) mg/dL 10/21/23 10/21/23 10/21/23 Range/Units 04:33 04:36 04:36 RBC 3.26 L (3.80-5.40) m/uL Hgb 10.2 L (11.4-16.0) gm/dL Hct 32.0 L (34.0-46.0) % ABG pH 7.46 H (7.35-7.45) ABG pCO2 58 H (35-45) mmHg ABG pO2 109 H (83-108) mmHg ABG HCO3 41 H* (21-25) mmol/L ABG Total CO2 43 H (19-24) mmol/L ABG O2 Saturation 98.7 H (94-97) % Hemoglobin 10.2 L (11.4-16.0) gm/dL Sodium 136 L (137-145) mmol/L Carbon Dioxide 39 H (22-30) mmol/L Creatinine 0.18 L (0.52-1.04) mg/dL Glucose 121 H (74-99) mg/dL POC Glucose (mg/dL) (70-110) mg/dL Calcium 7.9 L (8.4-10.2) mg/dL Assessment and Plan Time with Patient: Less than 30
[2023-10-21 17:20] LABS: Glucose,Whole Blood 111 mg/dL (70-110)
[2023-10-21] MEDS: METOPROLOL TARTRATE 25 MG TAB PO SCH (20:43)
[2023-10-21 23:43] LABS: Glucose,Whole Blood 101 mg/dL (70-110)
[2023-10-22 05:03] LABS: Glucose,Whole Blood 107 mg/dL (70-110)
[2023-10-22 05:46] LABS: ABG Base Excess 13.6 mmol/L; ABG HCO3 39 mmol/L (21-25); ABG Oxygen Saturation 98.1 % (94-97); ABG PCO2 51 mmHg (35-45); ABG PH 7.49 (7.35-7.45); ABG PO2 90 mmHg (83-108); ABG TCO2 40 mmol/L (19-24); Allen Test Performed? Yes
[2023-10-22 05:59] LABS: Basophils % (A) 0 %; Eosinophils % (A) 1 %; HCT 32.2 % (34.0-46.0); HGB 10.4 gm/dL (11.4-16.0); Lymphocytes % (A) 15 %; MCH 31.6 pg (25.0-35.0); MCHC 32.4 g/dL (31.0-37.0); MCV 97.5 fL (80.0-100.0); Mean Platelet Volume 8.6; Monocytes # (A) 0.5 k/uL (0-1.0); Monocytes % (A) 7 %; Neutrophils # (A) 4.9 k/uL (1.3-7.7); Neutrophils % (A) 75 %; Platelet Count 263 k/uL (150-450); RBC 3.31 m/uL (3.80-5.40); RDW 14.1 % (11.5-15.5); WBC 6.5 k/uL (3.8-10.6)
[2023-10-22 06:21] LABS: African American GFR (CKD) >90 (>60 ml/min/1.73 sqM); Blood Urea Nitrogen 18 mg/dL (7-17); Calcium 7.8 mg/dL (8.4-10.2); Chloride 98 mmol/L (98-107); Glucose 110 mg/dL (74-99); Non-African American GFR(CKD) >90 (>60 ml/min/1.73 sqM); Potassium 3.5 mmol/L (3.5-5.1); Sodium 135 mmol/L (137-145)
[2023-10-22 06:28] LABS: Anion Gap -1 mmol/L
[2023-10-22 06:29] LABS: Carbon Dioxide 38 mmol/L (22-30)
[2023-10-22] MEDS: POTASSIUM BICARBONATE/CIT AC 20 MEQ TABLET.EFF NG-TUBE SCH (06:42)
--- NOTE | 2023-10-22 08:19 | XR ---
EXAMINATION TYPE: XR chest 1V portable DATE OF EXAM: 10/22/2023 4:39 AM CLINICAL INDICATION: Female, 73 years old with history of assess lungs; COMPARISON: Chest radiographs from 10/21/2023 TECHNIQUE: XR chest 1V portable Frontal view of the chest. FINDINGS: Lungs/Pleura: No evidence of focal consolidation or pneumothorax. Blunting of the costophrenic angles is present. Pulmonary vascularity: Unremarkable. Heart/mediastinum: Cardiomediastinal silhouette is unremarkable. Musculoskeletal: No acute osseous pathology. Other findings: None Lines/Tubes: Tracheostomy cannula tip projecting over the trachea. Left central venous catheter with distal tip at the cavoatrial junction. IMPRESSION: 1. Stable exam with similar aeration of the lungs. 2. tracheostomy cannula in appropriate position. 3. Small bilateral pleural effusions [facility] Imani Amaya, , 10/22/2023 8:17 AM
[2023-10-22] MEDS: predniSONE 20 MG TAB PO SCH (09:42)
[2023-10-22] MEDS: FUROSEMIDE 10 MG/ML 4 ML VIAL IV STA (09:46)
--- NOTE | 2023-10-22 09:56 | P.PN ---
Subjective Progress Note Date: 10/22/23 CHIEF COMPLAINT: Respiratory failure HISTORY OF PRESENT ILLNESS: Patient remains in the ICU and on mechanical ventilation. Patient is status post tracheostomy and PEG tube placement. She is tolerating tube feeds. Tube feeds are at goal at 47 mL/h. PHYSICAL EXAM: VITAL SIGNS: Reviewed. GENERAL: Intubated and sedated HEENT tracheostomy site clean dry and intact ABDOMEN: Soft. Nondistended. PEG tube site clean dry and intact ASSESSMENT: 1. Acute on chronic hypoxic and hypercapnic respiratory failure and unable to wean from vent 2. Severe protein calorie malnutrition 3. Pneumonia and mucous plugging 4. COPD exacerbation 5. Hyponatremia improved PLAN: -Continue tube feeds -Continue supportive care Physician Cooling Tower Technician note has been reviewed by physician. Signing provider agrees with the documented findings, assessment, and plan of care. Objective - Vital Signs Vital signs: Vital Signs Temp 98.9 F 10/22/23 08:00 Pulse 102 H 10/22/23 09:00 Resp 22 10/22/23 09:00 BP 99/66 10/22/23 09:00 Pulse Ox 98 10/22/23 09:00 FiO2 45 10/22/23 08:00 Intake & Output 10/21/23 10/22/23 10/22/23 18:59 06:59 18:59 Intake Total 2151.956 8942 396 Output Total 1160 915 320 Balance -129.717 714 76 Weight 69.2 kg Intake: IV 900 975 225 Sodium Chloride 0.9% 1, 900 975 225 000 ml @ 75 mls/hr IV . [id number] SHIRA Rx#:[id number] Intake, IV Titration 130.283 Amount Norepinephrine 8 mg In 30.283 Sodium Chloride 0.9% 250 ml @ 0.03 MCG/KG/MIN 3. 483 mls/hr IV .Q24H SHIRA Rx#:[id number] propofoL 1,000 mg In 100 Empty Bag 1 bag @ 15 MCG/ KG/MIN 6.237 mls/hr IV . Q16H2M SHIRA Rx#:[id number] Tube Feeding 564 141 Other 90 30 Output: Urine 1160 915 320 Other: Voiding Method Indwelling Catheter Indwelling Catheter Indwelling Catheter # Bowel Movements 1 ABP, PAP, CO, CI - Last Documented Arterial Blood Pressure 77/48 - Labs CBC & Chem 7: 10/22/23 05:20 10/22/23 05:20 Labs: Abnormal Lab Results - Last 24 Hours (Table) 10/21/23 10/22/23 10/22/23 Range/Units 17:18 05:20 05:20 RBC 3.31 L (3.80-5.40) m/uL Hgb 10.4 L (11.4-16.0) gm/dL Hct 32.2 L (34.0-46.0) % ABG pH (7.35-7.45) ABG pCO2 (35-45) mmHg ABG HCO3 (21-25) mmol/L ABG Total CO2 (19-24) mmol/L ABG O2 Saturation (94-97) % Hemoglobin (11.4-16.0) gm/dL Sodium 135 L (137-145) mmol/L Carbon Dioxide 38 H (22-30) mmol/L BUN 18 H (7-17) mg/dL Creatinine 0.24 L (0.52-1.04) mg/dL Glucose 110 H (74-99) mg/dL POC Glucose (mg/dL) 111 H (70-110) mg/dL Calcium 7.8 L (8.4-10.2) mg/dL 10/22/23 Range/Units 05:48 RBC (3.80-5.40) m/uL Hgb (11.4-16.0) gm/dL Hct (34.0-46.0) % ABG pH 7.49 H (7.35-7.45) ABG pCO2 51 H (35-45) mmHg ABG HCO3 39 H (21-25) mmol/L ABG Total CO2 40 H (19-24) mmol/L ABG O2 Saturation 98.1 H (94-97) % Hemoglobin 10.1 L (11.4-16.0) gm/dL Sodium (137-145) mmol/L Carbon Dioxide (22-30) mmol/L BUN (7-17) mg/dL Creatinine (0.52-1.04) mg/dL Glucose (74-99) mg/dL POC Glucose (mg/dL) (70-110) mg/dL Calcium (8.4-10.2) mg/dL
--- NOTE | 2023-10-22 11:22 | P.PN ---
Subjective Progress Note Date: 10/22/23 Patient was evaluated on 10/18/2023, patient remains in the ICU, intubated and mechanically ventilated. She is on assist-control rate of 16 tidal volume 350 FiO2 45% and PEEP of 5 ABG showed a pO2 of 63 pCO2 56 pH of 7.48 patient is still requiring norepinephrine at 0.01 mcg/kg/min, on propofol at 50 mcg/kg/min, IV fluids at KVO. Sodium was quite low yesterday, and patient received 3% saline, sodium came up to 136, and this was done mostly to get her sodium high enough to safely perform tracheostomy and PEG tube placement, as anesthesia declined to do the procedure without correction of her sodium patient is receiving cefepime for E. coli in the sputum. And E. coli pneumonia PCR is 5.3 hemoglobin is 11.3. Basic metabolic profile is normal potassium is 3.0 bicarb is 41, renal profile is normal calcium is 7.8. Chest x-ray this morning continues to show dense retrocardiac opacity and extensive right lower lobe opacity consistent with pneumonia/E. coli pneumonia. vague interstitial changes persist Patient was evaluated today on 10/19/23, patient remains in the ICU, intubated and mechanically ventilated, she is now status post tracheostomy and PEG tube placement, postoperative day #1. Patient remains mechanically ventilated, on assist-control rate of 16 tidal volume 350 FiO2 45% and PEEP of 5 ABG showed a pO2 of 64 pCO2 55 pH of 7.50. Still requiring norepinephrine for hemodynamic s upport, she is on 0.03 mcg/kg/min remains on propofol at 50 mg/kg/min IV fluids at KVO but a glycerin up to 75 cc/h since her urine output is marginal. Remains on vital AF at 23 cc/h. Urine output is 30 cc/h. Chest x-ray continues to show evidence of mild pulmonary vascular congestion, ongoing dense retrocardiac opacity consistent with pneumonia. And or atelectasis right lower lobe opacity is also consistent with pneumonia and/or atelectasis clinically the patient received adequate treatment for her E. coli pneumonia, I believe the findings are mostly findings of atelectasis. Labs today WBC count is 7.4 hemoglobin 10.5, basic metabolic profile is normal bicarb is 41 BUN is 14 creatinine 0.17. Patient is on a bit of propofol, and she is arousable, she is following simple instructions, and I plan to give the patient a trial of weaning on pressure support of 12 and CPAP Patient was seen and evaluated today on 10/20/2023, patient remains in the ICU, yesterday she was placed on pressure support of 12 and CPAP, however earlier this morning the patient could not tolerate pressure support and CPAP anymore, she desaturated, her FiO2 had to be increased, patient was placed back on AC m ode of mechanical ventilation, and she was given a dose of Lasix. Patient was suctioned, her O2 saturation improved significantly, and follow-up ABG this morning showed a pO2 of 65 pCO2 52 pH of 7.51. Patient remains on assist- control rate of 16 tidal volume 350 FiO2 is down to 45% and PEEP remains at 8. Patient is still requiring norepinephrine at 0.04 mcg/kg/min she is on vital AF 47/47, patient is awake, alert, follows simple instructions, does not seem to be in distress this morning. I am planning to continue intermittent modalities of weaning with pressure support and CPAP for 4 hours then assist-control mode of mechanical ventilation for 4 hours alternating every 4 hours. Chest x-ray continues to show right basilar and left basilar atelectasis/consolidation. Received more than 2 weeks of treatment with cefepime for E. coli pneumonia. WBC count today is 7.7 hemoglobin is 10.5 electrolytes are normal except for potassium of 3.3 renal profile is normal Patient was evaluated today on 10/21/2023, remains intubated and mechanically ventilated, patient has been marginal at best, last night she had to be placed back on assist-control mode of mechanical ventilation, patient was developing restlessness, agitation, had to place her back on propofol. Tracheostomy is functioning well, patient is also requiring a low-dose of norepinephrine at 0.03 mcg/kg/min propofol is a 25 mcg/kg/min IV fluid at 75 cc/h she is on vital AF at 23/47. Patient was placed on Lopressor and because of her low blood pressure I am cutting down the dose to 25 mg twice daily. Vent settings are 16/350/45%/8 ABG showed a pO2 of 109 pCO2 58 pH of 7.46, hence no changes were made in the vent settings. Chest x-ray continues to show bibasilar atelectasis right and left lower lobes patient required multiple bronchoscopies in the past. The patient is seen today October 22, 2023 in follow-up in the intensive care unit. She remains on the mechanical ventilator currently in assist-control mode at a rate of 16, tidal volume 350, FiO2 45% and a PEEP of 8. Morning blood gases revealed a PaO2 of 90, pCO2 51 and a pH of 7.49. She has normal saline at 75 mL/h. She did undergo tracheostomy and PEG tube insertions on 10/18/2023. She is being nourished with vital 1.2 at 47 mL/h which is goal. Off propofol and off norepinephrine for over 24 hours. Chest x-ray reveals no evidence of focal consolidation or pneumothorax. Some blunting of the costophrenic angles. Tracheostomy cannula in appropriate position. Her last bronchial wash cultures from 10/14/2023 revealed E. coli and Michelle. White count 6.5. Hemoglobin 10.4. Platelets 263. Sodium 135. Potassium 3.5. Bicarb 38. BUN 18. Creatinine 0.24. Glucose 110. She remains on DuoNeb inhalations, prednisone taper. Heparin for DVT prophylaxis. Objective - Vital Signs Vital signs: Vital Signs Temp 98.9 F 10/22/23 08:00 Pulse 106 H 10/22/23 10:00 Resp 19 10/22/23 10:00 BP 103/61 10/22/23 10:00 Pulse Ox 97 10/22/23 10:00 FiO2 45 10/22/23 08:00 Intake & Output 10/21/23 10/22/23 10/22/23 18:59 06:59 18:59 Intake Total 4293.572 5243 518 Output Total 8148 006 2741 Balance -129.717 714 -1002 Weight 69.2 kg Intake: IV 900 975 300 Sodium Chloride 0.9% 1, 900 975 300 000 ml @ 75 mls/hr IV . [id number] SHIRA Rx#:[id number] Intake, IV Titration 130.283 Amount Norepinephrine 8 mg In 30.283 Sodium Chloride 0.9% 250 ml @ 0.03 MCG/KG/MIN 3. 483 mls/hr IV .Q24H SHIRA Rx#:[id number] propofoL 1,000 mg In 100 Empty Bag 1 bag @ 15 MCG/ KG/MIN 6.237 mls/hr IV . Q16H2M SHIRA Rx#:[id number] Tube Feeding 564 188 Other 90 30 Output: Urine 0684 247 0262 Other: Voiding Method Indwelling Catheter Indwelling Catheter Indwelling Catheter # Bowel Movements 1 ABP, PAP, CO, CI - Last Documented Arterial Blood Pressure 77/48 - Exam GENERAL EXAM: Alert, 73-year-old female, on the mechanical ventilator, in no acute distress. HEAD: Normocephalic. EYES: Normal reaction of pupils, equal size. NOSE: Clear with pink turbinates. THROAT: No erythema or exudates. NECK: Tracheostomy tube secured in place no masses, no JVD. CHEST: No chest wall deformity. LUNGS: Equal air entry with bilateral end expiratory wheeze, diminished. CVS: S1 and S2 normal with no audible murmur, regular rhythm. ABDOMEN: PEG tube exit site clean and dry. No hepatosplenomegaly, normal bowel sounds, no guarding or rigidity. SPINE: No scoliosis or deformity SKIN: No rashes CENTRAL NERVOUS SYSTEM: No focal deficits, tone is normal in all 4 extremities. EXTREMITIES: There is no peripheral edema. No clubbing, no cyanosis. Peripheral pulses are intact. - Labs CBC & Chem 7: 10/22/23 05:20 10/22/23 05:20 Labs: Abnormal Lab Results - Last 24 Hours (Table) 10/21/23 10/22/23 10/22/23 Range/Units 17:18 05:20 05:20 RBC 3.31 L (3.80-5.40) m/uL Hgb 10.4 L (11.4-16.0) gm/dL Hct 32.2 L (34.0-46.0) % ABG pH (7.35-7.45) ABG pCO2 (35-45) mmHg ABG HCO3 (21-25) mmol/L ABG Total CO2 (19-24) mmol/L ABG O2 Saturation (94-97) % Hemoglobin (11.4-16.0) gm/dL Sodium 135 L (137-145) mmol/L Carbon Dioxide 38 H (22-30) mmol/L BUN 18 H (7-17) mg/dL Creatinine 0.24 L (0.52-1.04) mg/dL Glucose 110 H (74-99) mg/dL POC Glucose (mg/dL) 111 H (70-110) mg/dL Calcium 7.8 L (8.4-10.2) mg/dL 10/22/23 Range/Units 05:48 RBC (3.80-5.40) m/uL Hgb (11.4-16.0) gm/dL Hct (34.0-46.0) % ABG pH 7.49 H (7.35-7.45) ABG pCO2 51 H (35-45) mmHg ABG HCO3 39 H (21-25) mmol/L ABG Total CO2 40 H (19-24) mmol/L ABG O2 Saturation 98.1 H (94-97) % Hemoglobin 10.1 L (11.4-16.0) gm/dL Sodium (137-145) mmol/L Carbon Dioxide (22-30) mmol/L BUN (7-17) mg/dL Creatinine (0.52-1.04) mg/dL Glucose (74-99) mg/dL POC Glucose (mg/dL) (70-110) mg/dL Calcium (8.4-10.2) mg/dL Assessment and Plan Assessment: Acute on chronic hypoxic and hypercapnic respiratory failure, multifactorial, requiring reintubation for the first time on 10/10/2023, multiple bronchoscopies has been performed for left lung collapse and pneumonia patient is on combination of cefepime patient was extubated on 10/11 and had to be reintubated on 10/12 mostly secondary to mucous plugging. And the patient could not clear her secretions, Post tracheostomy and PEG tube placement, postoperative day #3 Left lung collapse secondary to mucous plugs and left lower lobe pneumonia requiring multiple bronchoscopies Advanced COPD with acute COPD exacerbation Acute COPD exacerbation Chronic pain syndrome Chronic systolic congestive heart failure Hypotension secondary to sepsis and septic shock requiring pressors, recovered Profound weakness and debility with multiple comorbidities as noted above. Coffee-ground material noted in nasogastric tube today, patient is on Pepcid no significant drop in hemoglobin, will continue to monitor and continue Pepcid in the meantime Plan: The patient was seen and evaluated Chest x-ray, ABG, labs and medications reviewed She remains off norepinephrine Remains off propofol Continued on bronchodilators, prednisone taper Remains on heparin for DVT prophylaxis Pepcid for GI prophylaxis Stable for transfer to [facility] once a bed is available I have personally seen and examined the patient, performed the documentation and the assessment and plan as written. Number of minutes spent on the visit: 15.
[2023-10-22 11:35] LABS: Glucose,Whole Blood 138 mg/dL (70-110)
[2023-10-22 12:46] VITALS: BMI 27.0
--- NOTE | 2023-10-22 13:05 | P.DS ---
Providers Date of admission: 09/21/23 19:53 Attending physician: Christ Carlisle MD Consults: 09/22/23 07:00 Consult Physician Routine Consulting Provider: Timothy Serrano Consult Reason/Comments: s/p cardiac arrest Do you want consulting provider notified?: Already Contacted Placement Type Exists?: Yes 09/23/23 14:39 Consult Physician Routine Consulting Provider: Silver Alaniz V Consult Reason/Comments: post arrest Do you want consulting provider notified?: Already Contacted Placement Type Exists?: Yes 10/16/23 11:54 Consult Physician Routine Consulting Provider: Magdy Sanchez Consult Reason/Comments: Trach and PEG Do you want consulting provider notified?: Yes Primary care physician: Stated None Hospital Course: Acute on chronic hypoxic and hypercapnic respiratory failure, multifactorial, requiring intubation mechanical ventilation last week, and reintubation on 09/29, extubated 10/02, now requiring intubation again 10/10/23, extubated although required reintubation 10/13, failure of successful extubation and scheduled for PEG tube and tracheostomy 10/18/2023 Acute COPD exacerbation Left lung pneumonia with sepsis and septic shock, hospital-acquired pneumonia with complete opacification of the left lung secondary to mucous plugging, requiring bronchoscopy and BAL of the left lung. Chronic hypoxic and hypercapnic respiratory failure Chronic pain syndrome Sinus rhythm with PVCs Severe pulmonary hypertension Hyperlipidemia Diabetes mellitus History of GERD Hypothyroidism Severe protein calorie malnutrition History of osteoarthritis GI and DVT prophylaxis Full code discharge disposition The patient be transferred to psych specialty for continued monitoring and treatment. Hospital course This 79-year-old woman with a past medical history multiple complex medical issues was in admitted to the hospital with the features of COPD acute exacerbation and significant pneumonia. Patient was treated with antibiotics bronchodilators. Patient was intubated and monitored in ICU. Patient also had acute hypoxic respiratory failure. The patient is currently on assist control mode on ventilator. According to critical care pulmonary physician Dr. Carlisle patient is stable for transfer at this time. [facility] and treatment. Please refer to the medication reconciliation sheetfor further information on Medications. Overall prognosis guarded but patient is stable currently. Please refer to the multiple progress notes and consultation notes for further information. Plan - Discharge Summary New Discharge Prescriptions: New predniSONE [Deltasone] 30 mg PO DAILY tab Heparin Sodium,Porcine (1 ml) [Heparin Sodium] 5,000 unit SQ Q12HR each Paliperidone [Invega] 3 mg PO DAILY tab Metoprolol Tartrate [Lopressor] 25 mg PO BID tab Nystatin 100,000Unit/gm Cream [Mycostatin Cream] 1 applic TOPICAL TID each HYDROcodone/APAP 5-325MG [[place] 5-325] 1 each PO Q6HR PRN tab PRN Reason: Pain Famotidine [Pepcid] 20 mg PO BID tab Acetaminophen Suppository [Tylenol Suppository] 650 mg RECTAL Q4H PRN suppositor PRN Reason: PAIN 1-3 OR TEMP >101F Ipratropium-Albuterol Nebulize [Duoneb 0.5 mg-3 mg/3 ml Soln] 3 ml INHALATION RT-Q4H each Ipratropium-Albuterol Nebulize [Duoneb 0.5 mg-3 mg/3 ml Soln] 3 ml INHALATION RT-Q2H PRN each PRN Reason: SHORTNESS OF BREATH/ WHEEZING INSULIN ASPART (NovoLOG) [NovoLOG (formulary)] 0 unit SQ Q6HR each Chlorhexidine Gluconate [Peridex] 15 ml MUCOUS MEM BID ml Discontinued Ibuprofen [Motrin] 400 mg PO Q8HR PRN #30 tab PRN Reason: Pain Discharge Medication List Acetaminophen Suppository [Tylenol Suppository] 650 mg RECTAL Q4H PRN suppositor 10/22/23 [Rx] Chlorhexidine Gluconate [Peridex] 15 ml MUCOUS MEM BID ml 10/22/23 [Rx] Famotidine [Pepcid] 20 mg PO BID tab 10/22/23 [Rx] HYDROcodone/APAP 5-325MG [[place] 5-325] 1 each PO Q6HR PRN tab 10/22/23 [Rx] Heparin Sodium,Porcine (1 ml) [Heparin Sodium] 5,000 unit SQ Q12HR each 10/22/23 [Rx] INSULIN ASPART (NovoLOG) [NovoLOG (formulary)] 0 unit SQ Q6HR each 10/22/23 [Rx] Ipratropium-Albuterol Nebulize [Duoneb 0.5 mg-3 mg/3 ml Soln] 3 ml INHALATION RT-Q2H PRN each 10/22/23 [Rx] Ipratropium-Albuterol Nebulize [Duoneb 0.5 mg-3 mg/3 ml Soln] 3 ml INHALATION RT-Q4H each 10/22/23 [Rx] Metoprolol Tartrate [Lopressor] 25 mg PO BID tab 10/22/23 [Rx] Nystatin 100,000Unit/gm Cream [Mycostatin Cream] 1 applic TOPICAL TID each 10/22/23 [Rx] Paliperidone [Invega] 3 mg PO DAILY tab 10/22/23 [Rx] predniSONE [Deltasone] 30 mg PO DAILY tab 10/22/23 [Rx]
[2023-10-22 16:13] VITALS: BP 101/66; PULSE 105; RESP 13; TEMP 98.4
--- NOTE | 2023-10-23 12:05 | CA ---
Transthoracic Echo Report Name: Roxana Long Age: 73 Gender: F : 1950 Exam Date: 09/22/2023 09:34 Exam Location: [facility] Ht (in): 63 Wt (lb): 123 Ordering Physician: Attending/Referring Phys: Science Editor Carmen Newell RDCS Procedure CPT: Indications: Cardiac Hx: Technical Quality: Good Contrast 1: Total Dose (mL): Contrast 2: Total Dose (mL): MEASUREMENTS (Male / Female) Normal Values 2D ECHO LV Diastolic Diameter PLAX 5.1 cm 4.2 - 5.9 / 3.9 - 5.3 cm LV Systolic Diameter PLAX 3.1 cm IVS Diastolic Thickness 1.0 cm 0.6 - 1.0 / 0.6 - 0.9 cm LVPW Diastolic Thickness 0.7 cm 0.6 - 1.0 / 0.6 - 0.9 cm LV Relative Wall Thickness 0.3 LVOT Diameter 2.0 cm LV Diastolic Volume MOD BP 121.0 cm??? 67 - 155 / 56 - 104 cm??? LV Systolic Volume MOD BP 38.2 cm??? 22 - 58 / 19 - 49 cm??? LV Ejection Fraction MOD BP 68.4 % >= 55 % LV Cardiac Index MOD BP 4461.3 cm???/min???m??? LV Diastolic Volume MOD 4C 99.1 cm??? LV Systolic Volume MOD 4C 29.9 cm??? LV Ejection Fraction MOD 4C 69.8 % LV Cardiac Index MOD 4C 3723.6 cm???/min???m??? LV Diastolic Length 4C 8.2 cm LV Systolic Length 4C 6.5 cm LV Diastolic Volume MOD 2C 134.9 cm??? LV Systolic Volume MOD 2C 45.0 cm??? LV Ejection Fraction MOD 2C 66.6 % LV Cardiac Index MOD 2C 4843.4 cm???/min???m??? LV Diastolic Length 2C 9.0 cm LV Systolic Length 2C 7.1 cm LA Volume 68.6 cm??? 18 - 58 / 22 - 52 cm??? LA Volume Index 43.5 cm???/m??? 16 - 28 cm???/m??? Ascending Aorta Diameter 3.5 cm DOPPLER AV Peak Velocity 146.1 cm/s AV Peak Gradient 8.5 mmHg AV Mean Velocity 107.4 cm/s AV Mean Gradient 5.0 mmHg AV Velocity Time Integral 26.2 cm LVOT Peak Velocity 89.1 cm/s LVOT Peak Gradient 3.2 mmHg LVOT Velocity Time Integral 15.2 cm LVOT Stroke Volume 48.7 cm??? LVOT Stroke Volume Index 31.0 ml/m??? LVOT Cardiac Index 2623.4 cm???/min???m??? AV Area Cont Eq vti 1.9 cm??? AV Area Cont Eq pk 2.0 cm??? MV Area PHT 3.7 cm??? Mitral E Point Velocity 51.0 cm/s Mitral A Point Velocity 44.2 cm/s Mitral E to A Ratio 1.2 MV Deceleration Time 202.4 ms TR Peak Velocity 280.5 cm/s TR Peak Gradient 31.5 mmHg Right Atrial Pressure 20.0 mmHg Pulmonary Artery Systolic Pressu 51.5 mmHg Right Ventricular Systolic Press 51.5 mmHg PV Peak Velocity 76.4 cm/s PV Peak Gradient 2.3 mmHg FINDINGS Left Ventricle Left ventricular ejection fraction is estimated at 60 %. Moderately increased left ventricular diastolic volume. Left ventricular wall thickness normal. Ventricular septal flattening. Right Ventricle Severe right ventricular dilatation with mildly reduced function. Severe pulmonary hypertension. Right Atrium Severe right atrial dilatation. Left Atrium Moderately increased left atrial volume. Mitral Valve Structurally normal mitral valve. No evidence for mitral valve prolapse. No mitral stenosis. Trace mitral regurgitation. Aortic Valve Trileaflet aortic valve. No aortic valve stenosis or regurgitation. Tricuspid Valve Structurally normal tricuspid valve. No tricuspid stenosis. Moderate tricuspid regurgitation. Pulmonic Valve Pulmonic valve not well visualized. No pulmonic stenosis. No pulmonic regurgitation. Pericardium Small pericardial effusion. Aorta Normal size aortic root and proximal ascending aorta. CONCLUSIONS Left ventricular ejection fraction 60% RVSP 51 Severely dilated right ventricle with mildly reduced right ventricular function Severe right atrial dilatation Trace mitral regurgitation Moderate tricuspid regurgitation Small pericardial effusion Previewed by: Dr. Maury Bhandari DO (Electronically Signed) Final Date: 22 September 2023 17:55
--- NOTE | 2023-10-23 15:44 | XR ---
Patient Roxana Long ID [id number] Order # EXAMINATION TYPE: XR chest 1V DATE OF EXAM: 09/22/2023 COMPARISON: 09/21/2023 INDICATION: Intubation difficulty breathing TECHNIQUE: Single frontal view of the chest is obtained. FINDINGS: The heart size is normal. The pulmonary vasculature is normal. The lungs are clear. Endotracheal tube tip is 4 cm above the isak. Nasogastric tube transverses the thorax. IMPRESSION: 1. No acute pulmonary process. 2. Lines and catheters discussed above
--- NOTE | 2023-10-23 16:09 | XR ---
Patient: Roxana Long Ordering Physician: Unknown, Unknown ID: [id number] Phone, Pager: Phone : N/A Pager: N/A : 1950 Age/Gender: 73Y, F Primary Location: N/A Procedure: XR CHEST 1V Study Date: 09/26/2023 1:13:00 PM EXAMINATION TYPE: XR chest 1V DATE OF EXAM: 09/26/2023 COMPARISON: 09/24/2023 INDICATION: Increased short of breath TECHNIQUE: Single frontal view of the chest is obtained. FINDINGS: The heart size is upper limits for normal. The pulmonary vasculature is normal. There is increased lung opacity over the the left upper lobe. Moderate left pleural effusion has deve loped. Mild infiltrates at the medial right lung base. IMPRESSION: 1. Developing left pleural effusion. 2. New left upper lobe and right medial lower lobe infiltrates.
--- NOTE | 2023-10-24 08:37 | XR ---
Patient: Roxana Long M Ordering Physician: Unknown, Unknown ID: [id number] Phone, Pager: Phone : N/A Pager: N/A : 1950 Age/Gender: 73Y, F Primary Location: N/A Procedure: XR Chest [address] [facility] Date: 09/29/2023 8:57:00 AM EXAMINATION TYPE: XR chest 1V DATE OF EXAM: 09/29/2023 9:44 AM CLINICAL INDICATION: Shortness of breath/pneumonia COMPARISON: [facility] TECHNIQUE: XR chest 1V Frontal view of the chest. FINDINGS: Lungs/Pleura: Blunting of the left costophrenic angle with near complete aspiration of left lung. The re is no evidence of right pleural effusion, focal consolidation, or pneumothorax. Pulmonary vascularity: Unremarkable. Heart/mediastinum: Cardiomediastinal silhouette is unremarkable. Musculoskeletal: No acute osseous pathology. Other findings: None IMPRESSION: Large left pleural effusion with associated atelectasis.
--- NOTE | 2023-10-24 08:50 | XR ---
Patient Roxana Long ID [id number] Order # EXAMINATION TYPE: XR chest 1V DATE OF EXAM: 09/23/2023 COMPARISON: No comparison available on downtime PACS. INDICATION: Fluid overload TECHNIQUE: Single frontal view of the chest is obtained. FINDINGS: The heart size is normal. The pulmonary vasculature is normal. 6 mild infiltrates at the right base. Correlate for atelectasis. There is partial silhouetting the le ft diaphragm. Left lower lobe infiltrate and/or effusion may be present. Both exams can be performed. IMPRESSION: 1. Mild atelectasis right lung base. 2. Basilar Atelectasis and/or left pleural effusion
--- NOTE | 2023-11-02 13:58 | OP ---
OPERATIVE REPORT DATE OF SERVICE : OPERATIONS: Bronchoscopy and bronchoalveolar lavage of the left lung. PREOPERATIVE DIAGNOSES: Acute hypoxic respiratory failure and complete opacification of the left lung secondary to mucous plugging and pneumonia. POSTOPERATIVE DIAGNOSES: Acute hypoxic respiratory failure and complete opacification of the left lung secondary to mucous plugging and pneumonia. ANESTHESIA USED: The patient was already on propofol, and she received 7 mg of Nimbex prior to the procedure. DESCRIPTION OF PROCEDURE: The patient was placed in the supine position, she was already intubated and mechanically ventilated. An adapter was applied to the endotracheal tube. In the meantime, we were monitoring her O2 saturations, blood pressure was monitored intermittently and cardiac rhythm was continuously monitored. After adequate sedation, the bronchoscope was advanced through the adapter into the end of the endotracheal tube. Thorough examination was done of the distal trachea, isak, right upper lobe, right middle lobe, right lower lobe, left upper lobe, left lower lobe, and lingula. There was evidence of significant thick mucus secretions noted in the left lung mostly involving the lingula and the left lower lobe. These were suctioned and lavaged until completely clear. Followup chest x-ray showed significant improvement in the left lung opacification. The procedure was well tolerated, no complications, fluid was sent for different diagnostic studies. MMODL / IJN: [id number] /
--- NOTE | 2023-11-02 14:01 | OP ---
OPERATIVE REPORT DATE OF SERVICE : OPERATION: Placement of the right IJ triple-lumen catheter. PREOPERATIVE DIAGNOSES: Acute hypoxic respiratory failure and hypotension, requiring norepinephrine. POSTOPERATIVE DIAGNOSES: Acute hypoxic respiratory failure and hypotension, requiring norepinephrine. This was done on an emergency basis. DESCRIPTION OF PROCEDURE: The patient was placed in the supine position, the area of the right cervical region was prepared in a sterile fashion. Drapes were applied. The area behind the posterior belly of the sternocleidomastoid muscle was locally anesthetized with lidocaine. Using the posterior approach, the right internal jugular vein was easily cannulated, a guidewire was placed, area around the guidewire was dilated, then a triple-lumen catheter was inserted over the guidewire, the guidewire was removed. Good blood flow was noted in the 3 different ports of the triple-lumen catheter. The line was secured using 3.0 silk sutures. Chest x-ray postoperatively showed no complications and adequate placement of the end of the triple-lumen catheter. MMODL / IJN: [id number] /
--- NOTE | 2023-11-02 14:36 | XR ---
EXAM: XR Chest, 1 View CLINICAL HISTORY: A-team, SOB TECHNIQUE: Frontal view of the chest. COMPARISON: CTA chest dated 09/21/2023 FINDINGS: Lungs: Left basilar subsegmental opacities overlying the cardiac silhouette. The lungs are otherwise well-aerated. No radiographic evidence for florid CHF. Pleural space: Small left pleural effusion suggested, as noted on the previous CT examination. No right pleural effusion or pneumothorax. Heart:Unremarkable. No cardiomegaly. Mediastinum: The mediastinal contours are unremarkable, accounting for obliquity. No significant tracheal deviation. Bones/joints:Unremarkable. No acute fracture. IMPRESSION: 1. Small left pleural effusion suggested, as noted on the previous CT examination. 2. Left basilar subsegmental opacities overlying the cardiac silhouette. The lungs are otherwise well aerated. No radiographic evidence for florid CHF. Radiologist: Tadeo Gutierrez MD Electronically Signed: 09/24/23 01:33 Study ready at 01:17 and initial results transmitted at 01:33 [facility]
--- NOTE | 2023-11-30 09:30 | P.OP ---
Date of Procedure: 10/18/23 Preoperative Diagnosis: Respiratory failure Protein calorie malnutrition Postoperative Diagnosis: Same Procedure(s) Performed: Tracheostomy PEG tube placement Anesthesia: MAHNAZ Surgeon: Magdy Sanchez Estimated Blood Loss (ml): 5 Pathology: none sent Condition: stable Disposition: PACU Description of Procedure: The patient's placed on the bed in the supine position. The patient received general anesthesia. The neck was prepped and draped in usual sterile fashion. A standard transverse skin incision was made approximately 2 cm above the sternal notch. Using electrocautery the subcutaneous tissues were divided. The platysma was divided. A Wheatlander retractor was placed in the wound. Next the strap muscles were divided in the midline. Another weatlander retractor was placed the wound. The pretracheal fat was then divided with left cautery. The trachea was exposed. At this point the [employer]IT[employer] advance the and the tracheal tube into the right mainstem bronchus. The balloon was inflated. A tracheotomy was then performed between the second and third tracheal rings. The perivascular tissues a gracilis the trachea. The endotracheal tube was brought back under direct vision. And then the #8 [place] tracheostomy tube was placed into the trachea. End-tidal CO2 was confirmed. The patient had been connected to the ventilator. The patient was ventilated satisfactory. The skin incision site was then closed with 3-0 nylon after the retractors were withdrawn. An umbilical tie was used to secure the tracheostomy tube. Next the gastroscope placed oropharynx passed in the esophagus and stomach. There is no evidence of any outlet obstruction. Stomach was insufflated with air. The light reflux seen the anterior abdominal wall. The abdomen was prepped and draped usual fashion. The skin was incised. And the needles placed and stomach under direct visualization. The needle was snared. And the wires placed through the needle and the wire was snared and brought the oropharynx. The PEG tube was placed over top the wire brought down to the stomach. The PEG tube was secured. At the 3 cm karmen. The one-piece bolster was used. Patient tolerated procedure well.
== END 2023-10-22 16:31 | DRG 3 ==
LOC: 2SICU 19:44 → UNDOADMIN 19:53 → EEVIPCON 19:53 → 2SICU 10-05 17:18 → 4SSUR 10-05 17:18 → 2SICU 10-10 09:04 → UNDODISIN 10-22 16:31
PROVIDERS: ADMIT Internal Medicine; ATTEND Internal Medicine
PROC: 5A1945Z Respiratory Ventilation, 24-96 Consecutive Hours (ICD-10-PCS; 2023-09-21)
PROC: 0BH17EZ Insertion of Endotracheal Airway into Trachea, Via Natural or Artificial Opening (ICD-10-PCS; 2023-09-30)
PROC: 02HV33Z Insertion of Infusion Device into Superior Vena Cava, Percutaneous Approach (ICD-10-PCS; 2023-09-30)
PROC: 0BC78ZZ Extirpation of Matter from Left Main Bronchus, Via Natural or Artificial Opening Endoscopic (ICD-10-PCS; principal; 2023-10-10)
PROC: 0B9J8ZX Drainage of Left Lower Lung Lobe, Via Natural or Artificial Opening Endoscopic, Diagnostic (ICD-10-PCS; 2023-10-10)
PROC: 0WCQ8ZZ Extirpation of Matter from Respiratory Tract, Via Natural or Artificial Opening Endoscopic (ICD-10-PCS; 2023-10-12)
PROC: 0B968ZZ Drainage of Right Lower Lobe Bronchus, Via Natural or Artificial Opening Endoscopic (ICD-10-PCS; 2023-10-14)
PROC: 0B9L8ZZ Drainage of Left Lung, Via Natural or Artificial Opening Endoscopic (ICD-10-PCS; 2023-10-14)
PROC: 3E033XZ Introduction of Vasopressor into Peripheral Vein, Percutaneous Approach (ICD-10-PCS; 2023-10-14)
PROC: 0B918ZZ Drainage of Trachea, Via Natural or Artificial Opening Endoscopic (ICD-10-PCS; 2023-10-14)
PROC: 0B958ZZ Drainage of Right Middle Lobe Bronchus, Via Natural or Artificial Opening Endoscopic (ICD-10-PCS; 2023-10-14)
PROC: 0B938ZZ Drainage of Right Main Bronchus, Via Natural or Artificial Opening Endoscopic (ICD-10-PCS; 2023-10-14)
PROC: 0B110F4 Bypass Trachea to Cutaneous with Tracheostomy Device, Open Approach (ICD-10-PCS; 2023-10-18)
PROC: 0DH63UZ Insertion of Feeding Device into Stomach, Percutaneous Approach (ICD-10-PCS; 2023-10-18)
DX: A41.9 Sepsis, unspecified organism (principal); J18.9 Pneumonia, unspecified organism; J96.22 Acute and chronic respiratory failure with hypercapnia; J96.21 Acute and chronic respiratory failure with hypoxia; G93.41 Metabolic encephalopathy; E43 Unspecified severe protein-calorie malnutrition; J15.5 Pneumonia due to Escherichia coli; R65.21 Severe sepsis with septic shock; N17.9 Acute kidney failure, unspecified; J44.0 Chronic obstructive pulmonary disease with (acute) lower respiratory infection; J44.1 Chronic obstructive pulmonary disease with (acute) exacerbation; I50.22 Chronic systolic (congestive) heart failure; J98.11 Atelectasis; E22.2 Syndrome of inappropriate secretion of antidiuretic hormone; D69.6 Thrombocytopenia, unspecified; E03.9 Hypothyroidism, unspecified; E11.9 Type 2 diabetes mellitus without complications; E66.01 Morbid (severe) obesity due to excess calories; E78.5 Hyperlipidemia, unspecified; G89.4 Chronic pain syndrome; I11.0 Hypertensive heart disease with heart failure; I27.20 Pulmonary hypertension, unspecified; I48.91 Unspecified atrial fibrillation; I49.3 Ventricular premature depolarization; K21.9 Gastro-esophageal reflux disease without esophagitis; Y95 Nosocomial condition; Y99.8 Other external cause status; Z68.27 Body mass index [BMI] 27.0-27.9, adult; Z79.52 Long term (current) use of systemic steroids; Z79.4 Long term (current) use of insulin
CPT/HCPCS: 36410; 36600; 43246; 70450; 71045; 71275; 72125; 74177; 76604; 76937; 80048; 80053; 80178; 80202; 82330; 82805; 83735; 83880; 84100; 84132; 84145; 84295; 85025; 85027; 87070; 87077; 87102; 87116; 87186; 87205; 87206; 87324; 87496; 87498; 87502; 87529; 87634; 87635; 87798; 93005; 93306; 93970; 94002; 94003; 94640; 94660; 94760; 96365; 96368; 96375; 96376; 99291